=== PATIENT | female | born 1955 | race Caucasian/White ===

== ENCOUNTER 2017-06-14 11:27 | Inpatient (IN) | payer MEDICAID ==
[2017-06-14 12:27] LABS: GLUCOSE, URINE (UA) NEGATIVE (NEGATIVE); OCCULT BLOOD,URINE NEGATIVE (NEGATIVE); UROBILINOGEN,URINE 1 (NORMAL) E.U./dL (NORMAL)
[2017-06-14 12:31] LABS: CLARITY,URINE CLEAR (CLEAR)
[2017-06-14 12:32] LABS: BILIRUBIN,URINE NEGATIVE (NEGATIVE); ICTOTEST,URINE NEGATIVE
[2017-06-14 12:34] LABS: BASOPHILS # (AUTO) 0.1 10^3/uL (0.0-0.1); BASOPHILS % (AUTO) 1.8 %; EOSINOPHILS % (AUTO) 0.3 %; HGB - HEMOGLOBIN 16.1 g/dL (12.0-16.0); LYMPHOCYTES # (AUTO) 0.8 10^3/uL (1.5-3.5); LYMPHOCYTES % (AUTO) 9.6 %; MEAN CORPUSCULAR HEMOGLOBIN 33.8 pg (27.0-31.0); MEAN CORPUSCULAR HGB CONC 34.2 g/dL (32.0-36.0); MEAN PLATELET VOLUME 9.3 fL (7.9-10.8); MONOCYTES # (AUTO) 0.4 10^3/uL (0.0-1.0); MONOCYTES % (AUTO) 5.1 %; NEUTROPHILS # (AUTO) 6.6 10^3/uL (1.5-6.6); NEUTROPHILS % (AUTO) 83.2 %; PLT - PLATELET COUNT 229 10^3/uL (130-450); RED BLOOD COUNT 4.76 10^6/uL (4.20-5.40); RED CELL DISTRIBUTION WIDTH 16.6 % (12.0-15.0); WHITE BLOOD COUNT 7.9 x10^3/uL (4.8-10.8)
--- NOTE | 2017-06-14 12:54 | ED Physician Documentation ---
PD HPI ABD PAIN - Stated complaint Stated Complaint: ABD PX - Chief complaint Chief Complaint: Abd Pain - History obtained from History obtained from: Patient - History of Present Illness Timing - onset: How many days ago (several) Timing - duration: Days (has had nausea, poor appetite, upper abd discomfort for few days.) Timing - details: Gradual onset, Still present Quality: Aching, Sharp, Pain Location: Epigastric Radiation: No: Lower back, Left flank, Right flank Worsened by: Eating, Breathing, Palpation. No: Position Associated symptoms: Nausea, Vomiting (couple of times), Loss of appetite. No: Fever, Hematemesis, Diarrhea, Constipation, Melena, Hematochezia Similar symptoms before: Has not had sx before Recently seen: Not recently seen Review of Systems Constitutional: denies: Fever, Chills, Myalgias Nose: denies: Rhinorrhea / runny nose, Congestion Throat: denies: Sore throat Cardiac: denies: Chest pain / pressure, Palpitations Respiratory: denies: Dyspnea, Cough GI: reports: Abdominal Pain, Nausea, Vomiting (just couple of times today). denies: Diarrhea, Bloody / black stool : denies: Dysuria, Frequency Skin: denies: Rash, Lesions Neurologic: reports: Generalized weakness. 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 HEENT: Tonsil/Adenoidectomy - Present Medications Home Medications: Ambulatory Orders Medication Instructions Recorded Confirmed Albuterol Sulfate [Proair Hfa 2 puffs INH Q4H PRN 06/14/17 06/14/17 Inhaler] Aspirin Chewable [[place] 81 mg PO DAILY 06/14/17 06/14/17 Aspirin] Calcium/Magnesium/Zinc 1 each PO DAILY 06/14/17 06/14/17 [Hmcthma-Uqxlnsiie-Pgfb Tablet] Lactobacillus Acidophilus 1 cap PO BID 06/14/17 06/14/17 [Acidophilus Lactobacilli] Levothyroxine Sodium 88 mcg PO QPM 06/14/17 06/14/17 Meloxicam 15 mg PO QPM PRN 06/14/17 06/14/17 Methocarbamol 500 mg PO QPM PRN 06/14/17 06/14/17 Metoprolol Tartrate 25 mg PO BID 06/14/17 06/14/17 Multivitamin [Theragran] 1 tab PO DAILY 06/14/17 06/14/17 [place]-3 Acid Ethyl Esters [Lovaza] 1 gm PO BID 06/14/17 06/14/17 Omeprazole 40 mg PO BID 06/14/17 06/14/17 - Allergies Allergies/Adverse Reactions: Allergies Allergy/AdvReac Type Severity Reaction Status Date / Time No Known Drug Allergies Allergy Verified 06/14/17 11:35 - Living Situation Living Situation: reports: With spouse/s.o. Living Arrangement: reports: At home - Social History Does the pt smoke?: Yes Smoking Status: Current every day smoker Does the pt drink ETOH?: Yes ETOH Use: Other (She says she only has 1 or 2 drinks daily and not even every day. She denies any alcohol use in the last 2-3 days because of nausea and the abdominal discomfort.) Does the pt have substance abuse?: No - Family History Family history: reports: Non contributory - POLST Patient has POLST: No PD ED PE NORMAL - Vitals Vital signs reviewed: Yes - General General: Alert and oriented X 3, Well developed/nourished, Other (She appears in discomfort upper abd. ) - HEENT HEENT: Ears normal, Pharynx benign - Neck Neck: Supple, no meningeal sign, No adenopathy, No JVD - Cardiac Cardiac: RRR, No murmur - Respiratory Respiratory: No respiratory distress, Clear bilaterally - Abdomen Abdomen: Normal bowel sounds, Non distended, No organomegaly, Other (very tender upper mid abdomen with local guarding and local rigidity. Mild percussion tenderness. ) - Female Female : Deferred - Rectal Rectal: Deferred - Back Back: No CVA TTP - Derm Derm: Normal color, Warm and dry - Extremities Extremities: No deformity, No tenderness to palpate, Normal ROM s pain - Neuro Neuro: Alert and oriented X 3, No motor deficit, Normal speech, Other (mild to moderate tremors of both arms and hands. ) Eye Opening: Spontaneous Motor: Obeys Commands Verbal: Oriented GCS Score: 15 - Psych Psych: Normal mood Results - Vitals Vitals: Vital Signs - 24 hr 06/14/17 06/14/17 11:30 14:34 Temperature 36.8 C Heart Rate 123 H 93 Respiratory 18 19 Rate Blood Pressure 143/98 H 121/83 H O2 Saturation 98 95 Oxygen O2 Source Room air - Labs Labs: Laboratory Tests 06/14/17 06/14/17 06/14/17 11:55 12:25 12:25 WBC 7.9 RBC 4.76 Hgb 16.1 H Hct 47.2 H MCV 99.0 MCH 33.8 H MCHC 34.2 RDW 16.6 H Plt Count 229 MPV 9.3 Neut # 6.6 Lymph # 0.8 L [place] # 0.4 Eos # 0.0 Baso # 0.1 Absolute Nucleated RBC 0.00 Nucleated RBC % 0.0 PT INR Sodium 134 L Potassium 3.6 Chloride 99 L Carbon Dioxide 25 Anion Gap 10.0 BUN 12 Creatinine 0.9 Estimated GFR (MDRD) 64 L Glucose 111 H Lactic Acid Calcium 9.4 Total Bilirubin 1.7 H AST 129 H ALT 91 H Alkaline Phosphatase 137 H Total Protein 7.5 Albumin 4.3 Globulin 3.2 Albumin/Globulin Ratio 1.3 Lipase 2118 H Urine Color ORANGE Urine Clarity CLEAR Urine pH 7.0 Ur Specific [place] 1.015 Urine Protein Not Reportable Urine Glucose (UA) NEGATIVE Urine Ketones Not Reportable Urine Occult Blood NEGATIVE Urine Nitrite Not Reportable Urine Bilirubin NEGATIVE Urine Urobilinogen 1 (NORMAL) 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 RBC 0-5 Urine WBC 11-25 H Ur Squamous Epith Cells MANY Squamous H Urine Bacteria Moderate H Urine Mucus Marked Strands Ur Microscopic Review INDICATED Urine Culture Comments Not Reportable Ethyl Alcohol 06/14/17 06/14/17 06/14/17 12:25 13:39 13:39 WBC RBC Hgb Hct MCV MCH MCHC RDW Plt Count MPV Neut # Lymph # [place] # Eos # Baso # Absolute Nucleated RBC Nucleated RBC % PT 11.5 INR 1.0 Sodium Potassium Chloride Carbon Dioxide Anion Gap BUN Creatinine Estimated GFR (MDRD) Glucose Lactic Acid 0.9 Calcium Total Bilirubin AST ALT Alkaline Phosphatase Total Protein Albumin Globulin Albumin/Globulin Ratio Lipase Urine Color Urine Clarity Urine pH Ur Specific [place] Urine Protein Urine Glucose (UA) Urine Ketones Urine Occult Blood Urine Nitrite Urine Bilirubin Urine Urobilinogen Ur Leukocyte Esterase Urine RBC Urine WBC Ur Squamous Epith Cells Urine Bacteria Urine Mucus Ur Microscopic Review Urine Culture Comments Ethyl Alcohol < 5.0 PD MEDICAL DECISION MAKING - ED course Complexity details: considered differential (She states only small amount of ongoing alcohol use. She has not had any for couple of days and does appear to have tremors and some shakiness. I wonder if she actually has more than she is admitting. Her lipase is quite elevated in the liver enzymes are only slightly so it does sound like primary pancreatitis. We will get a CT scan. She is given IV fluids and pain medicines. Given the degree of pain and tenderness along with the level of lipase, it is unlikely to be able to be treated at home. She does have a normal calcium level and other electrolytes and blood sugar. She is admitted to the hospitalist service for further care.), d/w patient Departure - Departure Disposition: [facility] DC/Xfer Clinical Impression: Abdominal pain Qualifiers: Abdominal location: upper abdomen, unspecified Qualified Code(s): R10.10 - Upper abdominal pain, unspecified Pancreatitis, acute Qualifiers: Pancreatitis type: unspecified pancreatitis type Acute pancreatitis complication: no infection or necrosis Qualified Code(s): K85.90 - Acute pancreatitis without necrosis or infection, unspecified Condition: Stable Record reviewed to determine appropriate education?: Yes
[2017-06-14 12:59] LABS: BACTERIA,URINE Moderate /HPF (None Seen); MUCUS,URINE Marked Strands; RBC,URINE 0-5 /HPF (0-5); SQUAMOUS EPITHELIAL CELL,UR MANY Squamous (<= Few)
[2017-06-14 13:13] LABS: ALBUMIN 4.3 g/dL (3.2-5.5); ALBUMIN/GLOBULIN RATIO 1.3 (1.0-2.2); BILIRUBIN,TOTAL 1.7 mg/dL (0.2-1.0); CALCIUM 9.4 mg/dL (8.5-10.3); CREATININE 0.9 mg/dL (0.4-1.0); TOTAL PROTEIN 7.5 g/dL (6.7-8.2)
[2017-06-14] MEDS ORDERED: ONDANSETRON 4 MG/2 ML VIAL IVP STA (13:14)
[2017-06-14] MEDS ORDERED: HYDROmorphone 1 MG/ML CARPUJECT IVP STA (13:14)
[2017-06-14] MEDS ORDERED: LORazepam 2 MG/ML VIAL IVP STA (13:14)
[2017-06-14] MEDS ORDERED: SODIUM CHLORIDE 0.9% 1,000 ML IV ONE (13:14)
[2017-06-14] MEDS ORDERED: FAMOTIDINE 20 MG/50 ML 50 ML IV ONE (13:15)
[2017-06-14] MEDS ORDERED: IOPAMIDOL-300 100 ML VIAL ONE (14:06)
[2017-06-14] MEDS ORDERED: KETOROLAC 60 MG/2 ML VIAL IVP STA (14:13)
[2017-06-14] MEDS ORDERED: SODIUM CHLORIDE FLUSH 0.9% 10 ML SYRINGE IVP PRN (14:48)
[2017-06-14] MEDS ORDERED: PROMETHAZINE 25 MG/1 ML VIAL IM PRN (14:48)
[2017-06-14] MEDS ORDERED: HYDROmorphone 1 MG/ML CARPUJECT IVP PRN (14:48)
[2017-06-14] MEDS ORDERED: ZOLPIDEM 5 MG TABLET PO PRN (14:48)
[2017-06-14] MEDS ORDERED: IOPAMIDOL-300 100 ML VIAL IVP ONE (14:50)
[2017-06-14] MEDS ORDERED: LORazepam 0.5 MG TABLET PO PRN (14:55)
[2017-06-14] MEDS ORDERED: ALBUTEROL NEB 2.5 MG/3 ML INH PRN (15:00)
[2017-06-14 15:17] LABS: PT - PROTHROMBIN TIME 11.5 secs (9.9-12.6)
--- NOTE | 2017-06-14 15:25 | CT Report ---
EXAM: CT ABDOMEN AND PELVIS EXAM DATE: 06/14/2017 02:51 PM. CLINICAL HISTORY: Upper abd pain. Nausea. COMPARISONS: None. TECHNIQUE: Routine helical CT imaging was performed through the abdomen and pelvis. IV contrast: 100 cc Isovue-300. Enteric contrast: No. Reconstructions: Coronal and sagittal. In accordance with CT protocol optimization, one or more of the following dose reduction techniques w ere utilized for this exam: automated exposure control, adjustment of mA and/or KV based on patient s ize, or use of iterative reconstructive technique. FINDINGS: Lung Bases: A nonspecific 4 mm peripheral right lower lobe nodule (8/3). Mild right basilar atelectas is or scarring. No effusion. Aortic valvular and mitral annular calcifications. No mainly. Liver: Upper normal in size with diffuse hypoattenuation consistent with mild steatosis. No focal les ion or nodular capsule. Widely patent vasculature. Gallbladder/Bile Ducts: No calcified gallstones or wall thickening. No ductal dilatation. Spleen: Normal size and attenuation. Pain splenic vein. Pancreas: Mildly edematous head, body, and proximal tail. No parenchymal necrosis, focal mass or duct al dilatation. Moderate peripancreatic infiltration and irregular hypodense peripancreatic fluid/exud ates. No pseudocyst. Fat stranding/edema tracks to the midline small bowel mesentery and retroperiton eum, right greater than left. Adrenal Glands: Mild nonspecific renal thickening, without suspicious nodule. Kidneys: Unremarkable. No hydronephrosis, stones, or abnormal parenchymal enhancement. Variant promin ent extrarenal pelvis. Peritoneal Cavity/Bowel: Small hiatus hernia. No intestinal dilatation or acute inflammation. Diffuse colonic diverticulosis most prominent of descending and sigmoid colon. Normal appendix. No intraperi toneal free fluid or free air. No mesenteric adenopathy by CT size criteria. Pelvic Organs: No gross abnormality of the relatively contracted bladder. [employer] organs within normal li mits for age. Vasculature: Severe atherosclerosis including heavily calcified abdominal aorta and iliac arteries. Bones: Mild scoliosis. No fracture or aggressive bone destructive process. Other: Apparent nonspecific asymmetric fibroglandular changes in the breasts, noted a 6 mm nodule on the left (5). IMPRESSION: 1. Consistent with acute pancreatitis with moderate peripancreatic exudates. No pseudocyst, ductal di latation, or necrosis. 2. No calcified gallstone or dilated bile ducts. 3. Mild hepatic steatosis. 4. Diffuse colonic diverticulosis. No bowel destruction. 5. Small hiatus hernia. 6. Severe atherosclerosis. 7. Other incidental findings including a nonspecific 4 mm peripheral right lower lobe lung nodule and apparent asymmetric fibroglandular densities in the breasts. [facility] Referring Provider Line: [phone] SITE ID: [id number]
--- NOTE | 2017-06-14 16:16 | HISTORY & PHYSICAL EXAMINATION ---
Chief Complaint - Chief Complaint Chief Complaint: abdominal pain History of Present Illness - Admitted From Admitted From:: ER - History Obtained From History obtained from: pt - History of Present Illness HPI Comment/Other: Ms. Adkins is 61-year-old female with PMH of alcoholic and cigarette abuse, tremor, HTN, GERD, hypothyroidism, osteoarthritis, who present ER for complaint of abdominal pain. Pt report she has not been drinking alcohol for one week. Three days she started to have nausea, vomiting, upper gastric discomfort, and loss appetite as well. Today morning around 3 am when she waked up she had sharp upper quadrant abdominal pain. Pain scale was at 8/10. Pain was not radiate to other locations, was intermittent. Pt denies hematemesis, melena, hematochezia, chest pain, shortness of breath, fever, chill, cough, diarrhea, bloody or black stool. Pt report she is current cigarette smoking, and alcoholic drinking, " I just can not stop these things, I know it is not good." CT of abdomen reveals acute pancreatitis with moderate peripancreatic exudates, no pseudocyst, ductal dilatation, or necrosis. Elevated liver enzyme, and total bilirubin. Lipase is 2118. 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 Pt had one daughter and one son, both children are health. Living arrangement: At home Living Situation: Alone - Substance History Abuse: Recurrent use of substance despite neg consequences: Alcohol Dependence: Experiences withdrawal or developed tolerances: Tobacco, Alcohol Tobacco Details: Cigarettes - POLST Patient has POLST: No POLST Status: Limited Interventions Meds/Allgy - Home Medications Home Medications: Ambulatory Orders Medication Instructions Recorded Confirmed Albuterol Sulfate [Proair Hfa 2 puffs INH Q4H PRN 06/14/17 06/14/17 Inhaler] Aspirin Chewable [[place] 81 mg PO DAILY 06/14/17 06/14/17 Aspirin] Calcium/Magnesium/Zinc 1 each PO DAILY 06/14/17 06/14/17 [Pgwaeuq-Yxiwujnfh-Pbwq Tablet] Lactobacillus Acidophilus 1 cap PO BID 06/14/17 06/14/17 [Acidophilus Lactobacilli] Levothyroxine Sodium 88 mcg PO QPM 06/14/17 06/14/17 Meloxicam 15 mg PO QPM PRN 06/14/17 06/14/17 Methocarbamol 500 mg PO QPM PRN 06/14/17 06/14/17 Metoprolol Tartrate 25 mg PO BID 06/14/17 06/14/17 Multivitamin [Theragran] 1 tab PO DAILY 06/14/17 06/14/17 [place]-3 Acid Ethyl Esters [Lovaza] 1 gm PO BID 06/14/17 06/14/17 Omeprazole 40 mg PO BID 06/14/17 06/14/17 - Allergies Allergies/Adverse Reactions: Allergies Allergy/AdvReac Type Severity Reaction Status Date / Time No Known Drug Allergies Allergy Verified 06/14/17 11:35 Review of Systems - Constitutional Constitutional: reports: Fatigue, Weakness, Poor appetite. denies: Fever, Chills, Malaise, Diaphoresis, Night sweats, Weight gain, Weight loss - Eyes Eyes: denies: Pain, Irritation, Amaurosis, Blurred vision, Spots in vision, Field loss, Vision loss, Dipolpia - Ears, Nose & Throat Ears, Nose & Throat: denies: Ear pain, Hearing loss, Hearing aids, Vertigo, Nasal pain, Nasal discharge, Nosebleeds, Nasal congestion, Postnasal drainage, Sore throat, Bleeding gums - Cardiovascular Cariovascular: denies: Irregular heart rate, Palpitations, Chest pain, Edema, Lightheadedness, Syncope, Exertional dyspnea, Decr. exercise tolerance, Orthopnea - Respiratory Respiratory: denies: Cough, Sputum production, Wheezing, Snoring, Hemoptysis, Orthopnea, SOB at rest, SOB with exertion, Apnea - Gastrointestinal Gastrointestinal: reports: Abdominal pain, Nausea, Vomiting, Poor appetite. denies: Abdominal distention, Constipation, Diarrhea, Change in bowel habits, Rectal bleeding, Bile emesis, [place] blood emesis, Coffee grounds emesis, Reflux/ heartburn, Bloating - Genitourinary Genitourinary: denies: Dysuria, Frequency, Urgency, Hematuria, Incontinence, Flank pain, Nocturia, Urethral discharge - Musculoskeletal Musculoskeletal: denies: Muscle pain, Back pain, Muscle aches, Stiffness, Limited range of motion, Muscle weakness, Gout, Joint pain, Joint swelling - Integumentary Integumentary: denies: Rash, Pruritis, Lesions, Dryness, Lumps, Acne, Pigment changes - Neurological Neurological: denies: General weakness, Focal weakness, Headache, Dizziness, Numbness, Memory problems, Pre-existing deficit, Abnormal gait, Seizures, Incoordination, Slurred speech - Psychiatric Psychiatric: denies: Depression, Anxiety, Suicidal, Delusions, Hallucinations, Homicidal - Endocrine Endocrine: denies: Polyuria, Polydypsia, Polyphagia, Intolerance to cold - Hematologic/Lymphatic Hematologic/Lymphatic: denies: Anemia, Bruising, Petechiae, Blood clots, Lymphadenopathy, Bleeding tendencies, Recurrent infections Exam - Vital Signs Reviewed Vital Signs: Yes - Physical Exam General Appearance: positive: No acute distress, Alert. negative: Lethargic Eyes Bilateral: positive: Normal inspection, PERRL, No lid inflammation, Conjunctivae nml ENT: positive: ENT inspection nml, Pharynx nml, No signs of dehydration. negative: Purulent nasal drainage, Pharyngeal erythema, Oral lesions, Dry mucous membranes Neck: positive: Nml inspection, Thyroid nml, No JVD, Trachea midline. negative : Thyromegaly, Lymphadenopathy (R), Lymphadenopathy (L), Stiff neck, Carotid bruit, Swelling/bruising, Tracheal deviation Respiratory: positive: Chest non-tender, No respiratory distress. negative: Wheezes, Rales, Rhonchi Cardiovascular: positive: Regular rate & rhythm, No murmur, No gallop. negative : Irregularly irregular, Extrasystoles, Tachycardia, Bradycardia, JVD present, Systolic murmur, Diastolic murmur Peripheral Pulses: positive: 2+ Abdomen: positive: No organomegaly, Nml bowel sounds, No distention, Tenderness. negative: Guarding, Rebound, Abnml bowel sounds Back: positive: Nml inspection. negative: CVA tenderness (R), CVA tenderness (L ) Skin: positive: Color nml, No rash, Warm, Dry. negative: Cyanosis, Diaphoresis , Pallor Extremities: positive: Non-tender, Full ROM, Nml appearance. negative: Calf tenderness, Joint swelling, Suri's sign/cords Neurologic/Psychiatric: positive: Oriented x3, Sensation nml, Mood/affect nml. negative: Weakness, Sensory loss, Facial droop, Slurred/abnml speech, Depressed mood/affect Conclusion/Plan - Problem List (1) Pancreatitis, acute Conclusion/Plan: CT show acute pancreatitis without other complications, significant elevated Lipase, but with normal Calcium IVF NPO with meds pain control check c-reactive protein level daily check Lipase daily lab, and vital monitor Qualifiers: Pancreatitis type: unspecified pancreatitis type Acute pancreatitis complication: no infection or necrosis Qualified Code(s): K85.90 - Acute pancreatitis without necrosis or infection, unspecified (2) Alcohol abuse Conclusion/Plan: pt state she is alcohol-dependence and with withdrawal of shaking, but no seizure or other symptoms reported from pt. CIWA protocol with Ativan PRN and B1 daily tele, and vital monitor consult with alcohol cease (3) Cigarette nicotine dependence Conclusion/Plan: pt also report she is current cigarette smoker Nicotin patch advise pt quit cigarette smoking. (4) HTN (hypertension) Conclusion/Plan: stable, resume home meds (5) Hypothyroidism Conclusion/Plan: resume home meds, check TSH (6) GERD (gastroesophageal reflux disease) Conclusion/Plan: resume home meds, Protonix (7) Tremor Conclusion/Plan: stable, closely monitor. (8) DVT prophylaxis Conclusion/Plan: SCD and Lovenox, normal Plt (9) Limited code status Conclusion/Plan: pt request limited code status with CPR but without incubation - Lab Results Fish Bones: 06/14/17 12:25 06/14/17 12:25 Core Measures - Anticipated LOS I expect patient to be DC'd or transferred within 96 hours.: Yes - DVT/VTE - Prophylaxis VTE/DVT Device ordered at admit?: Yes VTE/DVT Prophylaxis med ordered at admit?: Yes
[2017-06-14] MEDS: PANTOPRAZOLE 40 MG TABLET PO SCH (17:27)
[2017-06-14] MEDS: SODIUM CHLORIDE FLUSH 0.9% 10 ML SYRINGE IVP SCH (17:27)
[2017-06-14] MEDS: SODIUM CHLORIDE 0.9% 1,000 ML IV SCH (17:27)
[2017-06-14] MEDS: NICOTINE 21 MG PATCH TOP SCH (17:27)
[2017-06-14] MEDS: CALCIUM CARB (OYSTER SHELL) 500 MG TABLET PO SCH (20:19)
[2017-06-14] MEDS: OMEGA-3 ACID ETHYL ESTERS 1 GM CAPSULE PO SCH (20:19)
[2017-06-14] MEDS: MAGNESIUM OXIDE 400 MG TABLET PO SCH (20:19)
[2017-06-14] MEDS: METOPROLOL TARTRATE 25 MG TABLET PO SCH (20:19)
[2017-06-14] MEDS: ZINC SULFATE 220 MG CAPSULE PO SCH (20:20)
[2017-06-14] MEDS: LEVOTHYROXINE 88 MCG TABLET PO SCH (20:25)
[2017-06-14] MEDS: ACETAMINOPHEN 325 MG TABLET PO PRN (20:28)
[2017-06-14] MEDS ORDERED: METHOCARBAMOL 500 MG TABLET PO PRN (21:00)
[2017-06-15] MEDS: SODIUM CHLORIDE 0.9% 1,000 ML IV SCH ×4 (00:39→21:57)
[2017-06-15] MEDS: SODIUM CHLORIDE FLUSH 0.9% 10 ML SYRINGE IVP SCH ×3 (00:39→15:48)
[2017-06-15] MEDS: ONDANSETRON 4 MG/2 ML VIAL IVP PRN ×2 (05:19→11:33)
[2017-06-15 05:28] LABS: BASOPHILS % (AUTO) 0.4 %; EOSINOPHILS # (AUTO) 0.1 10^3/uL (0.0-0.7); EOSINOPHILS % (AUTO) 1.4 %; HGB - HEMOGLOBIN 13.8 g/dL (12.0-16.0); LYMPHOCYTES # (AUTO) 1.3 10^3/uL (1.5-3.5); LYMPHOCYTES % (AUTO) 21.9 %; MEAN CORPUSCULAR HEMOGLOBIN 33.2 pg (27.0-31.0); MEAN CORPUSCULAR HGB CONC 33.2 g/dL (32.0-36.0); MEAN CORPUSCULAR VOLUME 100.2 fL (81.0-99.0); MEAN PLATELET VOLUME 9.7 fL (7.9-10.8); MONOCYTES # (AUTO) 0.5 10^3/uL (0.0-1.0); MONOCYTES % (AUTO) 8.9 %; NEUTROPHILS # (AUTO) 3.9 10^3/uL (1.5-6.6); NEUTROPHILS % (AUTO) 67.4 %; PLT - PLATELET COUNT 175 10^3/uL (130-450); RED BLOOD COUNT 4.16 10^6/uL (4.20-5.40); RED CELL DISTRIBUTION WIDTH 16.5 % (12.0-15.0); WHITE BLOOD COUNT 5.8 x10^3/uL (4.8-10.8)
[2017-06-15 06:00] LABS: ALBUMIN 3.4 g/dL (3.2-5.5); ALBUMIN/GLOBULIN RATIO 1.2 (1.0-2.2); BILIRUBIN,TOTAL 1.3 mg/dL (0.2-1.0); CALCIUM 8.2 mg/dL (8.5-10.3); CREATININE 0.4 mg/dL (0.4-1.0); CRP - C-REACTIVE PROTEIN 4.2 mg/dL (0-1.0); MAGNESIUM 1.7 mg/dL (1.7-2.8); TOTAL PROTEIN 6.3 g/dL (6.7-8.2)
[2017-06-15] MEDS: PANTOPRAZOLE 40 MG TABLET PO SCH (06:05)
[2017-06-15] MEDS ORDERED: ZINC PO SCH (09:00)
[2017-06-15] MEDS ORDERED: CALCIUM PO SCH (09:00)
[2017-06-15] MEDS ORDERED: MAGNESIUM PO SCH (09:00)
[2017-06-15] MEDS: ASPIRIN CHEW 81 MG TABLET PO SCH (09:22)
[2017-06-15] MEDS: METOPROLOL TARTRATE 25 MG TABLET PO SCH ×2 (09:23→20:38)
[2017-06-15] MEDS: THIAMINE 100 MG TABLET PO SCH (09:24)
[2017-06-15] MEDS: PRENATAL VITAMIN TABLET PO SCH (09:24)
[2017-06-15] MEDS: OMEGA-3 ACID ETHYL ESTERS 1 GM CAPSULE PO SCH ×2 (09:25→20:36)
[2017-06-15] MEDS: MULTIVITAMIN TABLET PO SCH (09:25)
[2017-06-15] MEDS: POLYETHYLENE GLYCOL 3350 17 GM PACKET PO SCH (09:25)
[2017-06-15] MEDS: NICOTINE 21 MG PATCH TOP SCH (09:26)
[2017-06-15] MEDS: ENOXAPARIN 40 MG/0.4 ML SYRINGE SUBQ SCH (09:30)
--- NOTE | 2017-06-15 10:44 | PROVIDER PROGRESS NOTE ---
Subjective - Prog Note Date Prog Note Date: 06/15/17 - Subjective Pt reports feeling: Improved Subjective: pt report her abdominal pain is better, still some nausea but better, appetite is some better. No vomiting. No CH, SOB, fever, chill. Current Medications - Current Medications Current Medications: Active Medications Acetaminophen (Tylenol) 650 mg PO Q4HR PRN PRN Reason: Pain 1 to 4 Last Admin: 06/14/17 20:28 Dose: 650 mg Albuterol () 2.5 mg INH RTQ4H PRN PRN Reason: Wheezing Aspirin ([place] Aspirin) 81 mg PO DAILY [facility] Last Admin: 06/15/17 09:22 Dose: 81 mg Calcium Carbonate/Glycine (Oysco-500) 500 mg PO QPM [facility] Last Admin: 06/14/17 20:19 Dose: 500 mg Enoxaparin Sodium (Lovenox) 40 mg SUBQ DAILY [facility] Last Admin: 06/15/17 09:30 Dose: 40 mg Hydromorphone HCl (Dilaudid Inj Carp) 1 mg IVP Q2HR PRN PRN Reason: Pain 8 to 10 Last Admin: 06/15/17 05:20 Dose: 1 mg Sodium Chloride (Normal Saline 0.9%) 1,000 mls @ 150 mls/hr IV .Q6H40M [facility] Last Admin: 06/15/17 07:39 Dose: 150 mls/hr Levothyroxine Sodium (Synthroid) 88 mcg PO QPM [facility] Last Admin: 06/14/17 20:25 Dose: 88 mcg Lorazepam (Ativan) 1 mg PO Q1H PRN; Protocol PRN Reason: CIWA > 8 Magnesium Oxide (Mag Ox) 400 mg PO QPM [facility] Last Admin: 06/14/17 20:19 Dose: 400 mg Methocarbamol (Robaxin) 500 mg PO QPM PRN PRN Reason: PAIN Metoprolol Tartrate (Lopressor) 25 mg PO BID [facility] Last Admin: 06/15/17 09:23 Dose: 25 mg Multivitamins (Theragran) 1 tab PO DAILY [facility] Last Admin: 06/15/17 09:25 Dose: 1 tab Nicotine (Nicoderm) 1 patch TOP DAILY [facility] Last Admin: 06/15/17 09:26 Dose: 1 patch Izroe-4-Hbpg Ethyl Esters (Lovaza) 1 gm PO BID [facility] Last Admin: 06/15/17 09:25 Dose: 1 gm Ondansetron HCl (Zofran Inj) 4 mg IVP Q6HR PRN PRN Reason: Nausea / Vomiting Last Admin: 06/15/17 05:19 Dose: 4 mg Pantoprazole Sodium (Protonix) 40 mg PO QDAC [facility] Last Admin: 06/15/17 06:05 Dose: 40 mg Polyethylene Glycol (Miralax) 17 gm PO DAILY [facility] Last Admin: 06/15/17 09:25 Dose: Not Given Multivit/Folic Acid/Iron (Trinatal Rx 1) 1 tab PO DAILY [facility] Last Admin: 06/15/17 09:24 Dose: 1 tab Promethazine HCl (Phenergan Inj) 25 mg IM Q6HR PRN PRN Reason: Nausea / Vomiting Sodium Chloride (Normal Saline Flush 0.9%) 10 ml IVP PRN PRN PRN Reason: NEEDED PER PROVIDER ORDERS Sodium Chloride (Normal Saline Flush 0.9%) 10 ml IVP 0100,0900,1700 [facility] Last Admin: 06/15/17 09:32 Dose: Not Given Thiamine HCl (Vitamin B-1) 100 mg PO DAILY [facility] Last Admin: 06/15/17 09:24 Dose: 100 mg Zinc Sulfate () 220 mg PO QPM [facility] Last Admin: 06/14/17 20:20 Dose: 220 mg Zolpidem Tartrate (Ambien) 5 mg PO QPM PRN PRN Reason: Insomnia Albuterol Sulfate [Proair Hfa Inhaler] 2 puffs INH Q4H PRN 06/14/17 Aspirin Chewable [[place] Aspirin] 81 mg PO DAILY 06/14/17 Calcium/Magnesium/Zinc [Uxopxag-Gcdqkwavm-Dkuw Tablet] 1 each PO DAILY 06/14/17 Lactobacillus Acidophilus [Acidophilus Lactobacilli] 1 cap PO BID 06/14/17 Levothyroxine Sodium 88 mcg PO QPM 06/14/17 Meloxicam 15 mg PO QPM PRN 06/14/17 Methocarbamol 500 mg PO QPM PRN 06/14/17 Metoprolol Tartrate 25 mg PO BID 06/14/17 Multivitamin [Theragran] 1 tab PO DAILY 06/14/17 [place]-3 Acid Ethyl Esters [Lovaza] 1 gm PO BID 06/14/17 Omeprazole 40 mg PO BID 06/14/17 Objective - Vital Signs/Intake & Output Reviewed Vital Signs: Yes Vital Signs: Vital Signs x48h Temp Pulse Resp BP BP Pulse Ox 06/15/17 09:23 133/68 H 06/15/17 08:07 36.4 C L 74 16 133/68 H 98 06/15/17 04:52 36.5 C 81 16 152/78 H 97 Intake & Output: Intake & Output 06/12/17 06/13/17 06/14/17 06/15/17 23:59 23:59 23:59 23:59 Intake Total 1240 2360 Balance 1240 2360 - Objective General Appearance: positive: No acute distress, Alert. negative: Lethargic Eyes Bilateral: positive: Normal inspection, PERRL, No lid inflammation, Conjunctivae nml ENT: positive: ENT inspection nml, Pharynx nml, No signs of dehydration. negative: Purulent nasal drainage, Pharyngeal erythema, Oral lesions Neck: positive: Nml inspection, Thyroid nml, No JVD, Trachea midline. negative : Thyromegaly, Lymphadenopathy (R), Lymphadenopathy (L), Stiff neck, Carotid bruit, Swelling/bruising, Tracheal deviation Respiratory: positive: Chest non-tender, No respiratory distress, Breath sounds nml. negative: Wheezes, Rales, Rhonchi Cardiovascular: positive: Regular rate & rhythm, No murmur, No gallop. negative : Irregularly irregular, Extrasystoles, Tachycardia, Bradycardia, Systolic murmur, Diastolic murmur Peripheral Pulses: 2+ Radial (R), 2+ Radial (L), 2+ Dorsalis pedis (R), 2+ Dorsalis pedis (L) Abdomen: positive: Non-tender, No organomegaly, Nml bowel sounds, No distention. negative: Tenderness, Guarding, Rebound Back: positive: Nml inspection. negative: CVA tenderness (R), CVA tenderness (L ) Skin: positive: Color nml, No rash, Warm, Dry. negative: Cyanosis, Diaphoresis , Pallor Extremities: positive: Non-tender, Full ROM, Nml appearance. negative: Calf tenderness, Joint swelling, Suri's sign/cords Neurologic/Psychiatric: positive: Oriented x3, Motor nml, Sensation nml, Mood/ affect nml. negative: Weakness, Sensory loss, Facial droop, Slurred/abnml speech, Depressed mood/affect - Lab Results Fish Bones: 06/15/17 04:45 06/15/17 04:45 Other Labs: Lab Results x24hrs 06/15/17 06/15/17 06/15/17 Range/Units 04:45 04:45 04:45 WBC 5.8 (4.8-10.8) x10^3/uL RBC 4.16 L (4.20-5.40) 10^6/uL Hgb 13.8 (12.0-16.0) g/dL Hct 41.7 (37.0-47.0) % MCV 100.2 H (81.0-99.0) fL MCH 33.2 H (27.0-31.0) pg MCHC 33.2 (32.0-36.0) g/dL RDW 16.5 H (12.0-15.0) % Plt Count 175 (130-450) 10^3/uL MPV 9.7 (7.9-10.8) fL Neut # 3.9 (1.5-6.6) 10^3/uL Lymph # 1.3 L (1.5-3.5) 10^3/uL [place] # 0.5 (0.0-1.0) 10^3/uL Eos # 0.1 (0.0-0.7) 10^3/uL Baso # 0.0 (0.0-0.1) 10^3/uL Absolute Nucleated RBC 0.01 x10^3/uL Nucleated RBC % 0.2 /100WBC Sodium 138 (135-145) mmol/L Potassium 3.5 (3.5-5.0) mmol/L Chloride 107 (101-111) mmol/L Carbon Dioxide 25 (21-32) mmol/L Anion Gap 6.0 (6-13) BUN 8 (6-20) mg/dL Creatinine 0.4 (0.4-1.0) mg/dL Estimated GFR (MDRD) 163 (>89) Glucose 76 (70-100) mg/dL POC Whole Bld Glucose (70 - 100) mg/dL Calcium 8.2 L (8.5-10.3) mg/dL Magnesium 1.7 (1.7-2.8) mg/dL Total Bilirubin 1.3 H (0.2-1.0) mg/dL AST 78 H (10-42) IU/L ALT 63 H (10-60) IU/L Alkaline Phosphatase 107 (42-121) IU/L C-Reactive Protein 4.2 H (0-1.0) mg/dL Total Protein 6.3 L (6.7-8.2) g/dL Albumin 3.4 (3.2-5.5) g/dL Globulin 2.9 (2.1-4.2) g/dL Albumin/Globulin Ratio 1.2 (1.0-2.2) Lipase 1310 H (22-51) U/L TSH 2.22 (0.34-5.60) uIU/mL 06/15/17 06/14/17 06/14/17 Range/Units 00:23 19:19 18:34 WBC (4.8-10.8) x10^3/uL RBC (4.20-5.40) 10^6/uL Hgb (12.0-16.0) g/dL Hct (37.0-47.0) % MCV (81.0-99.0) fL MCH (27.0-31.0) pg MCHC (32.0-36.0) g/dL RDW (12.0-15.0) % Plt Count (130-450) 10^3/uL MPV (7.9-10.8) fL Neut # (1.5-6.6) 10^3/uL Lymph # (1.5-3.5) 10^3/uL [place] # (0.0-1.0) 10^3/uL Eos # (0.0-0.7) 10^3/uL Baso # (0.0-0.1) 10^3/uL Absolute Nucleated RBC x10^3/uL Nucleated RBC % /100WBC Sodium (135-145) mmol/L Potassium (3.5-5.0) mmol/L Chloride (101-111) mmol/L Carbon Dioxide (21-32) mmol/L Anion Gap (6-13) BUN (6-20) mg/dL Creatinine (0.4-1.0) mg/dL Estimated GFR (MDRD) (>89) Glucose (70-100) mg/dL POC Whole Bld Glucose 85 105 H 67 L (70 - 100) mg/dL Calcium (8.5-10.3) mg/dL Magnesium (1.7-2.8) mg/dL Total Bilirubin (0.2-1.0) mg/dL AST (10-42) IU/L ALT (10-60) IU/L Alkaline Phosphatase (42-121) IU/L C-Reactive Protein (0-1.0) mg/dL Total Protein (6.7-8.2) g/dL Albumin (3.2-5.5) g/dL Globulin (2.1-4.2) g/dL Albumin/Globulin Ratio (1.0-2.2) Lipase (22-51) U/L TSH (0.34-5.60) uIU/mL Assessment/Plan - Problem List (1) Pancreatitis, acute Impression: (1) Pancreatitis, acute Conclusion/Plan: pt report she feels better, pain is better controlled. Lipase is down to 1300 from 2100. continue IVF, clear diet, glucose check, pt had one hypoglycemia per nurse report continue pain control continue vital, lab monitor CT show acute pancreatitis without other complications, significant elevated Lipase, but with normal Calcium IVF NPO with meds pain control check c-reactive protein level daily check Lipase daily lab, and vital monitor Qualifiers: Pancreatitis type: unspecified pancreatitis type Acute pancreatitis complication: no infection or necrosis Qualified Code(s): K85.90 - Acute pancreatitis without necrosis or infection, unspecified (2) Alcohol abuse Conclusion/Plan: continue CIWA protocol neuro check pt state she is alcohol-dependence and with withdrawal of shaking, but no seizure or other symptoms reported from pt. CIWA protocol with Ativan PRN and B1 daily tele, and vital monitor consult with alcohol cease (3) Cigarette nicotine dependence Conclusion/Plan: continue nicotin patch pt also report she is current cigarette smoker Nicotin patch advise pt quit cigarette smoking. (4) HTN (hypertension) Conclusion/Plan: stable, resume home meds (5) Hypothyroidism Conclusion/Plan: TSH normal continue home meds resume home meds, check TSH (6) GERD (gastroesophageal reflux disease) Conclusion/Plan: resume home meds, Protonix (7) Tremor Conclusion/Plan: stable, closely monitor. Qualifiers: Pancreatitis type: unspecified pancreatitis type Acute pancreatitis complication: no infection or necrosis Qualified Code(s): K85.90 - Acute pancreatitis without necrosis or infection, unspecified
[2017-06-15] MEDS: ACETAMINOPHEN 325 MG TABLET PO PRN ×2 (11:35→21:56)
[2017-06-15] MEDS: ZINC SULFATE 220 MG CAPSULE PO SCH (20:36)
[2017-06-15] MEDS: MAGNESIUM OXIDE 400 MG TABLET PO SCH (20:36)
[2017-06-15] MEDS: CALCIUM CARB (OYSTER SHELL) 500 MG TABLET PO SCH (20:36)
[2017-06-15] MEDS: LEVOTHYROXINE 88 MCG TABLET PO SCH (20:36)
[2017-06-16] MEDS: SODIUM CHLORIDE FLUSH 0.9% 10 ML SYRINGE IVP SCH ×2 (02:47→10:33)
[2017-06-16] MEDS: SODIUM CHLORIDE 0.9% 1,000 ML IV SCH (04:48)
[2017-06-16] MEDS: ACETAMINOPHEN 325 MG TABLET PO PRN (05:14)
[2017-06-16] MEDS: PANTOPRAZOLE 40 MG TABLET PO SCH (06:05)
[2017-06-16 06:38] LABS: BASOPHILS % (AUTO) 0.4 %; EOSINOPHILS # (AUTO) 0.1 10^3/uL (0.0-0.7); EOSINOPHILS % (AUTO) 1.5 %; HGB - HEMOGLOBIN 13.2 g/dL (12.0-16.0); LYMPHOCYTES # (AUTO) 1.3 10^3/uL (1.5-3.5); LYMPHOCYTES % (AUTO) 23.9 %; MEAN CORPUSCULAR HEMOGLOBIN 33.4 pg (27.0-31.0); MEAN CORPUSCULAR HGB CONC 33.1 g/dL (32.0-36.0); MEAN CORPUSCULAR VOLUME 100.9 fL (81.0-99.0); MONOCYTES # (AUTO) 0.6 10^3/uL (0.0-1.0); MONOCYTES % (AUTO) 10.3 %; NEUTROPHILS # (AUTO) 3.6 10^3/uL (1.5-6.6); NEUTROPHILS % (AUTO) 63.9 %; PLT - PLATELET COUNT 174 10^3/uL (130-450); RED BLOOD COUNT 3.96 10^6/uL (4.20-5.40); RED CELL DISTRIBUTION WIDTH 16.1 % (12.0-15.0); WHITE BLOOD COUNT 5.6 x10^3/uL (4.8-10.8)
[2017-06-16 07:03] LABS: ALBUMIN 3.3 g/dL (3.2-5.5); ALBUMIN/GLOBULIN RATIO 1.2 (1.0-2.2); CALCIUM 8.3 mg/dL (8.5-10.3); CREATININE 0.4 mg/dL (0.4-1.0); TOTAL PROTEIN 6.1 g/dL (6.7-8.2)
[2017-06-16] MEDS: PRENATAL VITAMIN TABLET PO SCH (07:57)
[2017-06-16] MEDS: ASPIRIN CHEW 81 MG TABLET PO SCH (07:57)
[2017-06-16] MEDS: METOPROLOL TARTRATE 25 MG TABLET PO SCH (07:57)
[2017-06-16] MEDS: NICOTINE 21 MG PATCH TOP SCH (07:58)
[2017-06-16] MEDS: MULTIVITAMIN TABLET PO SCH (07:58)
[2017-06-16] MEDS: THIAMINE 100 MG TABLET PO SCH (07:58)
[2017-06-16] MEDS: ENOXAPARIN 40 MG/0.4 ML SYRINGE SUBQ SCH (07:59)
[2017-06-16 08:32] VITALS: BP 140/63
[2017-06-16] MEDS: POLYETHYLENE GLYCOL 3350 17 GM PACKET PO SCH (10:24)
--- NOTE | 2017-06-16 10:32 | Discharge Plan ---
Discharge Plan Disposition: 01 Home, Self Care Condition: Stable Prescriptions: Ondansetron HCl [Zofran] 4 mg PO Q6H PRN #15 tablet PRN Reason: Nausea / Vomiting oxyCODONE [Roxicodone] 5 mg PO Q6H PRN #15 tablet PRN Reason: Abdominal Pain Diet: Regular Activity Restrictions: Activity as Tolerated Shower Restrictions: No Driving Restrictions: No Weight Bearing: Full Weight Instruction Topics: Lipase, Pancreatitis, Pancreatitis Acute Dc, Oxycodone tablets or capsules, Ondansetron tablets Additional Instructions or Follow Up instructions: May see PCP in one week. Advise pt cease alcohol drinking and cigarette smoking. Should the symptoms return or worsen, may present to ER or call 911 for help. No Smoking: If you smoke, Please STOP! Call for help. Follow-up with: Amrita Salinas ARNP [Primary Care Provider] -
[2017-06-16] MEDS: OMEGA-3 ACID ETHYL ESTERS 1 GM CAPSULE PO SCH (10:34)
--- NOTE | 2017-06-16 10:41 | DISCHARGE SUMMARY ---
Discharge Summary Discharge Date: 06/16/17 Discharging Provider: HARVEY Primary Care Provider: Dr. Salinas Condition at Discharge: Stable Discharge Disposition: 01 Home, Self Care Discharge Facility Name: home - DIAGNOSES Admission Diagnoses: (1) Pancreatitis, acute (2) Alcohol abuse (3) Cigarette nicotine dependence (4) HTN (hypertension) (5) Hypothyroidism (6) GERD (gastroesophageal reflux disease) (7) Tremor Discharge Diagnoses with Status of Each Condition: (1) Pancreatitis, acute resolved. pt denies abdominal. No N/V/D, pt tolerate regular foot. Lipase 103 (2) Alcohol abuse consult, pt state she will reduce alcohol consume but state she will not cease (3) Cigarette nicotine dependence consult, pt state she will try cease the smoking (4) HTN (hypertension) stable, continue home regime (5) Hypothyroidism stable, continue home meds (6) GERD (gastroesophageal reflux disease) stable, continue home meds (7) Tremor stable - HPI History of Present Illness: refer my HPI on pt as the following: Ms. Adkins is 61-year-old female with PMH of alcoholic and cigarette abuse, tremor, HTN, GERD, hypothyroidism, osteoarthritis, who present ER for complaint of abdominal pain. Pt report she has not been drinking alcohol for one week. Three days she started to have nausea, vomiting, upper gastric discomfort, and loss appetite as well. Today morning around 3 am when she waked up she had sharp upper quadrant abdominal pain. Pain scale was at 8/10. Pain was not radiate to other locations, was intermittent. Pt denies hematemesis, melena, hematochezia, chest pain, shortness of breath, fever, chill, cough, diarrhea, bloody or black stool. Pt report she is current cigarette smoking, and alcoholic drinking, " I just can not stop these things, I know it is not good." CT of abdomen reveals acute pancreatitis with moderate peripancreatic exudates, no pseudocyst, ductal dilatation, or necrosis. Elevated liver enzyme, and total bilirubin. Lipase is 2118. - ALLERGIES Allergies/Adverse Reactions: Allergies Allergy/AdvReac Type Severity Reaction Status Date / Time No Known Drug Allergies Allergy Verified 06/14/17 11:35 - MEDICATIONS Home Medications: Ambulatory Orders Medication Instructions Recorded Confirmed Albuterol Sulfate [Proair Hfa 2 puffs INH Q4H PRN 06/14/17 06/14/17 Inhaler] Aspirin Chewable [[place] 81 mg PO DAILY 06/14/17 06/14/17 Aspirin] Calcium/Magnesium/Zinc 1 each PO DAILY 06/14/17 06/14/17 [Lnbofyy-Bbxpxrhhg-Isbc Tablet] Lactobacillus Acidophilus 1 cap PO BID 06/14/17 06/14/17 [Acidophilus Lactobacilli] Levothyroxine Sodium 88 mcg PO QPM 06/14/17 06/14/17 Meloxicam 15 mg PO QPM PRN 06/14/17 06/14/17 Methocarbamol 500 mg PO QPM PRN 06/14/17 06/14/17 Metoprolol Tartrate 25 mg PO BID 06/14/17 06/14/17 Multivitamin [Theragran] 1 tab PO DAILY 06/14/17 06/14/17 [place]-3 Acid Ethyl Esters [Lovaza] 1 gm PO BID 06/14/17 06/14/17 Omeprazole 40 mg PO BID 06/14/17 06/14/17 Ondansetron HCl [Zofran] 4 mg PO Q6H PRN #15 tablet 06/16/17 oxyCODONE [Roxicodone] 5 mg PO Q6H PRN #15 tablet 06/16/17 - PHYSICAL EXAM AT DISCHARGE General Appearance: positive: No acute distress, Alert. negative: Lethargic Eyes Bilateral: positive: Normal inspection, PERRL, No lid inflammation, Conjunctivae nml ENT: positive: ENT inspection nml, Pharynx nml, No signs of dehydration. negative: Purulent nasal drainage, Pharyngeal erythema, Oral lesions Neck: positive: Nml inspection, Thyroid nml, No JVD, Trachea midline. negative : Thyromegaly, Lymphadenopathy (R), Lymphadenopathy (L), Stiff neck, Carotid bruit, Swelling/bruising, Tracheal deviation Respiratory: positive: Chest non-tender, No respiratory distress, Breath sounds nml. negative: Wheezes, Rales, Rhonchi Cardiovascular: positive: Regular rate & rhythm, No murmur, No gallop. negative : Irregularly irregular, Extrasystoles, Tachycardia, Bradycardia, JVD present, Systolic murmur, Diastolic murmur Peripheral Pulses: positive: 2+ Abdomen: positive: Non-tender, No organomegaly, Nml bowel sounds, No distention. negative: Tenderness, Guarding, Rebound Back: positive: Nml inspection. negative: CVA tenderness (R), CVA tenderness (L ) Skin: positive: Color nml, No rash, Warm, Dry. negative: Cyanosis, Diaphoresis , Pallor Extremities: positive: Non-tender, Full ROM, Nml appearance. negative: Calf tenderness, Joint swelling, Suri's sign/cords Neurologic/Psychiatric: positive: Oriented x3, Motor nml, Sensation nml. negative: Weakness, Sensory loss, Facial droop, Slurred/abnml speech, Depressed mood/affect - LABS Result Diagrams: 06/16/17 05:31 06/16/17 05:31 - FOLLOW UP Follow Up: May follow up PCP in one week. Advise pt cease alcohol and cigarette smoking abuse. Should symptoms return or worsen, may present to ER or call 911 for help. - TIME SPENT Time Spent in Discharge (Minutes): 40
== END 2017-06-16 11:10 | disposition home or self-care (01) | DRG 439 ==
LOC: ED 11:27 → MS2 14:48
PROVIDERS: ADMIT Nurse Practitioner Gerontology; ATTEND Nurse Practitioner Gerontology
DX: K85.20 Alcohol induced acute pancreatitis without necrosis or infection (principal); F10.188 Alcohol abuse with other alcohol-induced disorder; F17.210 Nicotine dependence, cigarettes, uncomplicated; I10 Essential (primary) hypertension; E03.9 Hypothyroidism, unspecified; K21.9 Gastro-esophageal reflux disease without esophagitis; R25.1 Tremor, unspecified; M19.90 Unspecified osteoarthritis, unspecified site; Z79.51 Long term (current) use of inhaled steroids; Z79.899 Other long term (current) drug therapy
CPT/HCPCS: 36415; 74177; 80053; 80320; 81001; 81003; 83605; 83690; 83735; 84443; 85025; 85610; 86140; 87086; 96365; 96375; 99283; 99284; 99285

== ENCOUNTER 2017-11-28 09:10 | Outpatient (CLI) | payer MEDICAID ==
[2017-11-28 20:42] LABS: BASOPHILS % (AUTO) 0.5 %; EOSINOPHILS # (AUTO) 0.1 10^3/uL (0.0-0.7); EOSINOPHILS % (AUTO) 1.7 %; HGB - HEMOGLOBIN 15.9 g/dL (12.0-16.0); LYMPHOCYTES # (AUTO) 2.3 10^3/uL (1.5-3.5); LYMPHOCYTES % (AUTO) 31.6 %; MEAN CORPUSCULAR HGB CONC 33.6 g/dL (32.0-36.0); MEAN PLATELET VOLUME 10.9 fL (7.9-10.8); MONOCYTES # (AUTO) 0.8 10^3/uL (0.0-1.0); MONOCYTES % (AUTO) 11.2 %; PLT - PLATELET COUNT 289 10^3/uL (130-450); RED BLOOD COUNT 4.68 10^6/uL (4.20-5.40); WHITE BLOOD COUNT 7.3 x10^3/uL (4.8-10.8)
[2017-11-28 21:23] LABS: ALBUMIN/GLOBULIN RATIO 1.4 (1.0-2.2); BILIRUBIN,TOTAL 0.8 mg/dL (0.2-1.0); CALCIUM 9.5 mg/dL (8.5-10.3); CREATININE 0.7 mg/dL (0.4-1.0); TOTAL PROTEIN 6.8 g/dL (6.7-8.2)
== END 2017-11-28 09:11 | disposition home or self-care (01) ==
LOC: LAB.F 09:10
PROVIDERS: ATTEND Registered Nurse
DX: K75.9 Inflammatory liver disease, unspecified (principal)
CPT/HCPCS: 36415; 80053; 85025

== ENCOUNTER 2017-12-04 08:47 | Outpatient (CLI) | payer MEDICAID ==
[2017-12-04 20:29] LABS: THYROID STIMULATING HORMONE 0.28 uIU/mL (0.34-5.60)
[2017-12-04 20:34] LABS: FREE T4 (FREE THYROXINE) 0.99 ng/dL (0.58-1.64)
[2017-12-04 21:19] LABS: FOLATE > 49.60 ng/mL (5.90 - >24.8)
== END 2017-12-04 08:48 | disposition home or self-care (01) ==
LOC: LAB.F 08:47
PROVIDERS: ATTEND Registered Nurse
DX: M85.80 Other specified disorders of bone density and structure, unspecified site (principal); R53.83 Other fatigue; E03.9 Hypothyroidism, unspecified
CPT/HCPCS: 36415; 82306; 82607; 82746; 84439; 84443

== ENCOUNTER 2018-01-17 09:08 | Outpatient (CLI) | payer MEDICAID ==
--- NOTE | 2018-01-17 15:20 | DEXA Report ---
Reason: OTH DISRD OF BONE DENSITY AND STRUCTURE, UNSPECIFI Procedure Date: 01/17/2018 Accession Number: [id number] / [id number] Procedure: DEX - Dexa Spine and/or Hip CPT Code: FULL RESULT: EXAM: Dexa Spine and/or Hip DATE: 01/17/2018 9:50 AM CLINICAL HISTORY: OTH DISRD OF BONE DENSITY AND STRUCTURE, UNSPECIFI TECHNIQUE: Dual energy x-ray absorptiometry (DXA) was performed on a [employer] System. Regions measured are the AP Spine, femoral neck, and if needed forearm. COMPARISON: None. In accordance with the International Society for Clinical Densitometry (ISCD) guidelines, data from previous exams may be reanalyzed using current recommendations and techniques. This is done to allow a more accurate basis for comparison with the current study. FINDINGS: The data for the lumbar spine is as follows: BMD (g/cm/cm) T-SCORE Z-SCORE REGION L1 1.026 -0.9 0.3 L2 1.011 -1.6 -0.4 L3 1.061 -1.2 0.0 L4 1.045 -1.3 -0.1 TOTAL 1.036 -1.2 0.0 NOTE: All evaluable vertebrae are used for classification The data for the hip is as follows: BMD (g/cm/cm) T-SCORE Z-SCORE REGION Neck 0.860 -1.3 0.0 TOTAL 0.826 -1.4 -0.5 NOTE: The femoral neck or total proximal femur, whichever is lowest, is used for classification. IMPRESSION: THE WHO CLASSIFICATION BASED ON THE INTERNATIONAL REFERENCE STANDARD IS OSTEOPENIA. THE FRACTURE RISK IS INCREASED. RECOMMENDATION: Patients with diagnosis of osteoporosis or osteopenia should have regular bone mineral density assessment. For those eligible for Medicare, routine testing is allowed once every 2 years. Testing frequency can be increased for patients who have rapidly progressing disease or for those who are receiving medical therapy to restore bone mass. COMMENT: World Health Organization (WHO) definitions for osteoporosis and osteopenia: NORMAL BMD: T-score at -1.0 or higher, fracture risk is low OSTEOPENIA BMD: T-score between -1.0 and -2.5, fracture risk is increased. OSTEOPOROSIS BMD: T-score at -2.5 or lower, fracture risk is high. National Osteoporosis Foundation recommends: 1. Obtain adequate dietary calcium (at least 1200 mg per day) and vitamin D (400-800 international units per day). 2. Participate, as appropriate, in regular weightbearing and muscle-strengthening exercise. 3. Avoid tobacco use and reduce alcohol and caffeine intake. 4. For more detailed information see the website at www.NOF.org.
== END 2018-01-17 09:09 | disposition home or self-care (01) ==
LOC: DI 09:08
PROVIDERS: ATTEND Registered Nurse
DX: M85.89 Other specified disorders of bone density and structure, multiple sites (principal)
CPT/HCPCS: 77080

== ENCOUNTER 2018-02-04 11:07 | Outpatient (CLI) | payer MEDICAID | END 2018-02-04 11:08 | disposition home or self-care (01) | LOC: DI 11:07 | PROVIDERS: ATTEND Registered Nurse | DX: Z12.31 Encounter for screening mammogram for malignant neoplasm of breast (principal) | CPT/HCPCS: 77067 ==

== ENCOUNTER 2018-03-31 20:41 | Inpatient (IN) | payer MEDICAID ==
--- NOTE | 2018-03-31 20:47 | ED Physician Documentation ---
PD HPI GI BLEED - Stated complaint Stated Complaint: RECTAL BLEEDING - History obtained from History obtained from: Patient - History of Present Illness Timing - onset: Last night Timing - details: Abrupt onset, Intermittant Pain level max: 4 Pain level now: 0 Associated symptoms: BRBPR, Diarrhea, Abdominal pain. No: Vomiting, Coffee ground emesis, Hematemesis, Maroon stool, Black/tarry stool, Fever Contributing factors: No: Sick contact, Bad food, Travel, Recent antibiotics, Alcohol use, Aspirin use, NSAID use, Anticoagulated (baby ASA QD), Diabetes Improved by: Other (nothing) Worsened by: Other (no apparent inciting nor exacerbating factors) Similar symptoms before: Has not had sx before Recently seen: Not recently seen - Additional information Additional information: has had BRBPR since last night, today with clots. This evening, she had mild dyspnea and lightheadedness and more persistent and frequent BRBPR and thus friend drove patient to ED. Patient denies h/o GIB. She has episodic LLQ cramping pain that correlates with when she is about to pass more blood, but no pain inbetween these episodes. Review of Systems Constitutional: reports: Reviewed and negative Eyes: reports: Reviewed and negative Ears: reports: Reviewed and negative Nose: reports: Reviewed and negative Cardiac: reports: Reviewed and negative Respiratory: reports: Dyspnea (mild, intermittent). denies: Cough, Wheezing GI: reports: Abdominal Pain (episodic LLQ) : denies: Dysuria, Frequency, Hematuria Skin: reports: Reviewed and negative Musculoskeletal: reports: Reviewed and negative Neurologic: denies: Generalized weakness, Focal weakness, Numbness, Headache Endocrine: denies: Easy bruising / bleeding PD PAST MEDICAL HISTORY - Past Medical History Cardiovascular: Hypertension Endocrine/Autoimmune: HyPOthyroidism GI: GERD, Diverticulitis Musculoskeletal: Osteoarthritis - Past Surgical History Past Surgical History: Yes /[employer]: Tubal ligation HEENT: Tonsil/Adenoidectomy - Present Medications Home Medications: Ambulatory Orders Medication Instructions Recorded Confirmed Albuterol Sulfate [Proair Hfa 2 puffs INH Q4H PRN 06/14/17 06/14/17 Inhaler] Aspirin Chewable [[place] 81 mg PO DAILY 06/14/17 06/14/17 Aspirin] Calcium/Magnesium/Zinc 1 each PO DAILY 06/14/17 06/14/17 [Uosukdn-Wlesllfby-Ncab Tablet] Lactobacillus Acidophilus 1 cap PO BID 06/14/17 06/14/17 [Acidophilus Lactobacilli] Levothyroxine Sodium 88 mcg PO QPM 06/14/17 06/14/17 Meloxicam 15 mg PO QPM PRN 06/14/17 06/14/17 Methocarbamol 500 mg PO QPM PRN 06/14/17 06/14/17 Metoprolol Tartrate 25 mg PO BID 06/14/17 06/14/17 Multivitamin [Theragran] 1 tab PO DAILY 06/14/17 06/14/17 [place]-3 Acid Ethyl Esters [Lovaza] 1 gm PO BID 06/14/17 06/14/17 Omeprazole 40 mg PO BID 06/14/17 06/14/17 Ondansetron HCl [Zofran] 4 mg PO Q6H PRN #15 tablet 06/16/17 oxyCODONE [Roxicodone] 5 mg PO Q6H PRN #15 tablet 06/16/17 - Allergies Allergies/Adverse Reactions: Allergies Allergy/AdvReac Type Severity Reaction Status Date / Time No Known Drug Allergies Allergy Verified 03/31/18 20:55 - Social History Does the pt smoke?: Yes Smoking Status: Current every day smoker Does the pt drink ETOH?: Yes Does the pt have substance abuse?: No - POLST Patient has POLST: No POLST Status: Limited Interventions PD ED PE NORMAL - Vitals Vital signs reviewed: Yes - General General: Alert and oriented X 3, No acute distress, Well developed/nourished - HEENT HEENT: PERRL, EOMI, Moist mucous membranes, Other (pale conjunctiva) - Neck Neck: Supple, no meningeal sign - Cardiac Cardiac: RRR, No murmur - Respiratory Respiratory: No respiratory distress, Clear bilaterally - Abdomen Abdomen: Normal bowel sounds, Soft, Non tender, Non distended - Derm Derm: Normal color, Warm and dry - Extremities Extremities: No edema - Neuro Neuro: Alert and oriented X 3, Normal speech PD ED PE EXPANDED - Rectal Rectal: Heme Occult Pos - QC + (grossly bloody and strong guaiac (+)), Normal Tone, Occupational Medicine Physician present. No: Mass, Hemorrhoid Results - Vitals Vitals: Vital Signs - 24 hr 03/31/18 03/31/18 03/31/18 20:53 21:20 21:49 Temperature 36.4 C L Heart Rate 93 78 70 Respiratory 18 14 21 Rate Blood Pressure 75/53 L 79/63 L 109/72 O2 Saturation 100 100 98 Oxygen O2 Source Room air - EKG (time done) No standard instances Rate: Rate (enter#) (72) Rhythm: NSR [place]: Normal Intervals: Normal MS QRS: Normal Ischemia: Normal ST segments - Labs Labs: Laboratory Tests 03/31/18 03/31/18 03/31/18 20:55 20:55 20:55 WBC 13.8 H RBC 3.20 L Hgb 10.9 L Hct 33.0 L MCV 102.9 H MCH 33.9 H MCHC 33.0 RDW 13.8 Plt Count 357 MPV 9.8 Neut # (Auto) 9.9 H Lymph # (Auto) 2.6 [place] # (Auto) 1.2 H Eos # (Auto) 0.0 Baso # (Auto) 0.1 Absolute Nucleated RBC 0.01 Nucleated RBC % 0.1 PT 14.0 H INR 1.2 APTT 29.3 Sodium 133 L Potassium 4.3 Chloride 100 L Carbon Dioxide 24 Anion Gap 9.0 BUN 17 Creatinine 0.7 Estimated GFR (MDRD) 85 L Glucose 122 H Calcium 8.2 L Total Bilirubin 0.9 AST 51 H ALT 25 Alkaline Phosphatase 130 H Troponin I Total Protein 6.2 L Albumin 2.8 L Globulin 3.4 Albumin/Globulin Ratio 0.8 L Lipase 27 Blood Type Blood Type Recheck Antibody Screen 03/31/18 03/31/18 03/31/18 20:55 20:55 21:13 WBC RBC Hgb Hct MCV MCH MCHC RDW Plt Count MPV Neut # (Auto) Lymph # (Auto) [place] # (Auto) Eos # (Auto) Baso # (Auto) Absolute Nucleated RBC Nucleated RBC % PT INR APTT Sodium Potassium Chloride Carbon Dioxide Anion Gap BUN Creatinine Estimated GFR (MDRD) Glucose Calcium Total Bilirubin AST ALT Alkaline Phosphatase Troponin I < 0.04 Total Protein Albumin Globulin Albumin/Globulin Ratio Lipase Blood Type A POSITIVE Blood Type Recheck A POSITIVE Antibody Screen NEGATIVE PD MEDICAL DECISION MAKING - ED course Complexity details: reviewed results, re-evaluated patient, considered differential, d/w patient Departure - Departure Disposition: [facility] DC/Xfer Clinical Impression: Lower gastrointestinal bleeding Condition: Stable Discharge Date/Time: 03/31/18 22:49
[2018-03-31] MEDS ORDERED: SODIUM CHLORIDE 0.9% 1,000 ML IV STA (21:07)
[2018-03-31 21:13] LABS: BASOPHILS # (AUTO) 0.1 10^3/uL (0.0-0.1); BASOPHILS % (AUTO) 0.5 %; EOSINOPHILS % (AUTO) 0.3 %; HGB - HEMOGLOBIN 10.9 g/dL (12.0-16.0); LYMPHOCYTES # (AUTO) 2.6 10^3/uL (1.5-3.5); LYMPHOCYTES % (AUTO) 18.8 %; MEAN CORPUSCULAR HEMOGLOBIN 33.9 pg (27.0-31.0); MEAN CORPUSCULAR VOLUME 102.9 fL (81.0-99.0); MEAN PLATELET VOLUME 9.8 fL (7.9-10.8); MONOCYTES # (AUTO) 1.2 10^3/uL (0.0-1.0); MONOCYTES % (AUTO) 8.8 %; NEUTROPHILS # (AUTO) 9.9 10^3/uL (1.5-6.6); NEUTROPHILS % (AUTO) 71.6 %; PLT - PLATELET COUNT 357 10^3/uL (130-450); RED CELL DISTRIBUTION WIDTH 13.8 % (12.0-15.0); WHITE BLOOD COUNT 13.8 x10^3/uL (4.8-10.8)
[2018-03-31 21:20] LABS: INR 1.2 (0.8-1.2)
[2018-03-31 21:27] LABS: ALBUMIN 2.8 g/dL (3.2-5.5); ALBUMIN/GLOBULIN RATIO 0.8 (1.0-2.2); BILIRUBIN,TOTAL 0.9 mg/dL (0.2-1.0); CALCIUM 8.2 mg/dL (8.5-10.3); CREATININE 0.7 mg/dL (0.4-1.0); TOTAL PROTEIN 6.2 g/dL (6.7-8.2)
[2018-03-31] MEDS ORDERED: ALBUTEROL NEB 2.5 MG/3 ML INH PRN (23:30)
--- NOTE | 2018-03-31 23:35 | HISTORY & PHYSICAL EXAMINATION ---
Chief Complaint - Chief Complaint Chief Complaint: Bright red blood per rectum History of Present Illness - Admitted From Admitted From:: Emergency department - History Obtained From Records Reviewed: Emergency department record History obtained from: Patient and Dr. Rodriguez, ED physician Exam Limitations: None - History of Present Illness HPI Comment/Other: Patient is a 62-year-old female with a past medical history of hypertension, acid reflux, diverticulosis with diverticulitis, who also has chronic joint pain taking meloxicam for the past 6 months who presents with lower GI bleed since earlier this morning and possibly as early as last night. Patient states that she had some loose stools last night but was unable to see and is unsure if there is any blood in it however this morning she did have a bowel movement in which after wiping she was able to see bright red blood on the toilet paper. This recurred several times within an hour going to the bathroom about every 15 minutes. The patient states that she uses an outhouse and so she is unable to evaluate toilet water for the amount of blood but she does feel like there was a lot of liquid with bowel movements possibly suggestive of copious bloody. This eventually stopped in the morning that happened a couple of more times at which point when she got up she started to feel lightheaded and she called a friend to take her to the hospital. In the emergency room and evaluation was performed to find that her hypotensive with blood pressures in the 70s systolic that persisted for a little while until 1 L normal saline bolus was completed at which point her blood pressure remained over 100 systolic for over an hour when the hospitalist service was then called for admission. Her labs are suggestive of acute blood loss with hemoglobin and hematocrit 10.9 and 33 respectively.Her baseline is closer to 15 hemoglobin hematocrit closer to 35. She is not tachycardic. She has minimal abdominal pain and for this reason a CT scan was held off. Though she does have a history of diverticulitis she is afebrile currently. A guaiac test was positive. No hemorrhoids were noted on exam. 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 Pt had one daughter and one son, both children are health. - POLST Patient has POLST: No POLST Status: Limited Interventions Meds/Allgy - Home Medications Home Medications: Ambulatory Orders Medication Instructions Recorded Confirmed Albuterol Sulfate [Proair Hfa 2 puffs INH Q4H PRN 06/14/17 06/14/17 Inhaler] Aspirin Chewable [[place] 81 mg PO DAILY 06/14/17 06/14/17 Aspirin] Calcium/Magnesium/Zinc 1 each PO DAILY 06/14/17 06/14/17 [Syutfgs-Csduimlwq-Wfwe Tablet] Lactobacillus Acidophilus 1 cap PO BID 06/14/17 06/14/17 [Acidophilus Lactobacilli] Levothyroxine Sodium 88 mcg PO QPM 06/14/17 06/14/17 Meloxicam 15 mg PO QPM PRN 06/14/17 06/14/17 Methocarbamol 500 mg PO QPM PRN 06/14/17 06/14/17 Metoprolol Tartrate 25 mg PO BID 06/14/17 06/14/17 Multivitamin [Theragran] 1 tab PO DAILY 06/14/17 06/14/17 [place]-3 Acid Ethyl Esters [Lovaza] 1 gm PO BID 06/14/17 06/14/17 Omeprazole 40 mg PO BID 06/14/17 06/14/17 Ondansetron HCl [Zofran] 4 mg PO Q6H PRN #15 tablet 06/16/17 oxyCODONE [Roxicodone] 5 mg PO Q6H PRN #15 tablet 06/16/17 - Allergies Allergies/Adverse Reactions: Allergies Allergy/AdvReac Type Severity Reaction Status Date / Time No Known Drug Allergies Allergy Verified 03/31/18 20:55 Review of Systems - Constitutional Constitutional: reports: Fatigue, Weakness, Poor appetite. denies: Fever, Chills, Diaphoresis, Night sweats, Weight loss - Cardiovascular Cariovascular: denies: Chest pain - Respiratory Respiratory: denies: SOB at rest - Gastrointestinal Gastrointestinal: reports: Abdominal pain, Diarrhea, Change in bowel habits, Rectal bleeding, Bloody stools, Nausea. denies: Abdominal distention, C onstipation, Black stools, Vomiting - Musculoskeletal Musculoskeletal: reports: Back pain, Joint pain - Neurological Neurological: reports: General weakness Prior Level of Functionality: Independent Exam - Vital Signs Reviewed Vital Signs: Yes Vital Signs: Vital Signs x48h Temp Pulse Pulse Resp BP BP Pulse Ox 03/31/18 22:43 36.6 C 75 18 145/64 H 03/31/18 22:21 74 22 82/55 L 100 03/31/18 21:49 70 21 109/72 98 03/31/18 21:20 78 14 79/63 L 100 03/31/18 20:53 36.4 C L 93 18 75/53 L 100 Vital Signs - 24 hr 03/31/18 03/31/18 03/31/18 20:53 21:20 21:49 Temperature 36.4 C L Heart Rate 93 78 70 Heart Rate [ Brachial] Respiratory 18 14 21 Rate Blood Pressure 75/53 L 79/63 L 109/72 Blood Pressure [Right Brachial artery] O2 Saturation 100 100 98 03/31/18 03/31/18 22:21 22:43 Temperature 36.6 C Heart Rate 74 Heart Rate [ 75 Brachial] Respiratory 22 18 Rate Blood Pressure 82/55 L Blood Pressure 145/64 H [Right Brachial artery] O2 Saturation 100 - Physical Exam General Appearance: positive: No acute distress Eyes Bilateral: positive: Normal inspection ENT: positive: ENT inspection nml Neck: positive: Nml inspection, Thyroid nml, No JVD Respiratory: positive: Chest non-tender, No respiratory distress, Breath sounds nml Cardiovascular: positive: Regular rate & rhythm, No murmur, No gallop Abdomen: positive: Non-tender, No organomegaly, Nml bowel sounds, No distention Back: positive: Nml inspection. negative: CVA tenderness (R), CVA tenderness (L) Skin: positive: Color nml, Dry Extremities: positive: Non-tender, No pedal edema Neurologic/Psychiatric: positive: Oriented x3, CN's nml (2-12), Motor nml Sepsis Event Note (H) - Evaluation Current Stage of Sepsis: Ruled out Conclusion/Plan - Problem List (1) Lower gastrointestinal bleeding Conclusion/Plan: Patient has bright red blood per rectum however she has stabilized since presenting and has not had any further blood loss. Though she does demonstrate a drop in her hemoglobin and hematocrit from her baseline, she does not have a worrisome hemoglobin and hematocrit. In fact given her blood pressure which is actually now elevated, I will hold off on the every 6 hours hemoglobin and hematocrit unless this changes and simply check it at the morning labs which at this point is now 6 hours from the time of this dictation. If there is not a significant amount of drop, and she is asymptomatic, she may possibly be able to go home without a scope and have this done as an outpatient. On the other hand, if she does have a continual drop in the hemoglobin and hematocrit are symptomatically is not improved, this would be worth consulting with our surgical colleagues for possible colonoscopy. I highly suspect that this is related to her chronic NSAID use. She admits that she is been on meloxicam for the past 6 months for chronic joint pain. She states that for a part of this time she actually took it twice daily until her PCP told her she should not do this and take it only once daily.I did advise her to find an alternative treatment plan with her PCP as the NSAIDs will certainly exacerbate GI bleeding if not cause it, among other things such as renal failure. (2) NSAID long-term use Conclusion/Plan: As above, advised patient against the continuous use of chronic NSAIDs given this current setting of GI bleeding.I do highly suspect that the 2 are related.Patient will follow up on this with her PCP (3) Cigarette nicotine dependence Conclusion/Plan: Patient smokes 1-1/2 packs/day but she declined a nicotine patch. I did marriage counselor her on further cessation and she states that she is down from previous 3 cigarettes/day. Of course this could also contribute to her current symptoms and I did marriage counselor her on that as well. (4) GERD (gastroesophageal reflux disease) Conclusion/Plan: Again, given her history of acid reflux and now the lower GI bleeding, in the s etting of chronic NSAID use, multiple recommendations were made. I will keep her on Protonix while inpatient. (5) HTN (hypertension) Conclusion/Plan: Patient was severely hypotensive at admission but is now actually just slightly hypertensive. We will resume her blood pressure medications in the morning unless blood pressure does not continue to stabilize. (6) Hypothyroidism Conclusion/Plan: No signs of acute hypothyroid sequelae, continue home dose of levothyroxine. - Lab Results Lab results reviewed: Yes Fish Bones: 03/31/18 20:55 03/31/18 20:55 - EKG Results EKG Interpreted Independently: Yes EKG Comparison: Old EKG unavailable Core Measures - Anticipated LOS I expect patient to be DC'd or transferred within 96 hours.: Yes - DVT/VTE - Prophylaxis VTE/DVT Device ordered at admit?: Yes
[2018-03-31] MEDS: SODIUM CHLORIDE 0.9% 1,000 ML IV SCH (23:59)
[2018-04-01] MEDS: SODIUM CHLORIDE FLUSH 0.9% 10 ML SYRINGE IVP SCH ×3 (00:15→17:08)
[2018-04-01 06:39] LABS: HGB - HEMOGLOBIN 9.7 g/dL (12.0-16.0); MEAN CORPUSCULAR HEMOGLOBIN 34.9 pg (27.0-31.0); MEAN CORPUSCULAR HGB CONC 33.6 g/dL (32.0-36.0); MEAN CORPUSCULAR VOLUME 103.9 fL (81.0-99.0); MEAN PLATELET VOLUME 9.7 fL (7.9-10.8); RED BLOOD COUNT 2.78 10^6/uL (4.20-5.40); RED CELL DISTRIBUTION WIDTH 13.8 % (12.0-15.0); WHITE BLOOD COUNT 8.6 x10^3/uL (4.8-10.8)
[2018-04-01] MEDS: PANTOPRAZOLE 40 MG TABLET PO SCH (06:43)
[2018-04-01] MEDS: SODIUM CHLORIDE 0.9% 1,000 ML IV SCH ×3 (06:43→22:53)
[2018-04-01] MEDS: POLYETHYLENE GLYCOL 3350 17 GM PACKET PO SCH (08:55)
[2018-04-01] MEDS ORDERED: METOPROLOL TARTRATE 25 MG TABLET PO SCH (09:00)
[2018-04-01] MEDS: oxyCODONE 5 MG TABLET PO PRN ×2 (14:15→20:16)
--- NOTE | 2018-04-01 15:57 | PROVIDER PROGRESS NOTE ---
Subjective - Prog Note Date Prog Note Date: 04/01/18 Prog Note Time: 15:54 - Subjective Pt reports feeling: Improved Subjective: Jessica complains of ongoing low abdominal pain that comes and goes and is provoked by bowel movements. She admits to one bloody, dark stool since this morning. She denies dizziness, shortness of breath, a cough, chest pain, nausea, vomiting, or any other bleeding. Current Medications - Current Medications Current Medications: Active Medications: Albuterol () 2.5 mg INH Q4H PRN Sodium Chloride (Normal Saline 0.9%) 1,000 mls @ 125 mls/hr IV .Q8H RAFA Levothyroxine Sodium (Synthroid) 88 mcg PO QPM RFAA Methocarbamol (Robaxin) 500 mg PO QPM PRN Oxycodone HCl (Roxicodone) 5 mg PO Q6H PRN Pantoprazole Sodium (Protonix) 40 mg PO QDAC [facility] Polyethylene Glycol (Miralax) 17 gm PO DAILY [facility] HOME meds: (uncomfirmed) Albuterol Sulfate [Proair Hfa Inhaler] 2 puffs INH Q4H PRN 06/14/17 Aspirin Chewable [[place] Aspirin] 81 mg PO DAILY 06/14/17 Calcium/Magnesium/Zinc [Zxtadax-Xfhkbhiul-Nspm Tablet] 1 each PO DAILY 06/14/17 Lactobacillus Acidophilus [Acidophilus Lactobacilli] 1 cap PO BID 06/14/17 Levothyroxine Sodium 88 mcg PO QPM 06/14/17 Meloxicam 15 mg PO QPM PRN 06/14/17 Methocarbamol 500 mg PO QPM PRN 06/14/17 Metoprolol Tartrate 25 mg PO BID 06/14/17 Multivitamin [Theragran] 1 tab PO DAILY 06/14/17 [place]-3 Acid Ethyl Esters [Lovaza] 1 gm PO BID 06/14/17 Omeprazole 40 mg PO BID 06/14/17 Objective - Vital Signs/Intake & Output Reviewed Vital Signs: Yes Vital Signs: Vital Signs x48h Temp Pulse Resp BP BP Pulse Ox 04/01/18 13:45 37.1 C 95 18 126/75 94 04/01/18 12:00 36.8 C 105 H 18 98/64 96 04/01/18 08:51 85/50 L Intake & Output: Intake & Output 03/29/18 03/30/18 03/31/18 04/01/18 23:59 23:59 23:59 23:59 Intake Total 1000 2391.667 Balance 1000 2391.667 - Objective General Appearance: positive: No acute distress, Alert Eyes Bilateral: positive: PERRL ENT: positive: ENT inspection nml, Pharynx nml, No signs of dehydration Neck: positive: Thyroid nml, No JVD Respiratory: positive: Chest non-tender, No respiratory distress, Breath sounds nml Cardiovascular: positive: Regular rate & rhythm, Systolic murmur Peripheral Pulses: 1+ Radial (R), 1+ Radial (L) Abdomen: positive: Tenderness (bilateral low quandrants), Abnml bowel sounds (hyperactive), Other (rounded, soft). negative: Mass Back: positive: Nml inspection Skin: positive: No rash, Warm, Dry Extremities: positive: Non-tender, Full ROM, No pedal edema Neurologic/Psychiatric: positive: Oriented x3, CN's nml (2-12), Motor nml, Sensation nml, Mood/affect nml Reflexes: Bicep (R): 3+, Bicep (L): 3+ - Lab Results Fish Bones: 04/01/18 05:56 03/31/18 20:55 Other Labs: Lab Results x24hrs 04/01/18 03/31/18 03/31/18 Range/Units 05:56 21:13 20:55 WBC 8.6 (4.8-10.8) x10^3/uL RBC 2.78 L (4.20-5.40) 10^6/uL Hgb 9.7 L (12.0-16.0) g/dL Hct 28.9 L (37.0-47.0) % MCV 103.9 H (81.0-99.0) fL MCH 34.9 H (27.0-31.0) pg MCHC 33.6 (32.0-36.0) g/dL RDW 13.8 (12.0-15.0) % Plt Count 257 (130-450) 10^3/uL MPV 9.7 (7.9-10.8) fL Neut # (Auto) (1.5-6.6) 10^3/uL Lymph # (Auto) (1.5-3.5) 10^3/uL [place] # (Auto) (0.0-1.0) 10^3/uL Eos # (Auto) (0.0-0.7) 10^3/uL Baso # (Auto) (0.0-0.1) 10^3/uL Absolute Nucleated RBC x10^3/uL Nucleated RBC % /100WBC PT (9.9-12.6) secs INR (0.8-1.2) APTT (24.9-33.3) secs Sodium (135-145) mmol/L Potassium (3.5-5.0) mmol/L Chloride (101-111) mmol/L Carbon Dioxide (21-32) mmol/L Anion Gap (6-13) BUN (6-20) mg/dL Creatinine (0.4-1.0) mg/dL Estimated GFR (MDRD) (>89) Glucose (70-100) mg/dL Calcium (8.5-10.3) mg/dL Total Bilirubin (0.2-1.0) mg/dL AST (10-42) IU/L ALT (10-60) IU/L Alkaline Phosphatase (42-121) IU/L Troponin I (<0.49) ng/mL Total Protein (6.7-8.2) g/dL Albumin (3.2-5.5) g/dL Globulin (2.1-4.2) g/dL Albumin/Globulin Ratio (1.0-2.2) Lipase (22-51) U/L Blood Type A POSITIVE Blood Type Recheck A POSITIVE Antibody Screen NEGATIVE 03/31/18 03/31/18 03/31/18 Range/Units 20:55 20:55 20:55 WBC (4.8-10.8) x10^3/uL RBC (4.20-5.40) 10^6/uL Hgb (12.0-16.0) g/dL Hct (37.0-47.0) % MCV (81.0-99.0) fL MCH (27.0-31.0) pg MCHC (32.0-36.0) g/dL RDW (12.0-15.0) % Plt Count (130-450) 10^3/uL MPV (7.9-10.8) fL Neut # (Auto) (1.5-6.6) 10^3/uL Lymph # (Auto) (1.5-3.5) 10^3/uL [place] # (Auto) (0.0-1.0) 10^3/uL Eos # (Auto) (0.0-0.7) 10^3/uL Baso # (Auto) (0.0-0.1) 10^3/uL Absolute Nucleated RBC x10^3/uL Nucleated RBC % /100WBC PT 14.0 H (9.9-12.6) secs INR 1.2 (0.8-1.2) APTT 29.3 (24.9-33.3) secs Sodium 133 L (135-145) mmol/L Potassium 4.3 (3.5-5.0) mmol/L Chloride 100 L (101-111) mmol/L Carbon Dioxide 24 (21-32) mmol/L Anion Gap 9.0 (6-13) BUN 17 (6-20) mg/dL Creatinine 0.7 (0.4-1.0) mg/dL Estimated GFR (MDRD) 85 L (>89) Glucose 122 H (70-100) mg/dL Calcium 8.2 L (8.5-10.3) mg/dL Total Bilirubin 0.9 (0.2-1.0) mg/dL AST 51 H (10-42) IU/L ALT 25 (10-60) IU/L Alkaline Phosphatase 130 H (42-121) IU/L Troponin I < 0.04 (<0.49) ng/mL Total Protein 6.2 L (6.7-8.2) g/dL Albumin 2.8 L (3.2-5.5) g/dL Globulin 3.4 (2.1-4.2) g/dL Albumin/Globulin Ratio 0.8 L (1.0-2.2) Lipase 27 (22-51) U/L Blood Type Blood Type Recheck Antibody Screen 03/31/18 Range/Units 20:55 WBC 13.8 H (4.8-10.8) x10^3/uL RBC 3.20 L (4.20-5.40) 10^6/uL Hgb 10.9 L (12.0-16.0) g/dL Hct 33.0 L (37.0-47.0) % MCV 102.9 H (81.0-99.0) fL MCH 33.9 H (27.0-31.0) pg MCHC 33.0 (32.0-36.0) g/dL RDW 13.8 (12.0-15.0) % Plt Count 357 (130-450) 10^3/uL MPV 9.8 (7.9-10.8) fL Neut # (Auto) 9.9 H (1.5-6.6) 10^3/uL Lymph # (Auto) 2.6 (1.5-3.5) 10^3/uL [place] # (Auto) 1.2 H (0.0-1.0) 10^3/uL Eos # (Auto) 0.0 (0.0-0.7) 10^3/uL Baso # (Auto) 0.1 (0.0-0.1) 10^3/uL Absolute Nucleated RBC 0.01 x10^3/uL Nucleated RBC % 0.1 /100WBC PT (9.9-12.6) secs INR (0.8-1.2) APTT (24.9-33.3) secs Sodium (135-145) mmol/L Potassium (3.5-5.0) mmol/L Chloride (101-111) mmol/L Carbon Dioxide (21-32) mmol/L Anion Gap (6-13) BUN (6-20) mg/dL Creatinine (0.4-1.0) mg/dL Estimated GFR (MDRD) (>89) Glucose (70-100) mg/dL Calcium (8.5-10.3) mg/dL Total Bilirubin (0.2-1.0) mg/dL AST (10-42) IU/L ALT (10-60) IU/L Alkaline Phosphatase (42-121) IU/L Troponin I (<0.49) ng/mL Total Protein (6.7-8.2) g/dL Albumin (3.2-5.5) g/dL Globulin (2.1-4.2) g/dL Albumin/Globulin Ratio (1.0-2.2) Lipase (22-51) U/L Blood Type Blood Type Recheck Antibody Screen ABX Reporting Has patient been on IV antibiotics over the past 48 hours?: No Sepsis Event Note (H) - Evaluation Current Stage of Sepsis: Ruled out Assessment/Plan - Problem List (1) Lower gastrointestinal bleeding Impression: The patient has a known history of diverticulosis, and states that while she is having the bloody stool, the cramping becomes worse. She has a baseline hemoglobin of ~13-15 that is now down to 10.9, then 9.7. She had one bloody, dark stool today after consuming chicken broth. Plan: Continue to monitor, await general surgery consult with a possible scope. (2) Hypotension Impression: The patient is normally hypertensive and is prescribed metoprolol at home. Since admission, she has been low with systolic B/P in the 70's. She stated that she was not dizzy or short of breath with this, but she agreed to get into bed until this improved. Plan: Continue IV fluids, monitor labs, watch for further bleeding. (3) Diverticulosis Impression: The patient states that she has had this for several years and this low abdominal pain reminds her of this. She states that for the past one month, this pain has been very sporadic, but has been more noticeable. She had a WBC count of 13 that has now normalized. On exam she has noted low abdominal discomfort with palpitation. Plan: Abdominal/pelvis CT with IV/oral contrast. (4) NSAID long-term use Impression: The patient is prescribed Meloxicam at home for her arthritis pain. She denies throwing up blood or a history of gastric ulcers. She may be taking a PPI, but medications have not been confirmed by pharmacy. Plan: Hold for now, discourage future use if a gastric ulcer is suspected. (5) Cigarette nicotine dependence Impression: The patient admits to being a life long smoker. She has no interest in quitting when discussed this morning and is prescribed a nicotine patch ordered. Plan: Continue to encourage cessation, offer nicotine patch. (6) GERD (gastroesophageal reflux disease) Impression: The patient has a history of this and prescribed Omeprazole at home, although not confirmed yet. Plan: Continue IV protonix, monitor symptoms. (7) HTN (hypertension) Impression: The patient is prescribed metoprolol at home that is on hold today given her continued hypotension. Plan: Continue to monitor VSs, resume on discharge. Qualifiers: Hypertension type: essential hypertension Qualified Code(s): I10 - Essential (primary) hypertension
[2018-04-01] MEDS ORDERED: IOVERSOL 320 100 ML VIAL IVP ONE ×2 (16:06→17:30)
[2018-04-01] MEDS ORDERED: IOVERSOL 320 50 ML VIAL ONE (16:06)
[2018-04-01] MEDS ORDERED: IOVERSOL 320 50 ML VIAL PO ONE (17:32)
--- NOTE | 2018-04-01 17:42 | CONSULTATION NOTE ---
Referring Provider Consult Date: 04/01/18 Chief Complaint - Chief Complaint Chief Complaint: blood in stool History of Present Illness - History of Present Illness HPI Comment/Other: 62 yo woman c/o 1 month of abdominal pain she attributes to diverticulitis, as she has had similar attacks before. The pain steadily worsened over the past month and she finally started noticing blood in her stool over the past couple of days and came to the ER. She also admits to taking large amounts of NSAIDs over the past month for this pain. 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 Pt had one daughter and one son, both children are health. - POLST Patient has POLST: No POLST Status: Limited Interventions Meds/Allgy - Home Medications Home Medications: Ambulatory Orders Medication Instructions Recorded Confirmed Albuterol Sulfate [Proair Hfa 2 puffs INH Q4H PRN 06/14/17 04/01/18 Inhaler] Aspirin Chewable [[place] 81 mg PO DAILY 06/14/17 04/01/18 Aspirin] Calcium/Magnesium/Zinc 1 each PO DAILY 06/14/17 04/01/18 [Xhbevcn-Ommuwcgyv-Kufa Tablet] Lactobacillus Acidophilus 1 cap PO BID 06/14/17 04/01/18 [Acidophilus Lactobacilli] Levothyroxine Sodium 88 mcg PO QPM 06/14/17 04/01/18 Meloxicam 15 mg PO QPM PRN 06/14/17 04/01/18 Methocarbamol 500 mg PO QPM PRN 06/14/17 04/01/18 Metoprolol Tartrate 25 mg PO BID 06/14/17 04/01/18 Multivitamin [Theragran] 1 tab PO DAILY 06/14/17 04/01/18 [place]-3 Acid Ethyl Esters [Lovaza] 1 gm PO BID 06/14/17 04/01/18 Omeprazole 40 mg PO BID 06/14/17 04/01/18 Cyanocobalamin (Vitamin B-12) 1,000 mcg PO DAILY 04/01/18 04/01/18 [Vitamin B-12] - Allergies Allergies/Adverse Reactions: Allergies Allergy/AdvReac Type Severity Reaction Status Date / Time No Known Drug Allergies Allergy Verified 03/31/18 20:55 Review of Systems - Gastrointestinal Gastrointestinal: reports: Abdominal pain, Rectal bleeding, Bloody stools Exam - Vital Signs Vital Signs: Vital Signs x48h Temp Pulse Resp BP BP Pulse Ox 04/01/18 16:00 36.9 C 94 20 125/72 96 04/01/18 13:45 37.1 C 95 18 126/75 94 04/01/18 12:00 36.8 C 105 H 18 98/64 96 - Physical Exam General Appearance: positive: No acute distress Eyes Bilateral: positive: Normal inspection ENT: positive: ENT inspection nml Neck: positive: Nml inspection Respiratory: positive: Chest non-tender Abdomen: positive: Tenderness Back: positive: Nml inspection Skin: positive: Color nml Extremities: positive: Non-tender Neurologic/Psychiatric: positive: Oriented x3 Conclusion/Plan - Diagnosis Diagnosis: Diverticulitis with bleeding - Plan Plan: Antibiotics, bowel rest, and monitor H/H. Pt admits to having a colonoscopy 2-3 years ago which she states was normal. Since her bleeding appears to be intermittent and low-grade, plan to avoid scoping an inflamed colon and see if the bleeding resolves spontaneously. - Lab Results Lab results reviewed: Yes Fish Bones: 04/01/18 05:56 03/31/18 20:55
--- NOTE | 2018-04-01 19:05 | CT Report ---
Reason: diverticulitis, GI bleeding Procedure Date: 04/01/2018 Accession Number: [id number] / [id number] Procedure: CT - Abdomen/Pelvis W/ CPT Code: FULL RESULT: EXAM: CT ABDOMEN AND PELVIS EXAM DATE: 04/01/2018 05:04 PM. CLINICAL HISTORY: Diverticulitis, GI bleeding. COMPARISONS: ABDOMEN/PELVIS W/ 06/14/2017 2:43 PM. TECHNIQUE: Routine helical CT imaging was performed through the abdomen and pelvis. IV contrast: 90 ML OPTIRAY 320. Enteric contrast: Positive. Reconstructions: Coronal and sagittal. In accordance with CT protocol optimization, one or more of the following dose reduction techniques were utilized for this exam: automated exposure control, adjustment of mA and/or KV based on patient size, or use of iterative reconstructive technique. FINDINGS: Lung Bases: Unremarkable. Liver: Probable fatty liver. No focal liver lesion. Gallbladder/Bile Ducts: Unremarkable. Spleen: Unremarkable. Pancreas: Unremarkable. Adrenal Glands: Normal. Kidneys: Normal. No masses or hydronephrosis. Peritoneal Cavity/Bowel: There is diverticulosis, extensive in the sigmoid colon. There is pericolonic stranding at the sigmoid colon. Small pericolonic fluid collection measuring 18 x 13 mm (3/59). Additional subjacent small poorly marginated area of hypodensity in the left adnexal region may be contiguous. Additional area of extra colonic gas with peripheral enhancing soft tissue is seen adjacent to the sigmoid colon measuring approximately 26 x 18 mm (3/56) No free air. Minimal free fluid. The appendix is well visualized and normal. Pelvic Organs: Urinary bladder decompressed, grossly unremarkable. Uterus is partially obscured by the pelvic process above, grossly unremarkable. Vasculature: No aneurysms or other significant abnormality. Diffuse aortoiliac atherosclerotic calcification. Bones: No significant abnormality. Other: None. IMPRESSION: 1. Findings suggest acute diverticulitis with associated inflammatory change and small pelvic abscesses as noted above. 2. Other findings as noted above. RADIA
[2018-04-01] MEDS: LEVOTHYROXINE 88 MCG TABLET PO SCH (20:16)
[2018-04-02] MEDS: SODIUM CHLORIDE FLUSH 0.9% 10 ML SYRINGE IVP SCH ×3 (01:41→19:10)
[2018-04-02] MEDS: METHOCARBAMOL 500 MG TABLET PO PRN (01:47)
[2018-04-02 05:17] LABS: ALBUMIN 2.3 g/dL (3.2-5.5); ALBUMIN/GLOBULIN RATIO 0.8 (1.0-2.2); BILIRUBIN,TOTAL 0.5 mg/dL (0.2-1.0); CALCIUM 7.8 mg/dL (8.5-10.3); CREATININE 0.5 mg/dL (0.4-1.0); TOTAL PROTEIN 5.2 g/dL (6.7-8.2)
[2018-04-02 05:31] LABS: HGB - HEMOGLOBIN 8.5 g/dL (12.0-16.0); MEAN CORPUSCULAR HEMOGLOBIN 34.7 pg (27.0-31.0); MEAN CORPUSCULAR HGB CONC 33.6 g/dL (32.0-36.0); MEAN CORPUSCULAR VOLUME 103.3 fL (81.0-99.0); MEAN PLATELET VOLUME 9.5 fL (7.9-10.8); RED BLOOD COUNT 2.45 10^6/uL (4.20-5.40); RED CELL DISTRIBUTION WIDTH 13.4 % (12.0-15.0); WHITE BLOOD COUNT 10.8 x10^3/uL (4.8-10.8)
[2018-04-02] MEDS: PANTOPRAZOLE 40 MG TABLET PO SCH (05:56)
[2018-04-02] MEDS: SODIUM CHLORIDE 0.9% 1,000 ML IV SCH (07:23)
[2018-04-02] MEDS: POLYETHYLENE GLYCOL 3350 17 GM PACKET PO SCH (08:38)
[2018-04-02] MEDS ORDERED: metroNIDAZOLE 250 MG TABLET PO SCH (09:00)
[2018-04-02] MEDS ORDERED: CIPROFLOXACIN 250 MG TABLET PO SCH (09:00)
[2018-04-02] MEDS: WHEAT DEXTRIN POWDER PACKET PO SCH (09:09)
--- NOTE | 2018-04-02 10:48 | PROVIDER PROGRESS NOTE ---
Subjective - Prog Note Date Prog Note Date: 04/02/18 Prog Note Time: 10:45 - Subjective Pt reports feeling: No change (Pt continues to have some blood by rectum with BMs. No symptoms of anemia. Abdominal pain improved.) Objective - Vital Signs/Intake & Output Vital Signs: Vital Signs x48h Temp Pulse Pulse Pulse Pulse Resp BP 04/02/18 08:04 104 H 114 H 87 04/02/18 08:00 37.8 C H 87 20 101/65 04/02/18 05:15 36.9 C 98 101 H 116 H 98 16 BP BP BP BP Pulse Ox 04/02/18 08:04 96/62 83/65 L 101/65 04/02/18 08:00 97 04/02/18 05:15 143/65 H 152/67 H 110/65 143/65 H 96 Intake & Output: Intake & Output 03/30/18 03/31/18 04/01/18 04/02/18 23:59 23:59 23:59 23:59 Intake Total 1000 4411.667 1493.75 Balance 1000 4411.667 1493.75 - Objective General Appearance: positive: No acute distress Eyes Bilateral: positive: Normal inspection ENT: positive: ENT inspection nml Neck: positive: Nml inspection Respiratory: positive: Chest non-tender Abdomen: positive: Tenderness Back: positive: Nml inspection Skin: positive: Color nml Extremities: positive: Non-tender - Lab Results Fish Bones: 04/02/18 04:55 04/02/18 04:55 Other Labs: Lab Results x24hrs 04/02/18 04/02/18 Range/Units 04:55 04:55 WBC 10.8 (4.8-10.8) x10^3/uL RBC 2.45 L (4.20-5.40) 10^6/uL Hgb 8.5 L (12.0-16.0) g/dL Hct 25.3 L (37.0-47.0) % MCV 103.3 H (81.0-99.0) fL MCH 34.7 H (27.0-31.0) pg MCHC 33.6 (32.0-36.0) g/dL RDW 13.4 (12.0-15.0) % Plt Count 253 (130-450) 10^3/uL MPV 9.5 (7.9-10.8) fL Sodium 135 (135-145) mmol/L Potassium 3.4 L (3.5-5.0) mmol/L Chloride 107 (101-111) mmol/L Carbon Dioxide 20 L (21-32) mmol/L Anion Gap 8.0 (6-13) BUN 6 (6-20) mg/dL Creatinine 0.5 (0.4-1.0) mg/dL Estimated GFR (MDRD) 126 (>89) Glucose 81 (70-100) mg/dL Calcium 7.8 L (8.5-10.3) mg/dL Total Bilirubin 0.5 (0.2-1.0) mg/dL AST 43 H (10-42) IU/L ALT 23 (10-60) IU/L Alkaline Phosphatase 91 (42-121) IU/L Total Protein 5.2 L (6.7-8.2) g/dL Albumin 2.3 L (3.2-5.5) g/dL Globulin 2.9 (2.1-4.2) g/dL Albumin/Globulin Ratio 0.8 L (1.0-2.2) Sepsis Event Note (H) - Evaluation Current Stage of Sepsis: Ruled out Assessment/Plan - Problem List (1) Diverticulosis Impression: Pt received a CT scan overnight which demonstrates contained perforation of diverticulitis. In light of this, a colonoscopy could potentially make the perforation worse. She continues to have low grade rectal bleeding. Will monitor for spontaneous resolution. Continue bowel rest and antibiotics for now.
[2018-04-02] MEDS ORDERED: METOPROLOL SUCCINATE 25 MG TABLET PO SCH (12:39)
--- NOTE | 2018-04-02 12:50 | PROVIDER PROGRESS NOTE ---
Subjective - Prog Note Date Prog Note Date: 04/02/18 Prog Note Time: 12:49 - Subjective Pt reports feeling: Worse Subjective: Jessica complains of ongoing low abdominal pain, loss of appetite, bloody stools, intermittent dizziness, fevers, chills, weakness, fatigue, and nausea. She denies chest pain, bleeding, rashes, increased shortness of breath or a new productive cough. She is not tolerating meals. Current Medications - Current Medications Current Medications: Active Medications: Acetaminophen (Tylenol) 650 mg PO Q4HR PRN Albuterol () 2.5 mg INH Q4H PRN Diltiazem HCl (Cardizem Cd) 120 mg PO DAILY RAFA Ciprofloxacin (Cipro 400 Mg/200 Ml) 200 mls @ 200 mls/hr IV Q12H RAFA Metronidazole (Flagyl 500 Mg/100 Ml) 500 mg in 100 mls @ 100 mls/hr IV Q8H RAFA Potassium Chloride/Sodium Chloride (Normal Saline 0.9% W/20 Meq Kcl) 1,000 mls @ 125 mls/hr IV .Q8H RAFA Levothyroxine Sodium (Synthroid) 88 mcg PO QPM RAFA Methocarbamol (Robaxin) 500 mg PO QPM PRN Oxycodone HCl (Roxicodone) 5 mg PO Q6H PRN Pantoprazole Sodium (Protonix) 40 mg PO QDAC [facility] Polyethylene Glycol (Miralax) 17 gm PO DAILY [facility] Saccharomyces Boulardii (Florastor) 250 mg PO BIDWM [facility] Wheat Dextrin (Benefiber) 1 packet PO DAILY [facility] HOME meds: Albuterol Sulfate [Proair Hfa Inhaler] 2 puffs INH Q4H PRN 06/14/17 Aspirin Chewable [[place] Aspirin] 81 mg PO DAILY 06/14/17 Calcium/Magnesium/Zinc [Ymspdfx-Hghfwucja-Dxgp Tablet] 1 each PO DAILY 06/14/17 Lactobacillus Acidophilus [Acidophilus Lactobacilli] 1 cap PO BID 06/14/17 Levothyroxine Sodium 88 mcg PO QPM 06/14/17 Meloxicam 15 mg PO QPM PRN 06/14/17 Methocarbamol 500 mg PO QPM PRN 06/14/17 Metoprolol Tartrate 25 mg PO BID 06/14/17 Multivitamin [Theragran] 1 tab PO DAILY 06/14/17 [place]-3 Acid Ethyl Esters [Lovaza] 1 gm PO BID 06/14/17 Omeprazole 40 mg PO BID 06/14/17 Cyanocobalamin (Vitamin B-12) [Vitamin B-12] 1,000 mcg PO DAILY 04/01/18 Objective - Vital Signs/Intake & Output Reviewed Vital Signs: Yes Vital Signs: Vital Signs x48h Temp Pulse Pulse Pulse Pulse Pulse Resp 04/02/18 11:16 37.4 C 102 H 30 H 04/02/18 11:00 102 H 30 H 04/02/18 08:04 104 H 114 H 87 04/02/18 08:00 37.8 C H 87 20 04/02/18 05:15 36.9 C 98 101 H 116 H 98 16 BP BP BP BP BP Pulse Ox 04/02/18 11:16 146/61 H 96 04/02/18 11:00 04/02/18 08:04 96/62 83/65 L 101/65 04/02/18 08:00 101/65 97 04/02/18 05:15 143/65 H 152/67 H 110/65 143/65 H 96 Intake & Output: Intake & Output 03/30/18 03/31/18 04/01/18 04/02/18 23:59 23:59 23:59 23:59 Intake Total 1000 4411.667 1493.75 Balance 1000 4411.667 1493.75 - Objective General Appearance: positive: Alert, Mild distress Eyes Bilateral: positive: PERRL Eyes: OU Conjunctivae pale ENT: positive: Pharynx nml, No signs of dehydration Neck: positive: Thyroid nml, No JVD, Trachea midline Respiratory: positive: Chest non-tender, No respiratory distress, Other (diminshed bilaterally) Cardiovascular: positive: Regular rate & rhythm, No gallop, Systolic murmur, Decreased pulse(s) Peripheral Pulses: 2+ Radial (R), 2+ Radial (L) Abdomen: positive: Tenderness, Guarding, Abnml bowel sounds, Other (rounded, soft) Back: positive: Nml inspection Skin: positive: No rash, Warm, Dry, Pallor Extremities: positive: Non-tender, Full ROM, No pedal edema Neurologic/Psychiatric: positive: Oriented x3, CN's nml (2-12), Motor nml, Sensation nml, Depressed mood/affect Reflexes: Bicep (R): 3+, Bicep (L): 3+ - Lab Results Fish Bones: 04/02/18 14:20 04/02/18 04:55 Other Labs: Lab Results x24hrs 04/02/18 04/02/18 Range/Units 04:55 04:55 WBC 10.8 (4.8-10.8) x10^3/uL RBC 2.45 L (4.20-5.40) 10^6/uL Hgb 8.5 L (12.0-16.0) g/dL Hct 25.3 L (37.0-47.0) % MCV 103.3 H (81.0-99.0) fL MCH 34.7 H (27.0-31.0) pg MCHC 33.6 (32.0-36.0) g/dL RDW 13.4 (12.0-15.0) % Plt Count 253 (130-450) 10^3/uL MPV 9.5 (7.9-10.8) fL Sodium 135 (135-145) mmol/L Potassium 3.4 L (3.5-5.0) mmol/L Chloride 107 (101-111) mmol/L Carbon Dioxide 20 L (21-32) mmol/L Anion Gap 8.0 (6-13) BUN 6 (6-20) mg/dL Creatinine 0.5 (0.4-1.0) mg/dL Estimated GFR (MDRD) 126 (>89) Glucose 81 (70-100) mg/dL Calcium 7.8 L (8.5-10.3) mg/dL Total Bilirubin 0.5 (0.2-1.0) mg/dL AST 43 H (10-42) IU/L ALT 23 (10-60) IU/L Alkaline Phosphatase 91 (42-121) IU/L Total Protein 5.2 L (6.7-8.2) g/dL Albumin 2.3 L (3.2-5.5) g/dL Globulin 2.9 (2.1-4.2) g/dL Albumin/Globulin Ratio 0.8 L (1.0-2.2) ABX Reporting Has patient been on IV antibiotics over the past 48 hours?: Yes Sepsis Event Note (H) - Evaluation Current Stage of Sepsis: Ruled out Assessment/Plan - Problem List (1) Lower gastrointestinal bleeding Impression: The patient has a known history of diverticulosis, and states that while she is having the bloody stool, the cramping becomes worse. She has a baseline hemoglobin of ~13-15 that is now down to 8.5. She had at least 2 bloody stools which is provoked by eating or drinking. Imaging late yesterday confirmed acute diverticulitis. Plan: Continue to monitor for improvement, continue antibiotics. (2) Acute blood loss anemia Impression: The patient normally has a hemoglobin ~13-15, but this has dropped to just 7.3 today after several bloody stools. She has been started on treatment that was first oral, now IV to treat the acute diverticulitis. She is pale, complains of weakness, fatigue and some activity intolerance. She has sustained hypotension throughout today. She is agreeable to a blood transfusion, which is now ordered. Plan: Monitor vital signs, give 2 units of PRBCs, monitor further GI bleeding. (3) Hypotension Impression: The patient is normally hypertensive and is prescribed metoprolol at home. Since admission, she has been low with systolic B/P in the 70's that is gradually improved today. Today she has been having bloody stools and her latest B/P was reported as 80/50. Plan: Continue IV fluids, monitor labs, watch for further bleeding. (4) Diverticulosis Impression: The patient states that she has had this for several years and this low abdominal pain reminds her of this. She states that for the past one month, this pain has been very sporadic, but has been more noticeable. She had a WBC count of 13 that remains normal. On exam she has noted low abdominal discomfort with palpitation and this complaint is much worse today. She has been febrile with a temp max of 37.8 and a RR in the 30s. Plan: Continue IV Cipro/Flagyl, IV dilaudid for pain, CL diet with mild bowel rest. Continue daily benefiber. Qualifiers: Diverticulosis bleeding: diverticulosis with bleeding (5) NSAID long-term use Impression: The patient is prescribed Meloxicam at home for her arthritis pain. She denies throwing up blood or a history of gastric ulcers. She continues to have bloody stools today that have increased. Plan: Hold for now, discourage future use. (6) Cigarette nicotine dependence Impression: The patient admits to being a life long smoker. She has no interest in quitting when discussed this morning and is prescribed a nicotine patch ordered. Plan: Continue to encourage cessation, offer nicotine patch. (7) GERD (gastroesophageal reflux disease) Impression: The patient has a history of this and prescribed Omeprazole at home. Plan: Continue IV protonix, monitor symptoms. (8) HTN (hypertension) Impression: The patient is prescribed metoprolol at home that is on hold today given her continued hypotension. I have prescribed diltiazem today, but this remains on hold due to her ongoing hypotension and acute GI bleeding. Plan: Continue to monitor VSs, obtain an echo, consider home use of diltiazem given her longstanding COPD. Qualifiers: Hypertension type: essential hypertension Qualified Code(s): I10 - Essential (primary) hypertension (9) History of IHSS Impression: On the patient's last echo in 2015, she was noted to have this condition as there was a sigmoid shaped septom with focal hypertrophy of the basal septum. Her ejection fraction was slightly increased at >75% and diastolic dysfunction. Plan: Give diltiazem when appropriate for [facility] rate control, d/c home metoprolol.
[2018-04-02] MEDS: diltiaZEM CD 120 MG CAPSULE PO SCH (13:33)
[2018-04-02] MEDS: NS W/20 MEQ KCL 1,000 ML IV SCH (13:44)
[2018-04-02] MEDS: HYDROmorphone 0.5 MG/0.5 ML SYRINGE IVP PRN ×2 (13:44→22:58)
[2018-04-02 14:26] LABS: HGB - HEMOGLOBIN 7.3 g/dL (12.0-16.0)
[2018-04-02] MEDS: ONDANSETRON 4 MG/2 ML VIAL IVP PRN (14:34)
[2018-04-02] MEDS: SACCHAROMYCES BOULARDII 250 MG CAPSULE PO SCH (16:43)
[2018-04-02] MEDS: metroNIDAZOLE 500 MG/100 ML 500 MG/100 ML BAG IV SCH (16:43)
[2018-04-02] MEDS ORDERED: diphenhydrAMINE 25 MG CAPSULE PO SCH (17:00)
[2018-04-02] MEDS ORDERED: SODIUM CHLORIDE 0.9% 500 ML IV SCH (17:00)
[2018-04-02] MEDS ORDERED: ACETAMINOPHEN 325 MG TABLET PO SCH (17:00)
[2018-04-02] MEDS: LEVOTHYROXINE 88 MCG TABLET PO SCH (21:26)
[2018-04-02] MEDS: CIPROFLOXACIN 400 MG/200 ML 200 ML IV SCH (22:14)
[2018-04-03] MEDS: oxyCODONE 5 MG TABLET PO PRN ×4 (01:06→22:02)
[2018-04-03] MEDS: metroNIDAZOLE 500 MG/100 ML 500 MG/100 ML BAG IV SCH ×3 (01:06→17:06)
[2018-04-03] MEDS: SODIUM CHLORIDE FLUSH 0.9% 10 ML SYRINGE IVP SCH ×3 (01:55→17:06)
[2018-04-03] MEDS: NS W/20 MEQ KCL 1,000 ML IV SCH ×4 (03:01→22:03)
[2018-04-03] MEDS: METHOCARBAMOL 500 MG TABLET PO PRN ×2 (03:08→11:47)
[2018-04-03 05:32] LABS: HGB - HEMOGLOBIN 10.3 g/dL (12.0-16.0); MEAN CORPUSCULAR HEMOGLOBIN 33.4 pg (27.0-31.0); MEAN CORPUSCULAR HGB CONC 33.7 g/dL (32.0-36.0); MEAN CORPUSCULAR VOLUME 98.9 fL (81.0-99.0); MEAN PLATELET VOLUME 8.4 fL (7.9-10.8); RED BLOOD COUNT 3.09 10^6/uL (4.20-5.40); RED CELL DISTRIBUTION WIDTH 16.2 % (12.0-15.0)
[2018-04-03 05:34] LABS: ALBUMIN 2.3 g/dL (3.2-5.5); ALBUMIN/GLOBULIN RATIO 0.9 (1.0-2.2); BILIRUBIN,TOTAL 1.8 mg/dL (0.2-1.0); CALCIUM 7.8 mg/dL (8.5-10.3); CREATININE 0.6 mg/dL (0.4-1.0); MAGNESIUM 1.5 mg/dL (1.7-2.8); TOTAL PROTEIN 4.9 g/dL (6.7-8.2)
[2018-04-03] MEDS: PANTOPRAZOLE 40 MG TABLET PO SCH (06:42)
[2018-04-03] MEDS: diltiaZEM CD 120 MG CAPSULE PO SCH (08:17)
[2018-04-03] MEDS: SACCHAROMYCES BOULARDII 250 MG CAPSULE PO SCH ×2 (08:18→17:05)
[2018-04-03] MEDS: WHEAT DEXTRIN POWDER PACKET PO SCH (08:23)
--- NOTE | 2018-04-03 09:06 | PROVIDER PROGRESS NOTE ---
Subjective - Prog Note Date Prog Note Date: 04/03/18 Prog Note Time: 09:04 - Subjective Pt reports feeling: Improved (Reports less abdominal pain and her last BM had no blood.) Objective - Vital Signs/Intake & Output Vital Signs: Vital Signs x48h Temp Pulse Pulse Resp BP BP Pulse Ox 04/03/18 08:15 88 18 148/66 H 96 04/03/18 05:30 36.7 C 87 16 151/64 H 96 04/03/18 01:44 36.6 C 91 18 127/62 Intake & Output: Intake & Output 03/31/18 04/01/18 04/02/18 04/03/18 23:59 23:59 23:59 23:59 Intake Total 1000 4411.667 5809.584 1664.833 Output Total 1000 400 Balance 1000 4411.667 4809.584 1264.833 - Objective General Appearance: positive: No acute distress Eyes Bilateral: positive: Normal inspection ENT: positive: ENT inspection nml Neck: positive: Nml inspection Respiratory: positive: Chest non-tender Abdomen: positive: Non-tender Back: positive: Nml inspection Skin: positive: Color nml Extremities: positive: Non-tender Neurologic/Psychiatric: positive: Oriented x3 - Lab Results Fish Bones: 04/03/18 05:15 04/03/18 05:15 Other Labs: Lab Results x24hrs 04/03/18 04/03/18 04/03/18 Range/Units 05:15 05:15 05:15 WBC 11.0 H (4.8-10.8) x10^3/uL RBC 3.09 L (4.20-5.40) 10^6/uL Hgb 10.3 L (12.0-16.0) g/dL Hct 30.6 L (37.0-47.0) % MCV 98.9 (81.0-99.0) fL MCH 33.4 H (27.0-31.0) pg MCHC 33.7 (32.0-36.0) g/dL RDW 16.2 H (12.0-15.0) % Plt Count 234 (130-450) 10^3/uL MPV 8.4 (7.9-10.8) fL Sodium 135 (135-145) mmol/L Potassium 3.5 (3.5-5.0) mmol/L Chloride 108 (101-111) mmol/L Carbon Dioxide 23 (21-32) mmol/L Anion Gap 4.0 L (6-13) BUN 5 L (6-20) mg/dL Creatinine 0.6 (0.4-1.0) mg/dL Estimated GFR (MDRD) 102 (>89) Glucose 112 H (70-100) mg/dL Calcium 7.8 L (8.5-10.3) mg/dL Magnesium 1.5 L (1.7-2.8) mg/dL Total Bilirubin 1.8 H (0.2-1.0) mg/dL AST 29 (10-42) IU/L ALT 19 (10-60) IU/L Alkaline Phosphatase 81 (42-121) IU/L Total Protein 4.9 L (6.7-8.2) g/dL Albumin 2.3 L (3.2-5.5) g/dL Globulin 2.6 (2.1-4.2) g/dL Albumin/Globulin Ratio 0.9 L (1.0-2.2) TSH 3.16 (0.34-5.60) uIU/mL Blood Type Antibody Screen Crossmatch IS Only 04/02/18 03/31/18 Range/Units 14:20 20:55 WBC (4.8-10.8) x10^3/uL RBC (4.20-5.40) 10^6/uL Hgb 7.3 L (12.0-16.0) g/dL Hct 20.8 L (37.0-47.0) % MCV (81.0-99.0) fL MCH (27.0-31.0) pg MCHC (32.0-36.0) g/dL RDW (12.0-15.0) % Plt Count (130-450) 10^3/uL MPV (7.9-10.8) fL Sodium (135-145) mmol/L Potassium (3.5-5.0) mmol/L Chloride (101-111) mmol/L Carbon Dioxide (21-32) mmol/L Anion Gap (6-13) BUN (6-20) mg/dL Creatinine (0.4-1.0) mg/dL Estimated GFR (MDRD) (>89) Glucose (70-100) mg/dL Calcium (8.5-10.3) mg/dL Magnesium (1.7-2.8) mg/dL Total Bilirubin (0.2-1.0) mg/dL AST (10-42) IU/L ALT (10-60) IU/L Alkaline Phosphatase (42-121) IU/L Total Protein (6.7-8.2) g/dL Albumin (3.2-5.5) g/dL Globulin (2.1-4.2) g/dL Albumin/Globulin Ratio (1.0-2.2) TSH (0.34-5.60) uIU/mL Blood Type A POSITIVE Antibody Screen NEGATIVE Crossmatch IS Only See Detail Sepsis Event Note (H) - Evaluation Current Stage of Sepsis: Ruled out Assessment/Plan - Problem List (1) Diverticulosis Impression: Pt continues to improve. Will continue antibiotics and bowel rest. Qualifiers: Diverticulosis bleeding: diverticulosis with bleeding
--- NOTE | 2018-04-03 09:12 | PROVIDER PROGRESS NOTE ---
Subjective - Prog Note Date Prog Note Date: 04/03/18 Prog Note Time: 09:09 - Subjective Pt reports feeling: Improved Subjective: Jessica complains of sluggishness when first waking up today, but this has resolved. Her blood stools have also resolved today. She admits to less activity intolerance, and a general overall improvement. She continues to complain of low abdominal discomfort, mild intermittent nausea, and a poor appe tite. She says that she has not required the nicotine patch, but may go back to smoking once she is home as her still smokes. She denies new symptoms such as chest pain, chest pressure, vomiting, dysuria, hallucinations, dizziness, or blood stools. Current Medications - Current Medications Current Medications: Active Medications: Acetaminophen (Tylenol) 650 mg PO Q4HR PRN Albuterol () 2.5 mg INH Q4H PRN Diltiazem HCl (Cardizem Cd) 120 mg PO DAILY [facility] Hydromorphone HCl (Dilaudid Inj Syringe) 0.5 mg IVP Q2H PRN Ciprofloxacin (Cipro 400 Mg/200 Ml) 200 mls @ 200 mls/hr IV Q12H [facility] Metronidazole (Flagyl 500 Mg/100 Ml) 500 mg in 100 mls @ 100 mls/hr IV Q8H [facility] Potassium Chloride/Sodium Chloride (Normal Saline 0.9% W/20 Meq Kcl) 1,000 mls @ 125 mls/hr IV .Q8H [facility] Levothyroxine Sodium (Synthroid) 88 mcg PO QPM [facility] Magnesium Oxide (Mag Ox) 800 mg PO BIDWM [facility] Methocarbamol (Robaxin) 500 mg PO QPM PRN Ondansetron HCl (Zofran Inj) 4 mg IVP Q4HR PRN Oxycodone HCl (Roxicodone) 5 mg PO Q6H PRN Pantoprazole Sodium (Protonix) 40 mg PO QDAC [facility] Polyethylene Glycol (Miralax) 17 gm PO DAILY [facility] Saccharomyces Boulardii (Florastor) 250 mg PO BIDWM [facility] Wheat Dextrin (Benefiber) 1 packet PO DAILY [facility] HOME meds: Albuterol Sulfate [Proair Hfa Inhaler] 2 puffs INH Q4H PRN 06/14/17 Aspirin Chewable [[place] Aspirin] 81 mg PO DAILY 06/14/17 Calcium/Magnesium/Zinc [Qrvjemu-Fqspajqdi-Nttx Tablet] 1 each PO DAILY 06/14/17 Lactobacillus Acidophilus [Acidophilus Lactobacilli] 1 cap PO BID 06/14/17 Levothyroxine Sodium 88 mcg PO QPM 06/14/17 Meloxicam 15 mg PO QPM PRN 06/14/17 Methocarbamol 500 mg PO QPM PRN 06/14/17 Metoprolol Tartrate 25 mg PO BID 06/14/17 Multivitamin [Theragran] 1 tab PO DAILY 06/14/17 [place]-3 Acid Ethyl Esters [Lovaza] 1 gm PO BID 06/14/17 Omeprazole 40 mg PO BID 06/14/17 Cyanocobalamin (Vitamin B-12) [Vitamin B-12] 1,000 mcg PO DAILY 04/01/18 Objective - Vital Signs/Intake & Output Reviewed Vital Signs: Yes Vital Signs: Vital Signs x48h Temp Pulse Pulse Resp BP BP Pulse Ox 04/03/18 08:15 88 18 148/66 H 96 04/03/18 05:30 36.7 C 87 16 151/64 H 96 04/03/18 01:44 36.6 C 91 18 127/62 Intake & Output: Intake & Output 03/31/18 04/01/18 04/02/18 04/03/18 23:59 23:59 23:59 23:59 Intake Total 1000 4411.667 5809.584 1664.833 Output Total 1000 400 Balance 1000 4411.667 4809.584 1264.833 - Objective General Appearance: positive: No acute distress, Alert Eyes Bilateral: positive: PERRL ENT: positive: Pharynx nml, No signs of dehydration Neck: positive: Thyroid nml, No JVD, Trachea midline Respiratory: positive: Chest non-tender, No respiratory distress, Breath sounds nml Cardiovascular: positive: Regular rate & rhythm, No gallop, Tachycardia Peripheral Pulses: 1+ Radial (R), 1+ Radial (L) Abdomen: positive: Tenderness, Guarding, Abnml bowel sounds Back: positive: Nml inspection Skin: positive: No rash, Warm, Dry, Pallor Extremities: positive: Non-tender, Full ROM, Nml appearance, No pedal edema Neurologic/Psychiatric: positive: Oriented x3, CN's nml (2-12), Motor nml, Sensation nml, Mood/affect nml Reflexes: Bicep (R): 3+, Bicep (L): 3+ - Lab Results Fish Bones: 04/03/18 05:15 04/03/18 05:15 Other Labs: Lab Results x24hrs 04/03/18 04/03/18 04/03/18 Range/Units 05:15 05:15 05:15 WBC 11.0 H (4.8-10.8) x10^3/uL RBC 3.09 L (4.20-5.40) 10^6/uL Hgb 10.3 L (12.0-16.0) g/dL Hct 30.6 L (37.0-47.0) % MCV 98.9 (81.0-99.0) fL MCH 33.4 H (27.0-31.0) pg MCHC 33.7 (32.0-36.0) g/dL RDW 16.2 H (12.0-15.0) % Plt Count 234 (130-450) 10^3/uL MPV 8.4 (7.9-10.8) fL Sodium 135 (135-145) mmol/L Potassium 3.5 (3.5-5.0) mmol/L Chloride 108 (101-111) mmol/L Carbon Dioxide 23 (21-32) mmol/L Anion Gap 4.0 L (6-13) BUN 5 L (6-20) mg/dL Creatinine 0.6 (0.4-1.0) mg/dL Estimated GFR (MDRD) 102 (>89) Glucose 112 H (70-100) mg/dL Calcium 7.8 L (8.5-10.3) mg/dL Magnesium 1.5 L (1.7-2.8) mg/dL Total Bilirubin 1.8 H (0.2-1.0) mg/dL AST 29 (10-42) IU/L ALT 19 (10-60) IU/L Alkaline Phosphatase 81 (42-121) IU/L Total Protein 4.9 L (6.7-8.2) g/dL Albumin 2.3 L (3.2-5.5) g/dL Globulin 2.6 (2.1-4.2) g/dL Albumin/Globulin Ratio 0.9 L (1.0-2.2) TSH 3.16 (0.34-5.60) uIU/mL Blood Type Antibody Screen Crossmatch IS Only 04/02/18 03/31/18 Range/Units 14:20 20:55 WBC (4.8-10.8) x10^3/uL RBC (4.20-5.40) 10^6/uL Hgb 7.3 L (12.0-16.0) g/dL Hct 20.8 L (37.0-47.0) % MCV (81.0-99.0) fL MCH (27.0-31.0) pg MCHC (32.0-36.0) g/dL RDW (12.0-15.0) % Plt Count (130-450) 10^3/uL MPV (7.9-10.8) fL Sodium (135-145) mmol/L Potassium (3.5-5.0) mmol/L Chloride (101-111) mmol/L Carbon Dioxide (21-32) mmol/L Anion Gap (6-13) BUN (6-20) mg/dL Creatinine (0.4-1.0) mg/dL Estimated GFR (MDRD) (>89) Glucose (70-100) mg/dL Calcium (8.5-10.3) mg/dL Magnesium (1.7-2.8) mg/dL Total Bilirubin (0.2-1.0) mg/dL AST (10-42) IU/L ALT (10-60) IU/L Alkaline Phosphatase (42-121) IU/L Total Protein (6.7-8.2) g/dL Albumin (3.2-5.5) g/dL Globulin (2.1-4.2) g/dL Albumin/Globulin Ratio (1.0-2.2) TSH (0.34-5.60) uIU/mL Blood Type A POSITIVE Antibody Screen NEGATIVE Crossmatch IS Only See Detail ABX Reporting Has patient been on IV antibiotics over the past 48 hours?: Yes Assessment/Plan - Problem List (1) Lower gastrointestinal bleeding Impression: The patient has a known history of diverticulosis, and states that while she is having the bloody stool, the cramping becomes worse. She has a baseline hemoglobin of ~13-15 that went as low as 7.3 yesterday, so 2 units of PRBCs were transfused based on her symptoms and because she continued to actively bleed. Imaging confirmed acute diverticulitis. Plan: Continue to monitor for improvement, continue antibiotics. (2) Acute blood loss anemia Impression: The patient normally has a hemoglobin ~13-15, but this has dropped to just 7.3 today after several bloody stools. She was given 2 units of PRBCs overnight. She continues on IV treatment for her acute diverticulitis. She explains how she has more energy today, is less pale appearing and can tolerate more activity. She had been hypotensive yesterday, and today has no further hypotension. Plan: Monitor vital signs, labs and watch for further bleeding. (3) Hypotension Impression: The patient is normally hypertensive and is prescribed metoprolol at home. Since admission, she has been low with systolic B/P in the 70's that is gradually improved today. Yesterday she was having bloody stools with B/Ps was reported as 80's/50's. She is now post-transfusion and her hypotension appears to be resolved, so she was given diltiazem which will be continued at home. Plan: Continue IV fluids, monitor labs, watch for further bleeding. (4) Diverticulosis Impression: The patient states that she has had this for several years and this low abdominal pain reminds her of this. She states that for the past one month, this pain has been very sporadic, but has been more noticeable. She had a WBC count of 13 that remains normal. On exam she has noted low abdominal discomfort with palpitation, but this is improved from previous. She has been afebrile today. Plan: Continue IV Cipro/Flagyl, IV dilaudid for pain, CL diet with mild bowel rest. Continue daily benefiber. Qualifiers: Diverticulosis bleeding: diverticulosis with bleeding (5) NSAID long-term use Impression: The patient is prescribed Meloxicam at home for her arthritis pain. She denies throwing up blood or a history of gastric ulcers. She continues to have bloody stools today that have increased. Plan: Hold for now, discourage future use. (6) Cigarette nicotine dependence Impression: The patient admits to being a life long smoker. She has no interest in quitting when discussed this morning and is prescribed a nicotine patch ordered. Plan: Continue to encourage cessation, offer nicotine patch. (7) GERD (gastroesophageal reflux disease) Impression: The patient has a history of this and prescribed Omeprazole at home. Plan: Continue IV protonix, monitor symptoms. (8) HTN (hypertension) Impression: The patient is prescribed metoprolol at home that is on hold today given her continued hypotension. I have prescribed diltiazem today that will start today since her hypotension is resolved. Plan: Continue to monitor VSs, await echo results, recommend home use of diltiazem given her longstanding COPD. Qualifiers: Hypertension type: essential hypertension Qualified Code(s): I10 - Essential (primary) hypertension (9) History of IHSS Impression: On the patient's last echo in 2015, she was noted to have this condition as there was a sigmoid shaped septum with focal hypertrophy of the basal septum. Her ejection fraction was slightly increased at >75% and diastolic dysfunction. Plan: Give diltiazem when appropriate for [facility] rate control, d/c home metoprolol. Await echo results.
[2018-04-03] MEDS: CIPROFLOXACIN 400 MG/200 ML 200 ML IV SCH ×2 (09:39→22:03)
[2018-04-03] MEDS: MAGNESIUM OXIDE 400 MG TABLET PO SCH ×2 (09:45→17:05)
[2018-04-03] MEDS: POLYETHYLENE GLYCOL 3350 17 GM PACKET PO SCH (09:46)
[2018-04-03] MEDS: ACETAMINOPHEN 325 MG TABLET PO PRN ×2 (17:06→22:02)
[2018-04-03] MEDS: SODIUM CHLORIDE FLUSH 0.9% 10 ML SYRINGE IVP PRN (19:17)
[2018-04-03] MEDS: ONDANSETRON 4 MG/2 ML VIAL IVP PRN (19:17)
[2018-04-03 19:56] LABS: HGB - HEMOGLOBIN 8.5 g/dL (12.0-16.0)
[2018-04-03] MEDS: LEVOTHYROXINE 88 MCG TABLET PO SCH (22:02)
[2018-04-04] MEDS: metroNIDAZOLE 500 MG/100 ML 500 MG/100 ML BAG IV SCH ×3 (01:13→17:24)
[2018-04-04] MEDS: SODIUM CHLORIDE FLUSH 0.9% 10 ML SYRINGE IVP SCH ×4 (01:14→17:09)
[2018-04-04] MEDS: HYDROmorphone 0.5 MG/0.5 ML SYRINGE IVP PRN ×2 (01:21→13:23)
[2018-04-04] MEDS: SODIUM CHLORIDE FLUSH 0.9% 10 ML SYRINGE IVP PRN ×2 (01:26→02:11)
[2018-04-04 03:04] LABS: HGB - HEMOGLOBIN 9.3 g/dL (12.0-16.0)
[2018-04-04 06:07] LABS: BASOPHILS # (AUTO) 0.1 10^3/uL (0.0-0.1); BASOPHILS % (AUTO) 0.5 %; EOSINOPHILS # (AUTO) 0.1 10^3/uL (0.0-0.7); EOSINOPHILS % (AUTO) 0.7 %; HGB - HEMOGLOBIN 9.8 g/dL (12.0-16.0); LYMPHOCYTES # (AUTO) 2.2 10^3/uL (1.5-3.5); LYMPHOCYTES % (AUTO) 18.1 %; MEAN CORPUSCULAR HEMOGLOBIN 32.3 pg (27.0-31.0); MEAN CORPUSCULAR HGB CONC 33.6 g/dL (32.0-36.0); MEAN CORPUSCULAR VOLUME 96.1 fL (81.0-99.0); MEAN PLATELET VOLUME 9.5 fL (7.9-10.8); MONOCYTES # (AUTO) 1.5 10^3/uL (0.0-1.0); MONOCYTES % (AUTO) 12.9 %; NEUTROPHILS # (AUTO) 8.1 10^3/uL (1.5-6.6); NEUTROPHILS % (AUTO) 67.8 %; PLT - PLATELET COUNT 241 10^3/uL (130-450); RED BLOOD COUNT 3.04 10^6/uL (4.20-5.40)
[2018-04-04] MEDS: PANTOPRAZOLE 40 MG TABLET PO SCH (06:20)
[2018-04-04 06:23] LABS: ALBUMIN 2.2 g/dL (3.2-5.5); ALBUMIN/GLOBULIN RATIO 0.9 (1.0-2.2); ALKALINE PHOSPHATASE 72 IU/L (42-121); ALT ALANINE AMINOTRANSFERASE 18 IU/L (10-60); AST ASPARTATE AMINOTRANSFERASE 25 IU/L (10-42); BILIRUBIN,TOTAL 0.8 mg/dL (0.2-1.0); BUN - BLOOD UREA NITROGEN < 5 mg/dL (6-20); CALCIUM 7.8 mg/dL (8.5-10.3); CARBON DIOXIDE - CO2 24 mmol/L (21-32); CHLORIDE 108 mmol/L (101-111); CREATININE 0.6 mg/dL (0.4-1.0); GFR - MDRD 102 (>89); GLUCOSE 96 mg/dL (70-100); SODIUM 137 mmol/L (135-145); TOTAL PROTEIN 4.7 g/dL (6.7-8.2)
[2018-04-04] MEDS: ONDANSETRON 4 MG/2 ML VIAL IVP PRN ×2 (06:28→17:09)
[2018-04-04] MEDS: ACETAMINOPHEN 325 MG TABLET PO PRN ×3 (08:07→20:52)
[2018-04-04] MEDS: diltiaZEM CD 120 MG CAPSULE PO SCH (08:07)
[2018-04-04] MEDS: oxyCODONE 5 MG TABLET PO PRN ×3 (08:07→20:52)
[2018-04-04] MEDS: SACCHAROMYCES BOULARDII 250 MG CAPSULE PO SCH ×2 (08:08→18:04)
[2018-04-04] MEDS: MAGNESIUM OXIDE 400 MG TABLET PO SCH ×2 (08:08→18:05)
[2018-04-04] MEDS: POLYETHYLENE GLYCOL 3350 17 GM PACKET PO SCH (08:10)
[2018-04-04] MEDS: NS W/20 MEQ KCL 1,000 ML IV SCH ×3 (08:15→23:29)
[2018-04-04] MEDS: CIPROFLOXACIN 400 MG/200 ML 200 ML IV SCH ×2 (10:05→20:26)
--- NOTE | 2018-04-04 13:41 | PROVIDER PROGRESS NOTE ---
Subjective - Prog Note Date Prog Note Date: 04/04/18 Prog Note Time: 13:39 - Subjective Pt reports feeling: Improved Subjective: Jessica continues to complain of nausea with intermittent nausea. She feels improved from yesterday when she was having the bloody stools. She denies chest pain, chest pressure, bloody stools, a rash or new shortness of breath. Current Medications - Current Medications Current Medications: Active Medications: Acetaminophen (Tylenol) 650 mg PO Q4HR PRN Albuterol () 2.5 mg INH Q4H PRN Diltiazem HCl (Cardizem Cd) 120 mg PO DAILY RAFA Hydromorphone HCl (Dilaudid Inj Syringe) 0.5 mg IVP Q2H PRN Ciprofloxacin (Cipro 400 Mg/200 Ml) 200 mls @ 200 mls/hr IV Q12H RAFA Metronidazole (Flagyl 500 Mg/100 Ml) 500 mg in 100 mls @ 100 mls/hr IV Q8H RAFA Potassium Chloride/Sodium Chloride (Normal Saline 0.9% W/20 Meq Kcl) 1,000 mls @ 125 mls/hr IV .Q8H RAFA Levothyroxine Sodium (Synthroid) 88 mcg PO QPM RAFA Magnesium Oxide (Mag Ox) 800 mg PO BIDWM RAFA Methocarbamol (Robaxin) 500 mg PO QPM PRN Ondansetron HCl (Zofran Inj) 4 mg IVP Q4HR PRN Oxycodone HCl (Roxicodone) 5 mg PO Q6H PRN Pantoprazole Sodium (Protonix) 40 mg PO QDAC [facility] Polyethylene Glycol (Miralax) 17 gm PO DAILY RAFA Saccharomyces Boulardii (Florastor) 250 mg PO BIDWM [facility] HOME meds: Albuterol Sulfate [Proair Hfa Inhaler] 2 puffs INH Q4H PRN 06/14/17 Aspirin Chewable [[place] Aspirin] 81 mg PO DAILY 06/14/17 Calcium/Magnesium/Zinc [Ghtsdof-Pkiframfr-Zhqd Tablet] 1 each PO DAILY 06/14/17 Lactobacillus Acidophilus [Acidophilus Lactobacilli] 1 cap PO BID 06/14/17 Levothyroxine Sodium 88 mcg PO QPM 06/14/17 Meloxicam 15 mg PO QPM PRN 06/14/17 Methocarbamol 500 mg PO QPM PRN 06/14/17 Metoprolol Tartrate 25 mg PO BID 06/14/17 Multivitamin [Theragran] 1 tab PO DAILY 06/14/17 [place]-3 Acid Ethyl Esters [Lovaza] 1 gm PO BID 06/14/17 Omeprazole 40 mg PO BID 06/14/17 Cyanocobalamin (Vitamin B-12) [Vitamin B-12] 1,000 mcg PO DAILY 04/01/18 Objective - Vital Signs/Intake & Output Reviewed Vital Signs: Yes Vital Signs: Vital Signs x48h Temp Pulse Resp BP Pulse Ox 04/04/18 07:37 36.6 C 75 20 131/63 H 96 Intake & Output: Intake & Output 04/01/18 04/02/18 04/03/18 04/04/18 23:59 23:59 23:59 23:59 Intake Total 4411.667 5809.584 4504.833 2883.917 Output Total 1000 1225 400 Balance 4411.667 4809.584 3279.833 2483.917 - Objective General Appearance: positive: No acute distress, Alert Eyes Bilateral: positive: PERRL Eyes: OU Conjunctivae pale ENT: positive: Pharynx nml, Dry mucous membranes Neck: positive: Thyroid nml, No JVD, Trachea midline Respiratory: positive: Chest non-tender, No respiratory distress, Breath sounds nml Cardiovascular: positive: Regular rate & rhythm, No gallop, Systolic murmur, Decreased pulse(s) Peripheral Pulses: 1+ Radial (R), 1+ Radial (L) Abdomen: positive: Nml bowel sounds, Tenderness, Other (rounded, soft) Back: positive: Nml inspection Skin: positive: No rash, Warm, Dry, Other (bronze toned) Extremities: positive: Non-tender, Full ROM, Nml appearance, No pedal edema Neurologic/Psychiatric: positive: Oriented x3, CN's nml (2-12), Motor nml, Sensation nml, Mood/affect nml Reflexes: Bicep (R): 3+, Bicep (L): 3+ - Lab Results Fish Bones: 04/04/18 05:26 04/04/18 05:26 Other Labs: Lab Results x24hrs 04/04/18 04/04/18 04/04/18 Range/Units 05:26 05:26 02:55 WBC 12.0 H (4.8-10.8) x10^3/uL RBC 3.04 L (4.20-5.40) 10^6/uL Hgb 9.8 L 9.3 L (12.0-16.0) g/dL Hct 29.2 L 28.2 L (37.0-47.0) % MCV 96.1 (81.0-99.0) fL MCH 32.3 H (27.0-31.0) pg MCHC 33.6 (32.0-36.0) g/dL RDW 18.0 H (12.0-15.0) % Plt Count 241 (130-450) 10^3/uL MPV 9.5 (7.9-10.8) fL Neut # (Auto) 8.1 H (1.5-6.6) 10^3/uL Lymph # (Auto) 2.2 (1.5-3.5) 10^3/uL [place] # (Auto) 1.5 H (0.0-1.0) 10^3/uL Eos # (Auto) 0.1 (0.0-0.7) 10^3/uL Baso # (Auto) 0.1 (0.0-0.1) 10^3/uL Absolute Nucleated RBC 0.01 x10^3/uL Nucleated RBC % 0.1 /100WBC Sodium 137 (135-145) mmol/L Potassium 3.7 (3.5-5.0) mmol/L Chloride 108 (101-111) mmol/L Carbon Dioxide 24 (21-32) mmol/L Anion Gap 5.0 L (6-13) BUN < 5 L (6-20) mg/dL Creatinine 0.6 (0.4-1.0) mg/dL Estimated GFR (MDRD) 102 (>89) Glucose 96 (70-100) mg/dL Calcium 7.8 L (8.5-10.3) mg/dL Total Bilirubin 0.8 (0.2-1.0) mg/dL AST 25 (10-42) IU/L ALT 18 (10-60) IU/L Alkaline Phosphatase 72 (42-121) IU/L Total Protein 4.7 L (6.7-8.2) g/dL Albumin 2.2 L (3.2-5.5) g/dL Globulin 2.5 (2.1-4.2) g/dL Albumin/Globulin Ratio 0.9 L (1.0-2.2) Blood Type Antibody Screen Crossmatch IS Only 04/03/18 04/03/18 03/31/18 Range/Units 19:49 19:40 20:55 WBC (4.8-10.8) x10^3/uL RBC (4.20-5.40) 10^6/uL Hgb 8.5 L (12.0-16.0) g/dL Hct 25.7 L (37.0-47.0) % MCV (81.0-99.0) fL MCH (27.0-31.0) pg MCHC (32.0-36.0) g/dL RDW (12.0-15.0) % Plt Count (130-450) 10^3/uL MPV (7.9-10.8) fL Neut # (Auto) (1.5-6.6) 10^3/uL Lymph # (Auto) (1.5-3.5) 10^3/uL [place] # (Auto) (0.0-1.0) 10^3/uL Eos # (Auto) (0.0-0.7) 10^3/uL Baso # (Auto) (0.0-0.1) 10^3/uL Absolute Nucleated RBC x10^3/uL Nucleated RBC % /100WBC Sodium (135-145) mmol/L Potassium (3.5-5.0) mmol/L Chloride (101-111) mmol/L Carbon Dioxide (21-32) mmol/L Anion Gap (6-13) BUN (6-20) mg/dL Creatinine (0.4-1.0) mg/dL Estimated GFR (MDRD) (>89) Glucose (70-100) mg/dL Calcium (8.5-10.3) mg/dL Total Bilirubin (0.2-1.0) mg/dL AST (10-42) IU/L ALT (10-60) IU/L Alkaline Phosphatase (42-121) IU/L Total Protein (6.7-8.2) g/dL Albumin (3.2-5.5) g/dL Globulin (2.1-4.2) g/dL Albumin/Globulin Ratio (1.0-2.2) Blood Type A POSITIVE A POSITIVE Antibody Screen NEGATIVE NEGATIVE Crossmatch IS Only See Detail See Detail ABX Reporting Has patient been on IV antibiotics over the past 48 hours?: Yes Sepsis Event Note (H) - Evaluation Current Stage of Sepsis: Ruled out Assessment/Plan - Problem List (1) Diverticulitis Impression: The patient states that she has had this for several years and this low abdominal pain reminds her of this. She states that for the past one month, this pain has been very sporadic, but has been more noticeable. She had a WBC count of 12 today. On exam she has noted low abdominal discomfort with palpitation, but this is improved from previous. She has been afebrile today, although has continued poor appetite with intermittent nausea. Plan: Continue IV Cipro/Flagyl, IV dilaudid for pain, CL diet with mild bowel rest. Contact general surgery with updates. (2) Lower gastrointestinal bleeding Impression: The patient has a known history of diverticulosis, and states that while she is having the bloody stool, the cramping becomes worse. She has a baseline hemoglobin of ~13-15 that went as low as 7.3, now improved to 9.8 after 3 total PRBCs. Imaging confirmed acute diverticulitis. Today she is not tolerating food, and has not had bloody stools, but dark stools. Plan: Continue to monitor for improvement, continue antibiotics. (3) Acute blood loss anemia Impression: The patient normally has a hemoglobin ~13-15, and after getting 2 units of blood she was stable at 10.3. Unfortunately, yesterday she had at least 4 moderately bloody stools, and upon rechecking an H & H it was down again to 8.5/25.7, so she got one more unit overnight given this rapid drop in blood volume and her ongoing bloody stools. She continues on IV treatment for her acute diverticulitis. Her appetite is poor today and she has ongoing nausea. Plan: Monitor vital signs, labs and watch for further bleeding. (4) Hypotension Impression: The patient is normally hypertensive and is prescribed metoprolol at home. Since admission, she has been low with systolic B/P in the 70's that is gradually improved today. During her blood stool episodes, she was having B/Ps reported as 80's/50's. She is now post-transfusion x3 units total and her hypotension appears to be resolved, so she was given diltiazem which will be continued at home. Plan: Continue IV fluids, monitor labs, watch for further bleeding. Qualifiers: Hypotension type: hypotension due to hypovolemia Qualified Code(s): I95.89 - Other hypotension; E86.1 - Hypovolemia (5) NSAID long-term use Impression: The patient is prescribed Meloxicam at home for her arthritis pain. She denies throwing up blood or a history of gastric ulcers. She continues to have bloody stools today that have increased. Plan: Hold for now, discourage future use. (6) Cigarette nicotine dependence Impression: The patient admits to being a life long smoker. She has no interest in quitting when discussed and is prescribed a nicotine patch ordered. She has not asked for the nicotine patch for this hospital stay but admits to starting up again after discharge since her continues to smoke. Plan: Continue to encourage cessation, offer nicotine patch. Qualifiers: Substance use status: unspecified nicotine-induced disorder Qualified Code(s): F17.219 - Nicotine dependence, cigarettes, with unspecified nicotine- induced disorders (7) GERD (gastroesophageal reflux disease) Impression: The patient has a history of this and prescribed Omeprazole at home. She continues to have nausea and reports a history of gastric ulcers today on exam. Plan: Continue IV protonix, monitor symptoms. Qualifiers: Esophagitis presence: without esophagitis Qualified Code(s): K21.9 - Gastro-esophageal reflux disease without esophagitis (8) HTN (hypertension) Impression: The patient is prescribed metoprolol at home that has been discontinued. She is tolerating diltiazem well with a blood pressure of 131/63 and heart rates in the 70's. Plan: Continue to monitor VSs, recommend home use of diltiazem given her debbie gstanding COPD. Qualifiers: Hypertension type: essential hypertension Qualified Code(s): I10 - Essential (primary) hypertension (9) History of IHSS Impression: On the patient's last echo in 2015, she was noted to have this condition as there was a sigmoid shaped septum with focal hypertrophy of the basal septum. Her ejection fraction was slightly increased at >75% and diastolic dysfunction. New echo results show a more critical finding as her IHSS/hypertrophic obstructive cardiomyopathy has become worse and has resulted in a significant mid cavity and LV out flow gradient and systolic anterior motion (FAB) with mild mitral regurg, the LA is severely dilated. I have updated the patient and sent a fax to her PCP Amrita Salinas as she more urgently will need a CV surgical consult. I did not get a call back yet. 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
[2018-04-04] MEDS: LEVOTHYROXINE 88 MCG TABLET PO SCH (20:26)
[2018-04-05] MEDS: metroNIDAZOLE 500 MG/100 ML 500 MG/100 ML BAG IV SCH (01:20)
[2018-04-05] MEDS: SODIUM CHLORIDE FLUSH 0.9% 10 ML SYRINGE IVP SCH ×2 (01:21→08:16)
[2018-04-05] MEDS: ACETAMINOPHEN 325 MG TABLET PO PRN ×2 (02:24→08:11)
[2018-04-05] MEDS: oxyCODONE 5 MG TABLET PO PRN ×2 (02:24→08:10)
[2018-04-05] MEDS ORDERED: IOVERSOL 320 100 ML VIAL IVP ONE ×3 (05:08→06:19)
[2018-04-05] MEDS ORDERED: IOVERSOL 320 50 ML VIAL ONE (05:09)
[2018-04-05] MEDS: NS W/20 MEQ KCL 1,000 ML IV SCH (05:53)
[2018-04-05] MEDS ORDERED: IOVERSOL 320 50 ML VIAL PO ONE (06:19)
[2018-04-05 06:22] LABS: BASOPHILS % (AUTO) 0.3 %; EOSINOPHILS # (AUTO) 0.1 10^3/uL (0.0-0.7); EOSINOPHILS % (AUTO) 0.8 %; HGB - HEMOGLOBIN 9.7 g/dL (12.0-16.0); LYMPHOCYTES # (AUTO) 1.5 10^3/uL (1.5-3.5); LYMPHOCYTES % (AUTO) 13.4 %; MEAN CORPUSCULAR HEMOGLOBIN 32.2 pg (27.0-31.0); MEAN CORPUSCULAR HGB CONC 32.8 g/dL (32.0-36.0); MEAN CORPUSCULAR VOLUME 98.2 fL (81.0-99.0); MEAN PLATELET VOLUME 8.7 fL (7.9-10.8); MONOCYTES # (AUTO) 1.4 10^3/uL (0.0-1.0); NEUTROPHILS # (AUTO) 8.4 10^3/uL (1.5-6.6); NEUTROPHILS % (AUTO) 73.5 %; PLT - PLATELET COUNT 316 10^3/uL (130-450); RED BLOOD COUNT 3.02 10^6/uL (4.20-5.40); RED CELL DISTRIBUTION WIDTH 18.4 % (12.0-15.0); WHITE BLOOD COUNT 11.5 x10^3/uL (4.8-10.8)
--- NOTE | 2018-04-05 06:26 | CT Report ---
Reason: nausea, acute diverticulitis Procedure Date: 04/05/2018 Accession Number: [id number] / [id number] Procedure: CT - Abdomen/Pelvis W/ CPT Code: FULL RESULT: EXAM: CT ABDOMEN AND PELVIS EXAM DATE: 04/05/2018 06:17 AM. CLINICAL HISTORY: Nausea, acute diverticulitis. COMPARISONS: ABDOMEN/PELVIS W/ 04/01/2018 5:04 PM. TECHNIQUE: Routine helical CT imaging was performed through the abdomen and pelvis. IV contrast: [id number] 90ml. Enteric contrast: Yes. Reconstructions: Coronal and sagittal. In accordance with CT protocol optimization, one or more of the following dose reduction techniques were utilized for this exam: automated exposure control, adjustment of mA and/or KV based on patient size, or use of iterative reconstructive technique. FINDINGS: Lung Bases: Small bilateral effusions, new from previous. Liver: Normal. No masses. Gallbladder/Bile Ducts: Unremarkable. Spleen: Normal. Pancreas: Normal. Adrenal Glands: Normal. Kidneys: Normal. No masses or hydronephrosis. Peritoneal Cavity/Bowel: Inflammatory changes around the sigmoid colon appear stable. Focus of extra colonic gas appears stable. The previously seen fluid collection is no longer appreciated. No small bowel dilatation or adenopathy. Small amount of free fluid in the pelvis. Pelvic Organs: Normal. The bladder and visualized pelvic organs are within normal limits. Vasculature: Extensive atherosclerotic calcifications. No aneurysm. Bones: No significant abnormality. Other: None. IMPRESSION: Stable appearance of extra colonic gas adjacent to the inflamed sigmoid colon. Previously noted small pericolonic fluid collection is no longer appreciated. New small bilateral pleural effusions. RADIA
[2018-04-05 06:29] LABS: ALBUMIN 2.4 g/dL (3.2-5.5); ALKALINE PHOSPHATASE 72 IU/L (42-121); ALT ALANINE AMINOTRANSFERASE 16 IU/L (10-60); AST ASPARTATE AMINOTRANSFERASE 29 IU/L (10-42); BILIRUBIN,TOTAL 0.5 mg/dL (0.2-1.0); BUN - BLOOD UREA NITROGEN < 5 mg/dL (6-20); CALCIUM 8.1 mg/dL (8.5-10.3); CARBON DIOXIDE - CO2 24 mmol/L (21-32); CHLORIDE 106 mmol/L (101-111); CREATININE 0.6 mg/dL (0.4-1.0); GFR - MDRD 102 (>89); GLUCOSE 86 mg/dL (70-100); MAGNESIUM 1.6 mg/dL (1.7-2.8); PHOSPHORUS 3.3 mg/dL (2.5-4.6); SODIUM 135 mmol/L (135-145); TOTAL PROTEIN 4.9 g/dL (6.7-8.2)
[2018-04-05] MEDS: PANTOPRAZOLE 40 MG TABLET PO SCH (06:45)
[2018-04-05 08:00] VITALS: BP 130/67
[2018-04-05] MEDS: MAGNESIUM OXIDE 400 MG TABLET PO SCH (08:10)
[2018-04-05] MEDS: SACCHAROMYCES BOULARDII 250 MG CAPSULE PO SCH (08:10)
[2018-04-05] MEDS: CIPROFLOXACIN 400 MG/200 ML 200 ML IV SCH (08:11)
[2018-04-05] MEDS: diltiaZEM CD 120 MG CAPSULE PO SCH (08:11)
[2018-04-05] MEDS: POLYETHYLENE GLYCOL 3350 17 GM PACKET PO SCH (08:16)
--- NOTE | 2018-04-05 08:25 | Discharge Plan ---
Discharge Plan Disposition: 01 Home, Self Care Condition: Good Prescriptions: Ciprofloxacin/Ciprofloxa HCl [Ciprofloxacin ER 500 mg Tablet] 500 mg PO BID #14 tbmp.24hr diltiaZEM CD [Cardizem Cd] 120 mg PO DAILY #30 capsule Fluticasone/Salmeterol [Advair Hfa 115-21 Mcg Inhaler] 8 gm IH BID #1 hfa.aer.ad Magnesium Oxide [Mag Ox] 400 mg PO BIDWM #60 tablet Metronidazole [Flagyl] 500 mg PO Q8H #21 tablet Nicotine 7 mg Patch [Nicoderm] 1 each TOP Q24H #7 patch Diet: Soft Activity Restrictions: No Restrictions Shower Restrictions: No Instruction Topics: Magnesium Salts capsules or tablets immediate release, Metronidazole tablets or capsules, Ciprofloxacin tablets, Nicotine skin patches, Fluticasone Salmeterol inhalation aerosol, Diltiazem tablets, Bleeding Gastrointestinal, Gastric Ulcer Additional Instructions or Follow Up instructions: You were first admitted for GI bleeding, which after imaging was found to be acute diverticulitis. You were given bowel rest, then resumed to a soft diet. RE-imaging showed improvement of the diverticulitis, without any new problems. You were treated with IV antibiotics that were changed to oral and are to be continued at home. Your beta marquis was changed to a calcium channel amrquis, called diltiazem, during your stay and should continue at home. Please STOP: Metoprolol and use the Meloxicam sparingly. All prescriptions have been sent to the pharmacy. You should do your best to refrain from smoking in the event you will need surgical intervention in the near future for your heart. I have prescribed a long-acting inhaler as this is indicated for those patient with COPD. Please take this everyday. Please see your PCP within one week, she has already made a Cardiology consult for your heart condition. Follow-Up Care: [facility] - Pulmonary No Smoking: If you smoke, Please STOP! Call for help. Follow-up with: Amrita Salinas ARNP [Primary Care Provider] -
--- NOTE | 2018-04-05 08:34 | DISCHARGE SUMMARY ---
Discharge Summary Admit Date: 03/31/18 Discharge Date: 04/05/18 Discharging Provider: JESSICA López Primary Care Provider: Amrita Salinas Code Status: Attempt Resuscitation Condition at Discharge: Good Discharge Disposition: Home, Self Care - DIAGNOSES Admission Diagnoses: Gastrointestinal hemorrhage, unspecified (K92.2) nursing home (current) use of non-steroidal non-inflam (NSAID) (Z79.1) Nicotine dependence, cigarettes, uncomplicated (F17.210) Gastro-esophageal reflux disease without esophagitis (K21.9) Essential (primary) hypertension (I10) Hypothyroidism, unspecified (E03.9) Discharge Diagnoses with Status of Each Condition: Lower GI bleed (K92.2) resolved, no further bleeding. Diverticulitis (K57.92) new on this admission, improved both clinically and on imaging. Continue antibiotics. Nausea (R11.0) improved, tolerating PO meds. NSAID long-term use (Z79.1) advised to use sparingly. Cigarette nicotine dependence (F17.210) low dose nicotine patches at the pharmacy. Advised to quit in the event of upcoming surgical prospect. HTN (hypertension) (I10) chronic, started on Diltiazem to continue at home. Hypotension (I95.9) resolved. Acute blood loss anemia (D62) stable, no further bleeding. Encounter for blood transfusion (Z51.89) Received 3 units total of PRBCs with good response and no further bleeding. Chronic GERD (K21.9) chronic, continued on PPI, with magnesium supplement. History of IHSS (Z86.79) new echo obtained for hypotension, tachycardia shows worsening. PCP contacted who will make an immediate referral to Cardiology/CV surgery. 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, NYHA class 2 (I50.30) worsening since last echo in 2016. EF >75%. COPD without exacerbation (J44.9) Advair prescribed to be used BID at home. - HPI History of Present Illness: HPI per Dr. Cadena: Patient is a 62-year-old female with a past medical history of hypertension, acid reflux, diverticulosis with diverticulitis, who also has chronic joint pain taking meloxicam for the past 6 months who presents with lower GI bleed since earlier this morning and possibly as early as last night. Patient states that she had some loose stools last night but was unable to see and is unsure if there is any blood in it however this morning she did have a bowel movement in which after wiping she was able to see bright red blood on the toilet paper. T his recurred several times within an hour going to the bathroom about every 15 minutes. The patient states that she uses an outhouse and so she is unable to evaluate toilet water for the amount of blood but she does feel like there was a lot of liquid with bowel movements possibly suggestive of copious bloody. This eventually stopped in the morning that happened a couple of more times at which point when she got up she started to feel lightheaded and she called a friend to take her to the hospital. In the emergency room and evaluation was performed to find that her hypotensive with blood pressures in the 70s systolic that persisted for a little while until 1 L normal saline bolus was completed at which point her blood pressure remained over 100 systolic for over an hour when the hospitalist service was then called for admission. Her labs are suggestive of acute blood loss with hemoglobin and hematocrit 10.9 and 33 respectively.Her baseline is closer to 15 hemoglobin hematocrit closer to 35. She is not tachycardic. She has minimal abdominal pain and for this reason a CT scan was held off. Though she does have a history of diverticulitis she is afebrile currently. A guaiac test was positive. No hemorrhoids were noted on exam. - HOSPITAL COURSE Hospital Course: The patient was first admitted with GI bleeding as she had labile complaints, but she became more unstable so imaging was obtained which led to the treatment of acute diverticulitis in the sigmoid colon. She continued to have nausea, so general surgery was consulted and recommended more imaging, which showed improvement in the previous image. During the time of her more acute BRBPR, she was hypotensive and tachycardic, so another echocardiogram was ordered which showed a worsening of her known IHSS. A fax was sent to her PCP, who is agreeable in a more urgent cardiology/CV surgery consult. She was tolerating meals and was thought to be at her baseline at the time of discharge. She was counseled on the importance of quitting smoking with her at the bedside, and they were doubtful that this would work out very well. She was told of her effusions in her low lungs and given an incentive spirometer that she can use at home to help with this. She was encouraged to keep up with staying hydrated given her heart condition. She was medically stable and anxious to return home with her . - ALLERGIES Allergies/Adverse Reactions: Allergies Allergy/AdvReac Type Severity Reaction Status Date / Time No Known Drug Allergies Allergy Verified 03/31/18 20:55 - MEDICATIONS Home Medications: Ambulatory Orders Medication Instructions Recorded Confirmed Albuterol Sulfate [Proair Hfa 2 puffs INH Q4H PRN 06/14/17 04/01/18 Inhaler] Aspirin Chewable [[place] 81 mg PO DAILY 06/14/17 04/01/18 Aspirin] Calcium/Magnesium/Zinc 1 each PO DAILY 06/14/17 04/01/18 [Mgxseei-Jswvkbjou-Rltf Tablet] Lactobacillus Acidophilus 1 cap PO BID 06/14/17 04/01/18 [Acidophilus Lactobacilli] Levothyroxine Sodium 88 mcg PO QPM 06/14/17 04/01/18 Meloxicam 15 mg PO QPM PRN 06/14/17 04/01/18 Methocarbamol 500 mg PO QPM PRN 06/14/17 04/01/18 Multivitamin [Theragran] 1 tab PO DAILY 06/14/17 04/01/18 [place]-3 Acid Ethyl Esters [Lovaza] 1 gm PO BID 06/14/17 04/01/18 Omeprazole 40 mg PO BID 06/14/17 04/01/18 Cyanocobalamin (Vitamin B-12) 1,000 mcg PO DAILY 04/01/18 04/01/18 [Vitamin B-12] Ciprofloxacin/Ciprofloxa HCl 500 mg PO BID #14 tbmp.24hr 04/05/18 [Ciprofloxacin ER 500 mg Tablet] Fluticasone/Salmeterol [Advair Hfa 8 gm IH BID #1 hfa.aer.ad 04/05/18 115-21 Mcg Inhaler] Magnesium Oxide [Mag Ox] 400 mg PO BIDWM #60 tablet 04/05/18 Metronidazole [Flagyl] 500 mg PO Q8H #21 tablet 04/05/18 Nicotine 7 mg Patch [Nicoderm] 1 each TOP Q24H #7 patch 04/05/18 diltiaZEM CD [Cardizem Cd] 120 mg PO DAILY #30 capsule 04/05/18 - PHYSICAL EXAM AT DISCHARGE General Appearance: positive: No acute distress, Alert, Anxious Eyes Bilateral: positive: PERRL ENT: positive: Pharynx nml, No signs of dehydration Neck: positive: Thyroid nml, No JVD, Trachea midline Respiratory: positive: Chest non-tender, No respiratory distress Cardiovascular: positive: Regular rate & rhythm, Systolic murmur, Decreased pulse(s) Peripheral Pulses: positive: 1+ Abdomen: positive: Non-tender, Nml bowel sounds, Guarding Back: positive: Nml inspection Skin: positive: No rash, Warm, Dry Extremities: positive: Non-tender, Full ROM, Nml appearance, No pedal edema Neurologic/Psychiatric: positive: Oriented x3, CN's nml (2-12), Motor nml, Sensation nml, Mood/affect nml Reflexes: Bicep (R): 3+, Bicep (L): 3+ - LABS Result Diagrams: 04/05/18 06:03 04/05/18 06:03 - DIAGNOSTIC IMAGING Diagnostic Imaging Results: Final report reviewed Diagnostic Imaging Results Comments: EXAM: CT ABDOMEN AND PELVIS EXAM DATE: 04/01/2018 05:04 PM. IMPRESSION: 1. Findings suggest acute diverticulitis with associated inflammatory change and small pelvic abscesses as noted above. 2. Other findings as noted above. EXAM: CT ABDOMEN AND PELVIS EXAM DATE: 04/05/2018 06:17 AM. IMPRESSION: Stable appearance of extra colonic gas adjacent to the inflamed sigmoid colon. Previously noted small pericolonic fluid collection is no longer appreciated. New small bilateral pleural effusions. ECHOCARDIOGRAM: Final read by Masoud Gilbert MD on 04/03/18; 1. Hyperdynamic LV with mild proximal septal thickening causing a significant mid cavity and LVOT gradient and FAB with mild mitral regurg. There is moderate diastolic dysfunction. The LA is severely dilated. 2. Mildly thickened mitral leaflets with mild to moderate mitral regurg and no stenosis. 3. Moderate pulmonary HTN, PASP of 59 mm Hg. RV size and function are normal. - SEPSIS Current Stage of Sepsis: Ruled out - FOLLOW UP Follow Up: Disposition: Home, Self Care Condition: Good Prescriptions: Ciprofloxacin/Ciprofloxa HCl [Ciprofloxacin ER 500 mg Tablet] 500 mg PO BID #14 tbmp.24hr diltiaZEM CD [Cardizem Cd] 120 mg PO DAILY #30 capsule Fluticasone/Salmeterol [Advair Hfa 115-21 Mcg Inhaler] 8 gm IH BID #1 hfa.aer.ad Magnesium Oxide [Mag Ox] 400 mg PO BIDWM #60 tablet Metronidazole [Flagyl] 500 mg PO Q8H #21 tablet Nicotine 7 mg Patch [Nicoderm] 1 each TOP Q24H #7 patch Additional Instructions or Follow Up instructions: You were first admitted for GI bleeding, which after imaging was found to be acute diverticulitis. You were given bowel rest, then resumed to a soft diet. RE-imaging showed improvement of the diverticulitis, without any new problems. You were treated with IV antibiotics that were changed to oral and are to be continued at home. Your beta marquis was changed to a calcium channel marquis, called diltiazem, during your stay and should continue at home. Please STOP: Metoprolol and use the Meloxicam sparingly. All prescriptions have been sent to the pharmacy. You should do your best to refrain from smoking in the event you will need surgical intervention in the near future for your heart. I have prescribed a long-acting inhaler as this is indicated for those patient with COPD. Please take this everyday. Please see your PCP within one week, she has already made a Cardiology consult for your heart condition. - TIME SPENT Time Spent in Discharge (Minutes): 55
[2018-04-05] MEDS ORDERED: metroNIDAZOLE 250 MG TABLET PO SCH (09:00)
== END 2018-04-05 10:23 | disposition home or self-care (01) | DRG 292 ==
LOC: ED 20:41 → MS2 22:11 → INTOOBSV 22:11 → OBSVTOIN 04-02 13:45
PROVIDERS: ADMIT Nurse Practitioner; ATTEND Nurse Practitioner
PROC: 30233N1 Transfusion of Nonautologous Red Blood Cells into Peripheral Vein, Percutaneous Approach (ICD-10-PCS; principal; 2018-04-02)
PROC: 30233N1 Transfusion of Nonautologous Red Blood Cells into Peripheral Vein, Percutaneous Approach (ICD-10-PCS; 2018-04-03)
DX: I11.0 Hypertensive heart disease with heart failure (principal); D62 Acute posthemorrhagic anemia; I50.32 Chronic diastolic (congestive) heart failure; E03.9 Hypothyroidism, unspecified; K21.9 Gastro-esophageal reflux disease without esophagitis; M19.90 Unspecified osteoarthritis, unspecified site; F17.210 Nicotine dependence, cigarettes, uncomplicated; G89.29 Other chronic pain; M25.50 Pain in unspecified joint; I95.9 Hypotension, unspecified; Z79.1 Long term (current) use of non-steroidal anti-inflammatories (NSAID); I42.1 Obstructive hypertrophic cardiomyopathy; J44.9 Chronic obstructive pulmonary disease, unspecified; Z86.79 Personal history of other diseases of the circulatory system; R11.0 Nausea; R00.0 Tachycardia, unspecified; R19.7 Diarrhea, unspecified
CPT/HCPCS: 36415; 74177; 80053; 83690; 83735; 84100; 84443; 84484; 85014; 85018; 85025; 85027; 85610; 85730; 86850; 86900; 86901; 86920; 93005; 93306; 96360; 96361; 96374; 99284; 99285

== ENCOUNTER 2018-04-10 15:17 | Outpatient (CLI) | payer MEDICAID ==
[2018-04-10 17:42] LABS: BASOPHILS # (AUTO) 0.1 10^3/uL (0.0-0.1); BASOPHILS % (AUTO) 0.4 %; EOSINOPHILS # (AUTO) 0.1 10^3/uL (0.0-0.7); EOSINOPHILS % (AUTO) 0.7 %; HGB - HEMOGLOBIN 10.7 g/dL (12.0-16.0); LYMPHOCYTES # (AUTO) 1.9 10^3/uL (1.5-3.5); LYMPHOCYTES % (AUTO) 15.5 %; MEAN CORPUSCULAR HEMOGLOBIN 31.9 pg (27.0-31.0); MEAN CORPUSCULAR HGB CONC 32.2 g/dL (32.0-36.0); MEAN CORPUSCULAR VOLUME 99.1 fL (81.0-99.0); MEAN PLATELET VOLUME 8.4 fL (7.9-10.8); MONOCYTES # (AUTO) 1.1 10^3/uL (0.0-1.0); MONOCYTES % (AUTO) 8.7 %; NEUTROPHILS # (AUTO) 9.4 10^3/uL (1.5-6.6); NEUTROPHILS % (AUTO) 74.7 %; PLT - PLATELET COUNT 777 10^3/uL (130-450); RED BLOOD COUNT 3.36 10^6/uL (4.20-5.40); RED CELL DISTRIBUTION WIDTH 17.1 % (12.0-15.0); WHITE BLOOD COUNT 12.6 x10^3/uL (4.8-10.8)
== END 2018-04-10 15:18 | disposition home or self-care (01) ==
LOC: LAB.F 15:17
PROVIDERS: ATTEND Registered Nurse
DX: K57.92 Diverticulitis of intestine, part unspecified, without perforation or abscess without bleeding (principal)
CPT/HCPCS: 36415; 85025

== ENCOUNTER 2018-04-11 10:51 | Outpatient (CLI) | payer MEDICAID ==
[2018-04-11 18:54] LABS: ALBUMIN 2.8 g/dL (3.2-5.5); ALBUMIN/GLOBULIN RATIO 0.9 (1.0-2.2); BILIRUBIN,TOTAL 0.6 mg/dL (0.2-1.0); CALCIUM 8.7 mg/dL (8.5-10.3); CREATININE 0.6 mg/dL (0.4-1.0); MAGNESIUM 1.9 mg/dL (1.7-2.8); TOTAL PROTEIN 5.8 g/dL (6.7-8.2)
== END 2018-04-11 10:52 | disposition home or self-care (01) ==
LOC: LAB.F 10:51
PROVIDERS: ATTEND Registered Nurse
DX: R60.9 Edema, unspecified (principal)
CPT/HCPCS: 36415; 80053; 83735; 84443

== ENCOUNTER 2018-09-04 15:13 | Outpatient (CLI) | payer MEDICAID ==
[2018-09-04 17:53] LABS: BASOPHILS # (AUTO) 0.2 10^3/uL (0.0-0.1); BASOPHILS % (AUTO) 0.6 %; HGB - HEMOGLOBIN 11.8 g/dL (12.0-16.0); LYMPHOCYTES # (AUTO) 2.2 10^3/uL (1.5-3.5); LYMPHOCYTES % (AUTO) 6.8 %; MEAN CORPUSCULAR HGB CONC 33.1 g/dL (32.0-36.0); MEAN CORPUSCULAR VOLUME 93.7 fL (81.0-99.0); MEAN PLATELET VOLUME 11.5 fL (7.9-10.8); MONOCYTES # (AUTO) 1.7 10^3/uL (0.0-1.0); MONOCYTES % (AUTO) 5.2 %; NEUTROPHILS % (AUTO) 84.4 %; PLT - PLATELET COUNT 559 10^3/uL (130-450); RED BLOOD COUNT 3.81 10^6/uL (4.20-5.40); RED CELL DISTRIBUTION WIDTH 17.7 % (12.0-15.0)
[2018-09-04 18:20] LABS: ALBUMIN 2.3 g/dL (3.2-5.5); ALBUMIN/GLOBULIN RATIO 0.5 (1.0-2.2); BILIRUBIN,TOTAL 6.4 mg/dL (0.2-1.0); CALCIUM 8.9 mg/dL (8.5-10.3); MAGNESIUM 1.9 mg/dL (1.7-2.8); TOTAL PROTEIN 6.5 g/dL (6.7-8.2)
[2018-09-04 18:26] LABS: FERRITIN 347.1 ng/mL (11.0-306.8)
[2018-09-04 19:17] LABS: FREE T4 (FREE THYROXINE) 1.42 ng/dL (0.58-1.64)
[2018-09-04 20:22] LABS: DIFFERENTIAL COMMENT MANUAL=AUTO DIFF; PLATELET ESTIMATE, MANUAL INCREASED (>450,000) (NORMAL); PLATELET MORPHOLOGY 1+ LARGE PLATELETS (NORMAL)
== END 2018-09-04 15:14 | disposition home or self-care (01) ==
LOC: LAB.F 15:13
PROVIDERS: ATTEND Registered Nurse
DX: R10.84 Generalized abdominal pain (principal); M62.81 Muscle weakness (generalized); E03.9 Hypothyroidism, unspecified; R74.8 Abnormal levels of other serum enzymes; D50.9 Iron deficiency anemia, unspecified
CPT/HCPCS: 36415; 80053; 82728; 82977; 83540; 83735; 84439; 84443; 84466; 85025

== ENCOUNTER 2018-09-05 10:18 | Inpatient (IN) | payer MEDICAID ==
[2018-09-05] MEDS ORDERED: SODIUM CHLORIDE 0.9% 1,000 ML IV ONE (11:01)
[2018-09-05 11:08] LABS: BASOPHILS # (AUTO) 0.2 10^3/uL (0.0-0.1); BASOPHILS % (AUTO) 0.6 %; EOSINOPHILS % (AUTO) 0.1 %; HGB - HEMOGLOBIN 12.7 g/dL (12.0-16.0); LYMPHOCYTES % (AUTO) 6.4 %; MEAN CORPUSCULAR HEMOGLOBIN 31.2 pg (27.0-31.0); MEAN CORPUSCULAR HGB CONC 33.7 g/dL (32.0-36.0); MEAN CORPUSCULAR VOLUME 92.6 fL (81.0-99.0); MEAN PLATELET VOLUME 12.1 fL (7.9-10.8); MONOCYTES # (AUTO) 1.2 10^3/uL (0.0-1.0); MONOCYTES % (AUTO) 3.9 %; NEUTROPHILS % (AUTO) 86.6 %; PLT - PLATELET COUNT 590 10^3/uL (130-450); RED BLOOD COUNT 4.07 10^6/uL (4.20-5.40); RED CELL DISTRIBUTION WIDTH 17.9 % (12.0-15.0); WHITE BLOOD COUNT 31.2 x10^3/uL (4.8-10.8)
--- NOTE | 2018-09-05 11:13 | ED Physician Documentation ---
History of Present Illness - Stated complaint Stated Complaint: DIARRHEA - Chief complaint Chief Complaint: General - History obtained from History obtained from: Patient - Additonal information Additional information: Patient is a 62-year-old female with history of thyroid disease, hypertension, diverticulitis, fatty liver, pancreatitis, and previous GI bleed presenting from practice office with concern for presenting from leukocytosis and other abnormal lab work associated with diffuse abdominal pain, nausea, vomiting, and diarrhea.Patient reports left-sided abdominal pain for the past 2 weeks associated with nausea and vomiting. Patient denies any urinary changes such as dysuria or hematuria. Patient also denies bloody or dark stools, but rather has liquid diarrhea. Patient denies any recent travel and only new medications have been for yeast infection of her mouth which she has completed several weeks ago. Patient denies fever and chills. No other improving or worsening factors noted. Review of Systems Constitutional: denies: Fever, Chills GI: reports: Abdominal Pain, Nausea, Vomiting, Diarrhea. denies: Bloody / black stool : denies: Dysuria, Frequency PD PAST MEDICAL HISTORY - Past Medical History Cardiovascular: Hypertension Neuro: None Endocrine/Autoimmune: HyPOthyroidism GI: GERD, GI bleed, Pancreatitis, Hepatitis (Fatty liver), Diverticulitis : None HEENT: None Psych: None Musculoskeletal: Osteoarthritis - Past Surgical History Past Surgical History: Yes /PROSTHODONTIST/EDUCATOR: Tubal ligation HEENT: Tonsil/Adenoidectomy - Present Medications Home Medications: Ambulatory Orders Medication Instructions Recorded Confirmed RX: Levothyroxine Sodium 88 mcg PO QPM 06/14/17 09/05/18 RX: diltiaZEM CD [Cardizem Cd] 120 mg PO DAILY #30 capsule 04/05/18 09/05/18 RX: Ferrous Sulfate 325 mg PO DAILY 09/05/18 09/05/18 - Allergies Allergies/Adverse Reactions: Allergies Allergy/AdvReac Type Severity Reaction Status Date / Time No Known Drug Allergies Allergy Verified 09/05/18 10:31 - Social History Does the pt smoke?: Yes Smoking Status: Current every day smoker Does the pt drink ETOH?: Yes Does the pt have substance abuse?: No - Immunizations Immunizations: TDAP >10years/unknown - POLST Patient has POLST: No POLST Status: Limited Interventions PD ED PE NORMAL - Vitals Vital signs reviewed: Yes - General General: Alert and oriented X 3, No acute distress, Well developed/nourished - HEENT HEENT: Atraumatic, Moist mucous membranes, Pharynx benign. No: Dentition benign (Poor dentition throughout) - Cardiac Cardiac: RRR, No murmur - Respiratory Respiratory: No respiratory distress, Clear bilaterally - Abdomen Abdomen: Soft, Non distended. No: Non tender (Mild LLQ tenderness, no guarding or rebound) - Derm Derm: Normal color, Warm and dry, No rash - Extremities Extremities: No deformity, No tenderness to palpate - Neuro Neuro: Alert and oriented X 3, No motor deficit, No sensory deficit - Psych Psych: Normal mood, Normal affect Results - Vitals Vitals: Vital Signs - 24 hr 09/05/18 09/05/18 09/05/18 10:25 10:42 11:00 Temperature 36.7 C Heart Rate 114 H 88 76 Respiratory 14 14 16 Rate Blood Pressure 89/63 L 134/72 H 136/69 H O2 Saturation 100 99 97 09/05/18 09/05/18 09/05/18 11:30 12:02 12:30 Temperature Heart Rate 73 71 68 Respiratory 14 13 14 Rate Blood Pressure 140/68 H 152/74 H 159/77 H O2 Saturation 98 99 98 09/05/18 13:00 Temperature Heart Rate 70 Respiratory 14 Rate Blood Pressure 139/66 H O2 Saturation 98 Oxygen O2 Source Room air - Labs Labs: Microbiology 09/05/18 11:08 Campylobacter Antigen Assay - Final Stool Laboratory Tests 09/05/18 09/05/18 09/05/18 10:45 10:45 11:25 WBC 31.2 H RBC 4.07 L Hgb 12.7 Hct 37.7 MCV 92.6 MCH 31.2 H MCHC 33.7 RDW 17.9 H Plt Count 590 H MPV 12.1 H Neut # (Auto) 27.0 H Lymph # (Auto) 2.0 [place] # (Auto) 1.2 H Eos # (Auto) 0.0 Baso # (Auto) 0.2 H Absolute Nucleated RBC 0.00 Nucleated RBC % 0.0 Manual Slide Review Indicated WBC Morphology NORMAL APPEARANCE Platelet Estimate INCREASED (>450,000) Platelet Morphology 1+ LARGE PLATELETS RBC Morph Micro Appear 1+ MACROCYTOSIS Sodium 135 Potassium 3.7 Chloride 94 L Carbon Dioxide 23 Anion Gap 18.0 H BUN 26 H Creatinine 1.0 Estimated GFR (MDRD) 57 L Glucose 85 Lactic Acid 0.7 Calcium 9.1 Total Bilirubin 6.6 H AST 169 H ALT 66 H Alkaline Phosphatase 448 H Total Protein 7.3 Albumin 2.6 L Globulin 4.7 H Albumin/Globulin Ratio 0.6 L Lipase 29 Urine Color Urine Clarity Urine pH Ur Specific Crane Urine Protein Urine Glucose (UA) Urine Ketones Urine Occult Blood Urine Nitrite Urine Bilirubin Urine Urobilinogen Ur Leukocyte Esterase Urine RBC Urine WBC Urine WBC Clumps Ur Squamous Epith Cells Urine Bacteria Ur Microscopic Review Urine Culture Comments 09/05/18 12:24 WBC RBC Hgb Hct MCV MCH MCHC RDW Plt Count MPV Neut # (Auto) Lymph # (Auto) [place] # (Auto) Eos # (Auto) Baso # (Auto) Absolute Nucleated RBC Nucleated RBC % Manual Slide Review WBC Morphology Platelet Estimate Platelet Morphology RBC Morph Micro Appear Sodium Potassium Chloride Carbon Dioxide Anion Gap BUN Creatinine Estimated GFR (MDRD) Glucose Lactic Acid Calcium Total Bilirubin AST ALT Alkaline Phosphatase Total Protein Albumin Globulin Albumin/Globulin Ratio Lipase Urine Color YELLOW Urine Clarity SL Urine pH 7.0 Ur Specific Crane <=1.005 Urine Protein NEGATIVE Urine Glucose (UA) NEGATIVE Urine Ketones NEGATIVE Urine Occult Blood TRACE-INTA Urine Nitrite NEGATIVE Urine Bilirubin SMALL H Urine Urobilinogen 2 H Ur Leukocyte Esterase SMALL H Urine RBC 6-10 H Urine WBC >25 H Urine WBC Clumps PRESENT Ur Squamous Epith Cells FEW Squamous Urine Bacteria Few Ur Microscopic Review INDICATED Urine Culture Comments INDICATED PD MEDICAL DECISION MAKING - ED course Complexity details: reviewed old records, reviewed results, re-evaluated patient, considered differential, d/w patient, d/w family, d/w proposal consultant ED course: Patient presenting with 2 weeks of lower quadrant pain. Unfortunately, patient has complicated past medical history including known GI bleed, pancreatitis, fatty liver, diverticulitis. Did receive phone call from PCP who alerted to abnormal labs obtained yesterday. Repeat labs today indicate persistent leukocytosis, as well as abnormalities to liver enzymes, alkaline phosphatase, bilirubin. When compared to previous, these are similar likely due to underlying disease processes as opposed to a new acute issue today. Given concern for infection particularly with leukocytosis, although patient afebrile within normal limits for vital signs during the ED stay, obtain blood cultures and lactate. CT imaging found evidence of diverticulitis complicated with contained perforation/abscess. Spoke with both general surgery and hospitalist. Plan to admit for medical management. Antibiotics deferred to hospitalist. Patient amenable to this plan. Departure - Departure Disposition: [facility] DC/Mickey Clinical Impression: Diverticulitis Discharge Date/Time: 09/05/18 14:18
[2018-09-05 11:22] LABS: ALBUMIN 2.6 g/dL (3.2-5.5); ALBUMIN/GLOBULIN RATIO 0.6 (1.0-2.2); BILIRUBIN,TOTAL 6.6 mg/dL (0.2-1.0); CALCIUM 9.1 mg/dL (8.5-10.3); TOTAL PROTEIN 7.3 g/dL (6.7-8.2)
[2018-09-05] MEDS ORDERED: IOVERSOL 320 100 ML VIAL IVP ONE ×2 (11:40→15:16)
[2018-09-05 11:41] LABS: PLATELET ESTIMATE, MANUAL INCREASED (>450,000) (NORMAL); PLATELET MORPHOLOGY 1+ LARGE PLATELETS (NORMAL)
--- NOTE | 2018-09-05 12:23 | CT Report ---
Reason: pain, diarrhea, abnormal LFTS, bili, WBC Procedure Date: 09/05/2018 Accession Number: [id number] / [id number] Procedure: CT - Abdomen/Pelvis W CPT Code: FULL RESULT: EXAM: CT ABDOMEN AND PELVIS EXAM DATE: 09/05/2018 11:56 AM. CLINICAL HISTORY: Pain, diarrhea, abnormal LFTS, bili, WBC. COMPARISONS: ABDOMEN/PELVIS W04/05/2018 6:01 AM ABDOMEN/PELVIS W04/01/2018 5:04 PM. TECHNIQUE: Routine helical CT imaging was performed through the abdomen and pelvis. IV contrast: 100 cc Optiray 320. Enteric contrast: No. Reconstructions: Coronal and sagittal. In accordance with CT protocol optimization, one or more of the following dose reduction techniques were utilized for this exam: automated exposure control, adjustment of mA and/or KV based on patient size, or use of iterative reconstructive technique. FINDINGS: Lung Bases: Unremarkable. The previously seen small bilateral pleural effusions are no longer present. Coronary artery calcifications and mitral annular calcifications are present. Liver: Normal. No masses. Gallbladder/Bile Ducts: Unremarkable. Spleen: Normal. Pancreas: Normal. Adrenal Glands: Normal. Kidneys: Normal. No masses or hydronephrosis. Peritoneal Cavity/Bowel: There is extensive diverticulosis of the sigmoid colon. There is a long segment of circumferential bowel wall thickening of the sigmoid colon with mild adjacent inflammatory fat stranding. There is a triangular collection of gas and fluid with a thin rim of enhancement located in the left side of the pelvis adjacent to the sigmoid colon. This measures 2.4 x 2.1 x 1.6 cm (series 3 image 71, and series 5 image 33). This was not well seen on the prior exam. No dilated loops of small bowel or abnormal colonic stool burden. No fluid or free air in the abdomen. No lymphadenopathy. The appendix is well visualized and normal. Pelvic Organs: Normal. The bladder and visualized pelvic organs are within normal limits. Vasculature: No abdominal aortic aneurysm. There is extensive atherosclerotic calcification of the abdominal aorta and iliac arteries. Bones: No significant abnormality. Other: None. IMPRESSION: Extensive diverticulosis of the sigmoid colon. There is circumferential wall thickening with mild adjacent inflammatory changes, suggestive of acute diverticulitis of the sigmoid colon. There is a 2.4 cm rim-enhancing collection of fluid and gas in the left side of the pelvis adjacent to the sigmoid colon, suggestive of contained perforation or abscess. RADIA The call report notification system was initiated by Dr. Lloyd Alexander at 12:21 PM on 09/05/2018. ADDENDUM: 09/05/18 12:30 The above call report findings were discussed with Bing Mckeon by Dr. Lloyd Alexander at 12:30 PM on 09/05/2018.
[2018-09-05 12:39] LABS: GLUCOSE, URINE (UA) NEGATIVE (NEGATIVE); KETONES,URINE (UA) NEGATIVE (NEGATIVE); LEUKOCYTE ESTERASE, URINE SMALL (NEGATIVE); NITRITE,URINE NEGATIVE (NEGATIVE); OCCULT BLOOD,URINE TRACE-INTA (NEGATIVE); PROTEIN,URINE NEGATIVE (NEGATIVE); UROBILINOGEN,URINE 2 E.U./dL (NORMAL)
[2018-09-05 12:41] LABS: CLARITY,URINE SL (CLEAR)
[2018-09-05 12:44] LABS: BILIRUBIN,URINE SMALL (NEGATIVE); ICTOTEST,URINE POSITIVE
[2018-09-05 12:51] LABS: BACTERIA,URINE Few /HPF (None Seen); SQUAMOUS EPITHELIAL CELL,UR FEW Squamous (<= Few); WBC CLUMPS,URINE PRESENT
[2018-09-05] MEDS ORDERED: PROCHLORPERAZINE 10 MG/2 ML VIAL IVP PRN (13:13)
[2018-09-05] MEDS ORDERED: TEMAZEPAM 15 MG CAPSULE PO PRN (13:13)
[2018-09-05] MEDS ORDERED: MORPHINE 2 MG/ML CARPUJECT IVP PRN (13:13)
[2018-09-05] MEDS ORDERED: ONDANSETRON 4 MG/2 ML VIAL IVP PRN (13:13)
[2018-09-05] MEDS ORDERED: SODIUM CHLORIDE FLUSH 0.9% 10 ML SYRINGE IVP PRN (13:13)
--- NOTE | 2018-09-05 13:45 | HISTORY & PHYSICAL EXAMINATION ---
Chief Complaint - Chief Complaint Chief Complaint: instructed by PCP weakness History of Present Illness - Admitted From Admitted From:: ED - History Obtained From Records Reviewed: yes History obtained from: patient, chart review Exam Limitations: none - History of Present Illness HPI Comment/Other: Jessica Adkins is a 62-year-old female with a past medical history of hypertension, hyperlipidemia, GI bleed, pancreatitis, fatty liver, osteoarthritis, and life long tobacco use- currently smoking 1.5 PPD since age 17, alcohol use, acid reflux, diverticulosis with diverticulitis, and chronic joint pain. The patient states that she went to her PCP, Amrita Salinas 2 days ago for ongoing incontinent bowels, liquid diarrhea, inability to eat or drink, nausea and vomiting, weakness, and dizziness. Labs were drawn while visiting her PCP and after they resulted today, the patient was called at home to report to the ED for further treatment. Upon arrival to the ED the patient was hypotensive with a blood pressure of 89/63, and after IV fluids, improved to 134/72, she was tachycardic with heart rates 115, afebrile with a temp max of 36.7, required no oxygen on room air at 98%. Labs showed an elevated WBC count of 31.2, H/H of 12.7/37.7, platelet count of 590, abnormal iron study with an iron of 27, 17% sat, TIBC 157, transferrin 112, elevated TSH of 5.68, sodium 135, potassium of 3.7, chloride 94, anion gap 18.0, BUN 26, creatinine 1.0, GFR 57, lactic acid 0.7, GGT 891, bilirubin 6.6, AST 169, AST 66, alk phos 448, and a urine sample showing + UTI (bacteria, WBCs, leukocyte esterase, occult) with a culture pending. Imaging showed a likely acute perforated/abscess sigmoid diverticulitis. The patient denies syncope, evidence of bleeding, a rash, an increased cough, insomnia, or chest pain. She admits to recent stool incontinence which is new, dark urine, dizziness, weakness, an inability to carry out her daily hygiene, more frequent chills, nausea, vomiting, inability to tolerate PO intake, and liquid diarrhea. General surgery was consulted, who agrees to follow the patient, and she will be admitted to inpatient for further treatment of acute diverticulitis, being watchful of alcohol withdrawal or n icotine withdrawal. History - Past Medical History Cardiovascular: reports: Hypertension, High cholesterol, Coronary artery disease, Peripheral Vascular Disease, Other (IHSS on echo) Respiratory: reports: COPD, Emphysema Neuro: reports: Headaches, Peripheral neuropathy, Tremors Endocrine/Autoimmune: reports: HyPOthyroidism GI: reports: GERD, GI bleed, Pancreatitis, Diverticulitis NEGOTIATIONS DIRECTOR: reports: None : reports: Nocturia, Frequency HEENT: reports: Chronic vision loss, Chronic hearing loss Psych: reports: Depression Musculoskeletal: reports: Osteoarthritis, Fatigue Derm: reports: None MRSA Hx?: No - Past Surgical History General: reports: Colonoscopy, EGD /NEGOTIATIONS DIRECTOR: reports: Tubal ligation HEENT: reports: Tonsil/Adenoidectomy - Family & Social History Family History: Mother: , Father: , Sister: Alive and Well (is well living) Family History Comment/Other: Father: hx of DM, HTN, CAD, status post CABG. Mother: 2 types of cancer. 4 Sisters: one in a train accident, another s istierra at a young age- was born with only one kidney, the other sisters are in good health Living arrangement: At home Living Situation: With spouse/s.o. Social History Notes: Patient lives with her significant other, Berhane independently in [place]. She has one daughter and one son, both children are health. She admits to intermittent alcohol use, life long tobacco dependence- currently down to 1.5 PPD since age 17 years. She denies other illicit drug use. She wishes to be a FULL code. - Substance History Use: Uses substance without health or social issues: Tobacco Abuse: Recurrent use of substance despite neg consequences: NONE Dependence: Experiences withdrawal or developed tolerances: NONE Tobacco Details: Cigarettes - POLST Patient has POLST: No POLST Status: Full Code Meds/Allgy - Home Medications Home Medications: Ambulatory Orders Medication Instructions Recorded Confirmed Levothyroxine Sodium 88 mcg PO QPM 06/14/17 09/05/18 diltiaZEM CD [Cardizem Cd] 120 mg PO DAILY #30 capsule 04/05/18 09/05/18 Ferrous Sulfate 325 mg PO DAILY 09/05/18 09/05/18 - Allergies Allergies/Adverse Reactions: Allergies Allergy/AdvReac Type Severity Reaction Status Date / Time No Known Drug Allergies Allergy Verified 09/05/18 10:31 Review of Systems - Constitutional Constitutional: reports: Fatigue, Chills, Weakness, Poor appetite, Weight loss - Eyes Eyes: reports: Vision loss - Ears, Nose & Throat Ears, Nose & Throat: reports: Hearing loss, Postnasal drainage, Sore throat, Dental decay - Cardiovascular Cariovascular: reports: Palpitations, Lightheadedness, Decr. exercise tolerance - Respiratory Respiratory: reports: Cough, SOB with exertion - Gastrointestinal Gastrointestinal: reports: Abdominal pain, Diarrhea, Change in bowel habits, Nausea, Vomiting, Reflux/heartburn, Bloating, Poor appetite - Genitourinary Genitourinary: reports: Dysuria, Frequency, Nocturia - Musculoskeletal Musculoskeletal: reports: Stiffness - Integumentary Integumentary: reports: Lesions, Dryness - Neurological Neurological: reports: General weakness, Headache, Dizziness, Memory problems, Pre-existing deficit, Abnormal gait - Psychiatric Psychiatric: reports: Depression - Endocrine Endocrine: reports: Intolerance to cold - Hematologic/Lymphatic Hematologic/Lymphatic: reports: Anemia, Recurrent infections - All Other Systems All Other Systems: reports: Reviewed and negative Prior Level of Functionality: Independent at home, cleans the house, cooks meals, no recent falls. Does not use a walker. Exam - Vital Signs Reviewed Vital Signs: Yes Vital Signs: Vital Signs x48h Temp Pulse Resp BP Pulse Ox 09/05/18 13:00 70 14 139/66 H 98 09/05/18 12:30 68 14 159/77 H 98 09/05/18 12:02 71 13 152/74 H 99 09/05/18 11:30 73 14 140/68 H 98 09/05/18 11:00 76 16 136/69 H 97 09/05/18 10:42 88 14 134/72 H 99 09/05/18 10:25 36.7 C 114 H 14 89/63 L 100 - Physical Exam General Appearance: positive: Alert, Mild distress Eyes Bilateral: positive: PERRL ENT: positive: Pharyngeal erythema Neck: positive: Thyroid nml, No JVD, Trachea midline Respiratory: positive: Chest non-tender, No respiratory distress, Breath sounds nml Cardiovascular: positive: Regular rate & rhythm, No gallop, Systolic murmur Peripheral Pulses: positive: 2+ Abdomen: positive: Non-tender, Hepatomegaly, Abnml bowel sounds (hyperactive) Back: positive: Nml inspection Skin: positive: No rash, Warm, Dry, Pallor Extremities: positive: Non-tender, Nml appearance, Pedal edema (trace in ankles- BLE) Neurologic/Psychiatric: positive: Oriented x3, CN's nml (2-12), Motor nml, Sensation nml, Weakness Reflexes: Bicep (R): 3+, Bicep (L): 3+ Conclusion/Plan - Problem List (1) Diverticulitis of colon with perforation Conclusion/Plan: - Saw PCP Amrita Salinas outpatient who took labs, and called her this morning with instructions to report to the ED - Abdominal CT shows extensive diverticultits of the sigmoid colon, with a 2.4 cm rim-enhancing collection of fluid/gas suggestive of a contained perforation/abscess - On exam, hyperactive with tenderness in the RUQ and LLQs - Significant leukocytosis with a WBC count of 31.2 - Comorbidities of life long tobacco dependence, GI bleeding, fatty liver, and history of pancreatitis - Intolerant of oral intake at home for the past 2 weeks solid - Starting with a single agent treatment of Zosyn - A stool sample is pending to test for C diff Plan: Continue to IV fluids, start IV antibiotics Qualifiers: Diverticulitis bleeding: without bleeding Qualified Code(s): K57.20 - Diverticulitis of large intestine with perforation and abscess without bleeding (2) Abdominal pain Conclusion/Plan: - Patient complains of RUQ and LLQ pain that becomes worse with PO intake - This matches imaging with acute sigmoid diverticultitis Plan: IV morphine if needed, treat acute illness Qualifiers: Abdominal location: upper abdomen, unspecified Qualified Code(s): R10.10 - Upper abdominal pain, unspecified (3) UTI (urinary tract infection) Conclusion/Plan: - UA which was obtained in the ED shows a UTI with elevated WBC, occult blood, bacteria - Culture is pending - Patient admits to slight dysuria, dark urine Plan: Continue Zosyn to cover both acute diverticulitis, and UTI, await final culture results (4) COPD (chronic obstructive pulmonary disease) Conclusion/Plan: - Life long tobacco dependence - Admits to continued use, now down to 1.5 PPD - Refuses a nicotine replacement today - No senior living inhalers, likely due to continued inhalants - No home oxygen needs - Signs of poor oxygenation on exam with slight clubbing, peripheral neuropathy, poor vasculature wide spread Plan: Monitor for exacerbation (5) Cigarette nicotine dependence Conclusion/Plan: - Patient started this habit at age 17 years - Continues regular use, now down to 1.5 PPD - No plans in stopping - Refuses nicotine patch when offered today - In the event surgery is needed, this will be a complicating factor Plan: Encourage cessation, as it may lead to less times in the hospital Qualifiers: Substance use status: unspecified nicotine-induced disorder Qualified Code(s): F17.219 - Nicotine dependence, cigarettes, with unspecified nicotine- induced disorders (6) HTN (hypertension) Conclusion/Plan: - Takes diltiazem at home, both for HTN and for IHSS - Blood pressure light upon admission (89/36), likely due to prolonged diarrhea/illness, poor PO intake - Improved after IVFs Plan: Continue to monitor, telemetry, resume dilt in the AM Qualifiers: Hypertension type: essential hypertension Qualified Code(s): I10 - Essential (primary) hypertension (7) Hypothyroidism Conclusion/Plan: - Last TSH was 5.68 on 09/04/18 - Home dose of Synthroid was 88 mcg Plan: Adjust home dose to 100 mcg, recheck TSH in 4-6 weeks (8) NSAID long-term use Conclusion/Plan: - Known history of taking Meloxicam, denies current use - Status post GI bleed Plan: Continue to offer IV morphine, avoid further use (9) Alcohol abuse Conclusion/Plan: - Very elevated GGT at 891, also with elevated LFTs - Patient states that she has not been able to consume alcohol for the past several days due to this illness Plan: Watch for ETOH withdrawal, monitor labs (10) 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 Conclusion/Plan: - Noted on an echo from March 2018, horrible LVOT - Diltiazem was prescribed since that finding, which the patient continues on Plan: Continue to give IV fluids, continue dilt, telemetry (11) Elevated LFTs Conclusion/Plan: - AST 169, ALT 66, alk phos 448, GGT 891 - Patient admits to using alcohol, but not for the past few days - Baseline tremors Plan: Watch for W/D symptoms, encourage cessation - Lab Results Lab results reviewed: Yes Fish Bones: 09/05/18 10:45 09/05/18 10:45 - Diagnostic Imaging Results Diagnostic Imaging Results: positive: Final report reviewed Diagnostic Imaging Results Comments: EXAM: CT ABDOMEN AND PELVIS EXAM DATE: 09/05/2018 11:56 AM IMPRESSION: Extensive diverticulosis of the sigmoid colon. There is circumferential wall thickening with mild adjacent inflammatory changes, suggestive of acute diverticulitis of the sigmoid colon. There is a 2.4 cm rim- enhancing collection of fluid and gas in the left side of the pelvis adjacent to the sigmoid colon, suggestive of contained perforation or abscess. Core Measures - Anticipated LOS I expect patient to be DC'd or transferred within 96 hours.: Yes - DVT/VTE - Prophylaxis VTE/DVT Device ordered at admit?: Yes VTE/DVT Prophylaxis med ordered at admit?: Yes - Stroke - Rehab Assessment Rehab services assessment to be ordered?: No Not Ordered - Medical Reason: Contraindicated - AMI - Statin at Admit Aspirin Prescribed on Admit: No Not Ordered - Medical Reason: Contraindicated
[2018-09-05] MEDS: SODIUM CHLORIDE 0.9% 1,000 ML IV SCH (14:45)
--- NOTE | 2018-09-05 15:02 | CONSULTATION NOTE ---
Referring Provider Name of Referring Provider:: Cheli Conrad Consult Date: 09/05/18 History of Present Illness - Admitted From Admitted From:: [facility] emergency department - History Obtained From Records Reviewed: Yes History obtained from: Patient and chart Exam Limitations: None History - Past Medical History Cardiovascular: reports: Hypertension Neuro: reports: None Endocrine/Autoimmune: reports: HyPOthyroidism GI: reports: GERD, GI bleed, Pancreatitis, Hepatitis (Fatty liver), Diverticulitis : reports: None HEENT: reports: None Psych: reports: None Musculoskeletal: reports: Osteoarthritis MRSA Hx?: No - Past Surgical History /[employer]: reports: Tubal ligation HEENT: reports: Tonsil/Adenoidectomy - Family & Social History Family History: Mother: (Mom from cancer, Dad from HTN and CAD), Father: , Sister: Alive and Well (is well living) Family History Comment/Other: Pt is living alone at [facility]. Pt had one daughter and one son, both children are health. - POLST Patient has POLST: No POLST Status: Limited Interventions Meds/Allgy - Home Medications Home Medications: Ambulatory Orders Medication Instructions Recorded Confirmed RX: diltiaZEM CD [Cardizem Cd] 120 mg PO DAILY #30 capsule 04/05/18 09/05/18 RX: Ferrous Sulfate 325 mg PO DAILY 09/05/18 09/05/18 Fluconazole [Diflucan] 100 mg PO DAILY #5 tablet 09/08/18 RX: Ciprofloxacin HCl [Cipro] 500 mg PO BID #24 tablet 09/08/18 RX: Famotidine [Pepcid] 20 mg PO BID #60 tablet 09/08/18 RX: Levothyroxine [Synthroid] 100 mcg PO QDAC #30 tablet 09/08/18 RX: Magnesium Oxide [Mag Ox] 400 mg PO BIDWM #60 tablet 09/08/18 Saccharomyces Boulardii [Florastor] 250 mg PO BID #90 capsule 09/08/18 Wheat Dextrin [Benefiber] 1 each PO DAILY #30 packet 09/08/18 - Allergies Allergies/Adverse Reactions: Allergies Allergy/AdvReac Type Severity Reaction Status Date / Time No Known Drug Allergies Allergy Verified 09/05/18 10:31 Exam - Vital Signs Reviewed Vital Signs: Yes Vital Signs: Vital Signs x48h Temp Pulse Pulse Resp BP BP Pulse Ox 09/05/18 14:36 36.7 C 92 18 126/53 L 100 09/05/18 14:00 76 15 132/56 H 95 09/05/18 13:30 77 12 132/73 H 100 09/05/18 13:00 70 14 139/66 H 98 09/05/18 12:30 68 14 159/77 H 98 09/05/18 12:02 71 13 152/74 H 99 09/05/18 11:30 73 14 140/68 H 98 09/05/18 11:00 76 16 136/69 H 97 09/05/18 10:42 88 14 134/72 H 99 09/05/18 10:25 36.7 C 114 H 14 89/63 L 100 - Physical Exam General Appearance: positive: No acute distress Eyes Bilateral: positive: No lid inflammation, Conjunctivae nml, No scleral icterus ENT: positive: Dry mucous membranes Neck: positive: Trachea midline Respiratory: positive: Wheezes Cardiovascular: positive: Regular rate & rhythm Abdomen: positive: Non-tender, Nml bowel sounds, No distention. negative: Guarding, Rebound, Hepatomegaly, Splenomegaly Neurologic/Psychiatric: positive: Oriented x3, Motor nml, Sensation nml, Mood/affect nml Conclusion/Plan - Diagnosis Diagnosis: Complicated diverticulitis with abscess - Plan Plan: IV fluid hydration, bowel rest, antibiotics to cover enteric's, serial examination as well as CBC, CT scan in 4 to 5 days to ensure that there is improvement in the radiographic picture. I am involved in this case just in case the medical therapy does not improve the patient's clinical condition and in order to plan an elective sigmoid resection once the patient is improved. I went over how important smoking cessation is with the patient and offered her several strategies. Please contact me with any surgical questions or concerns or any way that I can improve this patient's clinical stay. Dragon disclaimer: This document was created in part using voice recognition technology. Because of the inherent limitations of the system ([employer] user manual states that the licensee understands that speech recognition is a statistical process and that recognition errors are inherent in the process), occasional same sounding word substitutions and grammatical errors do occur and persist despite proofreading. Please read this document for context. - Lab Results Lab results reviewed: Yes Fish Bones: 09/08/18 06:45 09/08/18 06:45 - Diagnostic Imaging Results Diagnostic Imaging Results: positive: Final report reviewed, Read independently
[2018-09-05] MEDS ORDERED: PIPERACILLIN/TAZOBACTAM 3.375 GM in SODIUM CHLORIDE 0.9% MINIBAG 100 ML IV SCH (16:00)
[2018-09-05] MEDS: SACCHAROMYCES BOULARDII 250 MG CAPSULE PO SCH (16:28)
[2018-09-05] MEDS: SODIUM CHLORIDE FLUSH 0.9% 10 ML SYRINGE IVP SCH (16:48)
[2018-09-05] MEDS: PIPERACILLIN/TAZOBACTAM 3.375 GM in SODIUM CHLORIDE 0.9% MINIBAG 100 ML IV SCH (18:01)
[2018-09-05] MEDS ORDERED: LEVOTHYROXINE 88 MCG TABLET PO SCH (21:00)
[2018-09-06] MEDS: SODIUM CHLORIDE FLUSH 0.9% 10 ML SYRINGE IVP SCH ×3 (00:50→19:16)
[2018-09-06] MEDS: SODIUM CHLORIDE 0.9% 1,000 ML IV SCH ×3 (00:50→20:08)
[2018-09-06] MEDS: PIPERACILLIN/TAZOBACTAM 3.375 GM in SODIUM CHLORIDE 0.9% MINIBAG 100 ML IV SCH ×3 (01:52→18:34)
[2018-09-06 06:17] LABS: BASOPHILS % (AUTO) 0.4 %; EOSINOPHILS % (AUTO) 0.3 %; HGB - HEMOGLOBIN 9.8 g/dL (12.0-16.0); LYMPHOCYTES % (AUTO) 7.7 %; MEAN CORPUSCULAR HEMOGLOBIN 31.4 pg (27.0-31.0); MEAN CORPUSCULAR HGB CONC 32.3 g/dL (32.0-36.0); MEAN CORPUSCULAR VOLUME 97.1 fL (81.0-99.0); MEAN PLATELET VOLUME 10.6 fL (7.9-10.8); NEUTROPHILS % (AUTO) 84.4 %; PLT - PLATELET COUNT 534 10^3/uL (130-450); RED BLOOD COUNT 3.12 10^6/uL (4.20-5.40); RED CELL DISTRIBUTION WIDTH 17.9 % (12.0-15.0); WHITE BLOOD COUNT 23.2 x10^3/uL (4.8-10.8)
[2018-09-06 06:21] LABS: ABNORMAL LYMPHS % (MANUAL) 0 %
[2018-09-06 06:32] LABS: HB2 TOTAL 10.3 g/dL; HEMOGLOBIN A1C 0.31 g/dL; HEMOGLOBIN A1C % 4.9 % (4.6-6.2)
[2018-09-06 06:36] LABS: BAND NEUTROPHILS % (MANUAL) 4 %; DIFFERENTIAL COMMENT MANUAL DIFFERENTIAL; EOSINOPHILS # (MANUAL) 0.2 10^3/uL (0-0.7); LYMPHOCYTES # (MANUAL) 1.6 10^3/uL (1.5-3.5); LYMPHOCYTES % (MANUAL) 7 %; METAMYELOCYTES % (MANUAL) 1 %; MONOCYTES # (MANUAL) 2.1 10^3/uL (0.0-1.0); MYELOCYTES % (MANUAL) 1 %; NEUTROPHILS # (MANUAL) 18.8 10^3/uL (1.5-6.6); NEUTROPHILS % (MANUAL) 77 %; PLATELET ESTIMATE, MANUAL INCREASED (>450,000) (NORMAL); RBC MORPHOLOGY (MULTIPLE) NORMAL APPEARANCE (NORMAL)
[2018-09-06 06:41] LABS: ALBUMIN/GLOBULIN RATIO 0.6 (1.0-2.2); BILIRUBIN,TOTAL 5.1 mg/dL (0.2-1.0); CALCIUM 7.5 mg/dL (8.5-10.3); CREATININE 0.8 mg/dL (0.4-1.0); CRP - C-REACTIVE PROTEIN 19.9 mg/dL (0-1.0); MAGNESIUM 1.6 mg/dL (1.7-2.8); PHOSPHORUS 3.1 mg/dL (2.5-4.6); TOTAL PROTEIN 5.5 g/dL (6.7-8.2)
[2018-09-06 06:45] LABS: INR 1.4 (0.8-1.2); PT - PROTHROMBIN TIME 15.6 secs (9.9-12.6)
[2018-09-06] MEDS ORDERED: LEVOTHYROXINE 88 MCG TABLET PO SCH (07:00)
--- NOTE | 2018-09-06 08:05 | PROVIDER PROGRESS NOTE ---
Subjective - Prog Note Date Prog Note Date: 09/06/18 Prog Note Time: 08:05 - Subjective Pt reports feeling: Improved Subjective: Jessica states that her pain has improved after taking an oxycodone. She continues to have pain that comes and goes in her RUQ and LLQ. She denies chest pain, nausea, vomiting, a rash, a new cough, or dizziness. Current Medications - Current Medications Current Medications: Active Medications: Diltiazem HCl (Cardizem Cd) 120 mg PO DAILY RAFA Sodium Chloride (Normal Saline 0.9%) 1,000 mls @ 100 mls/hr IV .Q10H RAFA Piperacillin Sod/Tazobactam (Sod 3.375 gm/ Sodium Chloride) 100 mls @ 25 mls/hr IV Q8H RAFA Levothyroxine Sodium (Synthroid) 100 mcg PO QDAC RAFA Morphine Sulfate (Morphine (Carpuject)) 2 mg IVP Q2HR PRN Ondansetron HCl (Zofran Inj) 4 mg IVP Q6HR PRN Oxycodone HCl (Roxicodone) 5 mg PO Q4HR PRN Polyethylene Glycol (Miralax) 17 gm PO DAILY RAFA Prochlorperazine Edisylate (Compazine Inj) 10 mg IVP Q6HR PRN Temazepam (Restoril) 15 mg PO QPM PRN HOME meds: Levothyroxine Sodium 88 mcg PO QPM 06/14/17 Ferrous Sulfate 325 mg PO DAILY 09/05/18 Objective - Vital Signs/Intake & Output Reviewed Vital Signs: Yes Vital Signs: Vital Signs x48h Temp Pulse Pulse Resp BP Pulse Ox 09/06/18 07:33 36.5 C 66 14 150/71 H 100 09/06/18 05:31 36.2 C L 73 18 99 Intake & Output: Intake & Output 09/03/18 09/04/18 09/05/18 09/06/18 23:59 23:59 23:59 23:59 Intake Total 2710 1100 Balance 2710 1100 - Objective General Appearance: positive: No acute distress, Alert Eyes Bilateral: positive: PERRL Eyes: OU Conjunctivae pale ENT: positive: Pharynx nml, No signs of dehydration Neck: positive: Thyroid nml, No JVD, Trachea midline Respiratory: positive: Chest non-tender, No respiratory distress, Breath sounds nml, Other (diminished, bilaterally) Cardiovascular: positive: Regular rate & rhythm, No gallop, Systolic murmur Peripheral Pulses: 1+ Radial (R), 1+ Radial (L) Abdomen: positive: Non-tender, Nml bowel sounds Back: positive: Nml inspection Skin: positive: No rash, Warm, Dry, Cyanosis (fingertips), Pallor Extremities: positive: Non-tender, Full ROM, Pedal edema (trace BLEs, abdominal edema) Neurologic/Psychiatric: positive: Oriented x3, CN's nml (2-12), Motor nml, Mood /affect nml, Sensory loss Reflexes: Bicep (R): 3+, Bicep (L): 3+ - Lab Results Fish Bones: 09/06/18 06:09 09/06/18 06:09 Other Labs: Lab Results x24hrs 09/06/18 09/06/18 09/06/18 Range/Units 06:09 06:09 06:09 WBC 23.2 H (4.8-10.8) x10^3/uL RBC 3.12 L (4.20-5.40) 10^6/uL Hgb 9.8 L (12.0-16.0) g/dL Hct 30.3 L (37.0-47.0) % MCV 97.1 (81.0-99.0) fL MCH 31.4 H (27.0-31.0) pg MCHC 32.3 (32.0-36.0) g/dL RDW 17.9 H (12.0-15.0) % Plt Count 534 H (130-450) 10^3/uL MPV 10.6 (7.9-10.8) fL Neut # (Auto) Not Reportable (1.5-6.6) 10^3/uL Lymph # (Auto) Not Reportable (1.5-3.5) 10^3/uL Mcnairy # (Auto) Not Reportable (0.0-1.0) 10^3/uL Eos # (Auto) Not Reportable (0.0-0.7) 10^3/uL Baso # (Auto) Not Reportable (0.0-0.1) 10^3/uL Absolute Nucleated RBC Not Reportable x10^3/uL Total Counted 100 Band Neuts % (Manual) 4 (0 - 10) % Abnorm Lymph % (Manual) 0 % Metamyelocytes % 1 H ( - 0) % Myelocytes % 1 H ( - 0) % Nucleated RBC % Not Reportable /100WBC Neutrophils # (Manual) 18.8 H (1.5-6.6) 10^3/uL Lymphocytes # (Manual) 1.6 (1.5-3.5) 10^3/uL Monocytes # (Manual) 2.1 H (0.0-1.0) 10^3/uL Eosinophils # (Manual) 0.2 (0-0.7) 10^3/uL Basophils # (Manual) 0.0 (0-0.1) 10^3/uL Differential Comment MANUAL DIFFERENTIAL Manual Slide Review WBC Morphology (NORMAL) Platelet Estimate INCREASED (>450,000) (NORMAL) Platelet Morphology (NORMAL) RBC Morph Micro Appear NORMAL APPEARANCE (NORMAL) PT 15.6 H (9.9-12.6) secs INR 1.4 H (0.8-1.2) Sodium (135-145) mmol/L Potassium (3.5-5.0) mmol/L Chloride (101-111) mmol/L Carbon Dioxide (21-32) mmol/L Anion Gap (6-13) BUN (6-20) mg/dL Creatinine (0.4-1.0) mg/dL Estimated GFR (MDRD) (>89) Glucose (70-100) mg/dL Glycated Hemoglobin (4.6-6.2) % Estim Average Glucose (70-100) Lactic Acid 0.8 (0.5-2.2) mmol/L Calcium (8.5-10.3) mg/dL Phosphorus (2.5-4.6) mg/dL Magnesium (1.7-2.8) mg/dL Total Bilirubin (0.2-1.0) mg/dL AST (10-42) IU/L ALT (10-60) IU/L Alkaline Phosphatase (42-121) IU/L C-Reactive Protein (0-1.0) mg/dL Total Protein (6.7-8.2) g/dL Albumin (3.2-5.5) g/dL Globulin (2.1-4.2) g/dL Albumin/Globulin Ratio (1.0-2.2) Lipase (22-51) U/L Urine Color Urine Clarity (CLEAR) Urine pH (5.0-7.5) PH Ur Specific Hamilton (1.002-1.030) Urine Protein (NEGATIVE) mg/dL Urine Glucose (UA) (NEGATIVE) mg/dL Urine Ketones (NEGATIVE) mg/dL Urine Occult Blood (NEGATIVE) Urine Nitrite (NEGATIVE) Urine Bilirubin (NEGATIVE) Urine Urobilinogen (NORMAL) E.U./dL Ur Leukocyte Esterase (NEGATIVE) Urine RBC (0-5) /HPF Urine WBC (0-5) /HPF Urine WBC Clumps Ur Squamous Epith Cells (<= Few) Urine Bacteria (None Seen) /HPF Ur Microscopic Review Urine Culture Comments C. difficile Tox B Gene (NEGATIVE) 09/06/18 09/06/18 09/05/18 Range/Units 06:09 06:09 12:24 WBC (4.8-10.8) x10^3/uL RBC (4.20-5.40) 10^6/uL Hgb (12.0-16.0) g/dL Hct (37.0-47.0) % MCV (81.0-99.0) fL MCH (27.0-31.0) pg MCHC (32.0-36.0) g/dL RDW (12.0-15.0) % Plt Count (130-450) 10^3/uL MPV (7.9-10.8) fL Neut # (Auto) (1.5-6.6) 10^3/uL Lymph # (Auto) (1.5-3.5) 10^3/uL Mcnairy # (Auto) (0.0-1.0) 10^3/uL Eos # (Auto) (0.0-0.7) 10^3/uL Baso # (Auto) (0.0-0.1) 10^3/uL Absolute Nucleated RBC x10^3/uL Total Counted Band Neuts % (Manual) (0 - 10) % Abnorm Lymph % (Manual) % Metamyelocytes % ( - 0) % Myelocytes % ( - 0) % Nucleated RBC % /100WBC Neutrophils # (Manual) (1.5-6.6) 10^3/uL Lymphocytes # (Manual) (1.5-3.5) 10^3/uL Monocytes # (Manual) (0.0-1.0) 10^3/uL Eosinophils # (Manual) (0-0.7) 10^3/uL Basophils # (Manual) (0-0.1) 10^3/uL Differential Comment Manual Slide Review WBC Morphology (NORMAL) Platelet Estimate (NORMAL) Platelet Morphology (NORMAL) RBC Morph Micro Appear (NORMAL) PT (9.9-12.6) secs INR (0.8-1.2) Sodium 136 (135-145) mmol/L Potassium 3.4 L (3.5-5.0) mmol/L Chloride 104 (101-111) mmol/L Carbon Dioxide 21 (21-32) mmol/L Anion Gap 11.0 (6-13) BUN 16 (6-20) mg/dL Creatinine 0.8 (0.4-1.0) mg/dL Estimated GFR (MDRD) 73 L (>89) Glucose 74 (70-100) mg/dL Glycated Hemoglobin 4.9 (4.6-6.2) % Estim Average Glucose 94 (70-100) Lactic Acid (0.5-2.2) mmol/L Calcium 7.5 L (8.5-10.3) mg/dL Phosphorus 3.1 (2.5-4.6) mg/dL Magnesium 1.6 L (1.7-2.8) mg/dL Total Bilirubin 5.1 H (0.2-1.0) mg/dL AST 108 H (10-42) IU/L ALT 45 (10-60) IU/L Alkaline Phosphatase 311 H (42-121) IU/L C-Reactive Protein 19.9 H (0-1.0) mg/dL Total Protein 5.5 L (6.7-8.2) g/dL Albumin 2.0 L (3.2-5.5) g/dL Globulin 3.5 (2.1-4.2) g/dL Albumin/Globulin Ratio 0.6 L (1.0-2.2) Lipase 29 (22-51) U/L Urine Color YELLOW Urine Clarity SL (CLEAR) Urine pH 7.0 (5.0-7.5) PH Ur Specific Hamilton <=1.005 (1.002-1.030) Urine Protein NEGATIVE (NEGATIVE) mg/dL Urine Glucose (UA) NEGATIVE (NEGATIVE) mg/dL Urine Ketones NEGATIVE (NEGATIVE) mg/dL Urine Occult Blood TRACE-INTA (NEGATIVE) Urine Nitrite NEGATIVE (NEGATIVE) Urine Bilirubin SMALL H (NEGATIVE) Urine Urobilinogen 2 H (NORMAL) E.U./dL Ur Leukocyte Esterase SMALL H (NEGATIVE) Urine RBC 6-10 H (0-5) /HPF Urine WBC >25 H (0-5) /HPF Urine WBC Clumps PRESENT Ur Squamous Epith Cells FEW Squamous (<= Few) Urine Bacteria Few (None Seen) /HPF Ur Microscopic Review INDICATED Urine Culture Comments INDICATED C. difficile Tox B Gene (NEGATIVE) 09/05/18 09/05/18 09/05/18 Range/Units 11:25 11:08 10:45 WBC (4.8-10.8) x10^3/uL RBC (4.20-5.40) 10^6/uL Hgb (12.0-16.0) g/dL Hct (37.0-47.0) % MCV (81.0-99.0) fL MCH (27.0-31.0) pg MCHC (32.0-36.0) g/dL RDW (12.0-15.0) % Plt Count (130-450) 10^3/uL MPV (7.9-10.8) fL Neut # (Auto) (1.5-6.6) 10^3/uL Lymph # (Auto) (1.5-3.5) 10^3/uL Mcnairy # (Auto) (0.0-1.0) 10^3/uL Eos # (Auto) (0.0-0.7) 10^3/uL Baso # (Auto) (0.0-0.1) 10^3/uL Absolute Nucleated RBC x10^3/uL Total Counted Band Neuts % (Manual) (0 - 10) % Abnorm Lymph % (Manual) % Metamyelocytes % ( - 0) % Myelocytes % ( - 0) % Nucleated RBC % /100WBC Neutrophils # (Manual) (1.5-6.6) 10^3/uL Lymphocytes # (Manual) (1.5-3.5) 10^3/uL Monocytes # (Manual) (0.0-1.0) 10^3/uL Eosinophils # (Manual) (0-0.7) 10^3/uL Basophils # (Manual) (0-0.1) 10^3/uL Differential Comment Manual Slide Review WBC Morphology (NORMAL) Platelet Estimate (NORMAL) Platelet Morphology (NORMAL) RBC Morph Micro Appear (NORMAL) PT (9.9-12.6) secs INR (0.8-1.2) Sodium 135 (135-145) mmol/L Potassium 3.7 (3.5-5.0) mmol/L Chloride 94 L (101-111) mmol/L Carbon Dioxide 23 (21-32) mmol/L Anion Gap 18.0 H (6-13) BUN 26 H (6-20) mg/dL Creatinine 1.0 (0.4-1.0) mg/dL Estimated GFR (MDRD) 57 L (>89) Glucose 85 (70-100) mg/dL Glycated Hemoglobin (4.6-6.2) % Estim Average Glucose (70-100) Lactic Acid 0.7 (0.5-2.2) mmol/L Calcium 9.1 (8.5-10.3) mg/dL Phosphorus (2.5-4.6) mg/dL Magnesium (1.7-2.8) mg/dL Total Bilirubin 6.6 H (0.2-1.0) mg/dL AST 169 H (10-42) IU/L ALT 66 H (10-60) IU/L Alkaline Phosphatase 448 H (42-121) IU/L C-Reactive Protein (0-1.0) mg/dL Total Protein 7.3 (6.7-8.2) g/dL Albumin 2.6 L (3.2-5.5) g/dL Globulin 4.7 H (2.1-4.2) g/dL Albumin/Globulin Ratio 0.6 L (1.0-2.2) Lipase 29 (22-51) U/L Urine Color Urine Clarity (CLEAR) Urine pH (5.0-7.5) PH Ur Specific Hamilton (1.002-1.030) Urine Protein (NEGATIVE) mg/dL Urine Glucose (UA) (NEGATIVE) mg/dL Urine Ketones (NEGATIVE) mg/dL Urine Occult Blood (NEGATIVE) Urine Nitrite (NEGATIVE) Urine Bilirubin (NEGATIVE) Urine Urobilinogen (NORMAL) E.U./dL Ur Leukocyte Esterase (NEGATIVE) Urine RBC (0-5) /HPF Urine WBC (0-5) /HPF Urine WBC Clumps Ur Squamous Epith Cells (<= Few) Urine Bacteria (None Seen) /HPF Ur Microscopic Review Urine Culture Comments C. difficile Tox B Gene NEGATIVE (NEGATIVE) 09/05/18 Range/Units 10:45 WBC 31.2 H (4.8-10.8) x10^3/uL RBC 4.07 L (4.20-5.40) 10^6/uL Hgb 12.7 (12.0-16.0) g/dL Hct 37.7 (37.0-47.0) % MCV 92.6 (81.0-99.0) fL MCH 31.2 H (27.0-31.0) pg MCHC 33.7 (32.0-36.0) g/dL RDW 17.9 H (12.0-15.0) % Plt Count 590 H (130-450) 10^3/uL MPV 12.1 H (7.9-10.8) fL Neut # (Auto) 27.0 H (1.5-6.6) 10^3/uL Lymph # (Auto) 2.0 (1.5-3.5) 10^3/uL Mcnairy # (Auto) 1.2 H (0.0-1.0) 10^3/uL Eos # (Auto) 0.0 (0.0-0.7) 10^3/uL Baso # (Auto) 0.2 H (0.0-0.1) 10^3/uL Absolute Nucleated RBC 0.00 x10^3/uL Total Counted Band Neuts % (Manual) (0 - 10) % Abnorm Lymph % (Manual) % Metamyelocytes % ( - 0) % Myelocytes % ( - 0) % Nucleated RBC % 0.0 /100WBC Neutrophils # (Manual) (1.5-6.6) 10^3/uL Lymphocytes # (Manual) (1.5-3.5) 10^3/uL Monocytes # (Manual) (0.0-1.0) 10^3/uL Eosinophils # (Manual) (0-0.7) 10^3/uL Basophils # (Manual) (0-0.1) 10^3/uL Differential Comment Manual Slide Review Indicated WBC Morphology NORMAL APPEARANCE (NORMAL) Platelet Estimate INCREASED (>450,000) (NORMAL) Platelet Morphology 1+ LARGE PLATELETS (NORMAL) RBC Morph Micro Appear 1+ MACROCYTOSIS (NORMAL) PT (9.9-12.6) secs INR (0.8-1.2) Sodium (135-145) mmol/L Potassium (3.5-5.0) mmol/L Chloride (101-111) mmol/L Carbon Dioxide (21-32) mmol/L Anion Gap (6-13) BUN (6-20) mg/dL Creatinine (0.4-1.0) mg/dL Estimated GFR (MDRD) (>89) Glucose (70-100) mg/dL Glycated Hemoglobin (4.6-6.2) % Estim Average Glucose (70-100) Lactic Acid (0.5-2.2) mmol/L Calcium (8.5-10.3) mg/dL Phosphorus (2.5-4.6) mg/dL Magnesium (1.7-2.8) mg/dL Total Bilirubin (0.2-1.0) mg/dL AST (10-42) IU/L ALT (10-60) IU/L Alkaline Phosphatase (42-121) IU/L C-Reactive Protein (0-1.0) mg/dL Total Protein (6.7-8.2) g/dL Albumin (3.2-5.5) g/dL Globulin (2.1-4.2) g/dL Albumin/Globulin Ratio (1.0-2.2) Lipase (22-51) U/L Urine Color Urine Clarity (CLEAR) Urine pH (5.0-7.5) PH Ur Specific Hamilton (1.002-1.030) Urine Protein (NEGATIVE) mg/dL Urine Glucose (UA) (NEGATIVE) mg/dL Urine Ketones (NEGATIVE) mg/dL Urine Occult Blood (NEGATIVE) Urine Nitrite (NEGATIVE) Urine Bilirubin (NEGATIVE) Urine Urobilinogen (NORMAL) E.U./dL Ur Leukocyte Esterase (NEGATIVE) Urine RBC (0-5) /HPF Urine WBC (0-5) /HPF Urine WBC Clumps Ur Squamous Epith Cells (<= Few) Urine Bacteria (None Seen) /HPF Ur Microscopic Review Urine Culture Comments C. difficile Tox B Gene (NEGATIVE) ABX Reporting Has patient been on IV antibiotics over the past 48 hours?: Yes Sepsis Event Note (H) - Evaluation Current Stage of Sepsis: Sepsis Possible source of Sepsis: positive: GI tract/intra-abdominal Confirmed Source and Organism (if known) of Sepsis: Gram negative bacilli in 2 of 2 blood culture samples, final results are pending. - Sepsis Criteria Sepsis Criteria: WBC count greater than 10% bands, WBC count greater than 12,000 or less than 4000, EDGE BLACKER: altered consciousness (unrelated to primary neuro pathology), Hepatic: Bilirubin greater than 2mg/dl Assessment/Plan - Problem List (1) Gram-negative bacteremia Impression: - 2 of 2 blood cultures are positive today with the final read pending - Patient admits to feeling much better since coming in - Also with a UTI and a perforated diverticulitis - No more hypotension - Improved WBC count of 23.2, down from 31 - CRP 19.9 - Afebrile today with a temp max of 36.5 C - Continues with an elevated bili at 5.1 Plan: Continue IV Zosyn, IV fluids, await final cultures (2) Diverticulitis of colon with perforation Impression: - Saw PCP Amrita Salinas outpatient who took labs, and called her this morning with instructions to report to the ED - Abdominal CT shows extensive diverticultits of the sigmoid colon, with a 2.4 cm rim-enhancing collection of fluid/gas suggestive of a contained perforation /abscess - On exam, hypoactive with tenderness in the RUQ and LLQs - Significant leukocytosis with a WBC count of 31.2, now reduced to 23.2 - Comorbidities of life long tobacco dependence, GI bleeding, fatty liver, and history of pancreatitis - Intolerant of oral intake at home for the past 2 weeks solid - Continues on a single agent treatment of Zosyn - A stool sample is negative for C diff Plan: Continue to IV fluids, continue IV antibiotics Qualifiers: Diverticulitis bleeding: without bleeding Qualified Code(s): K57.20 - Diverticulitis of large intestine with perforation and abscess without bleeding (3) UTI (urinary tract infection) Impression: - UA which was obtained in the ED shows a UTI with elevated WBC, occult blood, bacteria - Culture is pending - Patient admits to slight dysuria, dark urine Plan: Continue Zosyn to cover both acute diverticulitis, and UTI, await final culture results (4) Abdominal pain Impression: - Patient complains of RUQ and LLQ pain that becomes worse with PO intake - This matches imaging with acute sigmoid diverticultitis Plan: IV morphine, oxycodone PO if needed, treat acute illness Qualifiers: Abdominal location: upper abdomen, unspecified Qualified Code(s): R10.10 - Upper abdominal pain, unspecified (5) Moderate protein-calorie malnutrition Impression: - Weight loss over the past few months - Unable to tolerate PO intake for several weeks leading up to this admission - Dietitian is following Plan: Await dietitian final recommendations, Full liquid diet for now (6) COPD (chronic obstructive pulmonary disease) Impression: - Life long tobacco dependence - Admits to continued use, now down to 1.5 PPD - Refuses a nicotine replacement today - No halfway inhalers, likely due to continued inhalants - No home oxygen needs - Signs of poor oxygenation on exam with slight clubbing, peripheral neuropathy, poor vasculature wide spread Plan: Monitor for exacerbation (7) Cigarette nicotine dependence Impression: - Patient started this habit at age 17 years - Continues regular use, now down to 1.5 PPD - No plans in stopping - Refuses nicotine patch when offered today - In the event surgery is needed, this will be a complicating factor Plan: Encourage cessation, as it may lead to less times in the hospital Qualifiers: Substance use status: unspecified nicotine-induced disorder Qualified Code(s): F17.219 - Nicotine dependence, cigarettes, with unspecified nicotine- induced disorders (8) HTN (hypertension) Impression: - Takes diltiazem at home, both for HTN and for IHSS - Blood pressure light upon admission (89/36), likely due to prolonged diarrhea/illness, poor PO intake - Improved after IVFs Plan: Continue to monitor, continue dilt Qualifiers: Hypertension type: essential hypertension Qualified Code(s): I10 - Essential (primary) hypertension (9) Hypothyroidism Impression: - Last TSH was 5.68 on 09/04/18 - Home dose of Synthroid was 88 mcg Plan: Adjust home dose to 100 mcg, recheck TSH in 4-6 weeks (10) NSAID long-term use Impression: - Known history of taking Meloxicam, denies current use - Status post GI bleed Plan: Continue to offer IV morphine, avoid further use (11) Alcohol abuse Impression: - Very elevated GGT at 891, also with elevated LFTs - Patient states that she has not been able to consume alcohol for the past several days due to this illness Plan: Watch for ETOH withdrawal, monitor labs (12) 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
[2018-09-06] MEDS: SACCHAROMYCES BOULARDII 250 MG CAPSULE PO SCH (08:56)
[2018-09-06] MEDS: oxyCODONE 5 MG TABLET PO PRN ×2 (08:56→20:07)
[2018-09-06] MEDS: diltiaZEM CD 120 MG CAPSULE PO SCH (08:56)
[2018-09-06] MEDS: POLYETHYLENE GLYCOL 3350 17 GM PACKET PO SCH (08:57)
[2018-09-06] MEDS: LEVOTHYROXINE 100 MCG TABLET PO SCH (08:57)
[2018-09-06] MEDS ORDERED: POTASSIUM CHLORIDE 20 MEQ TABLET PO SCH (12:48)
--- NOTE | 2018-09-06 16:13 | PROVIDER PROGRESS NOTE ---
Subjective - General Admit Date: 09/05/18 - Review of Systems General: positive: Appetite. negative: Fever, Chills, Night sweats HEENT: positive: No symptoms Pulmonary: positive: No symptoms Cardiovascular: positive: No symptoms Gastrointestinal: positive: No symptoms Genitourinary: positive: No symptoms Skin: positive: No symptoms Psychiatric: positive: No symptoms All Other Systems: positive: Reviewed and negative Objective - Patient Data Reviewed Vital Signs: Yes Vital Signs: Vital Signs x48h Temp Pulse Resp BP Pulse Ox 09/06/18 07:33 36.5 C 66 14 150/71 H 100 Weight: Weight 09/04/18 09/05/18 09/06/18 23:59 23:59 23:59 Weight (kg) 55 kg 56.5 kg Intake & Output: Intake and Output Totals x24h 09/04/18 09/05/18 09/06/18 23:59 23:59 23:59 Intake Total 2710 3180 Balance 2710 3180 - Lab Results Lab Results: 09/08/18 06:45 09/08/18 06:45 Other Lab Results: Lab Results x24hrs 09/06/18 09/06/18 09/06/18 Range/Units 06:09 06:09 06:09 WBC 23.2 H (4.8-10.8) x10^3/uL RBC 3.12 L (4.20-5.40) 10^6/uL Hgb 9.8 L (12.0-16.0) g/dL Hct 30.3 L (37.0-47.0) % MCV 97.1 (81.0-99.0) fL MCH 31.4 H (27.0-31.0) pg MCHC 32.3 (32.0-36.0) g/dL RDW 17.9 H (12.0-15.0) % Plt Count 534 H (130-450) 10^3/uL MPV 10.6 (7.9-10.8) fL Neut # (Auto) Not Reportable Lymph # (Auto) Not Reportable [place] # (Auto) Not Reportable Eos # (Auto) Not Reportable Baso # (Auto) Not Reportable Absolute Nucleated RBC Not Reportable Total Counted 100 Band Neuts % (Manual) 4 (0 - 10) % Abnorm Lymph % (Manual) 0 % Metamyelocytes % 1 H ( - 0) % Myelocytes % 1 H ( - 0) % Nucleated RBC % Not Reportable Neutrophils # (Manual) 18.8 H (1.5-6.6) 10^3/uL Lymphocytes # (Manual) 1.6 (1.5-3.5) 10^3/uL Monocytes # (Manual) 2.1 H (0.0-1.0) 10^3/uL Eosinophils # (Manual) 0.2 (0-0.7) 10^3/uL Basophils # (Manual) 0.0 (0-0.1) 10^3/uL Differential Comment MANUAL DIFFERENTIAL Platelet Estimate INCREASED (>450,000) (NORMAL) RBC Morph Micro Appear NORMAL APPEARANCE (NORMAL) PT 15.6 H (9.9-12.6) secs INR 1.4 H (0.8-1.2) Sodium (135-145) mmol/L Potassium (3.5-5.0) mmol/L Chloride (101-111) mmol/L Carbon Dioxide (21-32) mmol/L Anion Gap (6-13) BUN (6-20) mg/dL Creatinine (0.4-1.0) mg/dL Estimated GFR (MDRD) (>89) Glucose (70-100) mg/dL Glycated Hemoglobin (4.6-6.2) % Estim Average Glucose (70-100) Lactic Acid 0.8 (0.5-2.2) mmol/L Calcium (8.5-10.3) mg/dL Phosphorus (2.5-4.6) mg/dL Magnesium (1.7-2.8) mg/dL Total Bilirubin (0.2-1.0) mg/dL AST (10-42) IU/L ALT (10-60) IU/L Alkaline Phosphatase (42-121) IU/L C-Reactive Protein (0-1.0) mg/dL Total Protein (6.7-8.2) g/dL Albumin (3.2-5.5) g/dL Globulin (2.1-4.2) g/dL Albumin/Globulin Ratio (1.0-2.2) Lipase (22-51) U/L C. difficile Tox B Gene (NEGATIVE) 09/06/18 09/06/18 09/05/18 Range/Units 06:09 06:09 11:08 WBC (4.8-10.8) x10^3/uL RBC (4.20-5.40) 10^6/uL Hgb (12.0-16.0) g/dL Hct (37.0-47.0) % MCV (81.0-99.0) fL MCH (27.0-31.0) pg MCHC (32.0-36.0) g/dL RDW (12.0-15.0) % Plt Count (130-450) 10^3/uL MPV (7.9-10.8) fL Neut # (Auto) Lymph # (Auto) [place] # (Auto) Eos # (Auto) Baso # (Auto) Absolute Nucleated RBC Total Counted Band Neuts % (Manual) (0 - 10) % Abnorm Lymph % (Manual) % Metamyelocytes % ( - 0) % Myelocytes % ( - 0) % Nucleated RBC % Neutrophils # (Manual) (1.5-6.6) 10^3/uL Lymphocytes # (Manual) (1.5-3.5) 10^3/uL Monocytes # (Manual) (0.0-1.0) 10^3/uL Eosinophils # (Manual) (0-0.7) 10^3/uL Basophils # (Manual) (0-0.1) 10^3/uL Differential Comment Platelet Estimate (NORMAL) RBC Morph Micro Appear (NORMAL) PT (9.9-12.6) secs INR (0.8-1.2) Sodium 136 (135-145) mmol/L Potassium 3.4 L (3.5-5.0) mmol/L Chloride 104 (101-111) mmol/L Carbon Dioxide 21 (21-32) mmol/L Anion Gap 11.0 (6-13) BUN 16 (6-20) mg/dL Creatinine 0.8 (0.4-1.0) mg/dL Estimated GFR (MDRD) 73 L (>89) Glucose 74 (70-100) mg/dL Glycated Hemoglobin 4.9 (4.6-6.2) % Estim Average Glucose 94 (70-100) Lactic Acid (0.5-2.2) mmol/L Calcium 7.5 L (8.5-10.3) mg/dL Phosphorus 3.1 (2.5-4.6) mg/dL Magnesium 1.6 L (1.7-2.8) mg/dL Total Bilirubin 5.1 H (0.2-1.0) mg/dL AST 108 H (10-42) IU/L ALT 45 (10-60) IU/L Alkaline Phosphatase 311 H (42-121) IU/L C-Reactive Protein 19.9 H (0-1.0) mg/dL Total Protein 5.5 L (6.7-8.2) g/dL Albumin 2.0 L (3.2-5.5) g/dL Globulin 3.5 (2.1-4.2) g/dL Albumin/Globulin Ratio 0.6 L (1.0-2.2) Lipase 29 (22-51) U/L C. difficile Tox B Gene NEGATIVE (NEGATIVE) - Current Medications Current Medications: Current Medications Generic Name Dose Route Start Last Admin Trade Name Freq PRN Reason Stop Dose Admin Diltiazem HCl 120 mg 09/06/18 09:00 09/06/18 08:56 Cardizem Cd PO 120 mg DAILY RAFA Administration Sodium Chloride 1,000 mls @ 100 mls/hr 09/05/18 14:00 09/06/18 10:19 Normal Saline 0.9% IV 100 mls/hr .Q10H RAFA Administration Piperacillin Sod/Tazobactam 100 mls @ 25 mls/hr 09/05/18 18:00 09/06/18 14:28 Sod 3.375 gm/ Sodium Chloride IV Infused Q8H RAFA Infusion Levothyroxine Sodium 100 mcg 09/06/18 09:00 09/06/18 08:57 Synthroid PO 100 mcg QDAC RAFA Administration Morphine Sulfate 2 mg 09/05/18 13:13 09/05/18 21:50 Morphine (Carpuject) IVP 2 mg Q2HR PRN Administration Pain 8 to 10 Oxycodone HCl 5 mg 09/06/18 08:02 09/06/18 08:56 Roxicodone PO 5 mg Q4HR PRN Administration PAIN Polyethylene Glycol 17 gm 09/06/18 09:00 09/06/18 08:57 Miralax PO Not Given DAILY RAFA Sodium Chloride 10 ml 09/05/18 13:13 09/05/18 21:50 Normal Saline Flush 0.9% IVP 10 ml PRN PRN Administration NEEDED PER PROVIDER ORDERS Sodium Chloride 10 ml 09/05/18 17:00 09/06/18 08:57 Normal Saline Flush 0.9% IVP Not Given 0100,0900,1700 RAFA - Physical Exam General Appearance: positive: No acute distress Eyes Bilateral: positive: No lid inflammation, Conjunctivae nml, No scleral icterus ENT: positive: No signs of dehydration Neck: positive: Trachea midline Respiratory: positive: Chest non-tender, Breath sounds nml, Wheezes (Faint) Cardiovascular: positive: Regular rate & rhythm Abdomen: positive: Non-tender, Nml bowel sounds Skin: positive: Pallor (Slight) Extremities: negative: Calf tenderness Neurologic/Psychiatric: positive: Oriented x3, Motor nml, Sensation nml, Mood/affect nml Impression/Plan - Problem List Problem List: Hospital day 1 for complicated diverticulitis Although the patient is a extremely high risk for any surgical intervention, the best course of therapy would be to treat this bout of diverticulitis with antibiotics and allow for resolution and then consider elective resection. Even with this plan there is, I estimate, a 50% chance of complication and a rather high chance of mortality. I do not have a good estimate of the mortality, but all of these risks would be lower than if she were to present with freely perforated diverticular disease and sepsis. If that were the case I would estimate her mortality at greater than 50%. I will try to input the data into [employer]QIP (a surgical risk calculator) to get a better estimation and hand it to her. Otherwise her current interventions are working with a decrease in her white blood cell count, no fever, and no abdominal pain. Again, I expect a repeat CT scan in several days to ensure that there is radiographic improvement as well as clinical improvement.
[2018-09-06] MEDS: MAGNESIUM OXIDE 400 MG TABLET PO SCH (18:29)
[2018-09-06] MEDS: FAMOTIDINE 20 MG TABLET PO SCH (20:47)
[2018-09-07] MEDS: PIPERACILLIN/TAZOBACTAM 3.375 GM in SODIUM CHLORIDE 0.9% MINIBAG 100 ML IV SCH (01:40)
[2018-09-07] MEDS: SODIUM CHLORIDE FLUSH 0.9% 10 ML SYRINGE IVP SCH ×4 (01:41→23:35)
[2018-09-07] MEDS: oxyCODONE 5 MG TABLET PO PRN ×4 (02:39→20:48)
[2018-09-07 04:59] LABS: BASOPHILS # (AUTO) 0.1 10^3/uL (0.0-0.1); BASOPHILS % (AUTO) 0.3 %; EOSINOPHILS # (AUTO) 0.1 10^3/uL (0.0-0.7); EOSINOPHILS % (AUTO) 0.5 %; HGB - HEMOGLOBIN 8.8 g/dL (12.0-16.0); LYMPHOCYTES # (AUTO) 1.5 10^3/uL (1.5-3.5); LYMPHOCYTES % (AUTO) 7.6 %; MEAN CORPUSCULAR HEMOGLOBIN 32.4 pg (27.0-31.0); MEAN CORPUSCULAR HGB CONC 31.5 g/dL (32.0-36.0); MEAN CORPUSCULAR VOLUME 102.6 fL (81.0-99.0); MEAN PLATELET VOLUME 10.9 fL (7.9-10.8); MONOCYTES # (AUTO) 1.2 10^3/uL (0.0-1.0); MONOCYTES % (AUTO) 5.9 %; NEUTROPHILS # (AUTO) 17.1 10^3/uL (1.5-6.6); NEUTROPHILS % (AUTO) 84.3 %; PLT - PLATELET COUNT 518 10^3/uL (130-450); RED BLOOD COUNT 2.72 10^6/uL (4.20-5.40); RED CELL DISTRIBUTION WIDTH 18.1 % (12.0-15.0); WHITE BLOOD COUNT 20.3 x10^3/uL (4.8-10.8)
[2018-09-07 05:10] LABS: ALBUMIN 1.8 g/dL (3.2-5.5); ALBUMIN/GLOBULIN RATIO 0.5 (1.0-2.2); BILIRUBIN,TOTAL 2.8 mg/dL (0.2-1.0); CALCIUM 7.2 mg/dL (8.5-10.3); CREATININE 0.7 mg/dL (0.4-1.0); TOTAL PROTEIN 5.1 g/dL (6.7-8.2)
[2018-09-07 05:28] LABS: DIFFERENTIAL COMMENT MANUAL=AUTO DIFF; PLATELET ESTIMATE, MANUAL INCREASED (>450,000) (NORMAL); RBC MORPHOLOGY (MULTIPLE) NORMAL APPEARANCE (NORMAL)
[2018-09-07] MEDS: SODIUM CHLORIDE 0.9% 1,000 ML IV SCH (05:52)
[2018-09-07] MEDS: LEVOTHYROXINE 100 MCG TABLET PO SCH (05:52)
[2018-09-07] MEDS: LACTULOSE 10 GM /15 ML UDC PO SCH (08:36)
[2018-09-07] MEDS: POLYETHYLENE GLYCOL 3350 17 GM PACKET PO SCH (08:36)
[2018-09-07] MEDS: MAGNESIUM OXIDE 400 MG TABLET PO SCH ×2 (08:36→17:49)
[2018-09-07] MEDS: FAMOTIDINE 20 MG TABLET PO SCH ×2 (08:36→20:48)
[2018-09-07] MEDS: diltiaZEM CD 120 MG CAPSULE PO SCH (08:38)
--- NOTE | 2018-09-07 10:38 | PROVIDER PROGRESS NOTE ---
Subjective - Prog Note Date Prog Note Date: 09/07/18 Prog Note Time: 10:37 - Subjective Pt reports feeling: Improved Subjective: Jessica has a primary complaint of not having enough pepper for her food, so I resolved this by providing this. She denies chest pain, nausea, vomiting, bleeding, shortness of breath, or a new cough. She notes that at times her urine seems darker, but had some diarrhea today and this might be why. She is being followed by general surgery in case she needed surgical intervention. Current Medications - Current Medications Current Medications: Active Medications: Diltiazem HCl (Cardizem Cd) 120 mg PO DAILY RAFA Famotidine (Pepcid) 20 mg PO BID RAFA Sodium Chloride (Normal Saline 0.9%) 1,000 mls @ 100 mls/hr IV .Q10H RAFA Ciprofloxacin (Cipro 400 Mg/200 Ml) 200 mls @ 200 mls/hr IV Q12H RAFA Lactulose (Enulose) 10 gm PO DAILY RAFA Levothyroxine Sodium (Synthroid) 100 mcg PO QDAC RAFA Magnesium Oxide (Mag Ox) 400 mg PO BIDWM RAFA Morphine Sulfate (Morphine (Carpuject)) 2 mg IVP Q2HR PRN Ondansetron HCl (Zofran Inj) 4 mg IVP Q6HR PRN Oxycodone HCl (Roxicodone) 5 mg PO Q4HR PRN Prochlorperazine Edisylate (Compazine Inj) 10 mg IVP Q6HR PRN Temazepam (Restoril) 15 mg PO QPM PRN HOME meds: Levothyroxine Sodium 88 mcg PO QPM 06/14/17 Ferrous Sulfate 325 mg PO DAILY 09/05/18 Objective - Vital Signs/Intake & Output Reviewed Vital Signs: Yes Vital Signs: Vital Signs x48h Temp Pulse Resp BP Pulse Ox 09/07/18 08:00 36.4 C L 66 18 143/75 H 100 Intake & Output: Intake & Output 09/04/18 09/05/18 09/06/18 09/07/18 23:59 23:59 23:59 23:59 Intake Total 2710 4648.667 2223.333 Output Total 1 Balance 2710 4648.667 2222.333 - Objective General Appearance: positive: No acute distress, Alert Eyes Bilateral: positive: PERRL Eyes: OU Conjunctivae pale, OU Scleral icterus ENT: positive: Pharynx nml, No signs of dehydration Neck: positive: Thyroid nml, No JVD, Trachea midline Respiratory: positive: Chest non-tender, No respiratory distress, Breath sounds nml, Wheezes, Other (scattered crackles, bilaterally) Cardiovascular: positive: Regular rate & rhythm, No gallop, Systolic murmur, Decreased pulse(s) Peripheral Pulses: 1+ Radial (R), 1+ Radial (L) Abdomen: positive: Nml bowel sounds, Tenderness, Guarding, Hepatomegaly, Other (rounded, soft) Back: positive: Nml inspection Skin: positive: Color nml, No rash, Warm, Dry Extremities: positive: Non-tender, Full ROM, Nml appearance, Pedal edema, Joint swelling Neurologic/Psychiatric: positive: Oriented x3, CN's nml (2-12), Motor nml, Sensation nml, Weakness, Depressed mood/affect Reflexes: Bicep (R): 3+, Bicep (L): 3+ - Lab Results Fish Bones: 09/07/18 04:46 09/07/18 04:46 Other Labs: Lab Results x24hrs 09/07/18 09/07/18 09/07/18 Range/Units 04:46 04:46 04:46 WBC 20.3 H (4.8-10.8) x10^3/uL RBC 2.72 L (4.20-5.40) 10^6/uL Hgb 8.8 L (12.0-16.0) g/dL Hct 27.9 L (37.0-47.0) % MCV 102.6 H (81.0-99.0) fL MCH 32.4 H (27.0-31.0) pg MCHC 31.5 L (32.0-36.0) g/dL RDW 18.1 H (12.0-15.0) % Plt Count 518 H (130-450) 10^3/uL MPV 10.9 H (7.9-10.8) fL Neut # (Auto) 17.1 H (1.5-6.6) 10^3/uL Lymph # (Auto) 1.5 (1.5-3.5) 10^3/uL [place] # (Auto) 1.2 H (0.0-1.0) 10^3/uL Eos # (Auto) 0.1 (0.0-0.7) 10^3/uL Baso # (Auto) 0.1 (0.0-0.1) 10^3/uL Absolute Nucleated RBC 0.00 x10^3/uL Band Neuts % (Manual) Not Reportable Abnorm Lymph % (Manual) Not Reportable Nucleated RBC % 0.0 /100WBC Neutrophils # (Manual) Not Reportable Lymphocytes # (Manual) Not Reportable Monocytes # (Manual) Not Reportable Eosinophils # (Manual) Not Reportable Basophils # (Manual) Not Reportable Differential Comment MANUAL=AUTO DIFF Platelet Estimate INCREASED (>450,000) (NORMAL) RBC Morph Micro Appear NORMAL APPEARANCE (NORMAL) Sodium 136 (135-145) mmol/L Potassium 3.5 (3.5-5.0) mmol/L Chloride 109 (101-111) mmol/L Carbon Dioxide 19 L (21-32) mmol/L Anion Gap 8.0 (6-13) BUN 10 (6-20) mg/dL Creatinine 0.7 (0.4-1.0) mg/dL Estimated GFR (MDRD) 85 L (>89) Glucose 88 (70-100) mg/dL Calcium 7.2 L (8.5-10.3) mg/dL Total Bilirubin 2.8 H (0.2-1.0) mg/dL AST 106 H (10-42) IU/L ALT 40 (10-60) IU/L Alkaline Phosphatase 270 H (42-121) IU/L Ammonia 48.4 H (7-35) umol/L Total Protein 5.1 L (6.7-8.2) g/dL Albumin 1.8 L (3.2-5.5) g/dL Globulin 3.3 (2.1-4.2) g/dL Albumin/Globulin Ratio 0.5 L (1.0-2.2) Lipase 26 (22-51) U/L ABX Reporting Has patient been on IV antibiotics over the past 48 hours?: Yes Sepsis Event Note (H) - Evaluation Current Stage of Sepsis: Sepsis Possible source of Sepsis: positive: GI tract/intra-abdominal - Sepsis Criteria Sepsis Criteria: WBC count greater than 10% bands, WBC count greater than 12,000 or less than 4000, [employer]ING: altered consciousness (unrelated to primary neuro pathology), Hepatic: Bilirubin greater than 2mg/dl Assessment/Plan - Problem List (1) Gram-negative bacteremia Impression: - 2 of 2 blood cultures are positive, showing gram negative bacilli (e. coli) - Patient admits to feeling much better since coming in - Also with a UTI and a perforated diverticulitis - No more hypotension - Improved WBC count of 20.3, down from 31 - CRP 19.9 - Afebrile today with a temp max of 37.0 C - Continues with an elevated bili at 2.8 - Zosyn stopped, Cipro started to treat both UTI, and bacteremia Plan: Continue IV Cipro, await final blood culture sensitivities (2) Diverticulitis of colon with perforation Impression: - Saw PCP Amrita Salinas outpatient who took labs, and called her this morning with instructions to report to the ED - Abdominal CT shows extensive diverticultits of the sigmoid colon, with a 2.4 cm rim-enhancing collection of fluid/gas suggestive of a contained perforation/abscess - On exam, hypoactive with tenderness in the RUQ and LLQs - Significant leukocytosis with a WBC count of 31.2, now reduced to 20.3 - Comorbidities of life long tobacco dependence, GI bleeding, fatty liver, and history of pancreatitis - Intolerant of oral intake at home for the past 2 weeks solid - Changed IV treatment from Zosyn to Cipro - A stool sample was negative for C diff Plan: Continue IV antibiotics, advance diet as tolerated Qualifiers: Diverticulitis bleeding: without bleeding Qualified Code(s): K57.20 - Diverticulitis of large intestine with perforation and abscess without bleeding (3) UTI (urinary tract infection) Impression: - UA which was obtained in the ED shows a UTI with elevated WBC, occult blood, bacteria - Cultures for blood are pending sensitivities - Patient admits to slight dysuria, dark urine prior to this admission Plan: Continue Cipro based on sensitivities to cover both acute diverticulitis, and UTI (4) Abdominal pain Impression: - Patient complains of RUQ and LLQ pain that becomes worse with PO intake - This matches imaging with acute sigmoid diverticultitis - Doing well with the advanced meal Plan: IV morphine, oxycodone PO if needed, treat acute illness Qualifiers: Abdominal location: upper abdomen, unspecified Qualified Code(s): R10.10 - Upper abdominal pain, unspecified (5) Moderate protein-calorie malnutrition Impression: - Weight loss over the past few months - Unable to tolerate PO intake for several weeks leading up to this admission - Dietitian is following Plan: Await dietitian final recommendations, advance diet as tolerated (6) COPD (chronic obstructive pulmonary disease) Impression: - Life long tobacco dependence - Admits to continued use, now down to 1.5 PPD - Refuses a nicotine replacement today - No mcc inhalers, likely due to continued inhalants - No home oxygen needs - Signs of poor oxygenation on exam with slight clubbing, peripheral neuropathy, poor vasculature wide spread Plan: Monitor for exacerbation (7) Cigarette nicotine dependence Impression: - Patient started this habit at age 17 years - Continues regular use, now down to 1.5 PPD - No plans in stopping - Refuses nicotine patch when offered - In the event surgery is needed, this will be a complicating factor Plan: Encourage cessation, as it may lead to less times in the hospital Qualifiers: Substance use status: unspecified nicotine-induced disorder Qualified Code(s): F17.219 - Nicotine dependence, cigarettes, with unspecified nicotine- induced disorders (8) HTN (hypertension) Impression: - Takes diltiazem at home, both for HTN and for IHSS - Blood pressure light upon admission (89/36), likely due to prolonged diarrhea/illness, poor PO intake - Improved after IVFs Plan: Continue to monitor, continue dilt Qualifiers: Hypertension type: essential hypertension Qualified Code(s): I10 - Essential (primary) hypertension (9) Hypothyroidism Impression: - Last TSH was 5.68 on 09/04/18 - Home dose of Synthroid was 88 mcg, now adjusted to 100 mcg Plan: Continue med, recheck TSH in 4-6 weeks (10) NSAID long-term use Impression: - Known history of taking Meloxicam, denies current use - Status post GI bleed Plan: Continue to offer IV morphine or oxycodone, avoid further use (11) Alcohol abuse Impression: - Very elevated GGT at 891, also with elevated LFTs - Patient states that she has not been able to consume alcohol for the past several days due to this illness - Elevated ammonia level at 49 - Started on lactulose Plan: Watch for ETOH withdrawal, continue lactulose, monitor labs (12) 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
[2018-09-07] MEDS: CIPROFLOXACIN 400 MG/200 ML 200 ML IV SCH ×2 (11:23→22:02)
--- NOTE | 2018-09-07 22:24 | PROVIDER PROGRESS NOTE ---
Subjective - General Admit Date: 09/05/18 - Review of Systems General: positive: Appetite (Patient is working to improve this.). negative: Fever, Chills, Night sweats Pulmonary: positive: Shortness of breath (Chronic.) Cardiovascular: positive: No symptoms Gastrointestinal: positive: Abdominal pain (Minimal to none.) Skin: positive: No symptoms Psychiatric: positive: No symptoms All Other Systems: positive: Reviewed and negative (Told me that she told her significant other that he is no longer allowed to smoke in the house and he agreed.) Objective - Patient Data Reviewed Vital Signs: Yes Vital Signs: Vital Signs x48h Temp Pulse Resp BP Pulse Ox 09/07/18 16:00 36.6 C 70 20 144/74 H 98 Weight: Weight 09/05/18 09/06/18 09/07/18 23:59 23:59 23:59 Weight (kg) 55 kg 56.5 kg 61.5 kg Intake & Output: Intake and Output Totals x24h 09/05/18 09/06/18 09/07/18 23:59 23:59 23:59 Intake Total 2710 4648.667 4771.333 Output Total 1 Balance 2710 4648.667 4770.333 - Lab Results Lab Results: 09/07/18 04:46 09/07/18 04:46 Other Lab Results: Lab Results x24hrs 09/07/18 09/07/18 09/07/18 Range/Units 04:46 04:46 04:46 WBC 20.3 H (4.8-10.8) x10^3/uL RBC 2.72 L (4.20-5.40) 10^6/uL Hgb 8.8 L (12.0-16.0) g/dL Hct 27.9 L (37.0-47.0) % MCV 102.6 H (81.0-99.0) fL MCH 32.4 H (27.0-31.0) pg MCHC 31.5 L (32.0-36.0) g/dL RDW 18.1 H (12.0-15.0) % Plt Count 518 H (130-450) 10^3/uL MPV 10.9 H (7.9-10.8) fL Neut # (Auto) 17.1 H (1.5-6.6) 10^3/uL Lymph # (Auto) 1.5 (1.5-3.5) 10^3/uL [place] # (Auto) 1.2 H (0.0-1.0) 10^3/uL Eos # (Auto) 0.1 (0.0-0.7) 10^3/uL Baso # (Auto) 0.1 (0.0-0.1) 10^3/uL Absolute Nucleated RBC 0.00 x10^3/uL Band Neuts % (Manual) Not Reportable Abnorm Lymph % (Manual) Not Reportable Nucleated RBC % 0.0 /100WBC Neutrophils # (Manual) Not Reportable Lymphocytes # (Manual) Not Reportable Monocytes # (Manual) Not Reportable Eosinophils # (Manual) Not Reportable Basophils # (Manual) Not Reportable Differential Comment MANUAL=AUTO DIFF Platelet Estimate INCREASED (>450,000) (NORMAL) RBC Morph Micro Appear NORMAL APPEARANCE (NORMAL) Sodium 136 (135-145) mmol/L Potassium 3.5 (3.5-5.0) mmol/L Chloride 109 (101-111) mmol/L Carbon Dioxide 19 L (21-32) mmol/L Anion Gap 8.0 (6-13) BUN 10 (6-20) mg/dL Creatinine 0.7 (0.4-1.0) mg/dL Estimated GFR (MDRD) 85 L (>89) Glucose 88 (70-100) mg/dL Calcium 7.2 L (8.5-10.3) mg/dL Total Bilirubin 2.8 H (0.2-1.0) mg/dL AST 106 H (10-42) IU/L ALT 40 (10-60) IU/L Alkaline Phosphatase 270 H (42-121) IU/L Ammonia 48.4 H (7-35) umol/L Total Protein 5.1 L (6.7-8.2) g/dL Albumin 1.8 L (3.2-5.5) g/dL Globulin 3.3 (2.1-4.2) g/dL Albumin/Globulin Ratio 0.5 L (1.0-2.2) Lipase 26 (22-51) U/L - Current Medications Current Medications: Current Medications Generic Name Dose Route Start Last Admin Trade Name Freq PRN Reason Stop Dose Admin Diltiazem HCl 120 mg 09/06/18 09:00 09/07/18 08:38 Cardizem Cd PO 120 mg DAILY [facility] Administration Famotidine 20 mg 09/06/18 21:00 09/07/18 20:48 Pepcid PO 20 mg BID RAFA Administration Ciprofloxacin 200 mls @ 200 mls/hr 09/07/18 11:00 09/07/18 22:02 Cipro 400 Mg/200 Ml IV 200 mls/hr Q12H RAFA Administration Lactulose 10 gm 09/07/18 09:00 09/07/18 08:36 Enulose PO 10 gm DAILY [facility] Administration Levothyroxine Sodium 100 mcg 09/06/18 09:00 09/07/18 05:52 Synthroid PO 100 mcg QDAC [facility] Administration Magnesium Oxide 400 mg 09/06/18 17:00 09/07/18 17:49 Mag Ox PO 400 mg BIDWM [facility]1983 Administration Morphine Sulfate 2 mg 09/05/18 13:13 09/05/18 21:50 Morphine (Carpuject) IVP 2 mg Q2HR PRN Administration Pain 8 to 10 Ondansetron HCl 4 mg 09/05/18 13:13 09/07/18 11:01 Zofran Inj IVP 4 mg Q6HR PRN Administration Nausea / Vomiting Oxycodone HCl 5 mg 09/06/18 08:02 09/07/18 20:48 Roxicodone PO 5 mg Q4HR PRN Administration PAIN Sodium Chloride 10 ml 09/05/18 13:13 09/05/18 21:50 Normal Saline Flush 0.9% IVP 10 ml PRN PRN Administration NEEDED PER PROVIDER ORDERS Sodium Chloride 10 ml 09/05/18 17:00 09/07/18 17:49 Normal Saline Flush 0.9% IVP 10 ml 0100,0900,1700 [facility] Administration - Physical Exam General Appearance: positive: No acute distress Eyes Bilateral: positive: No lid inflammation, Conjunctivae nml, No scleral icterus ENT: positive: No signs of dehydration Neck: positive: Trachea midline Cardiovascular: positive: Regular rate & rhythm Abdomen: positive: Non-tender, No organomegaly, Nml bowel sounds Skin: positive: Color nml (Patient is always slightly pasty.) Extremities: positive: Non-tender Neurologic/Psychiatric: positive: Oriented x3, Motor nml, Sensation nml, Mood/affect nml ABX Reporting Has patient been on IV antibiotics over the past 48 hours?: Yes Impression/Plan - Problem List Problem List: Hospital day 3 with complicated diverticulitis. Patient is improving as evidenced by her continued lack of abdominal pain, no fever, and decreasing white count. I handed her a surgical risk assessment that was done through the [employer] indicating that an elective sigmoidectomy with anastomosis would have a 50% complication rate a near 10% rate as well as other risks. These were all enumerated in the sheet that I handed her. I explained that if she required a emergent procedure for risks would be even higher. As such, it is important that we minimize her risks and perform his operation on elective basis. Importantly, the risk assessment tool estimates her length of stay for this elective surgery at 24 days. Assuming continued clinical improvement I would repeat the CT scan in 2 days time to check for radiographic improvement. Dragon disclaimer: This document was created in part using voice recognition technology. Because of the inherent limitations of the system ([employer] user manual states that the licensee understands that speech recognition is a statistical process and that recognition errors are inherent in the process), occasional same sounding word substitutions and grammatical errors do occur and persist despite proofreading. Please read this document for context.
[2018-09-08] MEDS: oxyCODONE 5 MG TABLET PO PRN ×2 (00:48→06:27)
[2018-09-08] MEDS: LEVOTHYROXINE 100 MCG TABLET PO SCH (06:22)
[2018-09-08 06:55] LABS: BASOPHILS # (AUTO) 0.1 10^3/uL (0.0-0.1); BASOPHILS % (AUTO) 0.4 %; EOSINOPHILS % (AUTO) 0.2 %; HGB - HEMOGLOBIN 9.1 g/dL (12.0-16.0); LYMPHOCYTES # (AUTO) 1.6 10^3/uL (1.5-3.5); LYMPHOCYTES % (AUTO) 8.7 %; MEAN CORPUSCULAR HEMOGLOBIN 31.7 pg (27.0-31.0); MEAN CORPUSCULAR HGB CONC 31.4 g/dL (32.0-36.0); MEAN PLATELET VOLUME 10.6 fL (7.9-10.8); MONOCYTES # (AUTO) 1.2 10^3/uL (0.0-1.0); MONOCYTES % (AUTO) 6.6 %; NEUTROPHILS # (AUTO) 15.4 10^3/uL (1.5-6.6); NEUTROPHILS % (AUTO) 82.6 %; PLT - PLATELET COUNT 532 10^3/uL (130-450); RED BLOOD COUNT 2.87 10^6/uL (4.20-5.40); RED CELL DISTRIBUTION WIDTH 17.2 % (12.0-15.0); WHITE BLOOD COUNT 18.6 x10^3/uL (4.8-10.8)
[2018-09-08 07:13] LABS: ALBUMIN/GLOBULIN RATIO 0.6 (1.0-2.2); BILIRUBIN,TOTAL 2.2 mg/dL (0.2-1.0); CALCIUM 7.7 mg/dL (8.5-10.3); CREATININE 0.7 mg/dL (0.4-1.0); TOTAL PROTEIN 5.4 g/dL (6.7-8.2)
[2018-09-08 08:12] VITALS: BP 137/64
[2018-09-08] MEDS ORDERED: FUROSEMIDE 20 MG TABLET PO SCH (08:47)
[2018-09-08] MEDS ORDERED: CIPROFLOXACIN 250 MG TABLET PO SCH (09:29)
[2018-09-08] MEDS: MAGNESIUM OXIDE 400 MG TABLET PO SCH (09:40)
[2018-09-08] MEDS: FAMOTIDINE 20 MG TABLET PO SCH (09:40)
[2018-09-08] MEDS: diltiaZEM CD 120 MG CAPSULE PO SCH (09:40)
[2018-09-08] MEDS: LACTULOSE 10 GM /15 ML UDC PO SCH (09:41)
--- NOTE | 2018-09-08 10:32 | Discharge Plan ---
Discharge Plan Disposition: 01 Home, Self Care Condition: Good Prescriptions: Ciprofloxacin HCl [Cipro] 500 mg PO BID #24 tablet Famotidine [Pepcid] 20 mg PO BID #60 tablet Fluconazole [Diflucan] 100 mg PO DAILY #5 tablet Levothyroxine [Synthroid] 100 mcg PO QDAC #30 tablet Magnesium Oxide [Mag Ox] 400 mg PO BIDWM #60 tablet Saccharomyces Boulardii [Florastor] 250 mg PO BID #90 capsule Wheat Dextrin [Benefiber] 1 each PO DAILY #30 packet Diet: Regular Instruction Topics: Diverticulitis Dc, Diet Soft Dc Health Concerns: Tobacco use and the lack of quitting Recurrent Diverticulitis (Perforating) Blood infection UTI Plan of Treatment: Continue oral Cipro for the next 12 days, if not tolerated, you need to contact a provider Continue daily Benefiber and an H2 marquis Contact Dr. Warner Carrasco, outpatient surgery for an upcoming elective surgical intervention for your recurrent diverticular disease Stop smoking so that when you undergo surgery, your healing will be improved Care Goals: Stay out of the hospital Improve symptoms, stamina, and overall health Cure infection using antibiotics Assessment: You were admitted for a perforated diverticulitis which was confirmed by imaging. You were started on IV treatment, then transitioned to oral Cipro once the cultures were finalized. Since you are prone to yeast infections while antibiotics, I have sent over some Diflucan pills. Take as needed, daily. Blood and urine cultures grew out e. coli, which means you had both a urine and a blood infection. Your diet was slowly advanced and your infection was controlled. Your symptoms of abdominal pain also improved. Please see your PCP within the next few days, and at least within one week. No Smoking: If you smoke, Please STOP! Call for help. Follow-up with: Amrita Salinas ARNP [Primary Care Provider] -
--- NOTE | 2018-09-08 12:29 | DISCHARGE SUMMARY ---
"Discharge Summary Admit Date: 09/05/18 Discharge Date: 09/08/18 Discharging Provider: JESSICA López Primary Care Provider: Amrita Salinas Code Status: Attempt Resuscitation Condition at Discharge: Good Discharge Disposition: 01 Home, Self Care - DIAGNOSES Admission Diagnoses: Diverticulitis of colon with perforation Abdominal pain; UTI (urinary tract infection) COPD (chronic obstructive pulmonary disease) Cigarette nicotine dependence HTN (hypertension) Hypothyroidism NSAID long-term use History of IHSS Elevated LFTs Discharge Diagnoses with Status of Each Condition: Sepsis- Resolved Gram negative bacteremia- Continue prolonged antibiotics at home, symptoms resolved Diverticulitis of colon with perforation- improved, will need follow up. Patient agreeable to further surgical intervention Abdominal pain- resolved, tolerating meals, moving bowels Moderate protein calorie malnutrition- Hopeful to improve since treating this illness UTI (urinary tract infection)- new on this admission, continue antibiotics COPD (chronic obstructive pulmonary disease)- Patient willing to quit smoking, states she has nicotine patches and Wellbutrin at home, no exacerbation Cigarette nicotine dependence- Life long, down to 1/2 PPD, willing to stop for upcoming surgery, but spouse continues to smoke in the house HTN (hypertension)- Chronic, stable Hypothyroidism-Chronic, stable NSAID long-term use- encouraged no further use Alcohol abuse- encourage no further use History of IHSS-Chronic, stable Elevated LFTs- much improved, very high GGT at 891, encouraged cessation for upcoming surgery - HPI History of Present Illness: Jessica Adkins is a 62-year-old female with a past medical history of hypertension, hyperlipidemia, GI bleed, pancreatitis, fatty liver, osteoarthritis, and life long tobacco use- currently smoking 1.5 PPD since age 17, alcohol use, acid reflux, diverticulosis with diverticulitis, and chronic joint pain. The patient states that she went to her PCP, Amrita Salinas 2 days ago for ongoing incontinent bowels, liquid diarrhea, inability to eat or drink, nausea and vomiting, weakness, and dizziness. Labs were drawn while visiting her PCP and after they resulted today, the patient was called at home to report to the ED for further treatment. Upon arrival to the ED the patient was hypotensive with a blood pressure of 89/63, and after IV fluids, improved to 134/72, she was tachycardic with heart rates 115, afebrile with a temp max of 36.7, required no oxygen on room air at 98%. Labs showed an elevated WBC count of 31.2, H/H of 12.7/37.7, platelet count of 590, abnormal iron study with an iron of 27, 17% sat, TIBC 157, transferrin 112, elevated TSH of 5.68, sodium 135, potassium of 3.7, chloride 94, anion gap 18.0, BUN 26, creatinine 1.0, GFR 57, lactic acid 0.7, GGT 891, bilirubin 6.6, AST 169, AST 66, alk phos 448, and a urine sample showing + UTI (bacteria, WBCs, leukocyte esterase, occult) with a culture pending. Imaging showed a likely acute perforated/abscess sigmoid diverticulitis. The patient denies syncope, evidence of bleeding, a rash, an increased cough, insomnia, or chest pain. She admits to recent stool incontinence which is new, dark urine, dizziness, weakness, an inability to carry out her daily hygiene, more frequent chills, nausea, vomiting, inability to tolerate PO intake, and liquid diarrhea. General surgery was consulted, who agrees to follow the patient, and she will be admitted to inpatient for further treatment of acute diverticulitis, being watchful of alcohol withdrawal or nicotine withdrawal. - CONSULTS | PROCEDURES Consultations: General surgery Procedures: none - ALLERGIES Allergies/Adverse Reactions: Allergies Allergy/AdvReac Type Severity Reaction Status Date / Time No Known Drug Allergies Allergy Verified 09/05/18 10:31 - MEDICATIONS Home Medications: Ambulatory Orders Medication Instructions Recorded Confirmed diltiaZEM CD [Cardizem Cd] 120 mg PO DAILY #30 capsule 04/05/18 09/05/18 Ferrous Sulfate 325 mg PO DAILY 09/05/18 09/05/18 Ciprofloxacin HCl [Cipro] 500 mg PO BID #24 tablet 09/08/18 Famotidine [Pepcid] 20 mg PO BID #60 tablet 09/08/18 Fluconazole [Diflucan] 100 mg PO DAILY #5 tablet 09/08/18 Levothyroxine [Synthroid] 100 mcg PO QDAC #30 tablet 09/08/18 Magnesium Oxide [Mag Ox] 400 mg PO BIDWM #60 tablet 09/08/18 Saccharomyces Boulardii [Florastor] 250 mg PO BID #90 capsule 09/08/18 Wheat Dextrin [Benefiber] 1 each PO DAILY #30 packet 09/08/18 - PHYSICAL EXAM AT DISCHARGE General Appearance: positive: No acute distress, Alert Eyes Bilateral: positive: PERRL ENT: positive: Pharynx nml, No signs of dehydration Neck: positive: Thyroid nml, No JVD, Trachea midline Respiratory: positive: Chest non-tender, No respiratory distress, Breath sounds nml Cardiovascular: positive: Regular rate & rhythm, No gallop, Systolic murmur Peripheral Pulses: positive: 2+ Abdomen: positive: Non-tender, Nml bowel sounds Back: positive: Nml inspection Skin: positive: No rash, Warm, Dry Extremities: positive: Non-tender, Full ROM, Nml appearance, No pedal edema Neurologic/Psychiatric: positive: Oriented x3, CN's nml (2-12), Motor nml, Sensation nml, Mood/affect nml Reflexes: Bicep (R): 2+, Bicep (L): 2+ - LABS Result Diagrams: 09/08/18 06:45 09/08/18 06:45 - SEPSIS Current Stage of Sepsis: Resolved - FOLLOW UP Follow Up: Disposition: Home, Self Care Condition: Good Prescriptions: Ciprofloxacin HCl [Cipro] 500 mg PO BID #24 tablet Famotidine [Pepcid] 20 mg PO BID #60 tablet Fluconazole [Diflucan] 100 mg PO DAILY #5 tablet Levothyroxine [Synthroid] 100 mcg PO QDAC #30 tablet Magnesium Oxide [Mag Ox] 400 mg PO BIDWM #60 tablet Saccharomyces Boulardii [Florastor] 250 mg PO BID #90 capsule Wheat Dextrin [Benefiber] 1 each PO DAILY #30 packet Diet: Regular Health Concerns: Tobacco use and the lack of quitting Recurrent Diverticulitis (Perforating) Blood infection UTI Plan of Treatment: Continue oral Cipro for the next 12 days, if not tolerated, you need to contact a provider Continue daily Benefiber and an H2 marquis Contact Dr. Warner Carrasco, outpatient surgery for an upcoming elective surgical intervention for your recurrent diverticular disease Stop smoking so that when you undergo surgery, your healing will be improved Care Goals: Stay out of the hospital Improve symptoms, stamina, and overall health Cure infection using antibiotics Assessment: You were admitted for a perforated diverticulitis which was confirmed by imaging. You were started on IV treatment, then transitioned to oral Cipro once the cultures were finalized. Since you are prone to yeast infections while antibiotics, I have sent over some Diflucan pills. Take as nee ded, daily. Blood and urine cultures grew out e. coli, which means you had both a urine and a blood infection. Your diet was slowly advanced and your infection was controlled. Your symptoms of abdominal pain also improved. Please see your PCP within the next few days, and at least within one week. - TIME SPENT Time Spent in Discharge (Minutes): 45"
[2018-09-08] MEDS: SODIUM CHLORIDE FLUSH 0.9% 10 ML SYRINGE IVP SCH (12:50)
== END 2018-09-08 11:55 | disposition home or self-care (01) | DRG 872 ==
LOC: ED 10:18 → MS2 13:13
PROVIDERS: ADMIT Nurse Practitioner; ATTEND Nurse Practitioner
DX: A41.9 Sepsis, unspecified organism (principal); K57.20 Diverticulitis of large intestine with perforation and abscess without bleeding; N39.0 Urinary tract infection, site not specified; E44.0 Moderate protein-calorie malnutrition; I42.1 Obstructive hypertrophic cardiomyopathy; I50.32 Chronic diastolic (congestive) heart failure; I11.0 Hypertensive heart disease with heart failure; E03.9 Hypothyroidism, unspecified; K21.9 Gastro-esophageal reflux disease without esophagitis; F10.10 Alcohol abuse, uncomplicated; E78.5 Hyperlipidemia, unspecified; K76.0 Fatty (change of) liver, not elsewhere classified; G89.29 Other chronic pain; M19.90 Unspecified osteoarthritis, unspecified site; I95.9 Hypotension, unspecified; R15.9 Full incontinence of feces; J43.9 Emphysema, unspecified; F17.219 Nicotine dependence, cigarettes, with unspecified nicotine-induced disorders; I25.10 Atherosclerotic heart disease of native coronary artery without angina pectoris; G62.9 Polyneuropathy, unspecified; I73.9 Peripheral vascular disease, unspecified; Z68.21 Body mass index [BMI] 21.0-21.9, adult; Z79.899 Other long term (current) drug therapy; Z87.19 Personal history of other diseases of the digestive system; Z86.19 Personal history of other infectious and parasitic diseases
CPT/HCPCS: 36415; 74177; 80053; 81001; 82140; 83036; 83605; 83690; 83735; 84100; 85025; 85610; 86140; 87040; 87045; 87046; 87077; 87086; 87181; 87493; 96360; 99284; 99406; A9270; Q9967; 81003; 99285

== ENCOUNTER 2018-12-03 09:28 | Inpatient (IN) | payer MEDICAID ==
--- NOTE | 2018-12-03 10:01 | ED Physician Documentation ---
PD HPI ABD PAIN - Stated complaint Stated Complaint: ABD PX - Chief complaint Chief Complaint: Abd Pain - History obtained from History obtained from: Patient - History of Present Illness Timing - onset: How many days ago (Had a colonoscopy 10 days ago and evaluation in preparation for partial colectomy due to diverticulitis. They had difficulty with it because of scar tissue in. She states she has been having some abdominal pain in the lower to the right lower abdomen since the colonoscopy. She is felt fever and chills subjectively for the last 2 to 3 days. She does have a history of diverticulitis and is scheduled for surgery and October.) Timing - duration: Days (10 days of some pain in lower/right abd, and now 2-3 days of fevers, nausea, less appetite.) Timing - details: Gradual onset, Still present Quality: Cramping, Aching, Pain Location: RLQ, Suprapubic Improved by: Laying still Worsened by: Eating, Moving, Position Associated symptoms: Fever, Nausea, Vomiting (for past 2 days). No: Diarrhea, Dysuria Similar symptoms before: Diagnosis (diverticulitis) Recently seen: Clinic (Seen 10 days ago for colonoscopy and she had some pain in the lower abdomen following that. She thought it was just common cramping after the scope. However the pain persisted and then the last couple of days is gotten worse associated with less appetite, nausea, feverish feeling.), Admitted (Was admitted for diverticulitis with abscess in the last couple of months. Treated without surgery and improved.) Review of Systems Constitutional: reports: Fever (subjective at home), Chills Nose: denies: Rhinorrhea / runny nose, Congestion Throat: denies: Sore throat Cardiac: denies: Chest pain / pressure Respiratory: denies: Cough GI: reports: Abdominal Pain, Nausea, Vomiting (for past 2 days). denies: Cons tipation, Diarrhea, Bloody / black stool : denies: Dysuria, Frequency Skin: denies: Rash, Lesions Neurologic: reports: Generalized weakness. denies: Altered mental status PD PAST MEDICAL HISTORY - Past Medical History Cardiovascular: Hypertension Respiratory: COPD, Emphysema Neuro: None Endocrine/Autoimmune: HyPOthyroidism GI: GERD, GI bleed, Pancreatitis, Hepatitis, Diverticulitis QUEEN'S COUNSEL: None : None HEENT: None Psych: None Musculoskeletal: Osteoarthritis Derm: None - Past Surgical History Past Surgical History: Yes General: Colonoscopy, EGD /QUEEN'S COUNSEL: Tubal ligation HEENT: Tonsil/Adenoidectomy - Present Medications Home Medications: Ambulatory Orders Medication Instructions Recorded Confirmed Ferrous Sulfate 325 mg PO DAILYWM 09/05/18 12/03/18 Levothyroxine [Synthroid] 88 mcg PO QDAC 12/03/18 12/03/18 Magnesium Oxide [Mag Ox] 400 mg PO QPM 12/03/18 12/03/18 Multivitamin,Therapeutic [Thera] 1 each PO DAILY 12/03/18 12/03/18 Spencer-3/Dha/Epa/Fish Oil [Fish Oil 1 each PO BID 12/03/18 12/03/18 1,000 mg Softgel] Omeprazole 40 mg PO BID 12/03/18 12/03/18 Wheat Dextrin [Benefiber] 1 each PO DAILY 12/03/18 12/03/18 - Allergies Allergies/Adverse Reactions: Allergies Allergy/AdvReac Type Severity Reaction Status Date / Time No Known Drug Allergies Allergy Verified 12/03/18 09:35 - Social History Does the pt smoke?: Yes Smoking Status: Current every day smoker Does the pt drink ETOH?: Yes Does the pt have substance abuse?: No - Immunizations Immunizations: TDAP >10years/unknown - POLST Patient has POLST: No POLST Status: Limited Interventions PD ED PE NORMAL - Vitals Vital signs reviewed: Yes - General General: Alert and oriented X 3, Well developed/nourished, Other (appears uncomfortable) - HEENT HEENT: Pharynx benign - Neck Neck: Supple, no meningeal sign, No adenopathy - Cardiac Cardiac: No murmur. No: RRR (regular but fast initially) - Respiratory Respiratory: Clear bilaterally - Abdomen Abdomen: Normal bowel sounds, Soft, Non distended, No organomegaly, Other (She is tender with local guarding and some percussion tenderness in the right lower quadrant to suprapubic area. There is no referred tenderness from other areas of the abdomen. There is slight rebound. There is no CVA tenderness.) - Female Female : Deferred - Rectal Rectal: Deferred - Back Back: No CVA TTP - Derm Derm: Normal color, Warm and dry - Extremities Extremities: No deformity, Normal ROM s pain, No edema, No calf tenderness / cord - Neuro Neuro: Alert and oriented X 3, No motor deficit, Normal speech Results - Vitals Vitals: Vital Signs - 24 hr 12/03/18 12/03/18 12/03/18 09:33 11:13 13:11 Temperature 36.5 C Heart Rate 112 H 74 71 Respiratory 18 16 15 Rate Blood Pressure 151/102 H 155/99 H 150/71 H O2 Saturation 99 100 96 Oxygen O2 Source Room air - Labs Labs: Laboratory Tests 12/03/18 12/03/18 12/03/18 10:46 10:46 10:46 WBC 5.2 RBC 4.34 Hgb 12.4 Hct 38.3 MCV 88.2 MCH 28.6 MCHC 32.4 RDW 14.8 Plt Count 289 MPV 9.2 Neut # (Auto) 3.3 Lymph # (Auto) 1.3 L Person # (Auto) 0.6 Eos # (Auto) 0.0 Baso # (Auto) 0.0 Absolute Nucleated RBC 0.00 Nucleated RBC % 0.0 Sodium 138 Potassium 3.4 L Chloride 99 L Carbon Dioxide 26 Anion Gap 13.0 BUN 8 Creatinine 0.7 Estimated GFR (MDRD) 85 L Glucose 94 Lactic Acid 1.1 Calcium 9.1 Magnesium 1.5 L Total Bilirubin 1.2 H AST 56 H ALT 31 Alkaline Phosphatase 165 H Total Protein 7.2 Albumin 3.7 Globulin 3.5 Albumin/Globulin Ratio 1.1 Lipase 33 Urine Color Urine Clarity Urine pH Ur Specific Verdon Urine Protein Urine Glucose (UA) Urine Ketones Urine Occult Blood Urine Nitrite Urine Bilirubin Urine Urobilinogen Ur Leukocyte Esterase Urine RBC Urine WBC Ur Epithelial Cells Ur Squamous Epith Cells Urine Bacteria Urine Casts Ur Microscopic Review Urine Culture Comments Ethyl Alcohol 12/03/18 12/03/18 10:46 11:25 WBC RBC Hgb Hct MCV MCH MCHC RDW Plt Count MPV Neut # (Auto) Lymph # (Auto) Person # (Auto) Eos # (Auto) Baso # (Auto) Absolute Nucleated RBC Nucleated RBC % Sodium Potassium Chloride Carbon Dioxide Anion Gap BUN Creatinine Estimated GFR (MDRD) Glucose Lactic Acid Calcium Magnesium Total Bilirubin AST ALT Alkaline Phosphatase Total Protein Albumin Globulin Albumin/Globulin Ratio Lipase Urine Color YELLOW Urine Clarity CLEAR Urine pH 6.5 Ur Specific Verdon <=1.005 Urine Protein NEGATIVE Urine Glucose (UA) NEGATIVE Urine Ketones NEGATIVE Urine Occult Blood NEGATIVE Urine Nitrite NEGATIVE Urine Bilirubin NEGATIVE Urine Urobilinogen 0.2 (NORMAL) Ur Leukocyte Esterase SMALL H Urine RBC 0-5 Urine WBC 6-10 H Ur Epithelial Cells RARE Transitional Ur Squamous Epith Cells FEW Squamous Urine Bacteria Rare Urine Casts 3-5 Hyaline Casts Ur Microscopic Review INDICATED Urine Culture Comments INDICATED Ethyl Alcohol < 5.0 - Rads (name of study) abd pelvic CT Radiology: Prelim report reviewed (Sigmoid diverticulitis with a local area of phlegmon and a 1.7 cm area of likely early abscess. No free air is noted.), EMP read contemporaneously, See rad report PD MEDICAL DECISION MAKING - ED course Complexity details: reviewed old records, reviewed results (She has planned partial colectomy in [facility] in December and a colonoscopy preceding that. However she has been treated here and evaluated for her diverticulitis previously. She does have recurrent sigmoid diverticulitis with radiology reading of a likely early abscess formation. Her white count is normal and she does not have signs of sepsis but she does have localized peritoneal signs and early abscess/phlegmon. As such I would feel she needs more aggressive antibiotics and fluid particularly in conjunction with her vomiting for the last couple of days and into this morning. She has not had emesis here in the ER but is still nauseated.), re-evaluated patient, considered differential (Symptoms consistent with possibly recurrent diverticulitis. However the symptoms did come on after a colonoscopy and so consider the possibility of a local perforation. CT scan will be done.), d/w patient, d/w financial services education consultant (Dr. Mcdermott) Departure - Departure Disposition: [facility] DC/Xfer Clinical Impression: Acute diverticulitis Vomiting Qualifiers: Vomiting type: unspecified Vomiting Intractability: non-intractable Nausea presence: with nausea Qualified Code(s): R11.2 - Nausea with vomiting, unspecified Abdominal pain Qualifiers: Abdominal location: right lower quadrant Qualified Code(s): R10.31 - Right lower quadrant pain Condition: Stable Record reviewed to determine appropriate education?: Yes Discharge Date/Time: 12/03/18 14:27
[2018-12-03] MEDS ORDERED: SODIUM CHLORIDE 0.9% 1,000 ML IV ONE (10:37)
[2018-12-03] MEDS ORDERED: MORPHINE 10 MG/ML VIAL IVP STA (10:38)
[2018-12-03] MEDS ORDERED: FAMOTIDINE 20 MG/2 ML VIAL IVP STA (10:38)
[2018-12-03] MEDS ORDERED: ONDANSETRON 4 MG/2 ML VIAL IVP STA (10:38)
[2018-12-03 10:53] LABS: BASOPHILS % (AUTO) 0.4 %; EOSINOPHILS % (AUTO) 0.4 %; HGB - HEMOGLOBIN 12.4 g/dL (12.0-16.0); LYMPHOCYTES # (AUTO) 1.3 10^3/uL (1.5-3.5); LYMPHOCYTES % (AUTO) 24.2 %; MEAN CORPUSCULAR HEMOGLOBIN 28.6 pg (27.0-31.0); MEAN CORPUSCULAR HGB CONC 32.4 g/dL (32.0-36.0); MEAN CORPUSCULAR VOLUME 88.2 fL (81.0-99.0); MEAN PLATELET VOLUME 9.2 fL (7.9-10.8); MONOCYTES # (AUTO) 0.6 10^3/uL (0.0-1.0); MONOCYTES % (AUTO) 10.9 %; NEUTROPHILS # (AUTO) 3.3 10^3/uL (1.5-6.6); NEUTROPHILS % (AUTO) 63.9 %; PLT - PLATELET COUNT 289 10^3/uL (130-450); RED BLOOD COUNT 4.34 10^6/uL (4.20-5.40); RED CELL DISTRIBUTION WIDTH 14.8 % (12.0-15.0); WHITE BLOOD COUNT 5.2 x10^3/uL (4.8-10.8)
[2018-12-03] MEDS ORDERED: IOVERSOL 320 100 ML VIAL IVP ONE ×2 (10:56→16:18)
[2018-12-03 11:07] LABS: ALBUMIN 3.7 g/dL (3.2-5.5); ALBUMIN/GLOBULIN RATIO 1.1 (1.0-2.2); BILIRUBIN,TOTAL 1.2 mg/dL (0.2-1.0); CALCIUM 9.1 mg/dL (8.5-10.3); CREATININE 0.7 mg/dL (0.4-1.0); MAGNESIUM 1.5 mg/dL (1.7-2.8); TOTAL PROTEIN 7.2 g/dL (6.7-8.2)
[2018-12-03 11:35] LABS: BILIRUBIN,URINE NEGATIVE (NEGATIVE); GLUCOSE, URINE (UA) NEGATIVE (NEGATIVE); KETONES,URINE (UA) NEGATIVE (NEGATIVE); LEUKOCYTE ESTERASE, URINE SMALL (NEGATIVE); NITRITE,URINE NEGATIVE (NEGATIVE); OCCULT BLOOD,URINE NEGATIVE (NEGATIVE); PH,URINE 6.5 PH (5.0-7.5); PROTEIN,URINE NEGATIVE (NEGATIVE); UROBILINOGEN,URINE 0.2 (NORMAL) E.U./dL (NORMAL)
[2018-12-03 11:38] LABS: CLARITY,URINE CLEAR (CLEAR)
[2018-12-03] MEDS ORDERED: IOVERSOL 320 50 ML VIAL ONE (11:59)
[2018-12-03 12:09] LABS: RBC,URINE 0-5 /HPF (0-5)
[2018-12-03 12:10] LABS: BACTERIA,URINE Rare /HPF (None Seen); CASTS, URINE 3-5 Hyaline Casts /LPF; EPITHELIAL CELLS,UR RARE Transitional /HPF (<= Few); SQUAMOUS EPITHELIAL CELL,UR FEW Squamous (<= Few)
--- NOTE | 2018-12-03 12:42 | CT Report ---
Reason: lower abd pain; h/o divertic and recent scope Procedure Date: 12/03/2018 Accession Number: [id number] / [id number] Procedure: CT - Abdomen/Pelvis W CPT Code: FULL RESULT: EXAM: CT ABDOMEN AND PELVIS EXAM DATE: 12/03/2018 12:01 PM. CLINICAL HISTORY: Lower abd pain; h/o divertic and recent scope. COMPARISONS: ABDOMEN/PELVIS W/ 12/03/2018 11:44 AM ABDOMEN/PELVIS W/ 09/05/2018 11:45 AM. TECHNIQUE: Routine helical CT imaging was performed through the abdomen and pelvis. IV contrast: OPTI 320 67ML. Enteric contrast: No. Reconstructions: Coronal and sagittal. In accordance with CT protocol optimization, one or more of the following dose reduction techniques were utilized for this exam: automated exposure control, adjustment of mA and/or KV based on patient size, or use of iterative reconstructive technique. FINDINGS: Lung Bases: Unremarkable. Mitral annular calcifications Liver: Fatty infiltrated Gallbladder/Bile Ducts: Possible gallstone Spleen: Normal. Pancreas: Normal. Adrenal Glands: Normal. Kidneys: Right kidney has ill-defined areas of decreased density upper lower pole. No hydronephrosis. No calcification. Left kidney unremarkable Peritoneal Cavity/Bowel: Sigmoid diverticulitis with wall thickening, pericolonic fat stranding, pericolonic fluid. Adjacent area of fluid along left pelvis 1.7 cm at the site of the previous abscess (3, 63) No retroperitoneal adenopathy. Normal appendix Pelvic Organs: Normal. The bladder and visualized pelvic organs are within normal limits. Vasculature: Marked atherosclerotic changes Bones: No significant abnormality. Other: None. IMPRESSION: 1. Sigmoid diverticulitis. Adjacent 1.7 cm area at site of previous abscess may represent phlegmonous/early abscess changes. 2. Heterogeneous low density areas in the right kidney not previously seen. Differential include infectious inflammatory, ischemic. 3. Possible gallstone RADIA
[2018-12-03] MEDS ORDERED: metroNIDAZOLE 500 MG/100 ML 500 MG/100 ML BAG IV ONE (13:09)
[2018-12-03] MEDS ORDERED: cefTRIAXone 1 GM VIAL IVP STA (13:09)
[2018-12-03] MEDS ORDERED: ONDANSETRON 4 MG/2 ML VIAL IVP PRN (13:34)
[2018-12-03] MEDS ORDERED: ONDANSETRON ODT 4 MG TABLET TL PRN (13:34)
[2018-12-03] MEDS ORDERED: POTASSIUM CHLORIDE 20 MEQ TABLET PO STA (13:45)
[2018-12-03] MEDS ORDERED: MAGNESIUM SULFATE 1 GM/2 ML VIAL IVP STA (13:58)
--- NOTE | 2018-12-03 14:42 | HISTORY & PHYSICAL EXAMINATION ---
Chief Complaint - Chief Complaint Chief Complaint: abdominal pain History of Present Illness - History of Present Illness HPI Comment/Other: Jessica Adkins is a 62-year-old female with a past medical history of hypertension, hyperlipidemia, GI bleed, pancreatitis, fatty liver, osteoarthritis, and life long tobacco use- currently smoking 1.5 PPD since age 17, COPD, alcohol use, acid reflux, diverticulosis with diverticulitis, chronic joint pain, central tremor, hypothyroidism, who present ER complain of abdominal pain. pt repot her abdominal pain mainly located at left lower quadrant, slight radiated pain to the right lower quadrant. she report she barely ate food for a few days because of her abdominal pain. she report hot and chill special yeste rday. she denies nausea, vomiting or diarrhea. She also denies chest pain, headache, cough, shortness of breath, vision change, dysuria, hematuria. she report she will have a schedule to do colonoscopy at [facility] in about 10 days, followup possible surgery to remove "the problem". she report she still smoked cigarette about 1-2 PPD per day. she report she quitted her alcohol already. CT of abdomen reveals sigmoid diverticulitis, adjacent 1.7 cm area at the site of previous abscess may represent early abscess changes. Lab test reveal slight lower potassium at 3.4, and magnesium at 1.5, and slight elevated total bili, AST and ALK. pt was admitted further management of above her medical problems. History - Past Medical History Cardiovascular: reports: Hypertension Respiratory: reports: COPD, Emphysema Neuro: reports: None Endocrine/Autoimmune: reports: HyPOthyroidism GI: reports: GERD, GI bleed, Pancreatitis, Hepatitis, Diverticulitis RUG LAYER: reports: None : reports: None HEENT: reports: None Psych: reports: None Musculoskeletal: reports: Osteoarthritis Derm: reports: None MRSA Hx?: No - Past Surgical History General: reports: Colonoscopy, EGD /RUG LAYER: reports: Tubal ligation HEENT: reports: Tonsil/Adenoidectomy - Family & Social History Family History: Mother: (Mom from cancer, Dad from HTN and CAD), Father: , Sister: Alive and Well (is well living) Family History Comment/Other: Pt is living alone at [facility]. Pt had one daughter and one son, both children are health. Social History Notes: Patient lives with her significant other, Berhane independently in [place]. She has one daughter and one son, both children are health. She admits to intermittent alcohol use, life long tobacco dependence- currently down to 1.5 PPD since age 17 years. She denies other illicit drug use. She wishes to be a FULL code. - Substance History Use: Uses substance without health or social issues: Tobacco - POLST Patient has POLST: No POLST Status: DNR Meds/Allgy - Home Medications Home Medications: Ambulatory Orders Medication Instructions Recorded Confirmed diltiaZEM CD [Cardizem Cd] 120 mg PO DAILY #30 capsule 04/05/18 09/05/18 Ferrous Sulfate 325 mg PO DAILY 09/05/18 09/05/18 Famotidine [Pepcid] 20 mg PO BID #60 tablet 09/08/18 Levothyroxine [Synthroid] 100 mcg PO QDAC #30 tablet 09/08/18 Magnesium Oxide [Mag Ox] 400 mg PO BIDWM #60 tablet 09/08/18 Wheat Dextrin [Benefiber] 1 each PO DAILY #30 packet 09/08/18 - Allergies Allergies/Adverse Reactions: Allergies Allergy/AdvReac Type Severity Reaction Status Date / Time No Known Drug Allergies Allergy Verified 12/03/18 09:35 Review of Systems - Constitutional Constitutional: reports: Fever, Chills. denies: Fatigue, Malaise, Weakness, Poor appetite, Diaphoresis, Night sweats, Weight gain, Weight loss - Eyes Eyes: denies: Pain, Irritation, Amaurosis, Blurred vision, Spots in vision, Field loss, Vision loss, Dipolpia - Ears, Nose & Throat Ears, Nose & Throat: denies: Ear pain, Hearing loss, Hearing aids, Tinnitus, Vertigo, Nasal pain, Nasal discharge, Nosebleeds, Nasal obstruction, Nasal congestion, Postnasal drainage, Dentures, Sore throat, Hoarseness, Mouth lesio ns, Bleeding gums - Cardiovascular Cariovascular: denies: Irregular heart rate, Palpitations, Chest pain, Edema, Lightheadedness, Syncope, Exertional dyspnea, Decr. exercise tolerance - Respiratory Respiratory: denies: Cough, Sputum production, Wheezing, Snoring, Hemoptysis, Orthopnea, SOB at rest, SOB with exertion - Gastrointestinal Gastrointestinal: reports: Abdominal pain. denies: Abdominal distention, Constipation, Diarrhea, Change in bowel habits, Rectal bleeding, Nausea, Vomiting, Bile emesis, Galdino blood emesis, Coffee grounds emesis - Genitourinary Genitourinary: denies: Dysuria, Frequency, Urgency, Hematuria, Incontinence, Fl ank pain, Nocturia, Urethral discharge - Musculoskeletal Musculoskeletal: denies: Muscle pain, Back pain, Muscle aches, Stiffness, Limited range of motion, Muscle weakness, Gout, Joint pain - Integumentary Integumentary: denies: Rash, Pruritis, Lesions, Dryness, Lumps, Acne, Pigment changes, Nail changes - Neurological Neurological: denies: General weakness, Focal weakness, Headache, Dizziness, Numbness, Memory problems, Pre-existing deficit, Abnormal gait, Seizures, Incoordination, Slurred speech - Psychiatric Psychiatric: denies: Depression, Anxiety, Suicidal, Delusions, Hallucinations, Homicidal - Endocrine Endocrine: denies: Polyuria, Polydypsia, Polyphagia, Intolerance to cold - Hematologic/Lymphatic Hematologic/Lymphatic: denies: Anemia, Bruising, Petechiae, Blood clots, Lymphadenopathy, Bleeding tendencies Exam - Vital Signs Reviewed Vital Signs: Yes Vital Signs: Vital Signs x48h Temp Pulse Resp BP Pulse Ox 12/03/18 13:11 71 15 150/71 H 96 12/03/18 11:13 74 16 155/99 H 100 12/03/18 09:33 36.5 C 112 H 18 151/102 H 99 - Physical Exam General Appearance: positive: No acute distress, Alert. negative: Lethargic Eyes Bilateral: positive: Normal inspection, PERRL, No lid inflammation, Conjunctivae nml ENT: positive: ENT inspection nml, Pharynx nml, No signs of dehydration. negative: Purulent nasal drainage, Pharyngeal erythema, Oral lesions Neck: positive: Nml inspection, Thyroid nml, No JVD, Trachea midline. negative: Thyromegaly, Lymphadenopathy (R), Lymphadenopathy (L), Stiff neck, Swelling/bruising, Tracheal deviation Respiratory: positive: Chest non-tender, No respiratory distress. negative: Wheezes, Rales, Rhonchi Cardiovascular: positive: Regular rate & rhythm, No murmur, No gallop. negative: Irregularly irregular, Extrasystoles, Tachycardia, Bradycardia, JVD present, Systolic murmur, Diastolic murmur Peripheral Pulses: positive: 2+ Abdomen: positive: No organomegaly, Nml bowel sounds, No distention, Tenderness. negative: Guarding, Rebound Back: positive: Nml inspection. negative: CVA tenderness (R), CVA tenderness (L) Skin: positive: Color nml, No rash, Warm, Dry. negative: Cyanosis, Diaphoresis, Pallor Extremities: positive: Non-tender, Full ROM, Nml appearance. negative: Calf tenderness, Joint swelling, Suri's sign/cords Neurologic/Psychiatric: positive: Oriented x3, Motor nml, Sensation nml, Mood/affect nml. negative: Weakness, Sensory loss, Facial droop, Slurred/abnml speech, Depressed mood/affect Sepsis Event Note (H) - Evaluation Current Stage of Sepsis: Ruled out Conclusion/Plan - Problem List (1) Acute diverticulitis Conclusion/Plan: pt present left lower quadrant pain, with hx of diverticulitis, and hx of abscess caused by diverticulitis. CT reveal sigmoid diverticulitis and early abscess. Plan: clear diet antibiotics Zosyn pain control (2) Abdominal pain Conclusion/Plan: abdominal pain is likely caused by diverticulitis and early abscess. plan: treat with antibiotics, and pain control Qualifiers: Abdominal location: right lower quadrant Qualified Code(s): R10.31 - Right lower quadrant pain (3) Elevated LFTs Conclusion/Plan: pt has slight elevated LFTs. pt denies alcohol abuse any more. plan: UDS, and alcohol level check, daily lab monitor, hold hepatic agents (4) Hypokalemia Conclusion/Plan: K is 3.4, placed with potassium, lab monitor (5) Hypomagnesemia Conclusion/Plan: pt's mag is 1.5 today, plan: placement of mag, daily lab monitor (6) Hypothyroidism Conclusion/Plan: will check TSH, reconcile home synthyoid meds (7) Cigarette nicotine dependence Conclusion/Plan: pt report she still smoked 1-2 PPD per day, she decline Nicotin patch now. advise pt quit cigarette smoking Qualifiers: Substance use status: unspecified nicotine-induced disorder Qualified Code(s): F17.219 - Nicotine dependence, cigarettes, with unspecified nicotine- induced disorders (8) Do not intubate, cardiopulmonary resuscitation (CPR)-only code status Conclusion/Plan: pt request DNR, and state she will sign PLOST on tomorrow. - Lab Results Fish Bones: 12/03/18 10:46 12/03/18 10:46 Core Measures - Anticipated LOS I expect patient to be DC'd or transferred within 96 hours.: Yes - DVT/VTE - Prophylaxis VTE/DVT Device ordered at admit?: Yes VTE/DVT Prophylaxis med ordered at admit?: Yes
[2018-12-03] MEDS ORDERED: MAGNESIUM SULFATE 2 GRAM 2 GM/50 ML BAG IV ONE (16:00)
[2018-12-03] MEDS: SODIUM CHLORIDE FLUSH 0.9% 10 ML SYRINGE IVP SCH ×2 (16:23→23:30)
[2018-12-03 16:37] LABS: MUDS CUTOFF CONCENTRATIONS CUTOFF CONC BELOW:
[2018-12-03 16:54] LABS: AMPHETAMINE SCREEN,URINE NEGATIVE (NEGATIVE); BENZODIAZEPINES SCREEN, URINE NEGATIVE (NEGATIVE); COCAINE SCREEN URINE NEGATIVE (NEGATIVE); METHADONE SCREEN, URINE NEGATIVE (NEGATIVE); METHAMPHETAMINES SCREEN, URINE NEGATIVE (NEGATIVE); OPIATE SCREEN, URINE POSITIVE (NEGATIVE); TRICYCLIC ANTIDEPRESSANT,URINE NEGATIVE (NEGATIVE)
[2018-12-03 16:55] LABS: OXYCODONE SCREEN, URINE NEGATIVE (NEGATIVE); PROPOXYPHENE SCREEN, URINE NEGATIVE (NEGATIVE)
[2018-12-03] MEDS ORDERED: SODIUM CHLORIDE 0.9% 250 ML IV PRN (17:12)
[2018-12-03] MEDS: POTASSIUM CHLOR 10 MEQ/100 ML 10 MEQ/100 ML BAG IV SCH ×2 (17:21→18:35)
[2018-12-03] MEDS ORDERED: PIPERACILLIN/TAZOBACTAM 3.375 GM in SODIUM CHLORIDE 0.9% MINIBAG 100 ML IV SCH (18:00)
[2018-12-03] MEDS: MORPHINE 2 MG/ML CARPUJECT IVP PRN (19:01)
[2018-12-03] MEDS: NYSTATIN POWDER 15 GM TOP SCH (20:06)
[2018-12-04] MEDS: ACETAMINOPHEN 325 MG TABLET PO PRN ×2 (00:20→16:06)
[2018-12-04] MEDS: PIPERACILLIN/TAZOBACTAM 3.375 GM in SODIUM CHLORIDE 0.9% MINIBAG 100 ML IV SCH ×4 (02:07→19:33)
[2018-12-04 05:02] LABS: BASOPHILS # (AUTO) 0.1 10^3/uL (0.0-0.1); BASOPHILS % (AUTO) 1.1 %; EOSINOPHILS # (AUTO) 0.1 10^3/uL (0.0-0.7); EOSINOPHILS % (AUTO) 2.1 %; HGB - HEMOGLOBIN 11.2 g/dL (12.0-16.0); LYMPHOCYTES # (AUTO) 1.2 10^3/uL (1.5-3.5); LYMPHOCYTES % (AUTO) 26.1 %; MEAN CORPUSCULAR HEMOGLOBIN 29.2 pg (27.0-31.0); MEAN CORPUSCULAR HGB CONC 32.2 g/dL (32.0-36.0); MEAN CORPUSCULAR VOLUME 90.6 fL (81.0-99.0); MEAN PLATELET VOLUME 9.7 fL (7.9-10.8); MONOCYTES # (AUTO) 0.4 10^3/uL (0.0-1.0); MONOCYTES % (AUTO) 9.3 %; NEUTROPHILS # (AUTO) 2.9 10^3/uL (1.5-6.6); PLT - PLATELET COUNT 219 10^3/uL (130-450); RED BLOOD COUNT 3.84 10^6/uL (4.20-5.40); WHITE BLOOD COUNT 4.7 x10^3/uL (4.8-10.8)
[2018-12-04 05:11] LABS: ALBUMIN/GLOBULIN RATIO 0.9 (1.0-2.2); BILIRUBIN,TOTAL 0.7 mg/dL (0.2-1.0); CALCIUM 8.2 mg/dL (8.5-10.3); CREATININE 0.8 mg/dL (0.4-1.0); TOTAL PROTEIN 6.2 g/dL (6.7-8.2)
[2018-12-04] MEDS: MORPHINE 2 MG/ML CARPUJECT IVP PRN ×2 (06:08→19:34)
[2018-12-04] MEDS: SODIUM CHLORIDE FLUSH 0.9% 10 ML SYRINGE IVP PRN ×2 (06:08→19:34)
[2018-12-04] MEDS ORDERED: POTASSIUM CHLORIDE 20 MEQ TABLET PO ONE (06:50)
[2018-12-04] MEDS ORDERED: LEVOTHYROXINE 100 MCG TABLET PO SCH (07:00)
[2018-12-04] MEDS ORDERED: CALCIUM CARBONATE CHEW 500 MG TABLET PO PRN (07:54)
[2018-12-04] MEDS: POLYETHYLENE GLYCOL 3350 17 GM PACKET PO SCH (07:58)
[2018-12-04] MEDS: SODIUM CHLORIDE FLUSH 0.9% 10 ML SYRINGE IVP SCH ×2 (08:03→15:59)
[2018-12-04] MEDS: NYSTATIN POWDER 15 GM TOP SCH ×2 (08:03→20:41)
[2018-12-04] MEDS: PANTOPRAZOLE 40 MG TABLET PO SCH (08:03)
--- NOTE | 2018-12-04 10:46 | PROVIDER PROGRESS NOTE ---
Subjective - Prog Note Date Prog Note Date: 12/04/18 - Subjective Pt reports feeling: Improved (pt report her left lower quadrant pain is better. she ask advance of her diet to full liquid diet.) Current Medications - Current Medications Current Medications: Active Medications Acetaminophen (Tylenol) 650 mg PO Q4HR PRN PRN Reason: Pain 1 to 4 Last Admin: 12/04/18 00:20 Dose: 650 mg Calcium Carbonate/Glycine (Tums) 500 mg PO BID PRN PRN Reason: Heartburn Sodium Chloride (Normal Saline 0.9%) 250 mls @ 0 mls/hr IV Q24H PRN PRN Reason: TKO RATE Last Infusion: 12/04/18 03:35 Dose: Infused Piperacillin Sod/Tazobactam (Sod 3.375 gm/ Sodium Chloride) 100 mls @ 200 mls/hr IV Q6H [facility] Last Infusion: 12/04/18 08:57 Dose: Infused Levothyroxine Sodium (Synthroid) 100 mcg PO QDAC [facility] Last Admin: 12/04/18 06:08 Dose: 100 mcg Morphine Sulfate (Morphine (Carpuject)) 2 mg IVP Q2HR PRN PRN Reason: Pain 8 to 10 Last Admin: 12/04/18 06:08 Dose: 2 mg Nystatin (Nystop) 1 applic TOP BID [facility] Last Admin: 12/04/18 08:03 Dose: 1 applic Ondansetron HCl (Zofran Inj) 4 mg IVP Q6HR PRN PRN Reason: Nausea / Vomiting Last Admin: 12/04/18 10:46 Dose: 4 mg Ondansetron HCl (Zofran Odt) 4 mg TL Q6HR PRN PRN Reason: Nausea / Vomiting Pantoprazole Sodium (Protonix) 40 mg PO QDAC [facility] Last Admin: 12/04/18 08:03 Dose: 40 mg Polyethylene Glycol (Miralax) 17 gm PO DAILY [facility] Last Admin: 12/04/18 07:58 Dose: 17 gm Saccharomyces Boulardii (Florastor) 250 mg PO BIDWM [facility] Sodium Chloride (Normal Saline Flush 0.9%) 10 ml IVP PRN PRN PRN Reason: NEEDED PER PROVIDER ORDERS Last Admin: 12/04/18 06:08 Dose: 10 ml Sodium Chloride (Normal Saline Flush 0.9%) 10 ml IVP 0100,0900,1700 RAFA Last Admin: 12/04/18 08:03 Dose: 10 ml Ferrous Sulfate 325 mg PO DAILYWM 09/05/18 Levothyroxine [Synthroid] 88 mcg PO QDAC 12/03/18 Magnesium Oxide [Mag Ox] 400 mg PO QPM 12/03/18 Multivitamin,Therapeutic [Thera] 1 each PO DAILY 12/03/18 [place]-3/Dha/Epa/Fish Oil [Fish Oil 1,000 mg Softgel] 1 each PO BID 12/03/18 Omeprazole 40 mg PO BID 12/03/18 Wheat Dextrin [Benefiber] 1 each PO DAILY 12/03/18 Objective - Vital Signs/Intake & Output Reviewed Vital Signs: Yes Vital Signs: Vital Signs x48h Temp Pulse Pulse Resp BP Pulse Ox 12/04/18 08:22 36.6 C 60 14 97 12/04/18 07:59 36.6 C 69 16 131/70 H Intake & Output: Intake & Output 12/01/18 12/02/18 12/03/18 12/04/18 23:59 23:59 23:59 23:59 Intake Total 4205.566 1436 Balance 9197.904 2331 - Objective General Appearance: positive: No acute distress, Alert. negative: Lethargic Eyes Bilateral: positive: Normal inspection, PERRL, No lid inflammation, Conjunctivae nml ENT: positive: ENT inspection nml, Pharynx nml, No signs of dehydration. negative: Purulent nasal drainage, Pharyngeal erythema, Oral lesions Neck: positive: Nml inspection, Thyroid nml, No JVD, Trachea midline. negative: Thyromegaly, Lymphadenopathy (R), Lymphadenopathy (L), Stiff neck, Swelling/bruising, Tracheal deviation Respiratory: positive: Chest non-tender, No respiratory distress, Breath sounds nml. negative: Wheezes, Rales, Rhonchi Cardiovascular: positive: Regular rate & rhythm, No murmur, No gallop. negativ e: Irregularly irregular, Extrasystoles, Tachycardia, Bradycardia, JVD present, Systolic murmur, Diastolic murmur Peripheral Pulses: 2+ Radial (R), 2+ Radial (L), 2+ Dorsalis pedis (R), 2+ Dorsalis pedis (L) Abdomen: positive: Non-tender, No organomegaly, Nml bowel sounds, No distention. negative: Tenderness, Guarding, Rebound Back: positive: Nml inspection. negative: CVA tenderness (R), CVA tenderness (L) Skin: positive: Color nml, No rash, Warm, Dry. negative: Cyanosis, Diaphoresis, Pallor Extremities: positive: Non-tender, Full ROM, Nml appearance. negative: Calf tenderness, Joint swelling, Suri's sign/cords Neurologic/Psychiatric: positive: Oriented x3, Motor nml, Sensation nml, Mood/affect nml. negative: Weakness, Sensory loss, Facial droop, Slurred/abnml speech, Depressed mood/affect - Lab Results Fish Bones: 12/04/18 04:54 12/04/18 04:54 Other Labs: Lab Results x24hrs 12/04/18 12/04/18 12/04/18 Range/Units 04:54 04:54 04:54 WBC 4.7 L (4.8-10.8) x10^3/uL RBC 3.84 L (4.20-5.40) 10^6/uL Hgb 11.2 L (12.0-16.0) g/dL Hct 34.8 L (37.0-47.0) % MCV 90.6 (81.0-99.0) fL MCH 29.2 (27.0-31.0) pg MCHC 32.2 (32.0-36.0) g/dL RDW 15.0 (12.0-15.0) % Plt Count 219 (130-450) 10^3/uL MPV 9.7 (7.9-10.8) fL Neut # (Auto) 2.9 (1.5-6.6) 10^3/uL Lymph # (Auto) 1.2 L (1.5-3.5) 10^3/uL [place] # (Auto) 0.4 (0.0-1.0) 10^3/uL Eos # (Auto) 0.1 (0.0-0.7) 10^3/uL Baso # (Auto) 0.1 (0.0-0.1) 10^3/uL Absolute Nucleated RBC 0.00 x10^3/uL Nucleated RBC % 0.0 /100WBC Sodium 140 (135-145) mmol/L Potassium 3.3 L (3.5-5.0) mmol/L Chloride 103 (101-111) mmol/L Carbon Dioxide 26 (21-32) mmol/L Anion Gap 11.0 (6-13) BUN 6 (6-20) mg/dL Creatinine 0.8 (0.4-1.0) mg/dL Estimated GFR (MDRD) 73 L (>89) Glucose 94 (70-100) mg/dL Lactic Acid (0.5-2.2) mmol/L Calcium 8.2 L (8.5-10.3) mg/dL Magnesium (1.7-2.8) mg/dL Total Bilirubin 0.7 (0.2-1.0) mg/dL AST 79 H (10-42) IU/L ALT 29 (10-60) IU/L Alkaline Phosphatase 135 H (42-121) IU/L Total Protein 6.2 L (6.7-8.2) g/dL Albumin 3.0 L (3.2-5.5) g/dL Globulin 3.2 (2.1-4.2) g/dL Albumin/Globulin Ratio 0.9 L (1.0-2.2) Lipase (22-51) U/L TSH 1.87 (0.34-5.60) uIU/mL Urine Color Urine Clarity (CLEAR) Urine pH (5.0-7.5) PH Ur Specific [place] (1.002-1.030) Urine Protein (NEGATIVE) mg/dL Urine Glucose (UA) (NEGATIVE) mg/dL Urine Ketones (NEGATIVE) mg/dL Urine Occult Blood (NEGATIVE) Urine Nitrite (NEGATIVE) Urine Bilirubin (NEGATIVE) Urine Urobilinogen (NORMAL) E.U./dL Ur Leukocyte Esterase (NEGATIVE) Urine RBC (0-5) /HPF Urine WBC (0-5) /HPF Ur Epithelial Cells (<= Few) /HPF Ur Squamous Epith Cells (<= Few) Urine Bacteria (None Seen) /HPF Urine Casts /LPF Ur Microscopic Review Urine Culture Comments Urine Opiates Screen (NEGATIVE) Ur Oxycodone Screen (NEGATIVE) Urine Methadone Screen (NEGATIVE) Ur Propoxyphene Screen (NEGATIVE) Ur Barbiturates Screen (NEGATIVE) Ur Tricyclics Screen (NEGATIVE) Ur Phencyclidine Scrn (NEGATIVE) Ur Amphetamine Screen (NEGATIVE) U Methamphetamines Scrn (NEGATIVE) U Benzodiazepines Scrn (NEGATIVE) Urine Cocaine Screen (NEGATIVE) U Cannabinoids Screen (NEGATIVE) Ethyl Alcohol mg/dL 12/03/18 12/03/18 12/03/18 Range/Units 16:30 11:25 10:46 WBC (4.8-10.8) x10^3/uL RBC (4.20-5.40) 10^6/uL Hgb (12.0-16.0) g/dL Hct (37.0-47.0) % MCV (81.0-99.0) fL MCH (27.0-31.0) pg MCHC (32.0-36.0) g/dL RDW (12.0-15.0) % Plt Count (130-450) 10^3/uL MPV (7.9-10.8) fL Neut # (Auto) (1.5-6.6) 10^3/uL Lymph # (Auto) (1.5-3.5) 10^3/uL [place] # (Auto) (0.0-1.0) 10^3/uL Eos # (Auto) (0.0-0.7) 10^3/uL Baso # (Auto) (0.0-0.1) 10^3/uL Absolute Nucleated RBC x10^3/uL Nucleated RBC % /100WBC Sodium (135-145) mmol/L Potassium (3.5-5.0) mmol/L Chloride (101-111) mmol/L Carbon Dioxide (21-32) mmol/L Anion Gap (6-13) BUN (6-20) mg/dL Creatinine (0.4-1.0) mg/dL Estimated GFR (MDRD) (>89) Glucose (70-100) mg/dL Lactic Acid (0.5-2.2) mmol/L Calcium (8.5-10.3) mg/dL Magnesium (1.7-2.8) mg/dL Total Bilirubin (0.2-1.0) mg/dL AST (10-42) IU/L ALT (10-60) IU/L Alkaline Phosphatase (42-121) IU/L Total Protein (6.7-8.2) g/dL Albumin (3.2-5.5) g/dL Globulin (2.1-4.2) g/dL Albumin/Globulin Ratio (1.0-2.2) Lipase (22-51) U/L TSH (0.34-5.60) uIU/mL Urine Color YELLOW Urine Clarity CLEAR (CLEAR) Urine pH 6.5 (5.0-7.5) PH Ur Specific [place] <=1.005 (1.002-1.030) Urine Protein NEGATIVE (NEGATIVE) mg/dL Urine Glucose (UA) NEGATIVE (NEGATIVE) mg/dL Urine Ketones NEGATIVE (NEGATIVE) mg/dL Urine Occult Blood NEGATIVE (NEGATIVE) Urine Nitrite NEGATIVE (NEGATIVE) Urine Bilirubin NEGATIVE (NEGATIVE) Urine Urobilinogen 0.2 (NORMAL) (NORMAL) E.U./dL Ur Leukocyte Esterase SMALL H (NEGATIVE) Urine RBC 0-5 (0-5) /HPF Urine WBC 6-10 H (0-5) /HPF Ur Epithelial Cells RARE Transitional (<= Few) /HPF Ur Squamous Epith Cells FEW Squamous (<= Few) Urine Bacteria Rare (None Seen) /HPF Urine Casts 3-5 Hyaline Casts /LPF Ur Microscopic Review INDICATED Urine Culture Comments INDICATED Urine Opiates Screen POSITIVE H (NEGATIVE) Ur Oxycodone Screen NEGATIVE (NEGATIVE) Urine Methadone Screen NEGATIVE (NEGATIVE) Ur Propoxyphene Screen NEGATIVE (NEGATIVE) Ur Barbiturates Screen NEGATIVE (NEGATIVE) Ur Tricyclics Screen NEGATIVE (NEGATIVE) Ur Phencyclidine Scrn NEGATIVE (NEGATIVE) Ur Amphetamine Screen NEGATIVE (NEGATIVE) U Methamphetamines Scrn NEGATIVE (NEGATIVE) U Benzodiazepines Scrn NEGATIVE (NEGATIVE) Urine Cocaine Screen NEGATIVE (NEGATIVE) U Cannabinoids Screen NEGATIVE (NEGATIVE) Ethyl Alcohol < 5.0 mg/dL 12/03/18 12/03/18 12/03/18 Range/Units 10:46 10:46 10:46 WBC 5.2 (4.8-10.8) x10^3/uL RBC 4.34 (4.20-5.40) 10^6/uL Hgb 12.4 (12.0-16.0) g/dL Hct 38.3 (37.0-47.0) % MCV 88.2 (81.0-99.0) fL MCH 28.6 (27.0-31.0) pg MCHC 32.4 (32.0-36.0) g/dL RDW 14.8 (12.0-15.0) % Plt Count 289 (130-450) 10^3/uL MPV 9.2 (7.9-10.8) fL Neut # (Auto) 3.3 (1.5-6.6) 10^3/uL Lymph # (Auto) 1.3 L (1.5-3.5) 10^3/uL [place] # (Auto) 0.6 (0.0-1.0) 10^3/uL Eos # (Auto) 0.0 (0.0-0.7) 10^3/uL Baso # (Auto) 0.0 (0.0-0.1) 10^3/uL Absolute Nucleated RBC 0.00 x10^3/uL Nucleated RBC % 0.0 /100WBC Sodium 138 (135-145) mmol/L Potassium 3.4 L (3.5-5.0) mmol/L Chloride 99 L (101-111) mmol/L Carbon Dioxide 26 (21-32) mmol/L Anion Gap 13.0 (6-13) BUN 8 (6-20) mg/dL Creatinine 0.7 (0.4-1.0) mg/dL Estimated GFR (MDRD) 85 L (>89) Glucose 94 (70-100) mg/dL Lactic Acid 1.1 (0.5-2.2) mmol/L Calcium 9.1 (8.5-10.3) mg/dL Magnesium 1.5 L (1.7-2.8) mg/dL Total Bilirubin 1.2 H (0.2-1.0) mg/dL AST 56 H (10-42) IU/L ALT 31 (10-60) IU/L Alkaline Phosphatase 165 H (42-121) IU/L Total Protein 7.2 (6.7-8.2) g/dL Albumin 3.7 (3.2-5.5) g/dL Globulin 3.5 (2.1-4.2) g/dL Albumin/Globulin Ratio 1.1 (1.0-2.2) Lipase 33 (22-51) U/L TSH (0.34-5.60) uIU/mL Urine Color Urine Clarity (CLEAR) Urine pH (5.0-7.5) PH Ur Specific [place] (1.002-1.030) Urine Protein (NEGATIVE) mg/dL Urine Glucose (UA) (NEGATIVE) mg/dL Urine Ketones (NEGATIVE) mg/dL Urine Occult Blood (NEGATIVE) Urine Nitrite (NEGATIVE) Urine Bilirubin (NEGATIVE) Urine Urobilinogen (NORMAL) E.U./dL Ur Leukocyte Esterase (NEGATIVE) Urine RBC (0-5) /HPF Urine WBC (0-5) /HPF Ur Epithelial Cells (<= Few) /HPF Ur Squamous Epith Cells (<= Few) Urine Bacteria (None Seen) /HPF Urine Casts /LPF Ur Microscopic Review Urine Culture Comments Urine Opiates Screen (NEGATIVE) Ur Oxycodone Screen (NEGATIVE) Urine Methadone Screen (NEGATIVE) Ur Propoxyphene Screen (NEGATIVE) Ur Barbiturates Screen (NEGATIVE) Ur Tricyclics Screen (NEGATIVE) Ur Phencyclidine Scrn (NEGATIVE) Ur Amphetamine Screen (NEGATIVE) U Methamphetamines Scrn (NEGATIVE) U Benzodiazepines Scrn (NEGATIVE) Urine Cocaine Screen (NEGATIVE) U Cannabinoids Screen (NEGATIVE) Ethyl Alcohol mg/dL ABX Reporting Has patient been on IV antibiotics over the past 48 hours?: Yes Sepsis Event Note (H) - Evaluation Current Stage of Sepsis: Ruled out Assessment/Plan - Problem List (1) Acute diverticulitis Impression: 12/04 clinic pt feel better, abdominal pain is controlled. pt ask advance of her diet. plan: continue Zosyn treatment advance her diet as tolerated, it is full liquid diet now pt present left lower quadrant pain, with hx of diverticulitis, and hx of abscess caused by diverticulitis. CT reveal sigmoid diverticulitis and early abscess. Plan: clear diet antibiotics Zosyn pain control (2) Abdominal pain Conclusion/Plan: 12/04 pt report her abdominal pain is controlled PRN morphine abdominal pain is likely caused by diverticulitis and early abscess. plan: treat with antibiotics, and pain control (3) Elevated LFTs Conclusion/Plan: 12/04 improved. total bili is normal now. continue lab monitor pt has slight elevated LFTs. pt denies alcohol abuse any more. plan: UDS, and alcohol level check, daily lab monitor, hold hepatic toxic agents (4) Hypokalemia Conclusion/Plan: 12/04 k is 3.3 today, continue potassium placement K is 3.4, placed with potassium, lab monitor (5) Hypomagnesemia Conclusion/Plan: pt's mag is 1.5 today, plan: placement of mag, daily lab monitor (6) Hypothyroidism Conclusion/Plan: 12/04, TSH is normal, continue home synthyroid will check TSH, reconcile home synthyoid meds (7) Cigarette nicotine dependence Conclusion/Plan: pt report she still smoked 1-2 PPD per day, she decline Nicotin patch now. advise pt quit cigarette smoking (2) Abdominal pain Qualifiers: Abdominal location: right lower quadrant Qualified Code(s): R10.31 - Right lower quadrant pain (7) Cigarette nicotine dependence Qualifiers: Substance use status: unspecified nicotine-induced disorder Qualified Code(s): F17.219 - Nicotine dependence, cigarettes, with unspecified nicotine- induced disorders
[2018-12-04] MEDS ORDERED: SACCHAROMYCES BOULARDII 250 MG CAPSULE PO SCH (17:00)
[2018-12-05] MEDS: SODIUM CHLORIDE FLUSH 0.9% 10 ML SYRINGE IVP SCH ×2 (00:13→08:05)
[2018-12-05] MEDS: SODIUM CHLORIDE FLUSH 0.9% 10 ML SYRINGE IVP PRN ×3 (01:58→03:36)
[2018-12-05] MEDS: PIPERACILLIN/TAZOBACTAM 3.375 GM in SODIUM CHLORIDE 0.9% MINIBAG 100 ML IV SCH ×2 (01:59→08:05)
[2018-12-05] MEDS: MORPHINE 2 MG/ML CARPUJECT IVP PRN (03:32)
[2018-12-05 05:00] LABS: BASOPHILS % (AUTO) 0.4 %; EOSINOPHILS # (AUTO) 0.1 10^3/uL (0.0-0.7); EOSINOPHILS % (AUTO) 1.8 %; HGB - HEMOGLOBIN 11.6 g/dL (12.0-16.0); LYMPHOCYTES # (AUTO) 1.1 10^3/uL (1.5-3.5); LYMPHOCYTES % (AUTO) 15.6 %; MEAN CORPUSCULAR HEMOGLOBIN 29.5 pg (27.0-31.0); MEAN CORPUSCULAR HGB CONC 32.3 g/dL (32.0-36.0); MEAN CORPUSCULAR VOLUME 91.3 fL (81.0-99.0); MEAN PLATELET VOLUME 10.5 fL (7.9-10.8); MONOCYTES # (AUTO) 0.5 10^3/uL (0.0-1.0); MONOCYTES % (AUTO) 6.3 %; NEUTROPHILS # (AUTO) 5.4 10^3/uL (1.5-6.6); NEUTROPHILS % (AUTO) 75.5 %; PLT - PLATELET COUNT 237 10^3/uL (130-450); RED BLOOD COUNT 3.93 10^6/uL (4.20-5.40); WHITE BLOOD COUNT 7.2 x10^3/uL (4.8-10.8)
[2018-12-05 05:14] LABS: ALBUMIN 3.2 g/dL (3.2-5.5); BILIRUBIN,TOTAL 0.8 mg/dL (0.2-1.0); CALCIUM 8.9 mg/dL (8.5-10.3); CREATININE 0.7 mg/dL (0.4-1.0); MAGNESIUM 1.8 mg/dL (1.7-2.8); TOTAL PROTEIN 6.3 g/dL (6.7-8.2)
[2018-12-05] MEDS: PANTOPRAZOLE 40 MG TABLET PO SCH (06:19)
[2018-12-05] MEDS ORDERED: POTASSIUM CHLORIDE 20 MEQ TABLET PO ONE (06:50)
[2018-12-05] MEDS ORDERED: LEVOTHYROXINE 88 MCG TABLET PO SCH (07:00)
[2018-12-05 07:55] VITALS: BP 138/67
[2018-12-05] MEDS: NYSTATIN POWDER 15 GM TOP SCH (08:05)
[2018-12-05] MEDS: POLYETHYLENE GLYCOL 3350 17 GM PACKET PO SCH (08:06)
--- NOTE | 2018-12-05 11:57 | Discharge Plan ---
Discharge Plan Problem Reviewed?: Yes Disposition: Home, Self Care Condition: Poor Prescriptions: Ciprofloxacin HCl [Cipro] 500 mg PO BID #12 tablet Metronidazole [Flagyl] 500 mg PO BID #12 tablet oxyCODONE [Roxicodone] 5 mg PO Q4-6H PRN #15 tablet PRN Reason: Abdominal Pain Diet: Soft Activity Restrictions: Activity as Tolerated Shower Restrictions: No (fall precaution) Instruction Topics: Metronidazole tablets or capsules, Ciprofloxacin tablets, Oxycodone tablets or capsules Health Concerns: diverticulitis with early abscess Plan of Treatment: continue antibiotics treatment course, followup your director regulatory affairs schedule for further management Care Goals: stabilization and improvement of your medical conditions Assessment: assessment as the above Additional Instructions or Follow Up instructions: you may followup your PCP in one-two weeks, followup your director regulatory affairs appointment as your schedule. Should your symptoms return or worsen, you may present ER or call 911 for help. No Smoking: If you smoke, Please STOP! Call for help. Follow-up with: Amrita Salinas ARNP [Primary Care Provider] -
--- NOTE | 2018-12-05 13:14 | DISCHARGE SUMMARY ---
Discharge Summary Discharge Date: 12/05/18 Discharging Provider: HARVEY Primary Care Provider: Amrita Morgan Condition at Discharge: Poor Discharge Disposition: 01 Home, Self Care Discharge Facility Name: home - DIAGNOSES Admission Diagnoses: (1) Acute diverticulitis (2) Abdominal pain (3) Elevated LFTs (4) Hypokalemia (5) Hypomagnesemia (6) Hypothyroidism (7) Cigarette nicotine dependence Discharge Diagnoses with Status of Each Condition: 1) Acute diverticulitis pt tolerate regular diet, her abdominal pain is controlled, no nausea or vomiting. pt is prescribed antibiotics Cipro and Flagyl to finish the treatment course. (2) Abdominal pain controlled/resolved. (3) Elevated LFTs resolved. (4) Hypokalemia placed. (5) Hypomagnesemia resolved (6) Hypothyroidism stable (7) Cigarette nicotine dependence advise pt quit smoking - HPI History of Present Illness: Jessica Adkins is a 62-year-old female with a past medical history of hypertension, hyperlipidemia, GI bleed, pancreatitis, fatty liver, osteoarthritis, and life long tobacco use- currently smoking 1.5 PPD since age 17, COPD, alcohol use, acid reflux, diverticulosis with diverticulitis, chronic joint pain, central tremor, hypothyroidism, who present ER complain of abdominal pain. pt repot her abdominal pain mainly located at left lower quadrant, slight radiated pain to the right lower quadrant. she report she barely ate food for a few days because of her abdominal pain. she report hot and chill special ye sterday. she denies nausea, vomiting or diarrhea. She also denies chest pain, headache, cough, shortness of breath, vision change, dysuria, hematuria. she report she will have a schedule to do colonoscopy at [facility] in about 10 days, followup possible surgery to remove "the problem". she report she still smoked cigarette about 1-2 PPD per day. she report she quitted her alcohol already. CT of abdomen reveals sigmoid diverticulitis, adjacent 1.7 cm area at the site of previous abscess may represent early abscess changes. Lab test reveal slight lower potassium at 3.4, and magnesium at 1.5, and slight elevated total bili, AST and ALK. pt was admitted further management of above her medical problems. - HOSPITAL COURSE Hospital Course: pt was admitted for abdominal pain. pt was fount to have diverticulitis with early abscess. pt was treated with IV of antibiotics Zosyn. after treatment, pt's abdominal pain is controlled. pt tolerated the diet, no N/V. the detail of hospital course is as the below: (1) Acute diverticulitis pt tolerate regular diet, her abdominal pain is controlled, no nausea or vomiting. pt is prescribed antibiotics Cipro and Flagyl to finish the treatment course. (2) Abdominal pain controlled/resolved. (3) Elevated LFTs resolved. (4) Hypokalemia placed. (5) Hypomagnesemia resolved (6) Hypothyroidism stable (7) Cigarette nicotine dependence advise pt quit smoking - ALLERGIES Allergies/Adverse Reactions: Allergies Allergy/AdvReac Type Severity Reaction Status Date / Time No Known Drug Allergies Allergy Verified 12/03/18 09:35 - MEDICATIONS Home Medications: Ambulatory Orders Medication Instructions Recorded Confirmed Ferrous Sulfate 325 mg PO DAILYWM 09/05/18 12/03/18 Levothyroxine [Synthroid] 88 mcg PO QDAC 12/03/18 12/03/18 Magnesium Oxide [Mag Ox] 400 mg PO QPM 12/03/18 12/03/18 Multivitamin,Therapeutic [Thera] 1 each PO DAILY 12/03/18 12/03/18 [place]-3/Dha/Epa/Fish Oil [Fish Oil 1 each PO BID 12/03/18 12/03/18 1,000 mg Softgel] Omeprazole 40 mg PO BID 12/03/18 12/03/18 Wheat Dextrin [Benefiber] 1 each PO DAILY 12/03/18 12/03/18 Ciprofloxacin HCl [Cipro] 500 mg PO BID #12 tablet 12/05/18 Metronidazole [Flagyl] 500 mg PO BID #12 tablet 12/05/18 oxyCODONE [Roxicodone] 5 mg PO Q4-6H PRN #15 tablet 12/05/18 - PHYSICAL EXAM AT DISCHARGE General Appearance: positive: No acute distress, Alert. negative: Lethargic Eyes Bilateral: positive: Normal inspection, PERRL, No lid inflammation, Conjunctivae nml ENT: positive: ENT inspection nml, Pharynx nml, No signs of dehydration. negative: Purulent nasal drainage, Pharyngeal erythema, Oral lesions Neck: positive: Nml inspection, Thyroid nml, No JVD, Trachea midline. negative: Thyromegaly, Lymphadenopathy (R), Lymphadenopathy (L), Stiff neck, Swelling/bruising, Tracheal deviation Respiratory: positive: Chest non-tender, No respiratory distress, Breath sounds nml. negative: Wheezes, Rales, Rhonchi Cardiovascular: positive: Regular rate & rhythm, No murmur, No gallop. negative: Irregularly irregular, Extrasystoles, Tachycardia, Bradycardia, JVD present, Systolic murmur, Diastolic murmur Peripheral Pulses: positive: 2+ Abdomen: positive: Non-tender, No organomegaly, Nml bowel sounds, No distention. negative: Tenderness, Guarding, Rebound Back: positive: Nml inspection. negative: CVA tenderness (R), CVA tenderness (L) Skin: positive: Color nml, No rash, Warm, Dry. negative: Cyanosis, Diaphoresis, Pallor Extremities: positive: Non-tender, Full ROM, Nml appearance. negative: Calf tenderness, Joint swelling, Suri's sign/cords Neurologic/Psychiatric: positive: Oriented x3, Motor nml, Sensation nml. negative: Mood/affect nml, Disoriented to person, Disoriented to place, Disoriented to time, Weakness, Sensory loss, Facial droop, Slurred/abnml speech, Depressed mood/affect - LABS Result Diagrams: 12/05/18 04:45 12/05/18 04:45 - SEPSIS Current Stage of Sepsis: Ruled out - FOLLOW UP Follow Up: continue antibiotics treatment course, followup your data warehouse developer schedule for further management. you may followup your PCP in one-two weeks, followup your data warehouse developer appointment as your schedule. Should your symptoms return or worsen, you may present ER or call 911 for help. - TIME SPENT Time Spent in Discharge (Minutes): 50
== END 2018-12-05 13:56 | disposition home or self-care (01) | DRG 392 ==
LOC: ED 09:28 → MS2 13:34
PROVIDERS: ADMIT Nurse Practitioner Gerontology; ATTEND Nurse Practitioner Gerontology
DX: K57.20 Diverticulitis of large intestine with perforation and abscess without bleeding (principal); E87.6 Hypokalemia; E83.42 Hypomagnesemia; E03.9 Hypothyroidism, unspecified; F17.219 Nicotine dependence, cigarettes, with unspecified nicotine-induced disorders; I10 Essential (primary) hypertension; K21.9 Gastro-esophageal reflux disease without esophagitis; J43.9 Emphysema, unspecified; Z66 Do not resuscitate; Z87.19 Personal history of other diseases of the digestive system; Z87.898 Personal history of other specified conditions
CPT/HCPCS: 36415; 74177; 80053; 80306; 80320; 81001; 83605; 83690; 83735; 84443; 85025; 87086; 96361; 96365; 96375; 99284; 99285; A9270; Q9967; 81003

== ENCOUNTER 2020-06-26 15:47 | Inpatient (IN) | payer MEDICAID ==
[2020-06-26] MEDS ORDERED: HYDROmorphone 1 MG/ML CARPUJECT IVP STA ×2 (16:14→17:01)
[2020-06-26] MEDS ORDERED: IOPAMIDOL-300 100 ML VIAL ONE (16:17)
[2020-06-26] MEDS ORDERED: IOPAMIDOL-300 50 ML VIAL ONE (16:30)
[2020-06-26 16:33] LABS: BASOPHILS # (AUTO) 0.1 10^3/uL (0.0-0.1); BASOPHILS % (AUTO) 0.3 %; HCT - HEMATOCRIT 40.5 % (37.0-47.0); HGB - HEMOGLOBIN 13.7 g/dL (12.0-16.0); LYMPHOCYTES # (AUTO) 0.7 10^3/uL (1.5-3.5); LYMPHOCYTES % (AUTO) 3.7 %; MEAN CORPUSCULAR HEMOGLOBIN 35.8 pg (27.0-31.0); MEAN CORPUSCULAR HGB CONC 33.8 g/dL (32.0-36.0); MEAN CORPUSCULAR VOLUME 105.7 fL (81.0-99.0); MEAN PLATELET VOLUME 9.4 fL (7.9-10.8); MONOCYTES # (AUTO) 0.9 10^3/uL (0.0-1.0); MONOCYTES % (AUTO) 4.7 %; NEUTROPHILS # (AUTO) 16.5 10^3/uL (1.5-6.6); NEUTROPHILS % (AUTO) 90.9 %; PLT - PLATELET COUNT 358 10^3/uL (130-450); RED BLOOD COUNT 3.83 10^6/uL (4.20-5.40); RED CELL DISTRIBUTION WIDTH 14.2 % (12.0-15.0); WHITE BLOOD COUNT 18.1 x10^3/uL (4.8-10.8)
[2020-06-26 16:43] LABS: BILIRUBIN,URINE NEGATIVE (NEGATIVE); GLUCOSE, URINE (UA) NEGATIVE (NEGATIVE); KETONES,URINE (UA) NEGATIVE (NEGATIVE); LEUKOCYTE ESTERASE, URINE NEGATIVE (NEGATIVE); NITRITE,URINE NEGATIVE (NEGATIVE); OCCULT BLOOD,URINE NEGATIVE (NEGATIVE); PH,URINE 5.5 PH (5.0-7.5); PROTEIN,URINE TRACE mg/dL (NEGATIVE); UROBILINOGEN,URINE 0.2 (NORMAL) E.U./dL (NORMAL)
--- NOTE | 2020-06-26 16:44 | ED Physician Documentation ---
PD HPI ABD PAIN - Stated complaint Stated Complaint: ABD/BACK PX - Chief complaint Chief Complaint: Abd Pain - History obtained from History obtained from: Patient - History of Present Illness Timing - onset: Today Timing - duration: Hours (8) Timing - details: Abrupt onset Pain level max: 10 Pain level now: 10 Quality: Aching, Pain Location: All over / everywhere Radiation: No: Chest, , Lower back, Left flank, Left shoulder, Right flank, Right shoulder, Upper back Improved by: Other (nothing) Worsened by: Moving, Palpation Associated symptoms: Nausea. No: Fever, Vomiting, Hematemesis, Melena, Hematochezia, Dysuria, Hematuria, Chest pain - Additional information Additional information: 64-year-old female presents to the emergency department abdominal pain today. Abrupt onset generalized. History of diverticulitis with bowel resection several years ago. 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 PLANT EMPLOYEE: None : None HEENT: None Psych: None Musculoskeletal: Osteoarthritis Derm: None - Past Surgical History Past Surgical History: Yes General: Colonoscopy, EGD /PHYSICAL PLANT EMPLOYEE: Tubal ligation HEENT: Tonsil/Adenoidectomy - Present Medications Home Medications: Ambulatory Orders Medication Instructions Recorded Confirmed Levothyroxine [Synthroid] 75 mcg PO DAILY 12/03/18 06/26/20 Omeprazole 40 mg PO BID 12/03/18 06/26/20 Gabapentin [Neurontin] 2 cap PO TID 06/26/20 06/26/20 - Allergies Allergies/Adverse Reactions: Allergies Allergy/AdvReac Type Severity Reaction Status Date / Time No Known Drug Allergies Allergy Verified 06/26/20 15:54 - Social History Does the pt smoke?: Yes Smoking Status: Current every day smoker Does the pt drink ETOH?: Yes ETOH Use: Liquor Does the pt have substance abuse?: No - Immunizations Immunizations are current?: Yes Immunizations: TDAP >10years/unknown - POLST Patient has POLST: No POLST Status: Limited Interventions PD ED PE NORMAL - Vitals Vital signs reviewed: Yes - General General: Alert and oriented X 3, No acute distress - HEENT HEENT: Moist mucous membranes - Neck Neck: Supple, no meningeal sign - Cardiac Cardiac: RRR - Respiratory Respiratory: No respiratory distress, Clear bilaterally - Abdomen Abdomen: Soft, Other (diffusely TTP, no peritoneal signs.) - Back Back: No CVA TTP - Derm Derm: Warm and dry - Extremities Extremities: No edema - Neuro Neuro: Alert and oriented X 3 - Psych Psych: Normal mood, Normal affect Results - Vitals Vitals: Vital Signs - 24 hr 06/26/20 06/26/20 06/26/20 15:54 16:32 17:10 Temperature 36.5 C Heart Rate 90 94 105 H Respiratory 16 20 18 Rate Blood Pressure 138/80 H 212/96 H 211/88 H O2 Saturation 99 100 96 06/26/20 06/26/20 06/26/20 17:53 18:21 18:26 Temperature Heart Rate 111 H 112 H 112 H Respiratory 16 18 17 Rate Blood Pressure 230/103 H 230/107 H 227/98 H O2 Saturation 96 96 93 06/26/20 06/26/20 06/26/20 18:30 18:35 18:40 Temperature Heart Rate 115 H 121 H 125 H Respiratory 92 H 17 19 Rate Blood Pressure 212/97 H 191/78 H 183/83 H O2 Saturation 18 L 94 95 06/26/20 18:56 Temperature Heart Rate 130 H Respiratory 19 Rate Blood Pressure 180/76 H O2 Saturation 94 Oxygen O2 Source Room air - Labs Labs: Laboratory Tests 06/26/20 06/26/20 06/26/20 16:20 16:20 16:26 WBC 18.1 H RBC 3.83 L Hgb 13.7 Hct 40.5 MCV 105.7 H MCH 35.8 H MCHC 33.8 RDW 14.2 Plt Count 358 MPV 9.4 Neut # (Auto) 16.5 H Lymph # (Auto) 0.7 L [place] # (Auto) 0.9 Eos # (Auto) 0.0 Baso # (Auto) 0.1 Absolute Nucleated RBC 0.00 Nucleated RBC % 0.0 Sodium Potassium Chloride Carbon Dioxide Anion Gap BUN Creatinine Estimated GFR (MDRD) Glucose Calcium Total Bilirubin AST ALT Alkaline Phosphatase Total Protein Albumin Globulin Albumin/Globulin Ratio Lipase Urine Color YELLOW Urine Clarity CLEAR Urine pH 5.5 Ur Specific [place] >=1.030 H Urine Protein TRACE Urine Glucose (UA) NEGATIVE Urine Ketones NEGATIVE Urine Occult Blood NEGATIVE Urine Nitrite NEGATIVE Urine Bilirubin NEGATIVE Urine Urobilinogen 0.2 (NORMAL) Ur Leukocyte Esterase NEGATIVE Ur Microscopic Review NOT INDICATED Urine Culture Comments NOT INDICATED Urine Opiates Screen NEGATIVE Ur Oxycodone Screen NEGATIVE Urine Methadone Screen NEGATIVE Ur Propoxyphene Screen NEGATIVE Ur Barbiturates Screen NEGATIVE Ur Tricyclics Screen NEGATIVE Ur Phencyclidine Scrn NEGATIVE Ur Amphetamine Screen NEGATIVE U Methamphetamines Scrn NEGATIVE U Benzodiazepines Scrn NEGATIVE Urine Cocaine Screen NEGATIVE U Cannabinoids Screen NEGATIVE Ethyl Alcohol 06/26/20 06/26/20 16:26 16:26 WBC RBC Hgb Hct MCV MCH MCHC RDW Plt Count MPV Neut # (Auto) Lymph # (Auto) [place] # (Auto) Eos # (Auto) Baso # (Auto) Absolute Nucleated RBC Nucleated RBC % Sodium 140 Potassium 2.9 L Chloride 105 Carbon Dioxide 21 Anion Gap 14.0 H BUN 17 Creatinine 0.7 Estimated GFR (MDRD) 85 L Glucose 135 H Calcium 9.1 Total Bilirubin 0.7 AST 77 H ALT 38 Alkaline Phosphatase 175 H Total Protein 7.4 Albumin 3.9 Globulin 3.5 Albumin/Globulin Ratio 1.1 Lipase 912 H Urine Color Urine Clarity Urine pH Ur Specific [place] Urine Protein Urine Glucose (UA) Urine Ketones Urine Occult Blood Urine Nitrite Urine Bilirubin Urine Urobilinogen Ur Leukocyte Esterase Ur Microscopic Review Urine Culture Comments Urine Opiates Screen Ur Oxycodone Screen Urine Methadone Screen Ur Propoxyphene Screen Ur Barbiturates Screen Ur Tricyclics Screen Ur Phencyclidine Scrn Ur Amphetamine Screen U Methamphetamines Scrn U Benzodiazepines Scrn Urine Cocaine Screen U Cannabinoids Screen Ethyl Alcohol < 5.0 PD MEDICAL DECISION MAKING - ED course Complexity details: reviewed old records, reviewed results, re-evaluated patient, considered differential, d/w patient, d/w client support consultant ED course: 64-year-old female with pancreatitis. Likely alcohol related. Patient was hypertensive, tachycardic and tremulous, likely alcohol withdrawal. She was given a small dose of hydralazine and Ativan after the pain medication for her pancreatitis. We will keep on IV fluids. She will require close monitoring as she will likely go through alcohol withdrawal. Patient states she only drinks a few times a week, but states that she did drink 4 drinks last night. Discussed the case with Dr. Levine, hospitalist who accepts This document was made in part using voice recognition software. While efforts are made to proofread this document, sound alike and grammatical errors may occur. IMPRESSION: Pancreatitis, with inflammatory change and free fluid seen surrounding the pancreas. No necrotic necrosis can be seen. No pseudocyst is seen. Advanced atherosclerotic calcification can be seen, with severe aortic narrowing distally. Please consider a scheduled interventional radiology consultation. Note is made of areas of focal cortical loss involving the kidneys. Please could relate with episodes of infarction or infection. Incidental note is made of: Levoconvex scoliotic curvature Departure - Departure Disposition: 66 [facility] DC/Xfer Clinical Impression: Tachycardia Pancreatitis Qualifiers: Chronicity: acute Pancreatitis type: alcohol induced Acute pancreatitis complication: unspecified Qualified Code(s): K85.20 - Alcohol induced acute pancreatitis without necrosis or infection Hypertension Qualifiers: Hypertension type: unspecified Qualified Code(s): I10 - Essential (primary) hypertension Alcohol withdrawal Qualifiers: Complication of substance-induced condition: uncomplicated Qualified Code(s): F10.230 - Alcohol dependence with withdrawal, uncomplicated Condition: Stable
[2020-06-26 16:45] LABS: CLARITY,URINE CLEAR (CLEAR)
[2020-06-26] MEDS ORDERED: SODIUM CHLORIDE 0.9% 1,000 ML IV STA ×3 (16:46→18:42)
[2020-06-26 17:11] LABS: ALBUMIN 3.9 g/dL (3.2-5.5); ALBUMIN/GLOBULIN RATIO 1.1 (1.0-2.2); BILIRUBIN,TOTAL 0.7 mg/dL (0.2-1.0); CALCIUM 9.1 mg/dL (8.5-10.3); CREATININE 0.7 mg/dL (0.4-1.0); POTASSIUM 2.9 mmol/L (3.5-5.0); TOTAL PROTEIN 7.4 g/dL (6.7-8.2)
[2020-06-26] MEDS ORDERED: IOPAMIDOL-300 100 ML VIAL IVP ONE (17:49)
[2020-06-26] MEDS ORDERED: IOPAMIDOL-300 50 ML VIAL PO ONE (17:52)
[2020-06-26] MEDS ORDERED: LORazepam 2 MG/ML VIAL IVP STA (18:00)
--- NOTE | 2020-06-26 18:14 | CT Report ---
PROCEDURE: Abdomen/Pelvis W INDICATIONS: diffuse abd pain CONTRAST: IV CONTRAST: Isovue 300 ml: 100 PO CONTRAST: Isovue 300 ml50 TECHNIQUE: After the administration of oral and nonionic IV contrast, 5 mm thick sections acquired from the diap hragms to the symphysis. 5 mm thick coronal and sagittal reformats were acquired. For radiation dos e reduction, the following was used: automated exposure control, adjustment of mA and/or kV accordin g to patient size. COMPARISON: 12/03/2018, 09/05/2018, 04/05/2018 FINDINGS: Image quality: Excellent. ABDOMEN: Lung bases: Lung bases are clear. Heart size is normal. Solid organs: Focal inflammatory change can be seen surrounding the pancreas, with mild to moderate free fluid, as seen on series 3 images 19 through 34. The pancreas itself normally, without necrotic areas. No dilated pancreatic duct can be seen. Liver and spleen are normal in size and enhancement. Gallbladder wall does not appear thickened. Biliary system is non dilated. No adrenal nodules. Kidneys demonstrate normal size and enhancement, without hydronephrosis. Areas of focal cortical loss can be seen involving the kidneys. Peritoneum and bowel: Bowel loops demonstrate normal wall thickness and caliber. No free fluid or a ir. Nodes and vessels: No retroperitoneal or mesenteric adenopathy by size criteria. Advanced aortic quintin cification can be seen, with severe distal aortic stenosis. Prominent atherosclerotic changes are als o seen elsewhere. Miscellaneous: No ventral hernias. PELVIS: Genitourinary: Bladder wall thickness is normal. This patient is status post hysterectomy. No adnex al masses can be seen. Miscellaneous: No inguinal hernias or adenopathy. Bones: No suspicious bony lesions. No vertebral body compression fractures. Mild levoconvex scolio tic curvature is seen. Age-appropriate degenerative changes are seen. IMPRESSION: Pancreatitis, with inflammatory change and free fluid seen surrounding the pancreas. No necrotic necr osis can be seen. No pseudocyst is seen. Advanced atherosclerotic calcification can be seen, with severe aortic narrowing distally. Please con casino shift manager a scheduled interventional radiology consultation. Note is made of areas of focal cortical loss involving the kidneys. Please could relate with episodes of infarction or infection. Incidental note is made of: Levoconvex scoliotic curvature Reviewed by: Selvin Salazar MD on 06/26/2020 5:12 PM AKDT Approved by: Selvin Salazar MD on 06/26/2020 5:12 PM [facility] Station ID: [id number]
[2020-06-26] MEDS ORDERED: hydrALAZINE INJ 20 MG/ML VIAL IVP STA (18:21)
[2020-06-26 18:23] LABS: MUDS CUTOFF CONCENTRATIONS CUTOFF CONC BELOW:
[2020-06-26 18:35] LABS: AMPHETAMINE SCREEN,URINE NEGATIVE (NEGATIVE); BARBITURATE SCREEN,UR NEGATIVE (NEGATIVE); BENZODIAZEPINES SCREEN, URINE NEGATIVE (NEGATIVE); COCAINE SCREEN URINE NEGATIVE (NEGATIVE); METHADONE SCREEN, URINE NEGATIVE (NEGATIVE); METHAMPHETAMINES SCREEN, URINE NEGATIVE (NEGATIVE); OPIATE SCREEN, URINE NEGATIVE (NEGATIVE); OXYCODONE SCREEN, URINE NEGATIVE (NEGATIVE); PROPOXYPHENE SCREEN, URINE NEGATIVE (NEGATIVE); THC CANNABINOID SCREEN, URINE NEGATIVE (NEGATIVE); TRICYCLIC ANTIDEPRESSANT,URINE NEGATIVE (NEGATIVE)
[2020-06-26] MEDS ORDERED: SODIUM CHLORIDE FLUSH 0.9% 10 ML SYRINGE IVP PRN (18:47)
[2020-06-26] MEDS ORDERED: LORazepam 2 MG/ML VIAL IVP PRN (18:55)
[2020-06-26] MEDS ORDERED: SODIUM CHLORIDE 0.9% 1,000 ML IV SCH ×2 (19:00)
[2020-06-26] MEDS ORDERED: MAGNESIUM SULFATE 2 GRAM 2 GM/50 ML BAG IV ONE (19:01)
[2020-06-26 19:18] LABS: B. PARAPERTUSSIS- RESP PCR PAN NOT DETECTED; B. PERTUSSIS- RESP PCR PANEL NOT DETECTED; C. PNEUMONIAE- RESP PCR PANEL NOT DETECTED; CORONAVIRUS 229E-RESP PCR NOT DETECTED; CORONAVIRUS HKU1-RESP PCR NOT DETECTED; CORONAVIRUS NL63-RESP PCR NOT DETECTED; CORONAVIRUS OC43-RESP PCR NOT DETECTED; HUMAN METAPNEUMOVIRUS NOT DETECTED; INFLUENZA A- RESP PCR PANEL NOT DETECTED; INFLUENZA B - RESP PCR PANEL NOT DETECTED; M. PNEUMONIAE- RESP PCR PANEL NOT DETECTED; PARAINFLUENZA VIRUS 1 NOT DETECTED; PARAINFLUENZA VIRUS 2 NOT DETECTED; PARAINFLUENZA VIRUS 3 NOT DETECTED; PARAINFLUENZA VIRUS 4 NOT DETECTED; RHINOVIRUS/ENTEROVIRUS NOT DETECTED; RSV- RESP PCR PANEL NOT DETECTED; SARS-CoV-2 -RESP PCR PANEL NOT DETECTED
--- OUTSIDE RECORDS SUMMARY | 2020-06-26 19:28 | EXTERNAL MEDICAL SUMMARY RPT | Continuity of Care Document ---
:1955 Demographics Phone Unavailable Preferred Language Unknown Marital Status Unknown Temple Affiliation Unknown Race Unknown Ethnic Group Unknown Author Organization [facility] Address [address] [id number] Phone Social History date description facility [phone]
[2020-06-26] MEDS ORDERED: LABETALOL 20 MG/4 ML SYRINGE IVP ONE (19:50)
[2020-06-26] MEDS: FAMOTIDINE 20 MG TABLET PO SCH (20:17)
[2020-06-26] MEDS: chlordiazePOXIDE 25 MG CAPSULE PO SCH ×2 (20:17→23:44)
[2020-06-26] MEDS: PRENATAL VITAMIN TABLET PO SCH (20:17)
[2020-06-26] MEDS: METOPROLOL SUCCINATE 25 MG TABLET PO SCH (20:19)
[2020-06-26] MEDS: THIAMINE 100 MG TABLET PO SCH (20:19)
[2020-06-26] MEDS: POTASSIUM CHLOR 10 MEQ/100 ML 10 MEQ/100 ML BAG IV SCH ×4 (20:39→23:43)
[2020-06-26] MEDS: GABAPENTIN 100 MG CAPSULE PO SCH (21:37)
[2020-06-26] MEDS: SODIUM CHLORIDE FLUSH 0.9% 10 ML SYRINGE IVP SCH (22:31)
[2020-06-26] MEDS: HYDROmorphone 0.5 MG/0.5 ML SYRINGE IVP PRN (22:31)
[2020-06-26] MEDS: ethyl alcohoL 62% SWAB AMPULE NAS SCH (22:59)
[2020-06-26] MEDS: oxyCODONE 5 MG TABLET PO PRN (23:11)
[2020-06-27] MEDS: SODIUM CHLORIDE 0.9% 1,000 ML IV SCH ×3 (00:46→17:02)
--- NOTE | 2020-06-27 00:59 | HISTORY & PHYSICAL EXAMINATION ---
DATE OF SERVICE: 06/26/2020 Physician: Elza Hinson MD HISTORY OF PRESENT ILLNESS: This is a 64-year-old white female with a history of intermittent alcohol abuse, tobacco smoking of 1-1/2 packs a day, diverticulitis with prior perforation and has had partial colectomy, history of hypertension, IHSS, COPD, chronic hepatitis, prior pancreatitis, DJD, who presents with acute onset of diffuse abdominal pain with radiation to both flanks. There was slight nausea, but no vomiting or diarrhea with this. It lasted this whole day and then she presented to the emergency room because of continued pain. In the ER, she underwent imaging by CT that showed pancreatitis and labs show elevation of lipase. She has tried to stop daily drinking of alcohol. However, over the weekend yesterday and today has had alcohol binging she admitted. She also states that the current pain feels more like her diverticulitis, then her prior pancreatitis. The patient's vital signs in the ER showed a systolic blood pressure of 230 and she is tachycardic at 125. She was started on iv fluids and received Dilaudid iv and Hydralazine IV x one and BP is still high. She is being admitted to the ICU for treating malignant hypertension (IV Labetolol was just ordered), alcoholic pancreatitis, persistent tachycardia despite IV fluids and possible early alcohol withdrawal. PAST MEDICAL HISTORY 1. Alcohol abuse that is intermittent binging. 2. Hypertension. 3. Hypothyroidism. 4. Smoker. 5. COPD. 6. IHSS. 7. Diverticulitis with prior bowel resection for perforation. 8. Prior alcoholic pancreatitis. 9. Chronic hepatitis. ALLERGIES: NONE. MEDICATIONS 1. Gabapentin 100 mg t.i.d. 2. Synthroid 75 mcg daily. 3. Omeprazole 40 mg b.i.d. FAMILY HISTORY: There is coronary artery disease and cancer on both sides of the family. She has two children who are healthy. SOCIAL HISTORY: She has history of alcohol abuse, now binging. She smokes 1 to 1-1/2 packs of cigarettes a day. There is no illicit drug use history. REVIEW OF SYSTEMS: There has been no fever; a comprehensive review of systems was done and the pertinent positives are listed in the HPI, the rest are negative. PHYSICAL EXAM GENERAL: Malnourished-appearing white female, who is in mild distress currently from abdominal pain. VITAL SIGNS: Blood pressure after receiving labetalol 20 mg IV is now 144/64 with a pulse of 94 in sinus rhythm. She is afebrile, and room air oxygen saturation is 95%. HEENT: Reveals dry oral mucosa and fairly good dentition. NECK: No JVD or carotid bruits. CHEST: Clear at the anterior bases. HEART: Sounds have a soft S1, S2 and 2/6 mid peaking systolic murmur heard at the lower left sternal border. No gallop. ABDOMEN: Soft. There is no guarding or rebound. There is no hepatomegaly or ascites. EXTREMITIES: No clubbing, cyanosis or edema. NEUROLOGIC: Grossly intact. She has a fine tremor of her hands. LABORATORY DATA: Sodium 140, potassium 2.9, BUN 17, creatinine 0.7, magnesium 1.5, AST 77, ALT 38, alkaline phosphatase 175. Lipase 912. White blood count 18, hemoglobin 13 with a high MCV of 105. Normal platelet count 358. No INR was done. Urine specific gravity is greater than 1.03 and is essentially unremarkable otherwise. Serum toxicology screen had no alcohol present and a urine toxicology screen was entirely negative. Her respiratory panel was negative for COVID and other isolates. IMAGING: Abdomen and pelvis CT scan showed pancreatitis with inflammatory changes and free fluid around the pancreas, but no necrosis and no pseudocyst. Severe aortic atherosclerosis, and the aorta narrows distally, and also reported are "focal areas of cortical kidney loss, which could correlate with episodes of infarction or infection of both kidneys". IMPRESSION/DIAGNOSES 1. Alcoholic pancreatitis. 2. Alcohol abuse. 3. Alcohol withdrawal. 4. Malignant hypertension. 5. Tachycardia. 6. Hypokalemia. 7. Hypomagnesemia. 8. Transaminitis. 9. Aortic atherosclerosis. 10. Hypothyroidism. 11. Tobacco use. 12. IHSS. 13. Chronic obstructive pulmonary disease without exacerbation. 14. History of diverticulitis. PLAN: Admit the patient to the ICU on telemetry. Continue to manage hypertension and tachycardia with IV medication (which have now already stabilized her vital signs to 140's/70's and heart rate of 90). Continue with IV fluids and iv pain medication using Dilaudid, iv antiemetics if needed as well for her pancreatitis symptoms. Plan bowel rest and advance the diet slowly, possibly to clear liquids by tomorrow. Follow the lipase daily. Correct her electrolytes and magnesium and follow these daily and correct with the ICU protocol. Obtain a TSH to check proper thyroid replacement dose and continue her home dose. Start a nicotine patch because of the heavy tobacco use, to decrease nicotine urges. P.r.n. inhalers for her COPD will be ordered. Start daily Thiamine. A CIWA protocol will be ordered with Ativan IV p.r.n., plus also scheduled oral Librium to prevent alcohol withdrawal will be started. With the findings of such severe distal aortic atherosclerosis, she should be on one aspirin daily, but this should be started after this acute event of abdominal pain from pancreatitis and possibility of gastritis as well. After discharge, the aortic and kidney findings need vascular follow-up, BP and lipid management. Continue with Pepcid or her Omeprazole while here for ulcer prophylaxis. DEEP VENOUS THROMBOSIS PROPHYLAXIS: SCDs. CODE STATUS: FULL CODE. ATTESTATION: Patient is expected to be discharged or transferred to another facility within 96 hours: Yes. cc: JESSICA Dickey TD: 06/27/2020 00:58 [facility]
[2020-06-27] MEDS: HYDROmorphone 0.5 MG/0.5 ML SYRINGE IVP PRN ×3 (02:16→19:57)
[2020-06-27] MEDS: oxyCODONE 5 MG TABLET PO PRN ×2 (04:08→10:43)
[2020-06-27 05:21] LABS: BASOPHILS % (AUTO) 0.2 %; EOSINOPHILS # (AUTO) 0.1 10^3/uL (0.0-0.7); EOSINOPHILS % (AUTO) 0.7 %; HCT - HEMATOCRIT 39.4 % (37.0-47.0); HGB - HEMOGLOBIN 12.4 g/dL (12.0-16.0); LYMPHOCYTES # (AUTO) 1.3 10^3/uL (1.5-3.5); LYMPHOCYTES % (AUTO) 10.4 %; MEAN CORPUSCULAR HEMOGLOBIN 35.5 pg (27.0-31.0); MEAN CORPUSCULAR HGB CONC 31.5 g/dL (32.0-36.0); MEAN CORPUSCULAR VOLUME 112.9 fL (81.0-99.0); MEAN PLATELET VOLUME 10.1 fL (7.9-10.8); MONOCYTES # (AUTO) 0.7 10^3/uL (0.0-1.0); MONOCYTES % (AUTO) 5.6 %; NEUTROPHILS % (AUTO) 82.6 %; PLT - PLATELET COUNT 253 10^3/uL (130-450); RED BLOOD COUNT 3.49 10^6/uL (4.20-5.40); RED CELL DISTRIBUTION WIDTH 14.6 % (12.0-15.0); WHITE BLOOD COUNT 12.1 x10^3/uL (4.8-10.8)
[2020-06-27 05:27] LABS: SLIDE REVIEW? Indicated
[2020-06-27 05:41] LABS: PLATELET ESTIMATE, MANUAL NORMAL (130-450,000) (NORMAL); PLATELET MORPHOLOGY NORMAL APPEARANCE (NORMAL); RBC MORPHOLOGY (MULTIPLE) 1+ MACROCYTOSIS (NORMAL); WBC MORPHOLOGY (MULTIPLE) NORMAL APPEARANCE (NORMAL)
[2020-06-27 05:59] LABS: CREATININE 0.5 mg/dL (0.4-1.0); MAGNESIUM 2.3 mg/dL (1.7-2.8); PHOSPHORUS 3.1 mg/dL (2.5-4.6); POTASSIUM 4.4 mmol/L (3.5-5.0)
[2020-06-27] MEDS: LEVOTHYROXINE 75 MCG TABLET PO SCH (06:08)
[2020-06-27] MEDS: GABAPENTIN 100 MG CAPSULE PO SCH ×3 (06:08→21:33)
[2020-06-27] MEDS: chlordiazePOXIDE 25 MG CAPSULE PO SCH ×4 (06:08→23:46)
--- NOTE | 2020-06-27 07:33 | PROVIDER PROGRESS NOTE ---
Assessment/Plan - Problem List (1) Alcoholic pancreatitis Assessment/Plan: CT abdomen/pelvis was negative for any necrosis but showed some free fluid around the pancreas. Patient receiving IV hydration with normal saline. Pain management as needed with Dilaudid. Patient's initial lipase was 900. Today it was 732. Will continue trending (2) Alcohol abuse Assessment/Plan: [facility] protocol initiated Patient receiving IV hydration with normal saline. Replacing patient's magnesium. Patient also receiving vitamin B1 and multivitamin. Librium 25 mg p.o. 4 times daily ordered. Ativan as needed. (3) Alcohol withdrawal Qualifiers: Complication of substance-induced condition: uncomplicated Qualified Code(s): F10.230 - Alcohol dependence with withdrawal, uncomplicated Assessment/Plan: Patient still has a mild tremor however she is alert and oriented x4. [facility] protocol initiated Patient receiving IV hydration with normal saline. Replacing patient's magnesium. Patient also receiving vitamin B1 and multivitamin. Librium 25 mg p.o. 4 times daily ordered. Ativan as needed. (4) Leukocytosis Assessment/Plan: Likely reactive due to pancreatitis and abdominal pain. WBCs yesterday was 18.1. Today was 12.1. We will continue to monitor. Expect further improvement to resolution as patient's pancreatitis is treated. (5) HTN (hypertension) Qualifiers: Hypertension type: unspecified Qualified Code(s): I10 - Essential (primary) hypertension Assessment/Plan: Refractory. Patient's systolic blood pressure upon presentation was 230. Patient received a dose of hydralazine and labetalol x1 each. She is on metoprolol succinate 25 mg p.o. twice daily. Most recent blood pressure is 151/88. (6) Hypokalemia Assessment/Plan: . Potassium upon presentation was 2.9. Recheck this morning was 4.4. (7) Hypomagnesemia Assessment/Plan: Replaced. Magnesium upon admission was 1.5. Recheck this morning was 2.3. (8) Hypothyroidism Assessment/Plan: Right 75 mcg p.o. daily. TSH was 0.23. (9) Tobacco use Assessment/Plan: Nicotine patch ordered daily. - Current Meds Current Meds: Current Medications Generic Name Dose Route Start Last Admin Trade Name Freq PRN Reason Stop Dose Admin Alcohol 1 amp 06/26/20 23:00 06/26/20 22:59 Ethyl Alcohol 62% Swab Ampule LISA 1 amp BID RAFA Administration Chlordiazepoxide HCl 25 mg 06/26/20 19:00 06/27/20 06:08 Chlordiazepoxide 25 Mg Capsule PO 25 mg Q6HR RAFA Administration Famotidine 20 mg 06/26/20 21:00 06/26/20 20:17 Famotidine 20 Mg Tablet PO 20 mg BID RAFA Administration Gabapentin 200 mg 06/26/20 22:00 06/27/20 06:08 Gabapentin 100 Mg Capsule PO 200 mg TID RAFA Administration Hydromorphone HCl 0.5 mg 06/26/20 18:47 06/27/20 06:08 Hydromorphone 0.5 Mg/0.5 Ml Syringe IVP 0.5 mg Q2H PRN Administration Pain 8 to 10 Sodium Chloride 1,000 mls @ 125 mls/hr 06/27/20 01:00 06/27/20 02:00 Normal Saline 0.9% IV 125 mls/hr .Q8H RAFA Infusion Levothyroxine Sodium 75 mcg 06/27/20 07:00 06/27/20 06:08 Levothyroxine 75 Mcg Tablet PO 75 mcg QDAC RAFA Administration Metoprolol Succinate 25 mg 06/26/20 21:00 06/26/20 20:19 Metoprolol Succinate 25 Mg Tablet PO 25 mg BID RAFA Administration Oxycodone HCl 5 mg 06/26/20 18:47 06/27/20 04:08 Oxycodone 5 Mg Tablet PO 5 mg Q4HR PRN Administration Pain 5 to 7 Multivit/Folic Acid/Iron 1 tab 06/26/20 19:02 06/26/20 20:17 Vitamin Tablet PO 1 tab DAILY RAFA Administration Sodium Chloride 10 ml 06/27/20 01:00 06/26/20 22:31 Sodium Chloride Flush 0.9% 10 Ml Syringe IVP 10 ml 0100,0900,1700 RAFA Administration Thiamine HCl 100 mg 06/26/20 19:02 06/26/20 20:19 Thiamine 100 Mg Tablet PO 100 mg DAILY RAFA Administration - Lab Result Fish Bone Diagrams: 06/27/20 04:39 06/27/20 04:39 - Additional Planning My Orders: My Active Orders 06/26/20 18:47 Activity Orders [RC] Q2HR Daily Weight [RC] 0600 IO [RC] Q1HR Initiate Bowel Care Protocol [RC] QSHIFT Initiate ICU Electrolyte Prot. [RC] .protocol Initiate Line Care Protocol [RC] .protocol Initiate Personal Care Protoco [RC] .protocol HYDROmorphone 0.5MG SYRINGE [Dilaudid Inj Syringe] 0.5 mg IVP Q2H PRN Sodium Chloride Flush 0.9% [Normal Saline Flush 0.9%] 10 ml IVP PRN PRN oxyCODONE [Roxicodone] 5 mg PO Q4HR PRN Code Status [OTHERS] Routine Condition of Patient [OTHERS] Routine DVT Prophylaxis [OTHERS] Routine 06/26/20 18:50 Oxygen Therapy [RC] .PRN SCDs [RC] QSHIFT Vital Signs [RC] Q4HR 06/26/20 18:55 CIWA - AR Score Card [RC] Q4HR Social Work Consult [CONS] Routine LORazepam INJ [Ativan Inj (Vial)] 1 mg IVP Q30M PRN 06/26/20 19:00 chlordiazePOXIDE [Librium] 25 mg PO Q6HR 06/26/20 19:02 Vitamin [Trinatal Rx 1] 1 tab PO DAILY Thiamine [Vitamin B-1] 100 mg PO DAILY 06/26/20 21:00 Famotidine [Pepcid] 20 mg PO BID 06/26/20 23:00 ethyl alcohoL 62% swab [NoZin] 1 amp LISA BID 06/27/20 01:00 Sodium Chloride 0.9% [Normal Saline 0.9%] 1,000 ml IV 125 mls/hr Sodium Chloride Flush 0.9% [Normal Saline Flush 0.9%] 10 ml IVP 0100,0900,1700 06/27/20 09:00 Nicotine 14 mg Patch [Nicoderm] 1 patch TOP DAILY 06/28/20 05:00 BMP - BASIC METABOLIC PANEL [CHEM] DAILYLAB CBC - COMP BLD CT W/AUTO DIFF [HEME] DAILYLAB LIPASE [CHEM] DAILYLAB MAGNESIUM [CHEM] DAILYLAB PHOSPHORUS [CHEM] DAILYLAB 06/29/20 05:00 BMP - BASIC METABOLIC PANEL [CHEM] DAILYLAB CBC - COMP BLD CT W/AUTO DIFF [HEME] DAILYLAB LIPASE [CHEM] DAILYLAB 06/30/20 05:00 BMP - BASIC METABOLIC PANEL [CHEM] DAILYLAB CBC - COMP BLD CT W/AUTO DIFF [HEME] DAILYLAB 07/01/20 05:00 BMP - BASIC METABOLIC PANEL [CHEM] DAILYLAB CBC - COMP BLD CT W/AUTO DIFF [HEME] DAILYLAB Subjective - Subjective Patient Reports: Other (Resting comfortably in bed at time of exam. However when asked she rated her abdominal pain 7 out of 10. She denied chest pain, dyspnea, nausea, vomiting, fever or chills. She tolerated a clear liquid diet and asked for her diet to be advanced.) Objective Vital Signs: Vital Signs - 24 hr 06/26/20 06/26/20 06/26/20 15:54 16:32 17:10 Temperature 36.5 C Heart Rate 90 94 105 H Heart Rate [ Monitoring electrodes] Respiratory 16 20 18 Rate Blood Pressure 138/80 H 212/96 H 211/88 H Blood Pressure [Right Brachial artery] O2 Saturation 99 100 96 06/26/20 06/26/20 06/26/20 17:53 18:21 18:26 Temperature Heart Rate 111 H 112 H 112 H Heart Rate [ Monitoring electrodes] Respiratory 16 18 17 Rate Blood Pressure 230/103 H 230/107 H 227/98 H Blood Pressure [Right Brachial artery] O2 Saturation 96 96 93 06/26/20 06/26/20 06/26/20 18:30 18:35 18:40 Temperature Heart Rate 115 H 121 H 125 H Heart Rate [ Monitoring electrodes] Respiratory 92 H 17 19 Rate Blood Pressure 212/97 H 191/78 H 183/83 H Blood Pressure [Right Brachial artery] O2 Saturation 18 L 94 95 06/26/20 06/26/20 06/26/20 18:56 19:15 20:16 Temperature 36.9 C Heart Rate 130 H 128 H Heart Rate [ 123 H Monitoring electrodes] Respiratory 19 19 26 H Rate Blood Pressure 180/76 H 178/72 H Blood Pressure 184/79 H [Right Brachial artery] O2 Saturation 94 94 95 06/26/20 06/26/20 06/26/20 20:35 20:40 20:45 Temperature Heart Rate Heart Rate [ 121 H 100 94 Monitoring electrodes] Respiratory Rate Blood Pressure Blood Pressure 183/79 H 147/66 H 146/64 H [Right Brachial artery] O2 Saturation 06/26/20 06/26/20 06/26/20 20:50 20:55 21:00 Temperature Heart Rate Heart Rate [ 92 92 93 Monitoring electrodes] Respiratory 18 Rate Blood Pressure Blood Pressure 133/61 H 134/60 H 131/63 H [Right Brachial artery] O2 Saturation 94 06/26/20 06/26/20 06/26/20 21:15 21:30 22:00 Temperature Heart Rate Heart Rate [ 91 90 92 Monitoring electrodes] Respiratory 24 17 Rate Blood Pressure Blood Pressure 137/59 H 128/56 L 150/76 H [Right Brachial artery] O2 Saturation 95 93 06/27/20 06/27/20 06/27/20 00:02 01:00 04:09 Temperature 36.9 C Heart Rate Heart Rate [ 90 90 77 Monitoring electrodes] Respiratory 20 20 18 Rate Blood Pressure Blood Pressure 152/77 H 131/61 H 158/87 H [Right Brachial artery] O2 Saturation 97 94 96 06/27/20 05:00 Temperature Heart Rate Heart Rate [ 85 Monitoring electrodes] Respiratory 12 Rate Blood Pressure Blood Pressure 142/65 H [Right Brachial artery] O2 Saturation 96 Oxygen O2 Source Room air I&O (Last 24 Hrs): Intake and Output Totals x24h 06/25/20 06/26/20 06/27/20 23:59 23:59 23:59 Intake Total 2495 1534.167 Output Total 0 350 Balance 2495 1184.167 General: Alert, Oriented x3, Cooperative, Moderate distress HEENT: Atraumatic, PERRLA, EOMI Neck: Supple, No JVD Neuro: Alert, Non Focal, Oriented Times 3 Cardiovascular: Regular rate, No murmurs Respiratory: Chest non-tender, No respiratory distress, Breath sounds nml Abdomen: Normal bowel sounds, Soft, Other (Tenderness to palpation) Extremities: No clubbing, No edema Skin: No rashes, No breakdown - Results Results: Laboratory Results WBC 12.1 x10^3/uL (4.8-10.8) H 06/27/20 04:39 RBC 3.49 10^6/uL (4.20-5.40) L 06/27/20 04:39 Hgb 12.4 g/dL (12.0-16.0) 06/27/20 04:39 Hct 39.4 % (37.0-47.0) 06/27/20 04:39 MCV 112.9 fL (81.0-99.0) H 06/27/20 04:39 MCH 35.5 pg (27.0-31.0) H 06/27/20 04:39 MCHC 31.5 g/dL (32.0-36.0) L 06/27/20 04:39 RDW 14.6 % (12.0-15.0) 06/27/20 04:39 Plt Count 253 10^3/uL (130-450) 06/27/20 04:39 MPV 10.1 fL (7.9-10.8) 06/27/20 04:39 Neut # (Auto) 10.0 10^3/uL (1.5-6.6) H 06/27/20 04:39 Lymph # (Auto) 1.3 10^3/uL (1.5-3.5) L 06/27/20 04:39 [place] # (Auto) 0.7 10^3/uL (0.0-1.0) 06/27/20 04:39 Eos # (Auto) 0.1 10^3/uL (0.0-0.7) 06/27/20 04:39 Baso # (Auto) 0.0 10^3/uL (0.0-0.1) 06/27/20 04:39 Absolute Nucleated RBC 0.00 x10^3/uL 06/27/20 04:39 Nucleated RBC % 0.0 /100WBC 06/27/20 04:39 Manual Slide Review Indicated 06/27/20 04:39 WBC Morphology NORMAL APPEARANCE (NORMAL) 06/27/20 04:39 Platelet Estimate NORMAL (130-450,000) (NORMAL) 06/27/20 04:39 Platelet Morphology NORMAL APPEARANCE (NORMAL) 06/27/20 04:39 RBC Morph Micro Appear 1+ MACROCYTOSIS (NORMAL) 06/27/20 04:39 Sodium 135 mmol/L (135-145) 06/27/20 04:39 Potassium 4.4 mmol/L (3.5-5.0) 06/27/20 04:39 Chloride 108 mmol/L (101-111) 06/27/20 04:39 Carbon Dioxide 18 mmol/L (21-32) L 06/27/20 04:39 Anion Gap 9.0 (6-13) 06/27/20 04:39 BUN 14 mg/dL (6-20) 06/27/20 04:39 Creatinine 0.5 mg/dL (0.4-1.0) 06/27/20 04:39 Estimated GFR (MDRD) 125 (>89) 06/27/20 04:39 Glucose 76 mg/dL (70-100) 06/27/20 04:39 Calcium 8.0 mg/dL (8.5-10.3) L 06/27/20 04:39 Phosphorus 3.1 mg/dL (2.5-4.6) 06/27/20 04:39 Magnesium 2.3 mg/dL (1.7-2.8) 06/27/20 04:39 Total Bilirubin 0.7 mg/dL (0.2-1.0) 06/26/20 16:26 Direct Bilirubin 0.2 mg/dL (0.1-0.5) 06/26/20 16:26 AST 77 IU/L (10-42) H 06/26/20 16:26 ALT 38 IU/L (10-60) 06/26/20 16:26 Alkaline Phosphatase 175 IU/L (42-121) H 06/26/20 16:26 Total Protein 7.4 g/dL (6.7-8.2) 06/26/20 16:26 Albumin 3.9 g/dL (3.2-5.5) 06/26/20 16:26 Globulin 3.5 g/dL (2.1-4.2) 06/26/20 16:26 Albumin/Globulin Ratio 1.1 (1.0-2.2) 06/26/20 16:26 Lipase 732 U/L (22-51) H 06/27/20 04:39 TSH 0.32 uIU/mL (0.34-5.60) L 06/27/20 04:39 Urine Color YELLOW 06/26/20 16:20 Urine Clarity CLEAR (CLEAR) 06/26/20 16:20 Urine pH 5.5 PH (5.0-7.5) 06/26/20 16:20 Ur Specific [place] >=1.030 (1.002-1.030) H 06/26/20 16:20 Urine Protein TRACE mg/dL (NEGATIVE) 06/26/20 16:20 Urine Glucose (UA) NEGATIVE mg/dL (NEGATIVE) 06/26/20 16:20 Urine Ketones NEGATIVE mg/dL (NEGATIVE) 06/26/20 16:20 Urine Occult Blood NEGATIVE (NEGATIVE) 06/26/20 16:20 Urine Nitrite NEGATIVE (NEGATIVE) 06/26/20 16:20 Urine Bilirubin NEGATIVE (NEGATIVE) 06/26/20 16:20 Urine Urobilinogen 0.2 (NORMAL) E.U./dL (NORMAL) 06/26/20 16:20 Ur Leukocyte Esterase NEGATIVE (NEGATIVE) 06/26/20 16:20 Ur Microscopic Review NOT INDICATED 06/26/20 16:20 Urine Culture Comments NOT INDICATED 06/26/20 16:20 Nasal Adenovirus (PCR) NOT DETECTED 06/26/20 18:15 Nasal B. parapertussis DNA (PCR) NOT DETECTED 06/26/20 18:15 Nasal Coronavir 229E PCR NOT DETECTED 06/26/20 18:15 Nasal Coronavir HKU1 PCR NOT DETECTED 06/26/20 18:15 Nasal Coronavir NL63 PCR NOT DETECTED 06/26/20 18:15 Nasal Coronavir OC43 PCR NOT DETECTED 06/26/20 18:15 Nasal Enterovir/Rhinovir PCR NOT DETECTED 06/26/20 18:15 Nasal Influenza B PCR NOT DETECTED 06/26/20 18:15 Nasal Influenza A PCR NOT DETECTED 06/26/20 18:15 Nasal Parainfluen 1 PCR NOT DETECTED 06/26/20 18:15 Nasal Parainfluen 2 PCR NOT DETECTED 06/26/20 18:15 Nasal Parainfluen 3 PCR NOT DETECTED 06/26/20 18:15 Nasal Parainfluen 4 PCR NOT DETECTED 06/26/20 18:15 Nasal RSV (PCR) NOT DETECTED 06/26/20 18:15 Nasal Screen MRSA (PCR) POSITIVE (NEGATIVE) A* 06/26/20 20:05 Nasal B.pertussis DNA PCR NOT DETECTED 06/26/20 18:15 Nasal C.pneumoniae (PCR) NOT DETECTED 06/26/20 18:15 Lisa Human Metapneumo PCR NOT DETECTED 06/26/20 18:15 Nasal M.pneumoniae (PCR) NOT DETECTED 06/26/20 18:15 Nasal SARS-CoV-2 (PCR) NOT DETECTED 06/26/20 18:15 Urine Opiates Screen NEGATIVE (NEGATIVE) 06/26/20 16:20 Ur Oxycodone Screen NEGATIVE (NEGATIVE) 06/26/20 16:20 Urine Methadone Screen NEGATIVE (NEGATIVE) 06/26/20 16:20 Ur Propoxyphene Screen NEGATIVE (NEGATIVE) 06/26/20 16:20 Ur Barbiturates Screen NEGATIVE (NEGATIVE) 06/26/20 16:20 Ur Tricyclics Screen NEGATIVE (NEGATIVE) 06/26/20 16:20 Ur Phencyclidine Scrn NEGATIVE (NEGATIVE) 06/26/20 16:20 Ur Amphetamine Screen NEGATIVE (NEGATIVE) 06/26/20 16:20 U Methamphetamines Scrn NEGATIVE (NEGATIVE) 06/26/20 16:20 U Benzodiazepines Scrn NEGATIVE (NEGATIVE) 06/26/20 16:20 Urine Cocaine Screen NEGATIVE (NEGATIVE) 06/26/20 16:20 U Cannabinoids Screen NEGATIVE (NEGATIVE) 06/26/20 16:20 Ethyl Alcohol < 5.0 mg/dL 06/26/20 16:26 - Procedures Procedures: Procedures TRANSFUSE NONAUT RED BLOOD CELLS IN PERIPH VEIN, PERC (04/02/18) ABX Reporting Has patient been on IV antibiotics over the past 48 hours?: No
[2020-06-27] MEDS: ethyl alcohoL 62% SWAB AMPULE NAS SCH ×2 (08:12→21:32)
[2020-06-27] MEDS: METOPROLOL SUCCINATE 25 MG TABLET PO SCH ×2 (08:13→21:33)
[2020-06-27] MEDS: NICOTINE 14 MG PATCH TOP SCH (08:13)
[2020-06-27] MEDS: SODIUM CHLORIDE FLUSH 0.9% 10 ML SYRINGE IVP SCH ×2 (08:13→17:02)
[2020-06-27] MEDS: THIAMINE 100 MG TABLET PO SCH (08:13)
[2020-06-27] MEDS: PRENATAL VITAMIN TABLET PO SCH (08:13)
[2020-06-27] MEDS: FAMOTIDINE 20 MG TABLET PO SCH ×2 (08:13→21:33)
[2020-06-27] MEDS ORDERED: MULTIVITAMIN 10 ML, THIAMINE INJ 100 MG, FOLIC ACID INJ 1 MG in SODIUM CHLORIDE 0.9% 1,... IV SCH (09:00)
[2020-06-27] MEDS ORDERED: PRENATAL VITAMIN TABLET PO SCH (09:00)
[2020-06-27] MEDS ORDERED: THIAMINE 100 MG TABLET PO SCH (09:00)
--- NOTE | 2020-06-27 15:33 | PHARMACY PROGRESS NOTE ---
- Best Possible Medication History Admit Date and Time: 06/26/20 1847 Processed by: Nursing Medication History completed: Yes As the person ultimately responsible for medication therapy, providers are able to order a medication from an existing home medication list in [facility] via the "Reconcile Routine" prior to Confirmation of that medication by support services manager. Such practice is discouraged except when the physician, in their clinical judgment, deems that a medical need exists for a medication without regard to previous use.
[2020-06-28] MEDS: SODIUM CHLORIDE FLUSH 0.9% 10 ML SYRINGE IVP SCH ×2 (00:45→09:17)
[2020-06-28] MEDS: SODIUM CHLORIDE 0.9% 1,000 ML IV SCH (01:19)
[2020-06-28] MEDS: chlordiazePOXIDE 25 MG CAPSULE PO SCH (06:08)
[2020-06-28] MEDS: GABAPENTIN 100 MG CAPSULE PO SCH ×2 (06:08→15:32)
[2020-06-28] MEDS: LEVOTHYROXINE 75 MCG TABLET PO SCH (06:08)
[2020-06-28 06:29] LABS: BASOPHILS % (AUTO) 0.4 %; EOSINOPHILS # (AUTO) 0.1 10^3/uL (0.0-0.7); EOSINOPHILS % (AUTO) 0.4 %; HCT - HEMATOCRIT 34.9 % (37.0-47.0); HGB - HEMOGLOBIN 10.9 g/dL (12.0-16.0); LYMPHOCYTES # (AUTO) 1.4 10^3/uL (1.5-3.5); LYMPHOCYTES % (AUTO) 12.8 %; MEAN CORPUSCULAR HEMOGLOBIN 34.9 pg (27.0-31.0); MEAN CORPUSCULAR HGB CONC 31.2 g/dL (32.0-36.0); MEAN CORPUSCULAR VOLUME 111.9 fL (81.0-99.0); MEAN PLATELET VOLUME 10.3 fL (7.9-10.8); MONOCYTES % (AUTO) 8.9 %; NEUTROPHILS # (AUTO) 8.6 10^3/uL (1.5-6.6); NEUTROPHILS % (AUTO) 76.8 %; PLT - PLATELET COUNT 185 10^3/uL (130-450); RED BLOOD COUNT 3.12 10^6/uL (4.20-5.40); RED CELL DISTRIBUTION WIDTH 14.1 % (12.0-15.0); WHITE BLOOD COUNT 11.3 x10^3/uL (4.8-10.8)
[2020-06-28 06:38] LABS: SLIDE REVIEW? Indicated
[2020-06-28 06:43] LABS: CALCIUM 8.3 mg/dL (8.5-10.3); CREATININE 0.5 mg/dL (0.4-1.0); MAGNESIUM 1.9 mg/dL (1.7-2.8); PHOSPHORUS 2.5 mg/dL (2.5-4.6)
--- NOTE | 2020-06-28 08:19 | PROVIDER PROGRESS NOTE ---
Assessment/Plan - Problem List (3) Alcohol withdrawal Qualifiers: Complication of substance-induced condition: uncomplicated Qualified Code(s): F10.230 - Alcohol dependence with withdrawal, uncomplicated (5) HTN (hypertension) Qualifiers: Hypertension type: unspecified Qualified Code(s): I10 - Essential (primary) hypertension - Current Meds Current Meds: Current Medications Generic Name Dose Route Start Last Admin Trade Name Freq PRN Reason Stop Dose Admin Alcohol 1 amp 06/26/20 23:00 06/27/20 21:32 Ethyl Alcohol 62% Swab Ampule LISA 1 amp BID RAFA Administration Chlordiazepoxide HCl 25 mg 06/26/20 19:00 06/28/20 06:08 Chlordiazepoxide 25 Mg Capsule PO 25 mg Q6HR RAFA Administration Famotidine 20 mg 06/26/20 21:00 06/27/20 21:33 Famotidine 20 Mg Tablet PO 20 mg BID RAFA Administration Gabapentin 200 mg 06/26/20 22:00 06/28/20 06:08 Gabapentin 100 Mg Capsule PO 200 mg TID RAFA Administration Hydromorphone HCl 0.5 mg 06/26/20 18:47 06/27/20 19:57 Hydromorphone 0.5 Mg/0.5 Ml Syringe IVP 0.5 mg Q2H PRN Administration Pain 8 to 10 Sodium Chloride 1,000 mls @ 125 mls/hr 06/27/20 01:00 06/28/20 01:19 Normal Saline 0.9% IV 125 mls/hr .Q8H RAFA Administration Levothyroxine Sodium 75 mcg 06/27/20 07:00 06/28/20 06:08 Levothyroxine 75 Mcg Tablet PO 75 mcg QDAC RAFA Administration Metoprolol Succinate 25 mg 06/26/20 21:00 06/27/20 21:33 Metoprolol Succinate 25 Mg Tablet PO 25 mg BID RAFA Administration Nicotine 1 patch 06/27/20 09:00 06/27/20 08:13 Nicotine 14 Mg Patch TOP 1 patch DAILY RAFA Administration Oxycodone HCl 5 mg 06/26/20 18:47 06/27/20 10:43 Oxycodone 5 Mg Tablet PO 5 mg Q4HR PRN Administration Pain 5 to 7 Multivit/Folic Acid/Iron 1 tab 06/26/20 19:02 06/27/20 08:13 Vitamin Tablet PO 1 tab DAILY RAFA Administration Sodium Chloride 10 ml 06/27/20 01:00 06/28/20 00:45 Sodium Chloride Flush 0.9% 10 Ml Syringe IVP Not Given 0100,0900,1700 RAFA Thiamine HCl 100 mg 06/26/20 19:02 06/27/20 08:13 Thiamine 100 Mg Tablet PO 100 mg DAILY RAFA Administration - Lab Result Fish Bone Diagrams: 06/28/20 05:20 06/28/20 05:20 - Additional Planning My Orders: My Active Orders 06/27/20 09:00 Nicotine 14 mg Patch [Nicoderm] 1 patch TOP DAILY 06/27/20 Lunch Full Liquid Diet [DIET] 06/28/20 05:20 CBC - COMP BLD CT W/AUTO DIFF [HEME] DAILYLAB 06/29/20 05:00 BMP - BASIC METABOLIC PANEL [CHEM] DAILYLAB CBC - COMP BLD CT W/AUTO DIFF [HEME] DAILYLAB LIPASE [CHEM] DAILYLAB 06/30/20 05:00 BMP - BASIC METABOLIC PANEL [CHEM] DAILYLAB CBC - COMP BLD CT W/AUTO DIFF [HEME] DAILYLAB 07/01/20 05:00 BMP - BASIC METABOLIC PANEL [CHEM] DAILYLAB CBC - COMP BLD CT W/AUTO DIFF [HEME] DAILYLAB Objective Vital Signs: Vital Signs - 24 hr 06/27/20 06/27/20 06/27/20 12:16 16:19 18:00 Temperature 36.7 C 37.2 C Heart Rate [ 82 89 82 Monitoring electrodes] Respiratory 20 18 19 Rate Blood Pressure 151/88 H 153/82 H [Right Brachial artery] O2 Saturation 92 93 86 L 06/27/20 06/27/20 06/28/20 19:55 21:30 00:24 Temperature 36.7 C 37.1 C Heart Rate [ 82 91 87 Monitoring electrodes] Respiratory 23 17 17 Rate Blood Pressure 180/90 H 139/55 H 164/73 H [Right Brachial artery] O2 Saturation 96 96 94 06/28/20 04:00 Temperature 37.1 C Heart Rate [ 80 Monitoring electrodes] Respiratory 22 Rate Blood Pressure 131/60 H [Right Brachial artery] O2 Saturation 95 Oxygen O2 Source Nasal cannula I&O (Last 24 Hrs): Intake and Output Totals x24h 06/26/20 06/27/20 06/28/20 23:59 23:59 23:59 Intake Total 2495 3917.500 1200 Output Total 0 900 Balance 2495 3017.500 1200 - Results Results: Laboratory Results WBC 11.3 x10^3/uL (4.8-10.8) H 06/28/20 05:20 RBC 3.12 10^6/uL (4.20-5.40) L 06/28/20 05:20 Hgb 10.9 g/dL (12.0-16.0) L 06/28/20 05:20 Hct 34.9 % (37.0-47.0) L 06/28/20 05:20 MCV 111.9 fL (81.0-99.0) H 06/28/20 05:20 MCH 34.9 pg (27.0-31.0) H 06/28/20 05:20 MCHC 31.2 g/dL (32.0-36.0) L 06/28/20 05:20 RDW 14.1 % (12.0-15.0) 06/28/20 05:20 Plt Count 185 10^3/uL (130-450) 06/28/20 05:20 MPV 10.3 fL (7.9-10.8) 06/28/20 05:20 Neut # (Auto) 10.0 10^3/uL (1.5-6.6) H 06/27/20 04:39 Lymph # (Auto) 1.3 10^3/uL (1.5-3.5) L 06/27/20 04:39 Iron # (Auto) 0.7 10^3/uL (0.0-1.0) 06/27/20 04:39 Eos # (Auto) 0.1 10^3/uL (0.0-0.7) 06/27/20 04:39 Baso # (Auto) 0.0 10^3/uL (0.0-0.1) 06/27/20 04:39 Absolute Nucleated RBC 0.00 x10^3/uL 06/27/20 04:39 Nucleated RBC % 0.0 /100WBC 06/27/20 04:39 Manual Slide Review Indicated 06/28/20 05:20 WBC Morphology NORMAL APPEARANCE (NORMAL) 06/27/20 04:39 Platelet Estimate NORMAL (130-450,000) (NORMAL) 06/27/20 04:39 Platelet Morphology NORMAL APPEARANCE (NORMAL) 06/27/20 04:39 RBC Morph Micro Appear 1+ MACROCYTOSIS (NORMAL) 06/27/20 04:39 Sodium 137 mmol/L (135-145) 06/28/20 05:20 Potassium 4.0 mmol/L (3.5-5.0) 06/28/20 05:20 Chloride 111 mmol/L (101-111) 06/28/20 05:20 Carbon Dioxide 20 mmol/L (21-32) L 06/28/20 05:20 Anion Gap 6.0 (6-13) 06/28/20 05:20 BUN 10 mg/dL (6-20) 06/28/20 05:20 Creatinine 0.5 mg/dL (0.4-1.0) 06/28/20 05:20 Estimated GFR (MDRD) 125 (>89) 06/28/20 05:20 Glucose 63 mg/dL (70-100) L 06/28/20 05:20 Calcium 8.3 mg/dL (8.5-10.3) L 06/28/20 05:20 Phosphorus 2.5 mg/dL (2.5-4.6) 06/28/20 05:20 Magnesium 1.9 mg/dL (1.7-2.8) 06/28/20 05:20 Total Bilirubin 0.7 mg/dL (0.2-1.0) 06/26/20 16:26 Direct Bilirubin 0.2 mg/dL (0.1-0.5) 06/26/20 16:26 AST 77 IU/L (10-42) H 06/26/20 16:26 ALT 38 IU/L (10-60) 06/26/20 16:26 Alkaline Phosphatase 175 IU/L (42-121) H 06/26/20 16:26 Total Protein 7.4 g/dL (6.7-8.2) 06/26/20 16:26 Albumin 3.9 g/dL (3.2-5.5) 06/26/20 16:26 Globulin 3.5 g/dL (2.1-4.2) 06/26/20 16:26 Albumin/Globulin Ratio 1.1 (1.0-2.2) 06/26/20 16:26 Lipase 109 U/L (22-51) H 06/28/20 05:20 TSH 0.32 uIU/mL (0.34-5.60) L 06/27/20 04:39 Urine Color YELLOW 06/26/20 16:20 Urine Clarity CLEAR (CLEAR) 06/26/20 16:20 Urine pH 5.5 PH (5.0-7.5) 06/26/20 16:20 Ur Specific [place] >=1.030 (1.002-1.030) H 06/26/20 16:20 Urine Protein TRACE mg/dL (NEGATIVE) 06/26/20 16:20 Urine Glucose (UA) NEGATIVE mg/dL (NEGATIVE) 06/26/20 16:20 Urine Ketones NEGATIVE mg/dL (NEGATIVE) 06/26/20 16:20 Urine Occult Blood NEGATIVE (NEGATIVE) 06/26/20 16:20 Urine Nitrite NEGATIVE (NEGATIVE) 06/26/20 16:20 Urine Bilirubin NEGATIVE (NEGATIVE) 06/26/20 16:20 Urine Urobilinogen 0.2 (NORMAL) E.U./dL (NORMAL) 06/26/20 16:20 Ur Leukocyte Esterase NEGATIVE (NEGATIVE) 06/26/20 16:20 Ur Microscopic Review NOT INDICATED 06/26/20 16:20 Urine Culture Comments NOT INDICATED 06/26/20 16:20 Nasal Adenovirus (PCR) NOT DETECTED 06/26/20 18:15 Nasal B. parapertussis DNA (PCR) NOT DETECTED 06/26/20 18:15 Nasal Coronavir 229E PCR NOT DETECTED 06/26/20 18:15 Nasal Coronavir HKU1 PCR NOT DETECTED 06/26/20 18:15 Nasal Coronavir NL63 PCR NOT DETECTED 06/26/20 18:15 Nasal Coronavir OC43 PCR NOT DETECTED 06/26/20 18:15 Nasal Enterovir/Rhinovir PCR NOT DETECTED 06/26/20 18:15 Nasal Influenza B PCR NOT DETECTED 06/26/20 18:15 Nasal Influenza A PCR NOT DETECTED 06/26/20 18:15 Nasal Parainfluen 1 PCR NOT DETECTED 06/26/20 18:15 Nasal Parainfluen 2 PCR NOT DETECTED 06/26/20 18:15 Nasal Parainfluen 3 PCR NOT DETECTED 06/26/20 18:15 Nasal Parainfluen 4 PCR NOT DETECTED 06/26/20 18:15 Nasal RSV (PCR) NOT DETECTED 06/26/20 18:15 Nasal Screen MRSA (PCR) POSITIVE (NEGATIVE) A* 06/26/20 20:05 Nasal B.pertussis DNA PCR NOT DETECTED 06/26/20 18:15 Nasal C.pneumoniae (PCR) NOT DETECTED 06/26/20 18:15 Lisa Human Metapneumo PCR NOT DETECTED 06/26/20 18:15 Nasal M.pneumoniae (PCR) NOT DETECTED 06/26/20 18:15 Nasal SARS-CoV-2 (PCR) NOT DETECTED 06/26/20 18:15 Urine Opiates Screen NEGATIVE (NEGATIVE) 06/26/20 16:20 Ur Oxycodone Screen NEGATIVE (NEGATIVE) 06/26/20 16:20 Urine Methadone Screen NEGATIVE (NEGATIVE) 06/26/20 16:20 Ur Propoxyphene Screen NEGATIVE (NEGATIVE) 06/26/20 16:20 Ur Barbiturates Screen NEGATIVE (NEGATIVE) 06/26/20 16:20 Ur Tricyclics Screen NEGATIVE (NEGATIVE) 06/26/20 16:20 Ur Phencyclidine Scrn NEGATIVE (NEGATIVE) 06/26/20 16:20 Ur Amphetamine Screen NEGATIVE (NEGATIVE) 06/26/20 16:20 U Methamphetamines Scrn NEGATIVE (NEGATIVE) 06/26/20 16:20 U Benzodiazepines Scrn NEGATIVE (NEGATIVE) 06/26/20 16:20 Urine Cocaine Screen NEGATIVE (NEGATIVE) 06/26/20 16:20 U Cannabinoids Screen NEGATIVE (NEGATIVE) 06/26/20 16:20 Ethyl Alcohol < 5.0 mg/dL 06/26/20 16:26 - Procedures Procedures: Procedures TRANSFUSE NONAUT RED BLOOD CELLS IN PERIPH VEIN, PERC (04/02/18)
[2020-06-28 08:44] LABS: PLATELET ESTIMATE, MANUAL NORMAL (130-450,000) (NORMAL); PLATELET MORPHOLOGY NORMAL APPEARANCE (NORMAL); RBC MORPHOLOGY (MULTIPLE) 2+ MACROCYTOSIS (NORMAL)
[2020-06-28] MEDS: METOPROLOL SUCCINATE 25 MG TABLET PO SCH (09:16)
[2020-06-28] MEDS: THIAMINE 100 MG TABLET PO SCH (09:16)
[2020-06-28] MEDS: NICOTINE 14 MG PATCH TOP SCH (09:17)
[2020-06-28] MEDS: FAMOTIDINE 20 MG TABLET PO SCH (09:17)
[2020-06-28] MEDS: ethyl alcohoL 62% SWAB AMPULE NAS SCH (09:17)
[2020-06-28] MEDS: PRENATAL VITAMIN TABLET PO SCH (09:17)
[2020-06-28 11:50] LABS: FOLATE 12.35 ng/mL (5.90 - >24.8)
[2020-06-28 13:24] VITALS: BP 104/85
--- NOTE | 2020-06-28 15:46 | Discharge Plan ---
Discharge Plan Problem Reviewed?: Yes Disposition: 07 Against Medical Advice Condition: Stable No Smoking: If you smoke, Please STOP! Call for help. Follow-up with: Amrita Salinas ARNP [Primary Care Provider] -
--- NOTE | 2020-06-28 15:46 | DISCHARGE SUMMARY ---
Discharge Summary Admit Date: 06/26/20 Discharge Date: 06/28/20 Discharging Provider: Emperatriz Olveratu Code Status: Attempt Resuscitation Condition at Discharge: Stable Discharge Disposition: 07 Against Medical Advice - DIAGNOSES Admission Diagnoses: Alcoholic pancreatitis Alcohol abuse Alcohol withdrawal Malignant hypertension Tachycardia Hypokalemia Hypomagnesemia Transaminitis Aortic atherosclerosis Hypothyroidism Tobacco abuse IHSS Chronic obstructive pulmonary disease with exacerbation History of diverticulitis Discharge Diagnoses with Status of Each Condition: Alcoholic pancreatitis: Acute. Improving. Patient left AMA Alcohol abuse: Chronic. Alcohol withdrawal: Acute. Improved/resolved. Patient left AMA Leukocytosis: Acute. Likely reactive. Improving. Patient left AMA Hypertension: Acute on Chronic. Improved Hypokalemia: Acute. Resolved Hypomagnesemia: Acute. Resolved Hypothyroidism: Chronic Tobacco use: Chronic - HPI History of Present Illness: Per HPI. The patient is a 64-year-old female with history of intermittent alcohol abuse, tobacco smoking 1:30 and 1/2 packs a day, diverticulitis with prior perforation and history of partial colectomy, history of hypertension, IHSS next, COPD, chronic hepatitis, prior pancreatitis, DJD, who presented with acute onset of diffuse abdominal pain with radiation to both flanks. She reported nausea but no vomiting or diarrhea. It lasted the whole day and she finally came to the ED because the pain continued. She underwent a CT that show ed pancreatitis and labs which showed an elevated lipase of 900. She tried to stop drinking alcohol daily however over the weekend yesterday and on the day of presentation she had alcohol binge in which she admitted she was also found to have a white blood cell count of 18. Finally she had a systolic blood pressure of 230. She was admitted to the ICU due to malignant hypertension and being slightly tremulous. This was concerning for early alcohol withdrawal. He was treated with IV hydration which resulted in improvement in her Labs. The following day her lipase was 732 and on the second day of hospital stay her lipase was down to 109. Received magnesium replacement for an initial magnesium of 1.5. By the day she left AGAINST MEDICAL ADVICE her magnesium level was 1.9. Her leukocytosis was thought to be reactive. She was not treated with antibiotics. It improved over the subsequent 2 days. By the day she left the hospital her white blood cell count was 11.3. She reported significant improvement in her pain. On 06/28/20 she attempted to elope and was stopped at the door and convinced to return to her room by the nursing staff. A few hours later she was very insistent on leaving. This was brought to my attention. I went to see the patient and highlighted that she was here receiving care for pancreatitis. I asked her to reconsider staying which she declined. I also highlighted that her condition could worsen if she was to leave without completing her care and the s pectrum of outcomes could potentially lead to her demise. She expressed that she understood what I was saying but that was not going to happen and that she wanted to leave because she had had enough. She signed the necessary paperwork and left AGAINST MEDICAL ADVICE. - ALLERGIES Allergies/Adverse Reactions: Allergies Allergy/AdvReac Type Severity Reaction Status Date / Time No Known Drug Allergies Allergy Verified 06/26/20 15:54 - MEDICATIONS Home Medications: Ambulatory Orders Medication Instructions Recorded Confirmed Levothyroxine [Synthroid] 75 mcg PO DAILY 12/03/18 06/26/20 Omeprazole 40 mg PO BID 12/03/18 06/26/20 Gabapentin [Neurontin] 2 cap PO TID 06/26/20 06/26/20 - PHYSICAL EXAM AT DISCHARGE General Appearance: positive: Alert, Mild distress Eyes Bilateral: positive: PERRL, EOMI ENT: positive: Dry mucous membranes Neck: positive: No JVD, Trachea midline Cardiovascular: positive: Regular rate & rhythm Abdomen: positive: Non-tender, No organomegaly, No distention. negative: Guarding, Rebound Back: positive: Nml inspection Skin: positive: Color nml, No rash, Warm, Dry Neurologic/Psychiatric: positive: Oriented x3, Mood/affect nml - LABS Result Diagrams: 06/28/20 05:20 06/28/20 05:20 - TIME SPENT Time Spent in Discharge (Minutes): 20
== END 2020-06-28 15:36 | disposition left against medical advice (07) | DRG 439 ==
LOC: ED 15:47 → ICU 18:47
PROVIDERS: ADMIT Internal Medicine; ATTEND Internal Medicine
DX: K85.20 Alcohol induced acute pancreatitis without necrosis or infection (principal); F10.139 Alcohol abuse with withdrawal, unspecified; I42.1 Obstructive hypertrophic cardiomyopathy; I10 Essential (primary) hypertension; D72.829 Elevated white blood cell count, unspecified; E87.6 Hypokalemia; E83.42 Hypomagnesemia; E03.9 Hypothyroidism, unspecified; F17.210 Nicotine dependence, cigarettes, uncomplicated; Z90.49 Acquired absence of other specified parts of digestive tract; J44.9 Chronic obstructive pulmonary disease, unspecified; K73.9 Chronic hepatitis, unspecified; R25.1 Tremor, unspecified; Z53.29 Procedure and treatment not carried out because of patient's decision for other reasons; Z87.19 Personal history of other diseases of the digestive system; R00.0 Tachycardia, unspecified; R74.01 Elevation of levels of liver transaminase levels; I70.0 Atherosclerosis of aorta; Z20.822 Contact with and (suspected) exposure to COVID-19
CPT/HCPCS: 0202U; 36415; 74177; 80048; 80053; 80306; 80320; 81003; 82248; 82607; 82746; 83690; 83735; 84100; 84443; 85025; 87150; 96361; 96374; 96375; 96376; 99285; A9270; J1170; J2060; Q9967; 80076; 81001; 87086

== ENCOUNTER 2021-07-25 14:47 | Outpatient (CLI) | payer MEDICAID ==
[2021-07-25 20:29] LABS: CALCIUM 8.6 mg/dL (8.5-10.3); CREATININE 0.8 mg/dL (0.4-1.0); POTASSIUM 2.8 mmol/L (3.5-5.0)
[2021-07-25 20:45] LABS: THYROID STIMULATING HORMONE 0.11 uIU/mL (0.34-5.60)
[2021-07-25 21:23] LABS: FREE T4 (FREE THYROXINE) 0.93 ng/dL (0.58-1.64)
== END 2021-07-25 14:48 | disposition home or self-care (01) ==
LOC: LAB.S 14:47
PROVIDERS: ATTEND Registered Nurse
DX: E87.6 Hypokalemia (principal); E03.9 Hypothyroidism, unspecified
CPT/HCPCS: 36415; 80048; 84439; 84443

== ENCOUNTER 2021-09-15 10:21 | Outpatient (CLI) | payer MEDICAID ==
[2021-09-15 15:24] LABS: CALCIUM 8.6 mg/dL (8.5-10.3); CREATININE 0.9 mg/dL (0.4-1.0)
[2021-09-15 16:02] LABS: THYROID STIMULATING HORMONE 2.41 uIU/mL (0.34-5.60)
[2021-09-15 16:04] LABS: FREE T4 (FREE THYROXINE) 1.38 ng/dL (0.58-1.64)
== END 2021-09-15 10:22 | disposition home or self-care (01) ==
LOC: LAB.S 10:21
PROVIDERS: ATTEND Registered Nurse
DX: E87.6 Hypokalemia (principal); E03.9 Hypothyroidism, unspecified
CPT/HCPCS: 36415; 80048; 84439; 84443

== ENCOUNTER 2021-11-10 11:56 | Emergency (ER) | payer MEDICAID ==
[2021-11-10 12:23] LABS: BASOPHILS % (AUTO) 0.1 %; EOSINOPHILS % (AUTO) 0.1 %; HCT - HEMATOCRIT 28.1 % (37.0-47.0); HGB - HEMOGLOBIN 9.8 g/dL (12.0-16.0); LYMPHOCYTES # (AUTO) 0.7 10^3/uL (1.5-3.5); LYMPHOCYTES % (AUTO) 4.4 %; MEAN CORPUSCULAR HEMOGLOBIN 36.6 pg (27.0-31.0); MEAN CORPUSCULAR HGB CONC 34.9 g/dL (32.0-36.0); MEAN CORPUSCULAR VOLUME 104.9 fL (81.0-99.0); MEAN PLATELET VOLUME 11.1 fL (7.9-10.8); MONOCYTES # (AUTO) 1.3 10^3/uL (0.0-1.0); MONOCYTES % (AUTO) 8.5 %; PLT - PLATELET COUNT 347 10^3/uL (130-450); RED BLOOD COUNT 2.68 10^6/uL (4.20-5.40); RED CELL DISTRIBUTION WIDTH 14.8 % (12.0-15.0); WHITE BLOOD COUNT 15.1 x10^3/uL (4.8-10.8)
--- NOTE | 2021-11-10 12:23 | XRAY Report ---
PROCEDURE: Chest 1 View X-Ray INDICATIONS: Chest Pain TECHNIQUE: One view of the chest was acquired. COMPARISON: None FINDINGS: Surgical changes and devices: None. Lungs and pleura: Left greater than right bibasilar opacities. Moderate left pleural effusion. Mediastinum: Mediastinal contours appear normal. Heart size is normal. Bones and chest wall: No suspicious bony lesions. Overlying soft tissues appear unremarkable. IMPRESSION: Moderate left pleural effusion. Left greater than right basilar opacities probably atelectasis, possi ble components of infectious or inflammatory airspace disease. Consider follow-up imaging to reassess . Reviewed by: Solo Camacho MD on 11/10/2021 12:21 PM PDT Approved by: Solo Camacho MD on 11/10/2021 12:21 PM PDT Station ID: [id number]
[2021-11-10 12:43] LABS: ALBUMIN 1.8 g/dL (3.2-5.5); ALBUMIN/GLOBULIN RATIO 0.5 (1.0-2.2); BILIRUBIN,TOTAL 0.6 mg/dL (0.2-1.0); CALCIUM 8.3 mg/dL (8.5-10.3); POTASSIUM 4.3 mmol/L (3.5-5.0); TOTAL PROTEIN 5.2 g/dL (6.7-8.2)
[2021-11-10] MEDS ORDERED: AZITHROMYCIN 250 MG TABLET PO STA (13:40)
--- NOTE | 2021-11-10 13:43 | ED Physician Documentation ---
History of Present Illness - Stated complaint Stated Complaint: WEAKNESS/SOA/COUGH - Chief complaint Chief Complaint: General - History obtained from History obtained from: Patient - Additonal information Additional information: The patient comes to the emergency department chief complaint of shortness of breath. The patient states this is fairly chronic for her though she has felt a little worse over the last couple of weeks. She does have a productive cough and has a history of COPD, CHF, and alcoholic liver cirrhosis. She states that she has been on diuretics for her CHF and liver failure, but that this does not really seem to be helping her symptoms. She states that she has chronic edema in her lower extremities which just never seems to go away. No fever or chills. No chest pain. No other acute symptoms. Review of Systems Ten Systems: 10 systems reviewed and negative Constitutional: reports: Reviewed and negative Eyes: reports: Reviewed and negative Ears: reports: Reviewed and negative Nose: reports: Reviewed and negative Throat: reports: Reviewed and negative Cardiac: reports: Reviewed and negative Respiratory: reports: Dyspnea, Cough GI: reports: Reviewed and negative : reports: Reviewed and negative Skin: reports: Reviewed and negative Musculoskeletal: reports: Extremity swelling Neurologic: reports: Reviewed and negative Psychiatric: reports: Reviewed and negative Endocrine: reports: Reviewed and negative Immunocompromised: reports: Reviewed and negative PD PAST MEDICAL HISTORY - Past Medical History Cardiovascular: Hypertension, Murmur Respiratory: COPD, Emphysema, Pneumonia Neuro: None Endocrine/Autoimmune: HyPOthyroidism GI: GERD, GI bleed, Pancreatitis, Hepatitis, Diverticulitis MATTRESS SPECIALIST: None : None HEENT: None Psych: None Musculoskeletal: Osteoarthritis Derm: None - Past Surgical History Past Surgical History: Yes General: Colonoscopy, EGD /MATTRESS SPECIALIST: Tubal ligation HEENT: Tonsil/Adenoidectomy - Present Medications Home Medications: Ambulatory Orders Medication Instructions Recorded Confirmed Levothyroxine [Synthroid] 75 mcg PO DAILY 12/03/18 06/26/20 Omeprazole 40 mg PO BID 12/03/18 06/26/20 Gabapentin [Neurontin] 2 cap PO TID 06/26/20 06/26/20 Albuterol Sulf [Ventolin Hfa 1 - 2 puffs INH Q4HR PRN #1 gm 11/10/21 Inhaler] Azithromycin [Zithromax] 0 mg PO DAILY #6 tablet 11/10/21 - Allergies Allergies/Adverse Reactions: Allergies Allergy/AdvReac Type Severity Reaction Status Date / Time No Known Drug Allergies Allergy Verified 06/26/20 15:54 - Social History Does the pt smoke?: Yes Smoking Status: Current every day smoker Does the pt drink ETOH?: No Does the pt have substance abuse?: No - Immunizations Immunizations are current?: Yes Immunizations: TDAP >10years/unknown - POLST Patient has POLST: No POLST Status: Limited Interventions PD ED PE NORMAL - Vitals Vital signs reviewed: Yes - General General: Alert and oriented X 3, No acute distress, Other (Emaciated patient who appears much older than stated age.) - HEENT HEENT: Atraumatic, PERRL, EOMI, Moist mucous membranes - Neck Neck: Supple, no meningeal sign - Cardiac Cardiac: RRR, No murmur, Strong equal pulses - Respiratory Respiratory: No respiratory distress, Clear bilaterally - Abdomen Abdomen: Soft, Non tender, Non distended - Derm Derm: Normal color, Warm and dry, No rash - Extremities Extremities: No deformity, Other (2+ pitting edema bilateral lower extremities) - Neuro Neuro: Alert and oriented X 3, clerk of scales 2-12 intact, Normal speech - Psych Psych: Normal mood, Normal affect Results - Vitals Vitals: Vital Signs - 24 hr 11/10/21 11/10/21 12:13 14:12 Temperature 36.7 C 36.6 C Heart Rate 102 H 96 Respiratory 20 14 Rate Blood Pressure 117/85 H 143/97 H O2 Saturation 99 98 Oxygen O2 Source Room air - Labs Labs: Laboratory Tests 11/10/21 11/10/21 11/10/21 12:16 12:16 12:16 WBC 15.1 H RBC 2.68 L Hgb 9.8 L Hct 28.1 L MCV 104.9 H MCH 36.6 H MCHC 34.9 RDW 14.8 Plt Count 347 MPV 11.1 H Neut # (Auto) 13.0 H Lymph # (Auto) 0.7 L Edmonson # (Auto) 1.3 H Eos # (Auto) 0.0 Baso # (Auto) 0.0 Absolute Nucleated RBC 0.00 Nucleated RBC % 0.0 Sodium 130 L Potassium 4.3 Chloride 96 L Carbon Dioxide 23 Anion Gap 11.0 BUN 40 H Creatinine 2.0 H Estimated GFR (MDRD) 25 L Glucose 109 H Calcium 8.3 L Total Bilirubin 0.6 AST 25 ALT 17 Alkaline Phosphatase 221 H Troponin I High Sens 21.2 H* B-Natriuretic Peptide Total Protein 5.2 L Albumin 1.8 L Globulin 3.4 Albumin/Globulin Ratio 0.5 L Lipase 310 H 11/10/21 12:16 WBC RBC Hgb Hct MCV MCH MCHC RDW Plt Count MPV Neut # (Auto) Lymph # (Auto) Edmonson # (Auto) Eos # (Auto) Baso # (Auto) Absolute Nucleated RBC Nucleated RBC % Sodium Potassium Chloride Carbon Dioxide Anion Gap BUN Creatinine Estimated GFR (MDRD) Glucose Calcium Total Bilirubin AST ALT Alkaline Phosphatase Troponin I High Sens B-Natriuretic Peptide 730 H Total Protein Albumin Globulin Albumin/Globulin Ratio Lipase - Rads (name of study) Chest x-ray Radiology: Final report received, See rad report (Left pleural effusion. No acute findings) PD MEDICAL DECISION MAKING - ED course Complexity details: reviewed results, re-evaluated patient, considered differential, d/w patient ED course: Patient was worked up with laboratory studies, EKG, and chest x-ray. Her BNP was elevated in the 700s and her white blood cell count was 15,000. Her chest x-ray showed possible infiltrates at the bases. This patient unfortunately had advanced, significant medical problems including CHF, COPD, Chronic tobacco a buse, and liver failure, with chronic wasting. She stated that she is currently living at home with her and that for now, the situations working for them. I have advised her to look into assisted living in advance of that if the time comes that they do not feel they can live at home anymore, they will be prepared to make that step. The patient also brought her discharge papers from a recent admission to [facility] for the same issue she is here for today, and I did look through these. I discussed with the patient that she actually had been recommended for home health through [facility] and that the patient just needs to call the number on her papers to get this set up. I will send a prescription for an albuterol inhaler for the patient, since she is out of her inhaler currently. I will also treat her with Zithromax. We have discussed the usual indications for follow-up and return. Departure - Departure Disposition: 01 Home, Self Care Clinical Impression: Tobacco abuse, Bronchitis COPD (chronic obstructive pulmonary disease) Qualifiers: COPD type: unspecified COPD Qualified Code(s): J44.9 - Chronic obstructive pulmonary disease, unspecified CHF (congestive heart failure) Qualifiers: Heart failure type: unspecified Heart failure chronicity: unspecified Qualified Code(s): I50.9 - Heart failure, unspecified Liver cirrhosis Qualifiers: Hepatic cirrhosis type: alcoholic cirrhosis Ascites presence: without ascites Qualified Code(s): K70.30 - Alcoholic cirrhosis of liver without ascites Condition: Stable Instructions: ALBUTEROL Oral Inhaler, ED Upper Resp Infec Abx Tx, ED CHF General, ED Cirrhosis Liver Prescriptions: Albuterol Sulf [Ventolin Hfa Inhaler] 1 - 2 puffs INH Q4HR PRN #1 gm PRN Reason: Shortness Of Air/Wheezing Azithromycin [Zithromax] 0 mg PO DAILY #6 tablet Comments: Your prescriptions have been electronically transmitted to [facility] in [place]. Unfortunately, many of your medical problems are quite significant, but also chronic, and cannot be easily fixed in the emergency department. Please continue to work with your primary doctor on the best approach to managing these conditions. When you were discharged from [facility], you were given contact information for the [facility] home health program, and you should call this phone number to help get home health set up for you and your . Please also consider working with your primary doctor on doing at least the prep work for assisted living in case you need it. Please schedule the next possible appointment to your primary doctor for Follow-up. Discharge Date/Time: 11/10/21 14:13
[2021-11-10 14:14] VITALS: BP 143/97
== END 2021-11-10 14:13 | disposition home or self-care (01) ==
LOC: EDUNIT# → ED 11:56
DX: J43.9 Emphysema, unspecified (principal); I11.0 Hypertensive heart disease with heart failure; I50.9 Heart failure, unspecified; F17.200 Nicotine dependence, unspecified, uncomplicated
CPT/HCPCS: 36415; 71045; 80053; 83690; 83880; 84484; 85025; 93005; 99284; A9270

== ENCOUNTER 2021-11-11 13:50 | Outpatient (CLI) | payer MEDICAID | END 2021-11-11 13:51 | disposition short-term general hospital (02) | LOC: EMS 13:50 | DX: R06.02 Shortness of breath (principal); R14.0 Abdominal distension (gaseous); R10.32 Left lower quadrant pain; R60.0 Localized edema | CPT/HCPCS: A0425; A0427; A0999 ==